=== PATIENT | male | born 1930 | race Asian ===

== ENCOUNTER 2017-01-21 17:54 | Inpatient (IN) | payer MEDICARE, BC ==
[~2017-01-21] VITALS: Ht 170.2 cm; Wt 64.8 kg
[2017-01-21] MEDS ORDERED: PROPOFOL 100 ML ONE (18:08)
[2017-01-21] MEDS ORDERED: SOD CHLORIDE 0.9% 500 ML IV STA (18:10)
[2017-01-21 18:16] LABS: ADD SCAN DIFF NO
[2017-01-21] MEDS ORDERED: ATOR20TA38 PO (18:17)
[2017-01-21] MEDS ORDERED: LATA2.5D2 BOTH EYES (18:18)
[2017-01-21] MEDS ORDERED: LACHYD12 TOP (18:18)
[2017-01-21 18:23] LABS: BASOPHILS % 0.3 % (0.0-2.0); EOSINOPHILS % 0.5 % (0.0-7.0); HEMATOCRIT 43.2 % (42.0-52.0); HEMOGLOBIN 13.9 g/dl (14.0-18.0); LYMPHOCYTES # 1.9 10^3/ul (0.8-2.9); LYMPHOCYTES % 25.2 % (15.0-51.0); MEAN CORPUSCULAR HEMOGLOBIN 32.2 pg (29.0-33.0); MEAN CORPUSCULAR HGB CONC 32.2 g/dl (32.0-37.0); MEAN PLATELET VOLUME 9.8 fl (7.4-10.4); MONOCYTE # 0.4 10^3/ul (0.3-0.9); NEUTROPHIL # 5.2 10^3/ul (1.6-7.5); NEUTROPHILS % 68.7 % (39.0-77.0); PLATELET COUNT 180 10^3/UL (140-415); RED BLOOD COUNT 4.32 10^6/ul (4.70-6.10); WHITE BLOOD COUNT 7.5 10^3/ul (4.8-10.8)
[2017-01-21] MEDS ORDERED: PROPOFOL 100 ML IV ONE (18:30)
--- NOTE | 2017-01-21 18:30 | RADRPT ---
PROCEDURE: CT Brain without contrast. CLINICAL INDICATION: Neurologic deficit, code stroke. TECHNIQUE: A CT of the brain was performed utilizing axial sections from the skull base through th e vertex without contrast. Multiplanar re-formations were generated. Images were reviewed on a high- resolution PACS workstation. CTDIvol: 44.33 mGy. DLP: 720.23 mGy-cm. One or more of the following dose reduction techniques were used: - Automated exposure control. - Adjustment of the mA and/or kV according to patient size. - Use of iterative reconstruction technique. COMPARISON: 05/03/2016 FINDINGS: There is moderate generalized volume loss. No hydrocephalus is seen. There is no mass effect. No ac [place] intracranial hemorrhage is identified. There is no extra-axial collection. No CT evidence of ac [place] infarction is identified. 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 There is patchy low attenuation in the supratentorial white matter, a nonspecific finding which most likel y represents the sequela of mild to moderate chronic microvascular ischemic disease. A punctate righ t occipital cortical hyperdensity is unchanged since the prior examination. There are mild atheroscl erotic arterial calcifications. There is no significant mucosal disease in the paranasal sinuses. The visualized mastoid air cells a re clear. The ossesous structures are unremarkable. The extracranial soft tissues are unremarkable. The patient is status post bilateral lens replacement surgery. IMPRESSION: 1. No acute intracranial pathology. 2. Moderate generalized volume loss. 3. Mild to moderate chronic microvascular ischemic changes. 4. 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 5. Stable punctate focus of cortical hyperdensity in the right occipital lobe, probably representin g a focus of mineralization. 6. Atherosclerotic arterial calcifications. Critical Results were called to Dr. Hurtado at 06:25 p.m. on 01/21/2017. RPTAT: HTAR .Sunil Wolff MD, Date Time Electronically viewed and signed by .Sunil Wolff MD, MD on 01/21/2017 18:29 .R/
[2017-01-21 18:32] LABS: ALBUMIN 4.8 g/dl (3.3-4.9); INR 0.93; PROTIME 12.5 Sec (12.2-14.2)
[2017-01-21 18:33] LABS: CHLORIDE 101 mmol/L (97-110); PARTIAL THROMBOPLASTIN TIME 30.6 Sec (25.0-35.0); POTASSIUM 4.6 mmol/L (3.5-5.1); SODIUM 143 mmol/L (135-144)
[2017-01-21 18:35] LABS: ALBUMIN/GLOBULIN RATIO 1.33; ANION GAP 19 (8-16); ASPARTATE AMINO TRANSFERASE 31 IU/L (15-46); CARBON DIOXIDE 28 mmol/L (21-31); CREATININE 1.15 mg/dl (0.61-1.24); TOTAL PROTEIN 8.4 g/dl (6.1-8.1)
[2017-01-21 18:36] LABS: ALANINE AMINOTRANSFERASE 24 IU/L (13-69); ALKALINE PHOSPHATASE 72 IU/L (42-121); BLOOD UREA NITROGEN 19 mg/dl (7-20); CALCIUM 9.7 mg/dl (8.4-10.2); GLUCOSE 107 mg/dl (70-220)
[2017-01-21 18:50] LABS: TROPONIN-I < 0.012 ng/ml (0.00-0.12)
[2017-01-21] MEDS ORDERED: LEVETIRACETAM 1000 MG (PMX) 100 ML IVPB ONE (19:00)
[2017-01-21] MEDS ORDERED: IOHEXOL 100 ML ONE (19:09)
[2017-01-21] MEDS ORDERED: SOD CHLORIDE 0.9% 100 ML ONE (19:09)
[2017-01-21] MEDS ORDERED: METO50TA16 PO (19:17)
[2017-01-21] MEDS ORDERED: LABETALOL HCL 20MG INJ IV ONE (19:30)
--- NOTE | 2017-01-21 20:17 | RADRPT ---
PROCEDURE: XR Chest. CLINICAL INDICATION: Focal neurological deficit. TECHNIQUE: Single frontal chest x-ray. COMPARISON: None. FINDINGS: Patient is status post sternotomy. Endotracheal tube tip is at the level of the clavicles. NG tube tip is in the distal esophagus. Heart is enlarged.. There is no CHF.. There is minimal bibasilar atelectasis.. There is no pleural effusion. There is no pneumothorax. The osseous structures are unremarkable. IMPRESSION: Endotracheal tube tip above kelsey. NG tube tip in the distal esophagus. Cardiomegaly. Bibasilar atelectasis. Findings reported to Dr. WELSH on 01/21/2017 8:14:00 PM. RPTAT: HMVK .Mynor Palm MD, Date Time Electronically viewed and signed by .Mynor Palm MD, on 01/21/2017 20:17 .K/
[2017-01-21 20:32] LABS: AADO2 Arterial 178.1 mmHg (7.0-24.0); Allen Test ACCEPTAB; Arterial Base Excess -0.9 mmol/L (-3.0-3); Arterial COHb 0.3 % (0.0-3.0); Arterial Fraction of Oxyhgb 98.8 % (93.0-99.0); Arterial HCO3 20.8 mmol/L (22.0-26.0); Arterial MetHb 0.5 % (0.0-1.5); Arterial Total Hemglobin 16.9 g/dl (12.0-18.0); MODE VENT - AC
--- NOTE | 2017-01-21 20:32 | RADRPT ---
PROCEDURE: CT Angiogram Head and Neck with IV Contrast CLINICAL INDICATION: Neurological deficit.. TECHNIQUE: Serial axial computed tomographic images of the head and neck were obtained at the [facility] nistration of 90 cc Isovue 370 IV contrast material. 3D, sagittal and coronal reconstruction images were created. 3D/MIP post-processing angiographic reconstruction images were also produced. Exam C TDlvol = 76 mGy and DLP = 622 mGy-cm. One of the following 3 dose reduction techniques were used: A utomated exposure control; adjustment of the mA and/or kV according to patient size; or use of itera tive reconstruction technique. COMPARISON: CT brain 01/21/2017. FINDINGS: CT Angio Neck: There are mild atherosclerotic calcifications of the aortic arch. There is minima l atherosclerotic plaque in the bilateral common carotid arteries. There is moderate bilateral schwartz tid bulb plaque without hemodynamically significant stenosis. There is no evidence for carotid diss ection. The vertebral arteries are unremarkable. there are degenerative changes of the cervical sp ine, greatest at C5-6. Prevertebral soft tissues are obscured by a nasogastric femoral tracheal tub e. CT Angio Head: All major intracranial arteries are identified. Mild atherosclerotic calcifications of the cavernous internal carotid arteries bilaterally without hemodynamically significant stenosis . The anterior circulation including the intracranial internal carotid arteries, middle and anterio r cerebral arteries are otherwise normal in appearance. The bilateral distal vertebral arteries, ba silar artery and posterior cerebral arteries are normal in appearance. No occlusion or stenosis is identified. No filling defect is identified. No aneurysm or vascular malformation is identified. No abnormal brain parenchymal enhancement is identified. IMPRESSION: 1. No intracranial occlusion or thrombus identified. 2. Moderate atherosclerotic calcified plaquing bilateral carotid bulbs without hemodynamically sign ificant stenosis. 3. Mild atherosclerotic calcifications of the bilateral common carotid arteries and cavernous inter nal carotid arteries without hemodynamically significant stenosis. 4. Degenerative changes of the cervical spine. Findings reported to Nurse Gilmore on 01/21/2017 8:29:24 PM. NASCET CAROTID STENOSIS CRITERIA (distal normal appearing ICA as denominator for measurement): 0%-no ne, 1-49%-mild, 50-70%-moderate, 70-89%-severe, 90-99%-critical. RPTAT: HMVK .Mynor Palm MD, MD Date Time Electronically viewed and signed by .Mynor Palm MD, MD on 01/21/2017 20:32 .K/
[2017-01-21 23:36] LABS: URINE BLOOD (Dip) POC 2+ (NEGATIVE)
--- NOTE | 2017-01-21 23:46 | ERA ---
ER Documentation Chief Complaint Date/Time DATE: 01/21/17 TIME: 22:51 Chief Complaint BIB RA FOR EVAL OF ALOC LAST WELL KNOWN TIME 40MINS [employer] HPI 86-year-old male with a history of CABG brought in by ambulance for altered mental status and possible stroke. Patient was found by his caregiver having seizure-like activity. Reportedly he was very weak today and somewhat confused. He was having difficulty walking. He went to take a nap. His caregiver found him around 430 or 5:00 twitching and having difficulty speaking. Ambulance was called. He did not give any medications in the ambulance. He was noted to be hypertensive. There is no family at bedside and information is otherwise limited given the patient's altered mental status. Patient is actively seizing ROS All systems reviewed and are negative except as per history of present illness. Medications Home Meds Reported Medications Metoprolol Succinate* (Toprol XL*) 50 Mg Tab.er.24h, 50 MG PO DAILY, #30 TAB 01/21/17 Ammonium Lactate* (Lac-Hydrin* 12% (225gm)) 1 Applic Lotion, 1 APPLIC TOP DAILY , BOTTLE 01/21/17 Latanoprost (Latanoprost) 2.5 Ml Drops, 1 DROP BOTH EYES QHS, #1 BOTTLE 01/21/17 Atorvastatin Calcium* (Atorvastatin Calcium*) 20 Mg Tablet, 20 MG PO QHS, #30 TAB 01/21/17 Allergies Allergies: Coded Allergies: No Known Allergy (Unverified , 01/21/17) PMhx/Soc Unable to obtain Medical and Surgical Hx: Unable to obtain Hx Alcohol Use: No Hx Substance Use: No Hx Tobacco Use: No Smoking Status: Unknown if ever smoked FmHx Family History: other (Unable to obtain) Physical Exam Vitals Vital Signs Date Time Temp Pulse Resp B/P Pulse Ox O2 Delivery O2 Flow Rate FiO2 01/21/17 22:45 69 12 100 40 01/21/17 21:05 91 12 100 40 01/21/17 20:30 98.0 90 14 189/114 100 Mechanical Ventilator 01/21/17 20:15 98.0 91 14 163/110 100 Mechanical Ventilator 01/21/17 20:00 98.0 14 227/113 100 Mechanical Ventilator 01/21/17 19:30 98.1 90 14 185/89 100 Mechanical Ventilator 01/21/17 19:15 98.1 94 14 195/102 100 Mechanical Ventilator 01/21/17 19:00 91 14 100 100 01/21/17 19:00 98.0 93 14 218/100 100 Mechanical Ventilator 01/21/17 18:45 98.1 91 16 212/98 100 Mechanical Ventilator 01/21/17 18:37 102 14 100 01/21/17 18:30 98.0 93 14 222/94 98 Mechanical Ventilator 01/21/17 18:14 Non Rebreather 10 01/21/17 18:06 98.0 104 12 216/99 98 Physical Exam INITIAL VITAL SIGNS: Reviewed by me GENERAL: Patient is lying on gurney, left side twitching, unable to answer questions, eyes open HEAD: Head is normocephalic. No evidence of trauma. No scalp or facial swelling , facial twitching, EYES: No scleral icterus bilaterally, left sided gaze, PERRLA ENT: Oropharynx is clear of exudate and erythema NECK: Supple. No meningismus. No masses. No evidence of trauma. No cervical spine bony step-offs or crepitus to palpation RESPIRATORY: No tachypnea. Clear to auscultation bilaterally. CV: Regular rate and rhythm. No murmurs, rubs, or gallops ABDOMEN: Soft, non-distended. No masses BACK: No ecchymoses. No evidence of trauma EXTREMITIES: Normal to inspection and palpation. No deformity. 2+ radial, DP, PT pulses, equal bilaterally SKIN: Warm and dry. No obvious rash. No jaundice NEUROLOGIC: Actively seizing with seizure-like activity in the left upper extremity and left lower extremity Result Diagram: 01/21/170 01/21/17 181 Results 24 hrs Laboratory Tests Test 01/21/17 18:10 01/21/17 19:00 01/21/17 20:20 White Blood Count 7.510^3/ul Red Blood Count 4.3210^6/ul Hemoglobin 13.9g/dl Hematocrit 43.2% Mean Corpuscular Volume 100.0fl Mean Corpuscular Hemoglobin 32.2pg Mean Corpuscular Hemoglobin Concent 32.2g/dl Red Cell Distribution Width 15.0% Platelet Count 84892^3/UL Mean Platelet Volume 9.8fl Neutrophils % 68.7% Lymphocytes % 25.2% Monocytes % 5.0% Eosinophils % 0.5% Basophils % 0.3% Nucleated Red Blood Cells % 0.0/100WBC Neutrophils # 5.210^3/ul Lymphocytes # 1.910^3/ul Monocytes # 0.410^3/ul Eosinophils # 0.010^3/ul Basophils # 0.010^3/ul Nucleated Red Blood Cells # 0.010^3/ul Prothrombin Time 12.5Sec Prothrombin Time Ratio 1.0 INR International Normalized Ratio 0.93 Activated Partial Thromboplast Time 30.6Sec Sodium Level 143mmol/L Potassium Level 4.6mmol/L Chloride Level 101mmol/L Carbon Dioxide Level 28mmol/L Anion Gap 19 Blood Urea Nitrogen 19mg/dl Creatinine 1.15mg/dl Glucose Level 107mg/dl Hemoglobin A1c 6.6% Lactic Acid Level 6.5mmol/L 2.4mmol/L Calcium Level 9.7mg/dl Total Bilirubin 1.0mg/dl Direct Bilirubin 0.00mg/dl Indirect Bilirubin 1.0mg/dl Aspartate Amino Transf (AST/SGOT) 31IU/L Alanine Aminotransferase (ALT/SGPT) 24IU/L Alkaline Phosphatase 72IU/L Troponin I < 0.012ng/ml Total Protein 8.4g/dl Albumin 4.8g/dl Globulin 3.60g/dl Albumin/Globulin Ratio 1.33 Blood Gas Specimen Source Blood arterial Arterial Blood Date Drawn 01/21/2017 8:20:28 PM Arterial Blood pH (Temp corrected) 7.491 Arterial Blood pCO2 (Temp correct) 27.8mmhg Arterial Blood pO2 (Temp corrected) 507.1mmHG Arterial Blood HCO3 20.8mmol/L Arterial Blood Base Excess -0.9mmol/L Arterial Blood Oxygen Saturation 99.6mmHG Sharif Test ACCEPTAB Arterial Blood Gas Puncture Site Right Radial Arterial Blood Carboxyhemoglobin 0.3% Arterial Blood Methemoglobin 0.5% Blood Gas A-a O2 Differential 178.1mmHg Oxyhemoglobin Percent 98.8% Total Hemoglobin 16.9g/dl Blood Gas Temperature 37.0C Blood Gas Respiration Rate 14.0 Blood Gas Actual Respiration Rate 14 Blood Gas Modality VENT - AC FiO2 100.0% Blood Gas Tidal Volume 500.0mL Blood Gas Low PEEP Setting 5.0cmH2O Blood Gas Inspiratory Pressure 23.0 Blood Gas Notified Whom AA Blood Gas Notified Time 01/21/2017 8:32:03 PM Current Medications Medications (Trade) Dose Ordered Sig/Laura Route PRN Reason Start Time Stop Time Status Last Admin Dose Admin Sodium Chloride 500 ml @ 500 mls/hr Q1H STAT IV 01/21/17 18:10 01/21/17 19:09 DC 01/21/17 18:41 Propofol 100 ml @ 0 mls/hr TITRATE ONCE IV 01/21/17 18:30 01/21/17 18:31 DC 01/21/17 18:41 Levetiracetam (Keppra 1,000mg/ 100ml (Pmx)) 100 ml @ 400 mls/hr ONCE ONCE IVPB 01/21/17 19:00 01/21/17 19:14 DC 01/21/17 19:52 Labetalol HCl (Labetalol) 10 mg ONCE ONCE IV 01/21/17 19:30 01/21/17 19:31 DC 01/21/17 19:13 IV Flush 10 ml 10 ml STK-MED ONCE .ROUTE 01/21/17 19:08 01/21/17 19:09 DC Sodium Chloride 100 ml @ ud STK-MED ONCE .ROUTE 01/21/17 19:09 01/21/17 19:10 DC Iohexol 100 ml @ ud STK-MED ONCE .ROUTE 01/21/17 19:09 01/21/17 19:10 DC Nicardipine HCl (Cardene Iv) 200 ml @ 50 mls/hr TITRATE IV 01/21/17 21:00 Procedures/MDM EMERGENT LABS AND DIAGNOSTIC STUDIES: Lab Results above were reviewed and interpreted by me. CBC and BMP unremarkable other than elevated anion gap Lactate elevated Troponin within normal limits 12-lead EKG was interpreted by Ulises Hurtado MD: Sinus rhythm with first-degree AV block at 100 bpm Normal axis Minimal lateral ST depressions No acute ST or T wave changes suggestive of acute ischemia or STEMI. Radiology Results as interpreted by Radiology below were reviewed by STi Hurtado MD: Chest x-ray: Patient is status post sternotomy. Endotracheal tube tip is at the level of the clavicles. NG tube tip is in the distal esophagus. Heart is enlarged.. There is no CHF.. There is minimal bibasilar atelectasis.. There is no pleural effusion. There is no pneumothorax. The osseous structures are unremarkable. CT head: No acute abnormalities CT angiogram brain: No intracranial vessel occlusion or thrombus Initial Nursing notes reviewed. Previous Medical Records requested via the Electronic Health Record. EMERGENCY DEPARTMENT COURSE / MEDICAL DECISION MAKING: Endotracheal Intubation by me: Pre assessment performed. See preceding note for details. Pre-oxygenation performed with 100% oxygen RSI: Performed w/o complication or hypoxic events. Medications as ordered. Blade: Mac 4 ET Tube: 7.5 cm Depth: 24 cm at the lip Intubation confirmed by colorimetric CO2, equal breath sounds, quiet over the stomach. Chest X-ray 1V Interpreted by me: 6 cm above the kelsey ET tube. Normal soft tissue, No pneumothorax. Patient presented with active seizure-like activity. He was not protecting his airway. He was immediately intubated for airway protection. 2 mg of Ativan were given prior to intubation with continued seizure activity. He was intubated with propofol and rocuronium and premedicated with lidocaine. He was noted to be very hypertensive. Initially the blood pressure was not treated given the concern for ischemic stroke. CT head did not show any evidence of hemorrhage or ischemia and CTA of the brain did not show any large vessel occlusion. Labetalol 10 mg IV was given for blood pressure control, with only mild improvement. The patient was started on nicardipine drip as I suspected his seizures were likely secondary to hypertensive encephalopathy. I have a lower suspicion for acute coronary syndrome, meningitis, encephalitis, other serious bacterial infection. I spoke with the tele-neurologist on-call, who agreed with my assessment and plan. Patient is not a TPA candidate. Critical Care Time: 40 minutes Treatments/Evaluations: Close monitoring and treatment of unstable vital signs, cardiorespiratory, and neurologic status, while maintaining tight balance of fluid, respiratory, and cardiac interventions. This time includes discussing the case with the patient and the patients family. This time does not include all procedures stated elsewhere in this record. This time also includes reviewing old records, labs and radiological studies. This time includes examining and re-examining the patient. Additionally, this time also includes arranging care with admitting and consulting physicians. Accepting Care Team: Current data and ongoing care discussed. Time: Time of admission Primary Provider: Shaheen Consulting: Teleneurologist Outstanding Data: Urinalysis Departure Diagnosis: Primary Impression: Hypertensive encephalopathy Additional Impressions: Lactic acidosis Hypertensive emergency Condition: Serious (ERASED) FEMI HURTADO MD Jan 21, 2017 23:01
[2017-01-22] MEDS ORDERED: GLUCOSE GEL 15 GRAM TUBE PO PRN ×2 (00:30)
[2017-01-22] MEDS ORDERED: GLUCAGON 1 MG INJ IM PRN (00:30)
[2017-01-22] MEDS ORDERED: DEXTROSE 50% 50 ML SYRINGE IV PRN ×2 (00:30)
[2017-01-22] MEDS ORDERED: GLUCOSE GEL 15 GRAM TUBE BUCCAL PRN (00:30)
[2017-01-22 00:43] LABS: ADD UMIC YES; URINE BILIRUBIN (Dip) NEGATIVE (NEGATIVE); URINE BLOOD (Dip) 3+ (NEGATIVE); URINE COLOR LT. YELLOW (YELLOW); URINE KETONES (Dip) 15 (NEGATIVE); URINE LEUKOCYTE ESTERASE (Dip) NEGATIVE (NEGATIVE); URINE NITRITE (Dip) NEGATIVE (NEGATIVE); URINE TOTAL PROTEIN (Dip) 4+ (NEGATIVE); URINE UROBILINOGEN (Dip) 0.2 E.U./dL (0.1-1.0)
[2017-01-22] MEDS: niCARdipine-D5W 0.1MG/ML DRIP 200 ML IV SCH (01:00)
[2017-01-22 01:06] LABS: URINE RBCS >50 /HPF (0)
[2017-01-22 01:15] LABS: BARBITURATES Negative (NEGATIVE); BENZODIAZEPINES Negative (NEGATIVE)
[2017-01-22 01:23] LABS: CANNABINOIDS Negative (NEGATIVE); COCAINE Negative (NEGATIVE)
[2017-01-22 01:36] LABS: OPIATES Negative (NEGATIVE)
[2017-01-22] MEDS: INSULIN ASPART [NOVOLOG] 3 ML PEN SC SCH ×6 (02:02→21:00)
[2017-01-22 05:59] LABS: ADD SCAN DIFF NO
[2017-01-22] MEDS: PANTOPRAZOLE 40 MG INJ IV SCH (07:57)
[2017-01-22 08:20] LABS: ABNORMAL IP MESSAGE 1; BASOPHILS % 0.1 % (0.0-2.0); HEMATOCRIT 39.2 % (42.0-52.0); HEMOGLOBIN 13.5 g/dl (14.0-18.0); LYMPHOCYTES # 0.6 10^3/ul (0.8-2.9); LYMPHOCYTES % 6.4 % (15.0-51.0); MEAN CORPUSCULAR HEMOGLOBIN 32.9 pg (29.0-33.0); MEAN CORPUSCULAR HGB CONC 34.4 g/dl (32.0-37.0); MEAN CORPUSCULAR VOLUME 95.6 fl (82.0-101.0); MEAN PLATELET VOLUME 9.6 fl (7.4-10.4); MONOCYTE # 0.7 10^3/ul (0.3-0.9); MONOCYTES % 7.8 % (0.0-11.0); NEUTROPHIL # 7.7 10^3/ul (1.6-7.5); NEUTROPHILS % 85.3 % (39.0-77.0); PLATELET COUNT 160 10^3/UL (140-415); RED CELL DISTRIBUTION WIDTH 15.2 % (11.5-14.5); WHITE BLOOD COUNT 9.1 10^3/ul (4.8-10.8)
[2017-01-22 08:39] LABS: ALBUMIN 3.9 g/dl (3.3-4.9); ALBUMIN/GLOBULIN RATIO 1.14; BILIRUBIN,INDIRECT 1.2 mg/dl (0-1.1); BILIRUBIN,TOTAL 1.2 mg/dl (0.2-1.3); CALCIUM 8.8 mg/dl (8.4-10.2); CREATININE 1.05 mg/dl (0.61-1.24); TOTAL PROTEIN 7.3 g/dl (6.1-8.1)
[2017-01-22] MEDS: ARTIFICIAL TEARS 15 ML OPH BOTH EYES SCH ×3 (09:00→21:22)
[2017-01-22 09:10] LABS: THYROID STIMULATING HORMONE 0.929 MIU/L (0.465-4.680)
[2017-01-22] MEDS ORDERED: PROPOFOL 100 ML ONE (16:17)
--- NOTE | 2017-01-22 16:25 | HP ---
Date/Time of Note Date/Time of Note DATE: 01/22/17 TIME: 15:54 Assessment/Plan VTE Prophylaxis VTE Prophylaxis Intervention: other Lines/Catheters Urinary Cath still in place: Yes Reason Cath still needed: other (indicate) (intubated) Assessment/Plan Problems: (1) Hypertensive encephalopathy Status: Acute Comment: SLOWLY DECREASE BLOOD PRESSURE. INITIAL TARGET APPROXIMATELY 180mmHG SYSTOLIC. PATIENT WILL BE ON NITROPRUSSIDE DRIP FOR BP MANAGEMENT AND REMAIN INTUBATED FOR AIRWAY PROTECTION. SLOWLY WEAN OFF BOTH DRIP AND VENT WHEN CLINICALLY MORE STABLE. (2) Seizure Status: Acute Comment: PROBABLE MANIFESTATION OF HYPERTENSIVE ENCEPHALOPATHY Assessment/Plan ADMIT TO ICU HPI/ROS Admit Date/Time Admit Date/Time 01/22/2017 23:36 Hx of Present Illness 86-year-old male with a history of CABG brought in by ambulance for altered mental status and possible stroke. Patient was found by his caregiver having seizure-like activity. Reportedly he was very weak today and somewhat confused. He was having difficulty walking. He went to take a nap. His caregiver found him around 430 or 5:00 twitching and having difficulty speaking. Ambulance was called. He was noted to be hypertensive, but was not given any medications in the ambulance. In the ED patient was noted to be having seizure like activity and intubated for airway protection. Tele neurology consult obtained,and once CT done and no evidence of stroke blood pressure control initiated and medication for seizure control also initiated ROS PATIENT INTUBATED AND SEDATED AND NO FAMILY AVAILABLE FOR QUESTIONING. INFORMATION OBTAINED VIA DR WELSH, JOSE ALFREDO DAMICO AND CHART Subjective hx not possible: pt non-verbal, pt critical PMH/Family/Social Past Medical History Medical History: coronary artery disease, high cholesterol, hypertension Past Surgical History Past Surgical Hx: coronary bypass surgery Social History UNKNOWN Smoking Status: Unknown if ever smoked Exam/Review of Systems Vital Signs Vitals Vital Signs Date Time Temp Pulse Resp B/P Pulse Ox O2 Delivery O2 Flow Rate FiO2 01/22/17 15:11 66 12 100 40 01/22/17 14:45 97.6 142/75 Room Air Mechanical Ventilator 01/21/17 18:14 10 Intake and Output 01/21/17 01/21/17 01/22/17 15:00 23:00 07:00 Output Total 1000 ml Balance -1000 ml Exam Constitutional: non-verbal Eyes: fundi, disc (NOT SEEN PUPILS PINPOINT) ENMT: intubated (ENDOTRACHEAL TUBE), other (NGT IN PLACE) Neck: bruits (NONE), jvd (NONE), thyromegaly (NONE) Respiratory: clear to auscultation, normal air movement Cardiovascular: murmurs/extra sounds (IV/ SM IN RIGHT 4th INTERCOSTAL SPACE NONRADIATING), other (THORACOTOMY SCAR), regular rate and rhythm Gastrointestinal: hepatomegaly (NONE), soft, splenomegaly (NONE) Genitourinary - Male: other (BOYLE) Musculoskeletal: nl extremities to inspection Extremities: clubbing (NONE), cyanosis (NONE), edema (NONE), normal pulses Neurological: other (SEDATED) Skin: nl turgor Additional Comments CT, CXR, AND LABS REVIEWED Labs Result Diagram: 01/22/17 0810 01/22/17 0810 Medications Medications Current Medications Nicardipine HCl (Cardene Iv) 200 ml @ 50 mls/hr TITRATE IV Last administered on 01/22/17 01:00; Admin Dose 50 MLS/HR; Start 01/21/17 at 21:00 Pantoprazole (Protonix Iv) 40 mg DAILY@06 IV Last administered on 01/22/17 07: 57; Admin Dose 40 MG; Start 01/22/17 at 06:00 Eye Lubricant (Artificial Tears Oph) 1 drop TID BOTH EYES Last administered on 01/22/17 13:24; Admin Dose 1 DROP; Start 01/22/17 at 09:00 Insulin Aspart (Novolog Insulin Pen) NOVOLOG *MILD* ALGORI... Q4 SC Last administered on 01/22/17 10:26; Admin Dose 1 UNIT; Start 01/22/17 at 01:00 Miscellaneous Information 1 ea NOTE XX ; Start 01/22/17 at 00:30 Glucose (Glutose) 15 gm Q15M PRN PO DECREASED GLUCOSE; Start 01/22/17 at 00:30 Glucose (Glutose) 22.5 gm Q15M PRN PO DECREASED GLUCOSE; Start 01/22/17 at 00: 30 Dextrose (D50w Syringe) 25 ml Q15M PRN IV DECREASED GLUCOSE; Start 01/22/17 at 00:30 Dextrose (D50w Syringe) 50 ml Q15M PRN IV DECREASED GLUCOSE; Start 01/22/17 at 00:30 Glucagon (Glucagen) 1 mg Q15M PRN IM DECREASED GLUCOSE; Start 01/22/17 at 00:30 Glucose (Glutose) 15 gm Q15M PRN BUCCAL DECREASED GLUCOSE; Start 01/22/17 at 00 :30 KELLY CANTU MD Jan 22, 2017 16:05
[2017-01-22] MEDS ORDERED: SOD CHLORIDE 0.45% 1,000 ML IV SCH (22:00)
[2017-01-23] VITALS (56 sets, daily range): BP systolic 84–188; BP diastolic 59–99; PULSE 59–102; RESP 12–16; TEMP 98.4; Ht 170.2 cm; Wt 64.8 kg
[2017-01-23] MEDS ORDERED: PROPOFOL 100 ML IV ONE ×2 (01:00→04:30)
[2017-01-23 05:45] LABS: AADO2 Arterial 63.3 mmHg (7.0-24.0); Allen Test ACCEPTAB; Arterial Base Excess -0.8 mmol/L (-3.0-3); Arterial COHb 0.3 % (0.0-3.0); Arterial Fraction of Oxyhgb 98.2 % (93.0-99.0); Arterial HCO3 22.5 mmol/L (22.0-26.0); Arterial MetHb 0.4 % (0.0-1.5); Arterial Total Hemglobin 14.1 g/dl (12.0-18.0); MODE VENT - AC
[2017-01-23 05:47] LABS: ADD SCAN DIFF NO
[2017-01-23 05:51] LABS: BASOPHILS % 0.2 % (0.0-2.0); EOSINOPHILS % 0.5 % (0.0-7.0); HEMOGLOBIN 13.8 g/dl (14.0-18.0); LYMPHOCYTES # 0.7 10^3/ul (0.8-2.9); MEAN CORPUSCULAR HEMOGLOBIN 31.6 pg (29.0-33.0); MEAN CORPUSCULAR HGB CONC 32.1 g/dl (32.0-37.0); MEAN CORPUSCULAR VOLUME 98.4 fl (82.0-101.0); MEAN PLATELET VOLUME 10.2 fl (7.4-10.4); MONOCYTE # 0.6 10^3/ul (0.3-0.9); MONOCYTES % 6.8 % (0.0-11.0); NEUTROPHIL # 6.7 10^3/ul (1.6-7.5); PLATELET COUNT 133 10^3/UL (140-415); RED BLOOD COUNT 4.37 10^6/ul (4.70-6.10); RED CELL DISTRIBUTION WIDTH 15.7 % (11.5-14.5)
[2017-01-23 05:56] LABS: ALBUMIN 3.7 g/dl (3.3-4.9)
[2017-01-23 05:57] LABS: POTASSIUM 3.8 mmol/L (3.5-5.1)
[2017-01-23 05:59] LABS: ALBUMIN/GLOBULIN RATIO 1.05; BILIRUBIN,INDIRECT 1.3 mg/dl (0-1.1); BILIRUBIN,TOTAL 1.3 mg/dl (0.2-1.3); CREATININE 1.21 mg/dl (0.61-1.24); TOTAL PROTEIN 7.2 g/dl (6.1-8.1)
[2017-01-23] MEDS: PANTOPRAZOLE 40 MG INJ IV SCH (06:53)
[2017-01-23] MEDS ORDERED: niCARdipine-D5W 0.1MG/ML DRIP 200 ML IV STA (07:56)
[2017-01-23] MEDS: ARTIFICIAL TEARS 15 ML OPH BOTH EYES SCH ×3 (10:20→22:02)
--- NOTE | 2017-01-23 10:56 | RADRPT ---
PROCEDURE: XR Chest 1 View. CLINICAL INDICATION: Abnormal breath sounds, hypertensive encephalopathy. TECHNIQUE: AP view of the chest was obtained. COMPARISON: January 21, 2017 FINDINGS: The heart size is within normal limits. Calcified atherosclerosis is noted in the aorta. Mediastern otomy wires and surgical clips overlie the heart. Nasogastric tube has its distal end in the expect ed location of the stomach. Endotracheal tube has its tip approximately 0.5 cm above the kelsey. T he lungs are hyperexpanded. Right paratracheal density is seen. No consolidations are identified. No pneumothorax is seen. Osseous structures are intact. IMPRESSION: Calcified atherosclerosis in the aorta. Nasogastric tube with its distal end in the expected location of the stomach. Hyperexpanded lungs. Right paratracheal density that could reflect prominent vasculature. Mediastinal adenopathy or mass is not excluded. Further characterization with CT chest can be considered. RPTAT: AA .Scott Bello MD, Date Time Electronically viewed and signed by .Scott Bello MD, MD on 01/23/2017 10:55 .P/
[2017-01-23] MEDS: niCARdipine-D5W 0.1MG/ML DRIP 200 ML IV SCH (11:08)
--- NOTE | 2017-01-23 14:58 | CONS ---
Date/Time of Note Date/Time of Note DATE: 01/23/17 TIME: 14:51 Assessment/Plan Assessment/Plan Additional Assessment/Plan Altered mental status Hypertension urgency/emergency Seizure CAD with history of CABG Respiratory failure -CT head without evidence of CVA. Blood pressure trend has progressively been improving. Would start p.o. antihypertensive medications and titrate down IV nicardipine. Check echocardiogram, serial cardiac enzymes. Aspirin and statin therapy if no contraindication. Consultation Date/Type/Reason Admit Date/Time 01/22/2017 23:36 Type of Consultation: cv Reason for Consultation Hypertension Hx of Present Illness This is an 86-year-old male with past medical history of coronary artery disease status post CABG, hypertension, dementia who was found to be hypertensive, altered mental status and seizure. Patient brought to the emergency room actively seizing. Patient also was hypertensive. Patient was treated, and intubated likely for airway protection. Initial CVA workup demonstrated no evidence of CVA as per CT head. Patient transferred to ICU for further management and care. Patient is currently on nicardipine drip. Unable to be performed at the current time given patient's mental status Past Medical History Medical History: coronary artery disease, high cholesterol, hypertension Past Surgical History Past Surgical Hx: coronary bypass surgery Family History Significant Family History: no pertinent family hx Social History Smoking Status: Never smoker Exam/Review of Systems Vital Signs Vitals Vital Signs Date Time Temp Pulse Resp B/P Pulse Ox O2 Delivery O2 Flow Rate FiO2 01/23/17 12:00 92 01/23/17 11:35 15 100 40 01/23/17 10:19 97.7 181/81 Mechanical Ventilator 01/21/17 18:14 10 Intake and Output 01/22/17 01/22/17 01/23/17 15:00 23:00 07:00 Intake Total 0 ml Output Total 900 ml 225 ml Balance -900 ml -225 ml Exam Sedated and intubated, no apparent distress Head: normocephalic ENMT: intubated Respiratory: other (Coarse breath sounds bilaterally, no wheezing) Cardiovascular: other (S1-S2 heard), regular rate and rhythm, systolic murmur Gastrointestinal: bowel sounds, other (No grimacing with palpation), soft Extremities: edema Results Result Diagram: 01/23/17 0520 01/23/17 0520 Results 24 hrs Laboratory Tests Test 01/22/17 16:01 01/22/17 17:33 01/22/17 21:19 01/23/17 01:57 Bedside Glucose 118 120 125 128 Test 01/23/17 05:20 01/23/17 06:00 01/23/17 08:29 White Blood Count 8.0 Red Blood Count 4.37 L Hemoglobin 13.8 L Hematocrit 43.0 Mean Corpuscular Volume 98.4 Mean Corpuscular Hemoglobin 31.6 Mean Corpuscular Hemoglobin Concent 32.1 Red Cell Distribution Width 15.7 H Platelet Count 133 L Mean Platelet Volume 10.2 Neutrophils % 83.0 H Lymphocytes % 9.0 L Monocytes % 6.8 Eosinophils % 0.5 Basophils % 0.2 Nucleated Red Blood Cells % 0.0 Neutrophils # 6.7 Lymphocytes # 0.7 L Monocytes # 0.6 Eosinophils # 0.0 Basophils # 0.0 Nucleated Red Blood Cells # 0.0 Sodium Level 140 Potassium Level 3.8 Chloride Level 107 Carbon Dioxide Level 23 Anion Gap 14 Blood Urea Nitrogen 21 H Creatinine 1.21 Glucose Level 131 Calcium Level 9.0 Total Bilirubin 1.3 Direct Bilirubin 0.00 Indirect Bilirubin 1.3 H Aspartate Amino Transf (AST/SGOT) 36 Alanine Aminotransferase (ALT/SGPT) 23 Alkaline Phosphatase 50 Total Protein 7.2 Albumin 3.7 Globulin 3.50 H Albumin/Globulin Ratio 1.05 Blood Gas Specimen Source Blood arterial Arterial Blood Date Drawn 01/23/2017 5:33:05 AM Arterial Blood pH (Temp corrected) 7.448 Arterial Blood pCO2 (Temp correct) 33.3 L Arterial Blood pO2 (Temp corrected) 183.6 H Arterial Blood HCO3 22.5 Arterial Blood Base Excess -0.8 Arterial Blood Oxygen Saturation 98.9 Sharif Test ACCEPTAB Arterial Blood Gas Puncture Site Right Radial Arterial Blood Carboxyhemoglobin 0.3 Arterial Blood Methemoglobin 0.4 Blood Gas A-a O2 Differential 63.3 H Oxyhemoglobin Percent 98.2 Total Hemoglobin 14.1 Blood Gas Temperature 37.0 Blood Gas Respiration Rate 12.0 Blood Gas Actual Respiration Rate 12 Blood Gas Modality VENT - AC FiO2 40.0 Blood Gas Tidal Volume 500.0 Blood Gas Low PEEP Setting 5.0 Blood Gas Inspiratory Pressure 26.0 Blood Gas Notified Whom AA Blood Gas Notified Time 01/23/2017 5:45:18 AM Bedside Glucose 114 Medications Medications Current Medications Nicardipine HCl (Cardene Iv) 200 ml @ 50 mls/hr TITRATE IV Last administered on 01/23/17 11:08; Admin Dose 50 MLS/HR; Start 01/21/17 at 21:00 Pantoprazole (Protonix Iv) 40 mg DAILY@06 IV Last administered on 01/23/17 06: 53; Admin Dose 40 MG; Start 01/22/17 at 06:00 Eye Lubricant (Artificial Tears Oph) 1 drop TID BOTH EYES Last administered on 01/23/17 14:03; Admin Dose 1 DROP; Start 01/22/17 at 09:00 Miscellaneous Information 1 ea NOTE XX ; Start 01/22/17 at 00:30 Glucose (Glutose) 15 gm Q15M PRN PO DECREASED GLUCOSE; Start 01/22/17 at 00:30 Glucose (Glutose) 22.5 gm Q15M PRN PO DECREASED GLUCOSE; Start 01/22/17 at 00: 30 Dextrose (D50w Syringe) 25 ml Q15M PRN IV DECREASED GLUCOSE; Start 01/22/17 at 00:30 Dextrose (D50w Syringe) 50 ml Q15M PRN IV DECREASED GLUCOSE; Start 01/22/17 at 00:30 Glucagon (Glucagen) 1 mg Q15M PRN IM DECREASED GLUCOSE; Start 01/22/17 at 00:30 Glucose (Glutose) 15 gm Q15M PRN BUCCAL DECREASED GLUCOSE; Start 01/22/17 at 00 :30 Procedures Procedures ECG demonstrates sinus rhythm at 75 bpm, first-degree AV block with PA interval 234 ms, QRS 98 ms, nonspecific STT wave abnormalities Mynor Prince DO Jan 23, 2017 14:58
[2017-01-23] MEDS ORDERED: hydrALAzine 20 MG INJ IV PRN (15:00)
[2017-01-23] MEDS: PROPOFOL 100 ML IV SCH (15:48)
[2017-01-23] MEDS: ASPIRIN 81 MG TAB NGT SCH (15:48)
[2017-01-23 16:08] LABS: CK-MB 0.53 ng/ml (0.0-2.4)
[2017-01-23 16:09] LABS: TROPONIN-I 0.015 ng/ml (0.00-0.12)
--- NOTE | 2017-01-23 17:35 | PN ---
Date/Time of Note Date/Time of Note DATE: 01/23/17 TIME: 17:31 Assessment/Plan VTE Prophylaxis VTE Prophylaxis Intervention: SCD's Lines/Catheters IV Catheter Type (from Nrs): Peripheral IV Urinary Cath still in place: Yes Subjective 24 Hr Interval Summary Free Text/Dictation 86 yr old man of [place] descent who has a hx of cad and cabg, all remote and stable, diet controlled diabetes. he has had cognitve delay leading to dementia most recently. found down altered and seizing. to er, intubated, bp now coming down w iv meds bp now wnl, urine output ok as are the labs working dx malignant hbp w seizures, or the other way as base etiology is unclear. no mass or bleed on ct on exam intubated on propofol, not responsive Subjective hx not possible: pt non-verbal Exam/Review of Systems Vital Signs Vitals Vital Signs Date Time Temp Pulse Resp B/P Pulse Ox O2 Delivery O2 Flow Rate FiO2 01/23/17 17:05 99 13 100 40 01/23/17 16:15 133/78 Mechanical Ventilator 01/23/17 16:00 98.6 01/21/17 18:14 10 Intake and Output 01/22/17 01/22/17 01/23/17 15:00 23:00 07:00 Intake Total 0 ml Output Total 900 ml 225 ml Balance -900 ml -225 ml Results Result Diagram: 01/23/17 0520 01/23/17 0520 Results 24 hrs Laboratory Tests Test 01/22/17 17:33 01/22/17 21:19 01/23/17 01:57 01/23/17 05:20 Bedside Glucose 120 125 128 White Blood Count 8.0 Red Blood Count 4.37 L Hemoglobin 13.8 L Hematocrit 43.0 Mean Corpuscular Volume 98.4 Mean Corpuscular Hemoglobin 31.6 Mean Corpuscular Hemoglobin Concent 32.1 Red Cell Distribution Width 15.7 H Platelet Count 133 L Mean Platelet Volume 10.2 Neutrophils % 83.0 H Lymphocytes % 9.0 L Monocytes % 6.8 Eosinophils % 0.5 Basophils % 0.2 Nucleated Red Blood Cells % 0.0 Neutrophils # 6.7 Lymphocytes # 0.7 L Monocytes # 0.6 Eosinophils # 0.0 Basophils # 0.0 Nucleated Red Blood Cells # 0.0 Sodium Level 140 Potassium Level 3.8 Chloride Level 107 Carbon Dioxide Level 23 Anion Gap 14 Blood Urea Nitrogen 21 H Creatinine 1.21 Glucose Level 131 Calcium Level 9.0 Total Bilirubin 1.3 Direct Bilirubin 0.00 Indirect Bilirubin 1.3 H Aspartate Amino Transf (AST/SGOT) 36 Alanine Aminotransferase (ALT/SGPT) 23 Alkaline Phosphatase 50 Total Protein 7.2 Albumin 3.7 Globulin 3.50 H Albumin/Globulin Ratio 1.05 Test 01/23/17 06:00 01/23/17 08:29 01/23/17 15:35 Blood Gas Specimen Source Blood arterial Arterial Blood Date Drawn 01/23/2017 5:33:05 AM Arterial Blood pH (Temp corrected) 7.448 Arterial Blood pCO2 (Temp correct) 33.3 L Arterial Blood pO2 (Temp corrected) 183.6 H Arterial Blood HCO3 22.5 Arterial Blood Base Excess -0.8 Arterial Blood Oxygen Saturation 98.9 Sharif Test ACCEPTAB Arterial Blood Gas Puncture Site Right Radial Arterial Blood Carboxyhemoglobin 0.3 Arterial Blood Methemoglobin 0.4 Blood Gas A-a O2 Differential 63.3 H Oxyhemoglobin Percent 98.2 Total Hemoglobin 14.1 Blood Gas Temperature 37.0 Blood Gas Respiration Rate 12.0 Blood Gas Actual Respiration Rate 12 Blood Gas Modality VENT - AC FiO2 40.0 Blood Gas Tidal Volume 500.0 Blood Gas Low PEEP Setting 5.0 Blood Gas Inspiratory Pressure 26.0 Blood Gas Notified Whom AA Blood Gas Notified Time 01/23/2017 5:45:18 AM Bedside Glucose 114 Creatine Kinase 321 H Creatine Kinase Index 0.2 Creatinine Kinase MB (Mass) 0.53 Troponin I 0.015 Medications Medications Current Medications Nicardipine HCl (Cardene Iv) 200 ml @ 50 mls/hr TITRATE IV Last administered on 01/23/17 11:08; Admin Dose 50 MLS/HR; Start 01/21/17 at 21:00 Pantoprazole (Protonix Iv) 40 mg DAILY@06 IV Last administered on 01/23/17 06: 53; Admin Dose 40 MG; Start 01/22/17 at 06:00 Eye Lubricant (Artificial Tears Oph) 1 drop TID BOTH EYES Last administered on 01/23/17 14:03; Admin Dose 1 DROP; Start 01/22/17 at 09:00 Miscellaneous Information 1 ea NOTE XX ; Start 01/22/17 at 00:30 Glucose (Glutose) 15 gm Q15M PRN PO DECREASED GLUCOSE; Start 01/22/17 at 00:30 Glucose (Glutose) 22.5 gm Q15M PRN PO DECREASED GLUCOSE; Start 01/22/17 at 00: 30 Dextrose (D50w Syringe) 25 ml Q15M PRN IV DECREASED GLUCOSE; Start 01/22/17 at 00:30 Dextrose (D50w Syringe) 50 ml Q15M PRN IV DECREASED GLUCOSE; Start 01/22/17 at 00:30 Glucagon (Glucagen) 1 mg Q15M PRN IM DECREASED GLUCOSE; Start 01/22/17 at 00:30 Glucose (Glutose) 15 gm Q15M PRN BUCCAL DECREASED GLUCOSE; Start 01/22/17 at 00 :30 Carvedilol (Coreg) 6.25 mg BID NGT Last administered on 01/23/17 15:48; Admin Dose 6.25 MG; Start 01/23/17 at 15:00 Hydralazine HCl (Apresoline) 10 mg Q6H PRN IV sbp>170; Start 01/23/17 at 15:00 Aspirin (Aspirin) 81 mg DAILY NGT Last administered on 01/23/17 15:48; Admin Dose 81 MG; Start 01/23/17 at 15:00 Atorvastatin Calcium 80 mg 80 mg HS NGT ; Start 01/23/17 at 21:00 Propofol (Diprivan) 100 ml @ 1.944 mls/ hr Q12H IV Last administered on 15:48; Admin Dose 7.776 MLS/HR; Start 01/23/17 at 16:00 JAJA ORO MD Jan 23, 2017 17:35
--- NOTE | 2017-01-23 18:01 | CONS ---
DATE OF ADMISSION: 01/21/2017 DATE OF CONSULTATION: 01/23/2017 REASON FOR CONSULTATION: Ventilator management. Thank you, Dr. Jamison, for this consultation. HISTORY OF PRESENT ILLNESS: This is an 86-year-old gentleman with history of coronary artery diseas e, hypertension, hyperlipidemia, brought in by ambulance for altered mental status with possible sei zure-like activity. Patient was emergently intubated for airway protection. Since then has been on mechanical ventilation. Few further details are available. In addition, he was found to have hyper tensive urgency requiring initiation of IV blood pressure management with nicardipine. Initial CT a ngiogram was unremarkable. 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 PAST MEDICAL HISTORY: As above. MEDICATIONS: Per chart. ALLERGIES: NONE. SOCIAL HISTORY: Nonsmoker, no alcohol, no history of drug use. FAMILY HISTORY: Noncontributory. SYSTEMS REVIEW: A 12-point review of systems was negative other than that mentioned above. PHYSICAL EXAMINATION: GENERAL: Elderly-appearing gentleman, intubated on mechanical ventilation, appears comfortable at r est. HEENT: Pupils are sluggish but reactive. CARDIAC: S1, S2, no added sounds or murmurs. CHEST: Diminished air entry bilaterally. ABDOMEN: Soft, nontender. No guarding or rebound. EXTREMITIES: No cyanosis, clubbing, or edema. NEUROLOGIC: Generalized weakness. LABORATORY DATA: White count 8.0, hemoglobin 13.8, platelets 133, BUN 21, creatinine 1.21. ABG: pC O2 was 33, PaO2 was 183. ABG: pH 7.44, bicarbonate 22. INR 0.93. Chest x-ray essentially unremar kable other than mild hyperinflation. IMPRESSION AND PLAN: 1. Altered mental status, concerning for CVA not seen on initial CT scan. 2. Possible new onset seizure disorder. 3. Hypertensive urgency. The patient will require: 1. Continued mechanical ventilation. 2. Blood pressure management. Currently on nicardipine per cardiology. 3. Consider neurology consult. 4. Consider MRI of the brain. 5. DVT and GI prophylaxis. Dictated By: LEVI ROJO/LUH Conf#: [id number] DID#: [id number]
[2017-01-23] MEDS: ATORVASTATIN 80 MG TAB NGT SCH (22:02)
[2017-01-24] VITALS (34 sets, daily range): BP systolic 78–153; BP diastolic 48–92; PULSE 36–94; RESP 12–21
[2017-01-24] MEDS: PROPOFOL 100 ML IV SCH (03:32)
[2017-01-24 06:20] LABS: ADD SCAN DIFF NO
[2017-01-24] MEDS: PANTOPRAZOLE 40 MG INJ IV SCH (06:37)
[2017-01-24 06:55] LABS: CREATININE 1.32 mg/dl (0.61-1.24)
[2017-01-24 06:56] LABS: CALCIUM 9.2 mg/dl (8.4-10.2); MAGNESIUM 2.3 mg/dl (1.7-2.5); PHOSPHORUS 4.1 mg/dl (2.5-4.9)
[2017-01-24 08:07] LABS: AADO2 Arterial 41.5 mmHg (7.0-24.0); Allen Test ACCEPTAB; Arterial Base Excess -3.2 mmol/L (-3.0-3); Arterial COHb 0.4 % (0.0-3.0); Arterial Fraction of Oxyhgb 97.6 % (93.0-99.0); Arterial HCO3 20.4 mmol/L (22.0-26.0); Arterial MetHb 0.4 % (0.0-1.5); Arterial Total Hemglobin 14.6 g/dl (12.0-18.0); MODE VENT - AC
[2017-01-24] MEDS: ASPIRIN 81 MG TAB NGT SCH (08:11)
[2017-01-24] MEDS: ARTIFICIAL TEARS 15 ML OPH BOTH EYES SCH ×3 (08:12→20:13)
--- NOTE | 2017-01-24 08:25 | RADRPT ---
PROCEDURE: XR Chest. CLINICAL INDICATION: Pneumonia TECHNIQUE: A single AP view of the chest was obtained. COMPARISON: Chest x-ray dated 01/23/2017 FINDINGS: The endotracheal tube tip is approximately 2.9 cm above the kelsey. The tip of the enteric tube pr ojects over the left upper quadrant. There is a right subclavian central venous catheter, the tip is obscured by multiple overlying monitor leads. There are right basilar interstitial opacities. No pleural effusion or pneumothorax is seen. The c ardiomediastinal silhouette is within normal limits for size. Calcifications are seen within the aor tic arch. There are post cardiac surgery changes with sternotomy wires and numerous mediastinal clip s. The osseous structures demonstrate senescent changes. IMPRESSION: 1. Right basilar interstitial opacities, likely reflecting atelectasis. Overall, no significant in terval change. 2. Aortic atherosclerosis. 3. Tubes and lines, as described above. RPTAT: HH .Eunice Oscar MD, MD Date Time Electronically viewed and signed by .Eunice Oscar MD, on 01/24/2017 08:24 .G/
[2017-01-24] MEDS: DEXTROSE 5%-0.45% NACL 1,000 ML IV SCH ×2 (09:27→22:34)
[2017-01-24 10:40] LABS: AADO2 Arterial 51.8 mmHg (7.0-24.0); Allen Test ACCEPTAB; Arterial COHb 0.2 % (0.0-3.0); Arterial Fraction of Oxyhgb 97.5 % (93.0-99.0); Arterial MetHb 0.4 % (0.0-1.5); Arterial Total Hemglobin 13.9 g/dl (12.0-18.0); Blood Gas PS 10; MODE VENT - CPAP
[2017-01-24 11:09] LABS: BASOPHILS % 0.2 % (0.0-2.0); EOSINOPHILS % 0.3 % (0.0-7.0); HEMATOCRIT 43.2 % (42.0-52.0); HEMOGLOBIN 14.3 g/dl (14.0-18.0); LYMPHOCYTES # 0.8 10^3/ul (0.8-2.9); MEAN CORPUSCULAR HEMOGLOBIN 33.1 pg (29.0-33.0); MEAN CORPUSCULAR HGB CONC 33.1 g/dl (32.0-37.0); MEAN PLATELET VOLUME 10.7 fl (7.4-10.4); MONOCYTE # 0.7 10^3/ul (0.3-0.9); MONOCYTES % 7.5 % (0.0-11.0); NEUTROPHIL # 7.3 10^3/ul (1.6-7.5); NEUTROPHILS % 82.7 % (39.0-77.0); PLATELET COUNT 159 10^3/UL (140-415); RED BLOOD COUNT 4.32 10^6/ul (4.70-6.10); RED CELL DISTRIBUTION WIDTH 15.6 % (11.5-14.5); WHITE BLOOD COUNT 8.8 10^3/ul (4.8-10.8)
--- NOTE | 2017-01-24 11:29 | CONS ---
Date/Time of Note Date/Time of Note DATE: 01/24/17 TIME: 11:27 Consult Date/Type/Reason Admit Date/Time Jan 21, 2017 at 23:53 Initial Consult Date Type of Consultation: pulmonary ICU Subjective Patient remains intubated on mechanical ventilation, opens eyes follows simple commands. Remains hemodynamically stable. Minimal oral secretions. Objective Vital Signs Date Time Temp Pulse Resp B/P Pulse Ox O2 Delivery O2 Flow Rate FiO2 01/24/17 11:01 82 17 98 30 01/24/17 10:04 111/63 CPAP Mechanical Ventilator 01/24/17 07:52 98.8 01/21/17 18:14 10 Intake and Output 01/23/17 01/23/17 01/24/17 15:00 23:00 07:00 Intake Total 98.5 ml 37.874 ml 62.126 ml Output Total 946 ml 465 ml 240 ml Balance -847.5 ml -427.126 ml -177.874 ml Exam PHYSICAL EXAMINATION: GENERAL: Elderly-appearing gentleman, intubated on mechanical ventilation, appears comfortable at rest. HEENT: Pupils are sluggish but reactive. CARDIAC: S1, S2, no added sounds or murmurs. CHEST: Diminished air entry bilaterally. ABDOMEN: Soft, nontender. No guarding or rebound. EXTREMITIES: No cyanosis, clubbing, or edema. NEUROLOGIC: Generalized weakness. Results/Medications Result Diagram: 01/24/17 0539 01/24/17 0539 Results 24 hrs Laboratory Tests Test 01/23/17 15:35 01/24/17 05:39 01/24/17 07:00 01/24/17 11:00 Creatine Kinase 321 H Creatine Kinase Index 0.2 Creatinine Kinase MB (Mass) 0.53 Troponin I 0.015 White Blood Count 8.8 Red Blood Count 4.32 L Hemoglobin 14.3 Hematocrit 43.2 Mean Corpuscular Volume 100.0 Mean Corpuscular Hemoglobin 33.1 H Mean Corpuscular Hemoglobin Concent 33.1 Red Cell Distribution Width 15.6 H Platelet Count 159 Mean Platelet Volume 10.7 H Neutrophils % 82.7 H Lymphocytes % 9.0 L Monocytes % 7.5 Eosinophils % 0.3 Basophils % 0.2 Nucleated Red Blood Cells % 0.0 Neutrophils # 7.3 Lymphocytes # 0.8 Monocytes # 0.7 Eosinophils # 0.0 Basophils # 0.0 Nucleated Red Blood Cells # 0.0 Sodium Level 142 Potassium Level 4.0 Chloride Level 105 Carbon Dioxide Level 23 Anion Gap 18 H Blood Urea Nitrogen 26 H Creatinine 1.32 H Glucose Level 132 Calcium Level 9.2 Phosphorus Level 4.1 Magnesium Level 2.3 Blood Gas Specimen Source Blood arterial Blood arterial Arterial Blood Date Drawn 01/24/2017 7:08:33 AM 01/24/2017 10:31:00 AM Arterial Blood pH (Temp corrected) 7.414 7.394 Arterial Blood pCO2 (Temp correct) 32.6 L 33.5 L Arterial Blood pO2 (Temp corrected) 134.1 H 122.7 H Arterial Blood HCO3 20.4 L 20.0 L Arterial Blood Base Excess -3.2 L -4.0 L Arterial Blood Oxygen Saturation 98.4 98.1 Sharif Test ACCEPTAB ACCEPTAB Arterial Blood Gas Puncture Site Right Radial Left Radial Arterial Blood Carboxyhemoglobin 0.4 0.2 Arterial Blood Methemoglobin 0.4 0.4 Blood Gas A-a O2 Differential 41.5 H 51.8 H Oxyhemoglobin Percent 97.6 97.5 Total Hemoglobin 14.6 13.9 Blood Gas Temperature 37.0 37.0 Blood Gas Respiration Rate 12.0 Blood Gas Actual Respiration Rate 13 24 Blood Gas Modality VENT - AC VENT - CPAP FiO2 30.0 30.0 Blood Gas Tidal Volume 500.0 Blood Gas Low PEEP Setting 5.0 5.0 Blood Gas Notified Whom JLD AT Blood Gas Notified Time 01/24/2017 8:07:15 AM 01/24/2017 10:40:00 AM Blood Gas Pressure Support 10 Medications Current Medications Nicardipine HCl (Cardene Iv) 200 ml @ 50 mls/hr TITRATE IV Last administered on 01/23/17 11:08; Admin Dose 50 MLS/HR; Start 01/21/17 at 21:00 Pantoprazole (Protonix Iv) 40 mg DAILY@06 IV Last administered on 01/24/17 06: 37; Admin Dose 40 MG; Start 01/22/17 at 06:00 Eye Lubricant (Artificial Tears Oph) 1 drop TID BOTH EYES Last administered on 01/24/17 08:12; Admin Dose 1 DROP; Start 01/22/17 at 09:00 Miscellaneous Information 1 ea NOTE XX ; Start 01/22/17 at 00:30 Glucose (Glutose) 15 gm Q15M PRN PO DECREASED GLUCOSE; Start 01/22/17 at 00:30 Glucose (Glutose) 22.5 gm Q15M PRN PO DECREASED GLUCOSE; Start 01/22/17 at 00: 30 Dextrose (D50w Syringe) 25 ml Q15M PRN IV DECREASED GLUCOSE; Start 01/22/17 at 00:30 Dextrose (D50w Syringe) 50 ml Q15M PRN IV DECREASED GLUCOSE; Start 01/22/17 at 00:30 Glucagon (Glucagen) 1 mg Q15M PRN IM DECREASED GLUCOSE; Start 01/22/17 at 00:30 Glucose (Glutose) 15 gm Q15M PRN BUCCAL DECREASED GLUCOSE; Start 01/22/17 at 00 :30 Carvedilol (Coreg) 6.25 mg BID NGT Last administered on 01/24/17 08:12; Admin Dose 6.25 MG; Start 01/23/17 at 15:00 Hydralazine HCl (Apresoline) 10 mg Q6H PRN IV sbp>170; Start 01/23/17 at 15:00 Aspirin (Aspirin) 81 mg DAILY NGT Last administered on 01/24/17 08:11; Admin Dose 81 MG; Start 01/23/17 at 15:00 Atorvastatin Calcium 80 mg 80 mg HS NGT Last administered on 01/23/17 22:02; Admin Dose 80 MG; Start 01/23/17 at 21:00 Propofol 100 ml @ 1.944 mls/ hr Q12H IV Last administered on 01/24/17 03:32; Admin Dose 5.832 MLS/HR; Start 01/23/17 at 16:00 Dextrose/Sodium Chloride (D5-1/2ns) 1,000 ml @ 75 mls/hr [id number] IV Last administered on 01/24/17 09:27; Admin Dose 75 MLS/HR; Start 01/24/17 at 09:00 Assessment/Plan Chief Complaint/Hosp Course IMPRESSION 1. Altered mental status, concerning for CVA not seen on initial CT scan. 2. Possible new onset seizure disorder. 3. Hypertensive urgency. Plan 1. Continued mechanical ventilation. CPAP weaning trial this morning hopefully stable to extubate 2. Blood pressure management per cardiology 3. Consider neurology consult. 4. Consider MRI of the brain. 5. DVT and GI prophylaxis. 6. Speech therapy evaluation 7. PT eval Disposition Continue ICU care Discussed with family at bedside Critical care time 40 minutes. Problems: LEVI RIVERS MD, [facility] Jan 24, 2017 11:29
--- NOTE | 2017-01-24 13:24 | PN ---
Date/Time of Note Date/Time of Note DATE: 01/24/17 TIME: 13:19 Assessment/Plan VTE Prophylaxis VTE Prophylaxis Intervention: SCD's Lines/Catheters IV Catheter Type (from Nrsg): Peripheral IV Central line still needed: Yes Urinary Cath still in place: Yes Reason Cath still needed: urinary retention Assessment/Plan Problems: (1) Seizure Status: Resolved (2) Lactic acidosis Status: Resolved (3) Hypertensive emergency Status: Resolved Comment: Currently off IV meds to lower BP (4) Hypertensive encephalopathy Status: Acute Comment: Still encephalopathic although now s/p extubation. Obtain neuro consult and MRI. Reeval in am. Subjective 24 Hr Interval Summary Subjective hx not possible: pt non-verbal (immediately s/p extubation) Exam/Review of Systems Vital Signs Vitals VS - Last 72 Hours, by Label Date Time Temp Pulse Resp B/P Pulse Ox O2 Delivery O2 Flow Rate FiO2 01/24/17 13:00 71 18 133/64 100 Nasal Cannula 3.0 01/24/17 12:00 78 18 128/64 100 Nasal Cannula 3.0 01/24/17 12:00 77 01/24/17 12:00 Nasal Cannula 3.0 01/24/17 11:35 98 3.0 01/24/17 11:35 98 3.0 01/24/17 11:01 82 17 98 30 01/24/17 11:00 98.0 82 16 112/61 100 CPAP Mechanical Ventilator 01/24/17 10:04 17 111/63 96 CPAP Mechanical Ventilator 01/24/17 09:30 86 17 108/67 98 CPAP Mechanical Ventilator 01/24/17 09:04 90 17 98 30 01/24/17 09:00 91 13 89/58 99 CPAP Mechanical Ventilator 01/24/17 08:30 85 12 120/69 100 Mechanical Ventilator 01/24/17 08:00 89 12 122/72 100 Mechanical Ventilator 01/24/17 08:00 90 01/24/17 07:52 98.8 01/24/17 07:45 30 01/24/17 07:30 90 14 118/67 100 Mechanical Ventilator 01/24/17 07:11 94 12 98 30 01/24/17 07:00 93 13 121/70 100 Mechanical Ventilator 01/24/17 06:00 84 13 117/63 100 Mechanical Ventilator 01/24/17 05:54 84 12 100 35 01/24/17 05:00 94 19 136/73 100 Mechanical Ventilator 01/24/17 04:00 99.0 83 12 78/55 100 Mechanical Ventilator 01/24/17 04:00 35 01/24/17 04:00 82 01/24/17 03:15 86 12 100 35 01/24/17 03:00 84 12 90/63 100 Mechanical Ventilator 01/24/17 02:00 80 13 118/71 100 Mechanical Ventilator 01/24/17 01:09 83 12 100 35 01/24/17 01:00 75 12 115/69 100 Mechanical Ventilator 01/24/17 00:00 80 01/24/17 00:00 99.3 78 12 138/71 100 Mechanical Ventilator 01/24/17 00:00 40 01/23/17 23:05 80 12 99 35 01/23/17 23:00 85 12 84/59 99 Mechanical Ventilator 01/23/17 22:00 89 12 132/79 100 Mechanical Ventilator 01/23/17 21:15 80 12 99 35 01/23/17 21:00 90 12 143/78 100 Mechanical Ventilator 01/23/17 20:00 83 01/23/17 20:00 40 01/23/17 20:00 99.1 83 12 137/82 100 Mechanical Ventilator 01/23/17 19:07 80 12 99 35 01/23/17 19:00 90 13 109/75 100 Mechanical Ventilator 01/23/17 18:30 85 12 116/73 100 Mechanical Ventilator 01/23/17 18:00 84 12 120/67 100 Mechanical Ventilator 01/23/17 17:30 91 12 113/76 100 Mechanical Ventilator 01/23/17 17:15 90 12 108/69 100 Mechanical Ventilator 01/23/17 17:05 99 13 100 40 01/23/17 17:00 102 13 119/76 100 Mechanical Ventilator 01/23/17 16:45 101 13 117/82 100 Mechanical Ventilator 01/23/17 16:30 89 13 126/62 100 Mechanical Ventilator 01/23/17 16:15 92 14 133/78 100 Mechanical Ventilator 01/23/17 16:00 98.6 90 16 137/74 100 Mechanical Ventilator 01/23/17 16:00 93 01/23/17 15:45 85 12 145/84 100 Mechanical Ventilator 01/23/17 15:30 91 12 128/82 100 Mechanical Ventilator 01/23/17 15:15 90 12 140/91 100 Mechanical Ventilator 01/23/17 15:10 89 13 100 40 01/23/17 15:00 91 12 150/80 100 Mechanical Ventilator 01/23/17 14:45 94 12 129/84 100 Mechanical Ventilator 01/23/17 14:30 97 12 142/86 94 Mechanical Ventilator 01/23/17 14:15 97 12 146/85 100 Mechanical Ventilator 01/23/17 14:00 96 16 152/93 100 Mechanical Ventilator 01/23/17 13:45 93 14 136/81 100 Mechanical Ventilator 01/23/17 13:30 95 12 140/83 100 Mechanical Ventilator 01/23/17 13:15 92 13 150/83 100 Mechanical Ventilator 01/23/17 13:12 90 14 100 40 01/23/17 13:00 90 15 134/80 100 Mechanical Ventilator 01/23/17 12:30 89 15 139/75 100 Mechanical Ventilator 01/23/17 12:15 98.2 94 14 138/80 100 Mechanical Ventilator 01/23/17 12:00 92 01/23/17 12:00 92 13 131/77 100 Mechanical Ventilator 01/23/17 11:45 93 13 150/87 100 Mechanical Ventilator 01/23/17 11:35 95 15 100 40 01/23/17 11:30 93 12 138/73 100 Mechanical Ventilator 01/23/17 11:15 87 16 172/89 100 Mechanical Ventilator 01/23/17 11:00 83 16 183/99 100 Mechanical Ventilator 01/23/17 10:45 77 13 188/90 100 Mechanical Ventilator 01/23/17 10:30 74 14 152/89 100 Mechanical Ventilator 01/23/17 10:30 40 01/23/17 10:19 97.7 75 15 181/81 100 Mechanical Ventilator 01/23/17 10:04 75 12 188/95 01/23/17 10:00 75 13 100 40 01/23/17 10:00 74 01/23/17 09:33 70 12 100 40 01/23/17 09:00 98.4 71 12 184/98 100 Mechanical Ventilator 01/23/17 08:00 62 12 178/84 100 Mechanical Ventilator 01/23/17 07:45 60 12 203/91 100 Mechanical Ventilator 01/23/17 07:30 62 12 188/85 100 Mechanical Ventilator 01/23/17 07:00 67 12 100 40 01/23/17 06:30 64 12 175/94 100 Mechanical Ventilator 01/23/17 06:00 59 12 154/90 100 Mechanical Ventilator 01/23/17 06:00 154/90 01/23/17 05:30 60 174/80 01/23/17 05:00 61 12 100 40 01/23/17 05:00 64 12 179/78 100 Mechanical Ventilator 01/23/17 05:00 59 179/78 Mechanical Ventilator 01/23/17 04:30 61 171/79 01/23/17 04:00 98.3 60 161/81 Mechanical Ventilator 01/23/17 04:00 69 14 184/87 100 Mechanical Ventilator 01/23/17 03:30 73 01/23/17 03:20 68 12 100 40 01/23/17 03:15 71 140/89 01/23/17 03:00 66 12 117/69 100 Mechanical Ventilator 01/23/17 03:00 70 117/64 Mechanical Ventilator 01/23/17 02:30 68 124/69 Mechanical Ventilator 01/23/17 02:23 97.3 71 12 138/84 Mechanical Ventilator 01/23/17 02:00 74 17 171/87 100 Mechanical Ventilator 01/23/17 01:46 72 13 154/83 100 Mechanical Ventilator 01/23/17 01:30 97.4 69 12 181/89 100 Mechanical Ventilator 01/23/17 01:25 69 12 100 40 01/23/17 01:00 69 12 136/71 100 Mechanical Ventilator 01/23/17 00:30 77 12 177/87 100 Mechanical Ventilator 01/23/17 00:00 77 13 152/87 100 Mechanical Ventilator 01/22/17 23:40 75 12 100 40 01/22/17 23:30 71 12 188/90 100 Mechanical Ventilator 01/22/17 23:00 97.2 70 12 153/73 100 Room Air 01/22/17 22:45 76 12 164/85 100 Mechanical Ventilator 01/22/17 21:15 69 12 100 40 01/22/17 21:00 98.0 69 12 160/73 100 Mechanical Ventilator 01/22/17 19:30 63 12 156/76 100 Mechanical Ventilator 01/22/17 19:00 68 12 158/79 100 Mechanical Ventilator 01/22/17 18:50 68 12 100 40 01/22/17 18:30 66 12 150/77 100 Mechanical Ventilator 01/22/17 17:50 66 12 100 40 01/22/17 17:45 97.6 67 12 158/74 100 Room Air Mechanical Ventilator 01/22/17 16:45 97.6 71 12 165/83 100 Room Air Mechanical Ventilator 01/22/17 15:45 97.6 64 12 156/72 100 Room Air Mechanical Ventilator 01/22/17 15:11 66 12 100 40 01/22/17 14:45 97.6 67 12 142/75 100 Room Air Mechanical Ventilator 01/22/17 13:45 97.5 61 12 156/71 100 Room Air Mechanical Ventilator 01/22/17 13:42 60 12 100 40 01/22/17 12:45 97.5 61 12 155/72 100 Room Air Mechanical Ventilator 01/22/17 11:45 97.5 60 12 116/70 100 Room Air Mechanical Ventilator 01/22/17 10:45 97.5 60 12 156/88 100 Room Air Mechanical Ventilator 01/22/17 10:38 63 12 100 40 01/22/17 09:45 97.5 68 12 156/88 100 Room Air Mechanical Ventilator 01/22/17 08:45 97.5 65 12 155/71 100 Room Air Mechanical Ventilator 01/22/17 07:45 97.7 68 12 156/81 100 Room Air Mechanical Ventilator 01/22/17 07:29 66 12 100 40 01/22/17 06:00 77 109/69 100 Mechanical Ventilator 01/22/17 06:00 97.7 78 12 109/69 100 01/22/17 05:45 93 160/89 100 Mechanical Ventilator 01/22/17 05:30 87 166/96 100 Mechanical Ventilator 01/22/17 05:15 73 163/78 100 Mechanical Ventilator 01/22/17 05:10 74 12 100 40 01/22/17 05:00 72 166/78 100 Mechanical Ventilator 01/22/17 04:45 70 147/74 100 Mechanical Ventilator 01/22/17 04:30 76 162/76 100 Mechanical Ventilator 01/22/17 04:15 72 146/76 100 Mechanical Ventilator 01/22/17 04:00 97.8 78 12 143/76 100 01/22/17 04:00 78 155/77 100 Mechanical Ventilator 01/22/17 03:45 80 143/76 100 Mechanical Ventilator 4/23/17 03:35 81 12 100 40 01/22/17 03:30 97.8 79 131/75 100 Mechanical Ventilator 01/22/17 03:15 84 142/70 100 Mechanical Ventilator 01/22/17 03:00 87 118/76 100 Mechanical Ventilator 01/22/17 02:45 87 135/71 100 Mechanical Ventilator 01/22/17 02:30 91 132/73 100 Mechanical Ventilator 01/22/17 02:15 89 138/70 100 Mechanical Ventilator 01/22/17 02:13 98.0 88 12 138/73 100 01/22/17 02:00 84 12 138/73 100 Mechanical Ventilator 01/22/17 01:45 81 12 90/55 100 Mechanical Ventilator 01/22/17 01:30 95 13 110/44 100 Mechanical Ventilator 01/22/17 01:15 84 12 116/68 100 Mechanical Ventilator 01/22/17 01:10 85 12 100 40 01/22/17 01:00 84 13 171/89 100 Mechanical Ventilator 01/22/17 00:48 79 12 174/84 100 Mechanical Ventilator 01/22/17 00:30 83 14 184/92 100 Mechanical Ventilator 01/22/17 00:25 84 16 100 40 01/22/17 00:15 77 15 155/81 100 Mechanical Ventilator 01/22/17 00:00 76 15 156/88 100 Mechanical Ventilator 01/21/17 23:45 75 16 150/77 100 Mechanical Ventilator 01/21/17 23:15 76 17 158/83 98 Mechanical Ventilator 01/21/17 23:11 76 17 144/102 100 Mechanical Ventilator 01/21/17 22:45 69 12 100 40 01/21/17 21:05 91 12 100 40 01/21/17 20:30 98.0 90 14 189/114 100 Mechanical Ventilator 01/21/17 20:15 98.0 91 14 163/110 100 Mechanical Ventilator 01/21/17 20:00 98.0 14 227/113 100 Mechanical Ventilator 01/21/17 19:30 98.1 90 14 185/89 100 Mechanical Ventilator 01/21/17 19:15 98.1 94 14 195/102 100 Mechanical Ventilator 01/21/17 19:00 91 14 100 100 01/21/17 19:00 98.0 93 14 218/100 100 Mechanical Ventilator 01/21/17 18:45 98.1 91 16 212/98 100 Mechanical Ventilator 01/21/17 18:37 102 14 100 01/21/17 18:30 98.0 93 14 222/94 98 Mechanical Ventilator 01/21/17 18:14 Non Rebreather 10 01/21/17 18:06 98.0 104 12 216/99 98 Vital Signs Date Time Temp Pulse Resp B/P Pulse Ox O2 Delivery O2 Flow Rate FiO2 01/24/17 13:00 71 18 133/64 100 Nasal Cannula 3.0 01/24/17 11:01 30 01/24/17 11:00 98.0 Intake and Output 01/23/17 01/23/17 01/24/17 15:00 23:00 07:00 Intake Total 98.5 ml 37.874 ml 62.126 ml Output Total 946 ml 465 ml 240 ml Balance -847.5 ml -427.126 ml -177.874 ml Exam Constitutional: No alert (lethargic) Respiratory: clear to auscultation, normal air movement Cardiovascular: nl pulses, regular rate and rhythm, No edema, No murmurs/extra sounds, No rub Gastrointestinal: bowel sounds, nl liver, spleen, non-tender, soft, No mass, No rebound or guarding Musculoskeletal: nl extremities to inspection Extremities: normal pulses, No clubbing, No cyanosis, No edema Neurological: lethargic Additional Comments Bedside Glucose - 72 Hours Test 01/22/17 01:55 01/22/17 05:11 01/22/17 10:22 01/22/17 16:01 Bedside Glucose 147mg/dL (70-220) 142mg/dL (70-220) 150mg/dL (70-220) 118mg/dL (70-220) Test 01/22/17 17:33 01/22/17 21:19 01/23/17 01:57 01/23/17 08:29 Bedside Glucose 120mg/dL (70-220) 125mg/dL (70-220) 128mg/dL (70-220) 114mg/dL (70-220) Results Result Diagram: 01/24/17 0539 01/24/17 0539 Results 24 hrs Laboratory Tests Test 01/23/17 15:35 01/24/17 05:39 01/24/17 07:00 01/24/17 11:00 Creatine Kinase 321 H Creatine Kinase Index 0.2 Creatinine Kinase MB (Mass) 0.53 Troponin I 0.015 White Blood Count 8.8 Red Blood Count 4.32 L Hemoglobin 14.3 Hematocrit 43.2 Mean Corpuscular Volume 100.0 Mean Corpuscular Hemoglobin 33.1 H Mean Corpuscular Hemoglobin Concent 33.1 Red Cell Distribution Width 15.6 H Platelet Count 159 Mean Platelet Volume 10.7 H Neutrophils % 82.7 H Lymphocytes % 9.0 L Monocytes % 7.5 Eosinophils % 0.3 Basophils % 0.2 Nucleated Red Blood Cells % 0.0 Neutrophils # 7.3 Lymphocytes # 0.8 Monocytes # 0.7 Eosinophils # 0.0 Basophils # 0.0 Nucleated Red Blood Cells # 0.0 Sodium Level 142 Potassium Level 4.0 Chloride Level 105 Carbon Dioxide Level 23 Anion Gap 18 H Blood Urea Nitrogen 26 H Creatinine 1.32 H Glucose Level 132 Calcium Level 9.2 Phosphorus Level 4.1 Magnesium Level 2.3 Blood Gas Specimen Source Blood arterial Blood arterial Arterial Blood Date Drawn 01/24/2017 7:08:33 AM 01/24/2017 10:31:00 AM Arterial Blood pH (Temp corrected) 7.414 7.394 Arterial Blood pCO2 (Temp correct) 32.6 L 33.5 L Arterial Blood pO2 (Temp corrected) 134.1 H 122.7 H Arterial Blood HCO3 20.4 L 20.0 L Arterial Blood Base Excess -3.2 L -4.0 L Arterial Blood Oxygen Saturation 98.4 98.1 Sharif Test ACCEPTAB ACCEPTAB Arterial Blood Gas Puncture Site Right Radial Left Radial Arterial Blood Carboxyhemoglobin 0.4 0.2 Arterial Blood Methemoglobin 0.4 0.4 Blood Gas A-a O2 Differential 41.5 H 51.8 H Oxyhemoglobin Percent 97.6 97.5 Total Hemoglobin 14.6 13.9 Blood Gas Temperature 37.0 37.0 Blood Gas Respiration Rate 12.0 Blood Gas Actual Respiration Rate 13 24 Blood Gas Modality VENT - AC VENT - CPAP FiO2 30.0 30.0 Blood Gas Tidal Volume 500.0 Blood Gas Low PEEP Setting 5.0 5.0 Blood Gas Notified Whom JLD AT Blood Gas Notified Time 01/24/2017 8:07:15 AM 01/24/2017 10:40:00 AM Blood Gas Pressure Support 10 Medications Medications Current Medications Nicardipine HCl (Cardene Iv) 200 ml @ 50 mls/hr TITRATE IV Last administered on 01/23/17 11:08; Admin Dose 50 MLS/HR; Start 01/21/17 at 21:00 Pantoprazole (Protonix Iv) 40 mg DAILY@06 IV Last administered on 01/24/17 06: 37; Admin Dose 40 MG; Start 01/22/17 at 06:00 Eye Lubricant (Artificial Tears Oph) 1 drop TID BOTH EYES Last administered on 01/24/17 13:11; Admin Dose 1 DROP; Start 01/22/17 at 09:00 Miscellaneous Information 1 ea NOTE XX ; Start 01/22/17 at 00:30 Glucose (Glutose) 15 gm Q15M PRN PO DECREASED GLUCOSE; Start 01/22/17 at 00:30 Glucose (Glutose) 22.5 gm Q15M PRN PO DECREASED GLUCOSE; Start 01/22/17 at 00: 30 Dextrose (D50w Syringe) 25 ml Q15M PRN IV DECREASED GLUCOSE; Start 01/22/17 at 00:30 Dextrose (D50w Syringe) 50 ml Q15M PRN IV DECREASED GLUCOSE; Start 01/22/17 at 00:30 Glucagon (Glucagen) 1 mg Q15M PRN IM DECREASED GLUCOSE; Start 01/22/17 at 00:30 Glucose (Glutose) 15 gm Q15M PRN BUCCAL DECREASED GLUCOSE; Start 01/22/17 at 00 :30 Carvedilol (Coreg) 6.25 mg BID NGT Last administered on 01/24/17 08:12; Admin Dose 6.25 MG; Start 01/23/17 at 15:00 Hydralazine HCl (Apresoline) 10 mg Q6H PRN IV sbp>170; Start 01/23/17 at 15:00 Aspirin (Aspirin) 81 mg DAILY NGT Last administered on 01/24/17 08:11; Admin Dose 81 MG; Start 01/23/17 at 15:00 Atorvastatin Calcium 80 mg 80 mg HS NGT Last administered on 01/23/17 22:02; Admin Dose 80 MG; Start 01/23/17 at 21:00 Propofol 100 ml @ 1.944 mls/ hr Q12H IV Last administered on 01/24/17 03:32; Admin Dose 5.832 MLS/HR; Start 01/23/17 at 16:00 Dextrose/Sodium Chloride (D5-1/2ns) 1,000 ml @ 75 mls/hr [id number] IV Last administered on 01/24/17t 09:27; Admin Dose 75 MLS/HR; Start 01/24/17 at 09:00 GENNA FUNG MD Jan 24, 2017 13:24
--- NOTE | 2017-01-24 13:41 | CONS ---
Date/Time of Note Date/Time of Note DATE: 01/24/17 TIME: 13:40 Assessment/Plan Assessment/Plan Additional Assessment/Plan Altered mental status Hypertension urgency/emergency Seizure CAD with history of CABG Respiratory failure status post extubation -Patient extubated, as per family, mental status appears near baseline. Blood pressure trend has improved and currently off IV nicardipine. Continue Coreg with holding parameters. Awaiting MRI brain Consultation Date/Type/Reason Admit Date/Time Jan 21, 2017 at 23:53 Initial Consult Date Type of Consultation: cv 24 HR Interval Summary Free Text/Dictation Patient status post extubation. Family at bedside, Exam/Review of Systems Vital Signs Vitals Vital Signs Date Time Temp Pulse Resp B/P Pulse Ox O2 Delivery O2 Flow Rate FiO2 01/24/17 13:00 71 18 133/64 100 Nasal Cannula 3.0 01/24/17 11:01 30 01/24/17 11:00 98.0 Intake and Output 01/23/17 01/23/17 01/24/17 15:00 23:00 07:00 Intake Total 98.5 ml 37.874 ml 62.126 ml Output Total 946 ml 465 ml 240 ml Balance -847.5 ml -427.126 ml -177.874 ml Exam Follows commands, no apparent distress, family at bedside Constitutional: alert Head: normocephalic Respiratory: other (Coarse breath sounds bilaterally, no wheezing) Cardiovascular: other (S1-S2 heard), regular rate and rhythm Gastrointestinal: bowel sounds, non-tender, soft Extremities: other (No significant edema) Results Result Diagram: 01/24/17 0539 01/24/17 0539 Results 24 hrs Laboratory Tests Test 01/23/17 15:35 01/24/17 05:39 01/24/17 07:00 01/24/17 11:00 Creatine Kinase 321 H Creatine Kinase Index 0.2 Creatinine Kinase MB (Mass) 0.53 Troponin I 0.015 White Blood Count 8.8 Red Blood Count 4.32 L Hemoglobin 14.3 Hematocrit 43.2 Mean Corpuscular Volume 100.0 Mean Corpuscular Hemoglobin 33.1 H Mean Corpuscular Hemoglobin Concent 33.1 Red Cell Distribution Width 15.6 H Platelet Count 159 Mean Platelet Volume 10.7 H Neutrophils % 82.7 H Lymphocytes % 9.0 L Monocytes % 7.5 Eosinophils % 0.3 Basophils % 0.2 Nucleated Red Blood Cells % 0.0 Neutrophils # 7.3 Lymphocytes # 0.8 Monocytes # 0.7 Eosinophils # 0.0 Basophils # 0.0 Nucleated Red Blood Cells # 0.0 Sodium Level 142 Potassium Level 4.0 Chloride Level 105 Carbon Dioxide Level 23 Anion Gap 18 H Blood Urea Nitrogen 26 H Creatinine 1.32 H Glucose Level 132 Calcium Level 9.2 Phosphorus Level 4.1 Magnesium Level 2.3 Blood Gas Specimen Source Blood arterial Blood arterial Arterial Blood Date Drawn 01/24/2017 7:08:33 AM 01/24/2017 10:31:00 AM Arterial Blood pH (Temp corrected) 7.414 7.394 Arterial Blood pCO2 (Temp correct) 32.6 L 33.5 L Arterial Blood pO2 (Temp corrected) 134.1 H 122.7 H Arterial Blood HCO3 20.4 L 20.0 L Arterial Blood Base Excess -3.2 L -4.0 L Arterial Blood Oxygen Saturation 98.4 98.1 Sharif Test ACCEPTAB ACCEPTAB Arterial Blood Gas Puncture Site Right Radial Left Radial Arterial Blood Carboxyhemoglobin 0.4 0.2 Arterial Blood Methemoglobin 0.4 0.4 Blood Gas A-a O2 Differential 41.5 H 51.8 H Oxyhemoglobin Percent 97.6 97.5 Total Hemoglobin 14.6 13.9 Blood Gas Temperature 37.0 37.0 Blood Gas Respiration Rate 12.0 Blood Gas Actual Respiration Rate 13 24 Blood Gas Modality VENT - AC VENT - CPAP FiO2 30.0 30.0 Blood Gas Tidal Volume 500.0 Blood Gas Low PEEP Setting 5.0 5.0 Blood Gas Notified Whom JLD AT Blood Gas Notified Time 01/24/2017 8:07:15 AM 01/24/2017 10:40:00 AM Blood Gas Pressure Support 10 Medications Medications Current Medications Nicardipine HCl (Cardene Iv) 200 ml @ 50 mls/hr TITRATE IV Last administered on 01/23/17 11:08; Admin Dose 50 MLS/HR; Start 01/21/17 at 21:00 Pantoprazole (Protonix Iv) 40 mg DAILY@06 IV Last administered on 01/24/17 06: 37; Admin Dose 40 MG; Start 01/22/17 at 06:00 Eye Lubricant (Artificial Tears Oph) 1 drop TID BOTH EYES Last administered on 01/24/17 13:11; Admin Dose 1 DROP; Start 01/22/17 at 09:00 Miscellaneous Information 1 ea NOTE XX ; Start 01/22/17 at 00:30 Glucose (Glutose) 15 gm Q15M PRN PO DECREASED GLUCOSE; Start 01/22/17 at 00:30 Glucose (Glutose) 22.5 gm Q15M PRN PO DECREASED GLUCOSE; Start 01/22/17 at 00: 30 Dextrose (D50w Syringe) 25 ml Q15M PRN IV DECREASED GLUCOSE; Start 01/22/17 at 00:30 Dextrose (D50w Syringe) 50 ml Q15M PRN IV DECREASED GLUCOSE; Start 01/22/17 at 00:30 Glucagon (Glucagen) 1 mg Q15M PRN IM DECREASED GLUCOSE; Start 01/22/17 at 00:30 Glucose (Glutose) 15 gm Q15M PRN BUCCAL DECREASED GLUCOSE; Start 01/22/17 at 00 :30 Carvedilol (Coreg) 6.25 mg BID NGT Last administered on 01/24/17 08:12; Admin Dose 6.25 MG; Start 01/23/17 at 15:00 Hydralazine HCl (Apresoline) 10 mg Q6H PRN IV sbp>170; Start 01/23/17 at 15:00 Aspirin (Aspirin) 81 mg DAILY NGT Last administered on 01/24/17 08:11; Admin Dose 81 MG; Start 01/23/17 at 15:00 Atorvastatin Calcium 80 mg 80 mg HS NGT Last administered on 01/23/17 22:02; Admin Dose 80 MG; Start 01/23/17 at 21:00 Propofol 100 ml @ 1.944 mls/ hr Q12H IV Last administered on 01/24/17 03:32; Admin Dose 5.832 MLS/HR; Start 01/23/17 at 16:00 Dextrose/Sodium Chloride (D5-1/2ns) 1,000 ml @ 75 mls/hr [id number] IV Last administered on 01/24/17 09:27; Admin Dose 75 MLS/HR; Start 01/24/17 at 09:00 Mynor Prince DO Jan 24, 2017 13:41
[2017-01-24] MEDS: ATORVASTATIN 80 MG TAB NGT SCH (20:14)
--- NOTE | 2017-01-24 21:22 | RADRPT ---
Echocardiogram Report Patient Name: JEANETH PEREZ Gender: Male Date: 1930 Study Date: 23-Jan-2017 Hvac Sales Engineer: Donya Westbrook RDCS Location: [address] [place] [address]. Physician: MYNOR PRINCE Quality: Adequate Procedures: Transthoracic echocardiogram with complete 2D, M-Mode, and doppler examination. Indications: resp failure. 2D/M Mode Doppler Measurement Value Normal Ranges Measurement Value Normal Ranges LVIDd 2D 4.3 3.5 - 5.6 cm AMBER Vmax 0.8 cm2 LVIDs 2D 3.7 2.1 - 4.1 cm AMBER VTI 0.8 cm2 LVPWd 2D 1.0 0.6 - 1.1 cm AV Mean Antoine 2.0 m/sec IVSd 2D 1.5 0.6 - 1.1 cm AV Mean PG 17.7 mmHg AoR Diam 2D 2.0 2.0 - 3.7 cm AV Peak Antoine 2.8 m/sec EDV 2D 82.1 cm3 AV Peak PG 31.5 mmHg ESV 2D 51.0 cm3 AV VTI 52.1 cm LA Dimen 2D 3.2 2.3 - 4.0 cm LVOT Mean Antoine 0.7 m/sec LVOT Diam 1.8 cm LVOT Mean PG 2.1 mmHg LVOT Peak Antoine 0.9 m/sec LVOT Peak PG 3.4 mmHg LVOT VTI 18.6 cm MV E Peak Antoine 0.9 m/sec MV A Peak Antoine 1.1 m/sec MV E/A 0.8 MV Decel Time 151 msec MV Decel Webb 6 MV E/A 0.8 Findings Left Ventricle: Hyperdynamic left ventricular systolic function. Normal left ventricular cavity size. Moderate asymmetric septal hypertrophy. Ejection fraction is visually estimated at 70 %. Abnormal Diastolic Function. Right Ventricle: Normal right ventricular size. Normal right ventricular systolic function. Left Atrium: The left atrium is normal in size. Right Atrium: The right atrium is normal in size. Mitral Valve: Mitral valve leaflets appear mildly thickened. Moderate mitral annular calcification. Trace mitral regurgitation. Aortic Valve: Mild aortic stenosis. Aortic cusps appear mildly calcified. Trace aortic valve regurgitation. Tricuspid Valve: Normal appearance and function of the tricuspid valve with trace physiologic regurgitation. Pulmonic Valve: Pulmonic valve not well visualized. Pericardium: Normal pericardium with no significant pericardial effusion. Aorta: Normal aortic root. IVC: Inferior vena cava without respiratory collapse, however, patient on ventilator. Conclusions Hyperdynamic left ventricular systolic function. Normal left ventricular cavity size. Moderate asymmetric septal hypertrophy. Ejection fraction is visually estimated at 70 %. Abnormal Diastolic Function. Normal right ventricular size. Normal right ventricular systolic function. The left atrium is normal in size. The right atrium is normal in size. Mild aortic stenosis. Trace aortic valve regurgitation. No significant valvular stenosis or regurgitation seen of remaining visualized valves. Normal pericardium with no significant pericardial effusion. Electronically Signed By: Mynor Prince 24-Jan-2017 21:22:18 -0700 Patient Name: JEANETH PEREZ Study Date: 23-Jan-2017 [id number]
[2017-01-24] MEDS: LEVETIRACETAM IV 500 MG in SOD CHLORIDE 0.9% 100 ML IVPB SCH (22:38)
[2017-01-25] VITALS (17 sets, daily range): BP systolic 104–147; BP diastolic 55–99; PULSE 65–84; RESP 14–21
--- NOTE | 2017-01-25 03:32 | CONS ---
DATE OF ADMISSION: 01/21/2017 DATE OF CONSULTATION: 01/24/2017 TYPE OF CONSULTATION: Neurology. Thank you, Dr. Harris, for your kind referral for evaluation of encephalopathy and possible seizure s. HISTORY OF PRESENT ILLNESS: The patient is an 86-year-old gentleman who, according to the chart, valencia s history of coronary artery disease, hypertension, and dyslipidemia. He was found by caregiver hav ing seizure-like activity, difficulty speaking, generalized weakness. According to ER note, the pat ahmet was actively seizing in the emergency with seizure-like activity involving left upper and lower extremities. He was also hypertensive in the emergency room. The highest number was 227/113. He received 1 gram of Keppra in the emergency room but does not seem to be continued. He was briefly intubated and la ter extubated. The patient, according to the chart, is at baseline. Labs show essentially normal C BC, though neutrophil count 82% today. Normal PT, PTT on admission. BUN 26, creatinine 1.32 today. The rest of comprehensive metabolic panel within normal limits except indirect bilirubin was 1.2. On admission, he had lactic acid 6.5. Hemoglobin A1c 6.6. Total protein was 8.4. Urinalysis show ed ketones, blood, and protein. Tox screen was negative. ALLERGIES: NONE. CURRENT MEDICATIONS: 1. Lipitor 80. 2. Coreg 6.25. 3. Aspirin 81. 4. Pantoprazole. 5. Nicardipine drip. REVIEW OF SYSTEMS: The patient has no complaints. All pertinent positives included in the above hi story of present illness. PHYSICAL EXAMINATION VITAL SIGNS: Temperature 98.3, pulse 72, respiration 21, blood pressure 153/92. HEENT: Normocephalic, atraumatic head. NECK: No carotid bruits. No thyromegaly. LUNGS: Clear to auscultation bilaterally. CARDIAC: Normal cardiac rhythm and sounds. ABDOMEN: Soft, nontender. EXTREMITIES: No cyanosis, clubbing, or edema. NEUROLOGIC: He is awake, alert, and oriented x2 with fluent speech. After intubation, he whispers. Cranial nerve examination shows intact visual billings bilaterally. Pupils round, reactive from 3 t o 2 mm bilaterally. Extraocular movements intact without nystagmus. Symmetrical face. Preserved f acial strength and sensation. Tongue is in midline. Palate elevates symmetrically. Motor strength examination seems to be preserved in all extremities. Normal bulk, tone, and strength. Sensory ex amination intact to light touch and pain. Deep tendon reflexes 2+ throughout. Downgoing toes bilat erally. Coordination preserved on [id number]-[id number] testing. No dysmetria or tremor noticed. LABORATORY DATA: He had CAT scan of the head which did not show any acute abnormality, chronic lacu ne in the left basal ganglia. CT angiogram also was done of the head and neck showing mild to moder ate changes in the carotid arteries secondary to atherosclerotic disease but no hemodynamically sign ificant stenosis. Chest x-ray: Right basilar opacities, likely atelectasis. IMPRESSION: Transient encephalopathy and seizure on admission. The patient received 1 gram of Kepp ra in the emergency room. I think it is reasonable to continue prophylactic small dose of Keppra 50 0 mg twice daily. We will obtain EEG for further evaluation. MRI of the brain is pending. Continue current treatment otherwise. Keep the patient normotensive and euglycemic, and continue as pirin and Plavix. Thank you very much for this interesting consultation. Dictated By: ABEBE VÁZQUEZ/ULH Conf#: [id number] DID#: [id number]
[2017-01-25 05:30] LABS: ADD SCAN DIFF NO
[2017-01-25 05:39] LABS: ABNORMAL IP MESSAGE 1; BASOPHILS % 0.1 % (0.0-2.0); EOSINOPHILS # 0.1 10^3/ul (0.0-0.5); EOSINOPHILS % 1.3 % (0.0-7.0); HEMATOCRIT 40.7 % (42.0-52.0); HEMOGLOBIN 13.1 g/dl (14.0-18.0); LYMPHOCYTES # 0.6 10^3/ul (0.8-2.9); MEAN CORPUSCULAR HEMOGLOBIN 31.7 pg (29.0-33.0); MEAN CORPUSCULAR HGB CONC 32.2 g/dl (32.0-37.0); MEAN CORPUSCULAR VOLUME 98.5 fl (82.0-101.0); MEAN PLATELET VOLUME 9.9 fl (7.4-10.4); MONOCYTE # 0.5 10^3/ul (0.3-0.9); MONOCYTES % 7.4 % (0.0-11.0); NEUTROPHIL # 5.9 10^3/ul (1.6-7.5); NEUTROPHILS % 82.9 % (39.0-77.0); PLATELET COUNT 142 10^3/UL (140-415); RED BLOOD COUNT 4.13 10^6/ul (4.70-6.10); RED CELL DISTRIBUTION WIDTH 15.1 % (11.5-14.5); WHITE BLOOD COUNT 7.2 10^3/ul (4.8-10.8)
[2017-01-25 05:54] LABS: ALBUMIN 3.1 g/dl (3.3-4.9); POTASSIUM 3.8 mmol/L (3.5-5.1)
[2017-01-25 05:56] LABS: BILIRUBIN,INDIRECT 1.5 mg/dl (0-1.1); BILIRUBIN,TOTAL 1.5 mg/dl (0.2-1.3); CREATININE 0.98 mg/dl (0.61-1.24); TOTAL PROTEIN 6.2 g/dl (6.1-8.1)
[2017-01-25 05:57] LABS: CALCIUM 8.8 mg/dl (8.4-10.2)
[2017-01-25] MEDS: PANTOPRAZOLE 40 MG INJ IV SCH (06:00)
[2017-01-25 06:02] LABS: MAGNESIUM 2.3 mg/dl (1.7-2.5); PHOSPHORUS 2.2 mg/dl (2.5-4.9)
[2017-01-25] MEDS: ASPIRIN 81 MG TAB NGT SCH (08:10)
[2017-01-25] MEDS: ARTIFICIAL TEARS 15 ML OPH BOTH EYES SCH ×3 (08:11→20:34)
[2017-01-25] MEDS: LEVETIRACETAM IV 500 MG in SOD CHLORIDE 0.9% 100 ML IVPB SCH (08:11)
--- NOTE | 2017-01-25 10:06 | CONS ---
Date/Time of Note Date/Time of Note DATE: 01/25/17 TIME: 10:04 Consult Date/Type/Reason Admit Date/Time Jan 21, 2017 at 23:53 Type of Consultation: pulmonary ICU Subjective Patient safely extubated yesterday remained stable on nasal cannula oxygen. Seen by speech therapy to be involved Currently he remains hemodynamic stable. Objective Vital Signs Date Time Temp Pulse Resp B/P Pulse Ox O2 Delivery O2 Flow Rate FiO2 01/25/17 09:00 74 15 106/55 97 Room Air 01/25/17 07:00 98.1 01/24/17 18:23 21 01/24/17 15:30 1.0 Intake and Output 01/24/17 01/24/17 01/25/17 15:00 23:00 07:00 Intake Total 450 ml 765 ml 600 ml Output Total 230 ml 355 ml 355 ml Balance 220 ml 410 ml 245 ml Exam GENERAL: Elderly gentleman comfortable at rest VITAL SIGNS: per chart NECK: Supple. No JVD or lymphadenopathy. CARDIAC EXAM: S1, S2. No added sounds or murmurs. CHEST: clear bilaterally, No added sounds, rales or wheezes ABDOMEN: Soft, nontender. No guarding or rebound. EXTREMITIES: No cyanosis, clubbing or edema. NEUROLOGIC: Generalized weakness. No focal deficits. Results/Medications Result Diagram: 01/25/17 0450 01/25/17 0450 Results 24 hrs Laboratory Tests Test 01/24/17 11:00 01/25/17 04:50 Blood Gas Specimen Source Blood arterial Arterial Blood Date Drawn 01/24/2017 10:31:00 AM Arterial Blood pH (Temp corrected) 7.394 Arterial Blood pCO2 (Temp correct) 33.5 L Arterial Blood pO2 (Temp corrected) 122.7 H Arterial Blood HCO3 20.0 L Arterial Blood Base Excess -4.0 L Arterial Blood Oxygen Saturation 98.1 Sharif Test ACCEPTAB Arterial Blood Gas Puncture Site Left Radial Arterial Blood Carboxyhemoglobin 0.2 Arterial Blood Methemoglobin 0.4 Blood Gas A-a O2 Differential 51.8 H Oxyhemoglobin Percent 97.5 Total Hemoglobin 13.9 Blood Gas Temperature 37.0 Blood Gas Actual Respiration Rate 24 Blood Gas Modality VENT - CPAP FiO2 30.0 Blood Gas Low PEEP Setting 5.0 Blood Gas Pressure Support 10 Blood Gas Notified Whom AT Blood Gas Notified Time 01/24/2017 10:40:00 AM White Blood Count 7.2 Red Blood Count 4.13 L Hemoglobin 13.1 L Hematocrit 40.7 L Mean Corpuscular Volume 98.5 Mean Corpuscular Hemoglobin 31.7 Mean Corpuscular Hemoglobin Concent 32.2 Red Cell Distribution Width 15.1 H Platelet Count 142 Mean Platelet Volume 9.9 Neutrophils % 82.9 H Lymphocytes % 8.0 L Monocytes % 7.4 Eosinophils % 1.3 Basophils % 0.1 Nucleated Red Blood Cells % 0.0 Neutrophils # 5.9 Lymphocytes # 0.6 L Monocytes # 0.5 Eosinophils # 0.1 Basophils # 0.0 Nucleated Red Blood Cells # 0.0 Sodium Level 140 Potassium Level 3.8 Chloride Level 106 Carbon Dioxide Level 26 Anion Gap 12 Blood Urea Nitrogen 23 H Creatinine 0.98 Glucose Level 157 Calcium Level 8.8 Phosphorus Level 2.2 #L Magnesium Level 2.3 Total Bilirubin 1.5 H Direct Bilirubin 0.00 Indirect Bilirubin 1.5 H Aspartate Amino Transf (AST/SGOT) 21 Alanine Aminotransferase (ALT/SGPT) 22 Alkaline Phosphatase 44 Total Protein 6.2 # Albumin 3.1 L Globulin 3.10 Albumin/Globulin Ratio 1.00 Medications Current Medications Nicardipine HCl (Cardene Iv) 200 ml @ 50 mls/hr TITRATE IV Last administered on 01/23/17 11:08; Admin Dose 50 MLS/HR; Start 01/21/17 at 21:00 Pantoprazole (Protonix Iv) 40 mg DAILY@06 IV Last administered on 01/25/17 06: 00; Admin Dose 40 MG; Start 01/22/17 at 06:00 Eye Lubricant (Artificial Tears Oph) 1 drop TID BOTH EYES Last administered on 01/25/17 08:11; Admin Dose 1 DROP; Start 01/22/17 at 09:00 Miscellaneous Information 1 ea NOTE XX ; Start 01/22/17 at 00:30 Glucose (Glutose) 15 gm Q15M PRN PO DECREASED GLUCOSE; Start 01/22/17 at 00:30 Glucose (Glutose) 22.5 gm Q15M PRN PO DECREASED GLUCOSE; Start 01/22/17 at 00: 30 Dextrose (D50w Syringe) 25 ml Q15M PRN IV DECREASED GLUCOSE; Start 01/22/17 at 00:30 Dextrose (D50w Syringe) 50 ml Q15M PRN IV DECREASED GLUCOSE; Start 01/22/17 at 00:30 Glucagon (Glucagen) 1 mg Q15M PRN IM DECREASED GLUCOSE; Start 01/22/17 at 00:30 Glucose (Glutose) 15 gm Q15M PRN BUCCAL DECREASED GLUCOSE; Start 01/22/17 at 00 :30 Carvedilol (Coreg) 6.25 mg BID NGT Last administered on 01/25/17 08:11; Admin Dose 6.25 MG; Start 01/23/17 at 15:00 Hydralazine HCl (Apresoline) 10 mg Q6H PRN IV sbp>170; Start 01/23/17 at 15:00 Aspirin (Aspirin) 81 mg DAILY NGT Last administered on 01/25/17 08:10; Admin Dose 81 MG; Start 01/23/17 at 15:00 Atorvastatin Calcium 80 mg 80 mg HS NGT Last administered on 01/24/17 20:14; Admin Dose 80 MG; Start 01/23/17 at 21:00 Dextrose/Sodium Chloride 1,000 ml @ 75 mls/hr [id number] IV Last administered on 01/24/17 22:34; Admin Dose 75 MLS/HR; Start 01/24/17 at 09:00 Levetiracetam/ Sodium Chloride (Keppra Iv/NS) 105 ml @ 430 mls/hr Q12 IVPB Last administered on 01/25/17 08:11; Admin Dose 430 MLS/HR; Start 01/24/17 at 22:30 Assessment/Plan Chief Complaint/Hosp Course IMPRESSION 1. Resolving encephalopathy secondary to below 2. New onset seizures. Resolving encephalopathy 3. Hypertensive urgency. Plan 1. Aspiration precautions and incentive spirometry 2. Blood pressure management per cardiology 3. Neurology recommendations continue Keppra 4. MRI of the brain today 5. DVT and GI prophylaxis. 6. Speech therapy evaluation recommendations 7. PT eval Disposition Transfer to telemetry Discussed staff and family. Critical care time 40 minutes. Problems: L[facility]I RIVERS MD, [facility] Jan 25, 2017 10:06
--- NOTE | 2017-01-25 12:02 | RADRPT ---
PROCEDURE: MR Brain without contrast. CLINICAL INDICATION: Neurologic deficit, seizure TECHNIQUE: An MRI of the brain was performed on a high-resolution MR scanner utilizing the followi ng sequences: Sagittal and axial T1 weighted, axial T2 weighted, axial FLAIR, coronal GRE, and axial diffusion weighted with ADC mapping. Images were reviewed high-resolution PACS workstation. No con trast was administered. COMPARISON: Correlation head CT 01/21/2017 FINDINGS: No acute parenchymal hemorrhage, mass effect, or midline shift. No evidence of recent infarct. Scatt ered subcortical, deep, and periventricular white matter T2-weighted/FLAIR hyperintensities are cons istent with mild to moderate chronic microvascular ischemic disease. chronic left caudate lacunar in farct. Mild ethmoid and bilateral mastoid mucosal thickening. Numerous foci of GRE susceptibility a re seen involving the bilateral frontal lobes, parietal lobes, temporal lobes and occipital lobes. T here is also involvement of the corpus callosum, right caudate and left lentiform nucleus. The ventricles are stable size with mild to moderate volume loss noted. Normal flow voids are visible in the proximal intracranial arteries suggesting their patency. Mild ethmoid and bilateral mastoid mucosal thickening. IMPRESSION: No acute intracranial abnormality identified. No evidence of recent infarct. Mild to moderate chronic microvascular disease. Chronic left caudate lacunar infarct. Numerous foci of GRE susceptibility are seen in the bilateral cerebral hemispheres. These findings can be seen with underlying amyloid angiopathy, hypertensive microangiopathy, or less likely multipl e small cavernous malformations. RPTAT: AA .Zachary Gilliam MD, MD Date Time Electronically viewed and signed by .Zachary Gilliam MD, on 01/25/2017 12:02 .T/
[2017-01-25] MEDS: DEXTROSE 5%-0.45% NACL 1,000 ML IV SCH (12:11)
--- NOTE | 2017-01-25 12:53 | CONS ---
Date/Time of Note Date/Time of Note DATE: 01/25/17 TIME: 12:52 Assessment/Plan Assessment/Plan Additional Assessment/Plan Altered mental status, improved Preserved ejection fraction Hypertension urgency/emergency Seizure CAD with history of CABG Respiratory failure status post extubation -Blood pressure trend overall remained stable. Continue beta-christian as heart rate and blood pressure permits. Continue aspirin and statin therapy. Consultation Date/Type/Reason Admit Date/Time Jan 21, 2017 at 23:53 Type of Consultation: cv 24 HR Interval Summary Free Text/Dictation Denies shortness of breath, chest pain Exam/Review of Systems Vital Signs Vitals Vital Signs Date Time Temp Pulse Resp B/P Pulse Ox O2 Delivery O2 Flow Rate FiO2 01/25/17 12:13 97.7 70 20 104/92 99 Room Air 01/24/17 18:23 21 01/24/17 15:30 1.0 Intake and Output 01/24/17 01/24/17 01/25/17 15:00 23:00 07:00 Intake Total 450 ml 765 ml 600 ml Output Total 230 ml 355 ml 355 ml Balance 220 ml 410 ml 245 ml Exam No apparent distress Constitutional: alert, oriented Head: normocephalic Neck: supple Respiratory: other (Coarse breath sounds bilaterally, no wheezing) Cardiovascular: other (S1-S2 heard), regular rate and rhythm Gastrointestinal: bowel sounds, non-tender, soft Extremities: other (No significant edema) Results Result Diagram: 01/25/17 0450 01/25/17 0450 Results 24 hrs Laboratory Tests Test 01/25/17 04:50 White Blood Count 7.2 Red Blood Count 4.13 L Hemoglobin 13.1 L Hematocrit 40.7 L Mean Corpuscular Volume 98.5 Mean Corpuscular Hemoglobin 31.7 Mean Corpuscular Hemoglobin Concent 32.2 Red Cell Distribution Width 15.1 H Platelet Count 142 Mean Platelet Volume 9.9 Neutrophils % 82.9 H Lymphocytes % 8.0 L Monocytes % 7.4 Eosinophils % 1.3 Basophils % 0.1 Nucleated Red Blood Cells % 0.0 Neutrophils # 5.9 Lymphocytes # 0.6 L Monocytes # 0.5 Eosinophils # 0.1 Basophils # 0.0 Nucleated Red Blood Cells # 0.0 Sodium Level 140 Potassium Level 3.8 Chloride Level 106 Carbon Dioxide Level 26 Anion Gap 12 Blood Urea Nitrogen 23 H Creatinine 0.98 Glucose Level 157 Calcium Level 8.8 Phosphorus Level 2.2 #L Magnesium Level 2.3 Total Bilirubin 1.5 H Direct Bilirubin 0.00 Indirect Bilirubin 1.5 H Aspartate Amino Transf (AST/SGOT) 21 Alanine Aminotransferase (ALT/SGPT) 22 Alkaline Phosphatase 44 Total Protein 6.2 # Albumin 3.1 L Globulin 3.10 Albumin/Globulin Ratio 1.00 Medications Medications Current Medications Nicardipine HCl (Cardene Iv) 200 ml @ 50 mls/hr TITRATE IV Last administered on 01/23/17 11:08; Admin Dose 50 MLS/HR; Start 01/21/17 at 21:00 Pantoprazole (Protonix Iv) 40 mg DAILY@06 IV Last administered on 01/25/17 06: 00; Admin Dose 40 MG; Start 01/22/17 at 06:00 Eye Lubricant (Artificial Tears Oph) 1 drop TID BOTH EYES Last administered on 01/25/17 08:11; Admin Dose 1 DROP; Start 01/22/17 at 09:00 Miscellaneous Information 1 ea NOTE XX ; Start 01/22/17 at 00:30 Glucose (Glutose) 15 gm Q15M PRN PO DECREASED GLUCOSE; Start 01/22/17 at 00:30 Glucose (Glutose) 22.5 gm Q15M PRN PO DECREASED GLUCOSE; Start 01/22/17 at 00: 30 Dextrose (D50w Syringe) 25 ml Q15M PRN IV DECREASED GLUCOSE; Start 01/22/17 at 00:30 Dextrose (D50w Syringe) 50 ml Q15M PRN IV DECREASED GLUCOSE; Start 01/22/17 at 00:30 Glucagon (Glucagen) 1 mg Q15M PRN IM DECREASED GLUCOSE; Start 01/22/17 at 00:30 Glucose (Glutose) 15 gm Q15M PRN BUCCAL DECREASED GLUCOSE; Start 01/22/17 at 00 :30 Carvedilol (Coreg) 6.25 mg BID NGT Last administered on 01/25/17 08:11; Admin Dose 6.25 MG; Start 01/23/17 at 15:00 Hydralazine HCl (Apresoline) 10 mg Q6H PRN IV sbp>170; Start 01/23/17 at 15:00 Aspirin (Aspirin) 81 mg DAILY NGT Last administered on 01/25/17 08:10; Admin Dose 81 MG; Start 01/23/17 at 15:00 Atorvastatin Calcium 80 mg 80 mg HS NGT Last administered on 01/24/17 20:14; Admin Dose 80 MG; Start 01/23/17 at 21:00 Dextrose/Sodium Chloride 1,000 ml @ 75 mls/hr [id number] IV Last administered on 01/25/17 12:11; Admin Dose 75 MLS/HR; Start 01/24/17 at 09:00 Levetiracetam/ Sodium Chloride (Keppra Iv/NS) 105 ml @ 430 mls/hr Q12 IVPB Last administered on 01/25/17 08:11; Admin Dose 430 MLS/HR; Start 01/24/17 at 22:30 Mynor Prince DO Jan 25, 2017 12:53
--- NOTE | 2017-01-25 13:13 | PN ---
Date/Time of Note Date/Time of Note DATE: 01/25/17 TIME: 13:10 Assessment/Plan VTE Prophylaxis VTE Prophylaxis Intervention: SCD's Lines/Catheters IV Catheter Type (from Nrsg): Peripheral IV Urinary Cath still in place: Yes Subjective 24 Hr Interval Summary Free Text/Dictation awake, talkative, some difficulty with hearing and mild dementia as before no recall of sx prior to coming to hospital eating soft diet wiothout difficulty bp ok lungsz clear, hr regular, no edema ok to transfer out of icu to [facility] as bed available switch to po keppra dc ivs tgomorrow if remains stable Neurologic: confusion (stablepremorbid) Exam/Review of Systems Vital Signs Vitals Vital Signs Date Time Temp Pulse Resp B/P Pulse Ox O2 Delivery O2 Flow Rate FiO2 01/25/17 12:13 97.7 70 20 104/92 99 Room Air 01/24/17 18:23 21 01/24/17 15:30 1.0 Intake and Output 01/24/17 01/24/17 01/25/17 15:00 23:00 07:00 Intake Total 450 ml 765 ml 600 ml Output Total 230 ml 355 ml 355 ml Balance 220 ml 410 ml 245 ml Results Result Diagram: 01/25/17 0450 01/25/17 0450 Results 24 hrs Laboratory Tests Test 01/25/17 04:50 White Blood Count 7.2 Red Blood Count 4.13 L Hemoglobin 13.1 L Hematocrit 40.7 L Mean Corpuscular Volume 98.5 Mean Corpuscular Hemoglobin 31.7 Mean Corpuscular Hemoglobin Concent 32.2 Red Cell Distribution Width 15.1 H Platelet Count 142 Mean Platelet Volume 9.9 Neutrophils % 82.9 H Lymphocytes % 8.0 L Monocytes % 7.4 Eosinophils % 1.3 Basophils % 0.1 Nucleated Red Blood Cells % 0.0 Neutrophils # 5.9 Lymphocytes # 0.6 L Monocytes # 0.5 Eosinophils # 0.1 Basophils # 0.0 Nucleated Red Blood Cells # 0.0 Sodium Level 140 Potassium Level 3.8 Chloride Level 106 Carbon Dioxide Level 26 Anion Gap 12 Blood Urea Nitrogen 23 H Creatinine 0.98 Glucose Level 157 Calcium Level 8.8 Phosphorus Level 2.2 #L Magnesium Level 2.3 Total Bilirubin 1.5 H Direct Bilirubin 0.00 Indirect Bilirubin 1.5 H Aspartate Amino Transf (AST/SGOT) 21 Alanine Aminotransferase (ALT/SGPT) 22 Alkaline Phosphatase 44 Total Protein 6.2 # Albumin 3.1 L Globulin 3.10 Albumin/Globulin Ratio 1.00 Medications Medications Current Medications Nicardipine HCl (Cardene Iv) 200 ml @ 50 mls/hr TITRATE IV Last administered on 01/23/17 11:08; Admin Dose 50 MLS/HR; Start 01/21/17 at 21:00 Pantoprazole (Protonix Iv) 40 mg DAILY@06 IV Last administered on 01/25/17 06: 00; Admin Dose 40 MG; Start 01/22/17 at 06:00 Eye Lubricant (Artificial Tears Oph) 1 drop TID BOTH EYES Last administered on 01/25/17 08:11; Admin Dose 1 DROP; Start 01/22/17 at 09:00 Miscellaneous Information 1 ea NOTE XX ; Start 01/22/17 at 00:30 Glucose (Glutose) 15 gm Q15M PRN PO DECREASED GLUCOSE; Start 01/22/17 at 00:30 Glucose (Glutose) 22.5 gm Q15M PRN PO DECREASED GLUCOSE; Start 01/22/17 at 00: 30 Dextrose (D50w Syringe) 25 ml Q15M PRN IV DECREASED GLUCOSE; Start 01/22/17 at 00:30 Dextrose (D50w Syringe) 50 ml Q15M PRN IV DECREASED GLUCOSE; Start 01/22/17 at 00:30 Glucagon (Glucagen) 1 mg Q15M PRN IM DECREASED GLUCOSE; Start 01/22/17 at 00:30 Glucose (Glutose) 15 gm Q15M PRN BUCCAL DECREASED GLUCOSE; Start 01/22/17 at 00 :30 Carvedilol (Coreg) 6.25 mg BID NGT Last administered on 01/25/17 08:11; Admin Dose 6.25 MG; Start 01/23/17 at 15:00 Hydralazine HCl (Apresoline) 10 mg Q6H PRN IV sbp>170; Start 01/23/17 at 15:00 Aspirin (Aspirin) 81 mg DAILY NGT Last administered on 01/25/17 08:10; Admin Dose 81 MG; Start 01/23/17 at 15:00 Atorvastatin Calcium 80 mg 80 mg HS NGT Last administered on 01/24/17 20:14; Admin Dose 80 MG; Start 01/23/17 at 21:00 Dextrose/Sodium Chloride 1,000 ml @ 75 mls/hr [id number] IV Last administered on 01/25/17 12:11; Admin Dose 75 MLS/HR; Start 01/24/17 at 09:00 Levetiracetam/ Sodium Chloride (Keppra Iv/NS) 105 ml @ 430 mls/hr Q12 IVPB Last administered on 01/25/17 08:11; Admin Dose 430 MLS/HR; Start 01/24/17 at 22:30 JAJA ORO MD Jan 25, 2017 13:13
[2017-01-25] MEDS: ATORVASTATIN 80 MG TAB NGT SCH (20:35)
[2017-01-25] MEDS: LEVETIRACETAM 500 MG TAB PO SCH (20:36)
[2017-01-26] MEDS: DEXTROSE 5%-0.45% NACL 1,000 ML IV SCH ×2 (01:29→15:08)
[2017-01-26] MEDS: PANTOPRAZOLE 40 MG INJ IV SCH (05:30)
[2017-01-26 07:00] LABS: ADD SCAN DIFF NO
[2017-01-26 07:13] LABS: ABNORMAL IP MESSAGE 1; BASOPHILS % 0.2 % (0.0-2.0); EOSINOPHILS # 0.1 10^3/ul (0.0-0.5); HEMATOCRIT 37.2 % (42.0-52.0); HEMOGLOBIN 12.3 g/dl (14.0-18.0); LYMPHOCYTES # 0.5 10^3/ul (0.8-2.9); LYMPHOCYTES % 7.3 % (15.0-51.0); MEAN CORPUSCULAR HEMOGLOBIN 32.4 pg (29.0-33.0); MEAN CORPUSCULAR HGB CONC 33.1 g/dl (32.0-37.0); MEAN CORPUSCULAR VOLUME 97.9 fl (82.0-101.0); MEAN PLATELET VOLUME 10.2 fl (7.4-10.4); MONOCYTE # 0.6 10^3/ul (0.3-0.9); MONOCYTES % 8.7 % (0.0-11.0); NEUTROPHIL # 5.2 10^3/ul (1.6-7.5); PLATELET COUNT 154 10^3/UL (140-415); RED CELL DISTRIBUTION WIDTH 14.2 % (11.5-14.5); WHITE BLOOD COUNT 6.3 10^3/ul (4.8-10.8)
[2017-01-26 07:14] VITALS: BP 149/68; RESP 18
[2017-01-26 07:28] LABS: CALCIUM 8.4 mg/dl (8.4-10.2); CREATININE 0.87 mg/dl (0.61-1.24); POTASSIUM 3.7 mmol/L (3.5-5.1)
[2017-01-26] MEDS: LEVETIRACETAM 500 MG TAB PO SCH ×2 (08:45→21:16)
[2017-01-26] MEDS: ARTIFICIAL TEARS 15 ML OPH BOTH EYES SCH ×3 (08:45→21:13)
[2017-01-26] MEDS: ASPIRIN 81 MG TAB NGT SCH (08:45)
--- NOTE | 2017-01-26 10:02 | SP ---
DATE OF PROCEDURE: 01/24/2017 INDICATION: An 86-year-old gentleman with transient encephalopathy and seizure, currently on Keppra . DESCRIPTION OF PROCEDURE: Routine EEG was recorded digitally. Nwvoo-fr-jsolb and eaimm-lc-cja juventino ages were recorded and reviewed. All impedances were measured and recorded. Cap electrodes were pl aced in accordance with International 10-20 system of electrode placement. FINDINGS: Symmetrically distributed background activity of low amplitude ranging in frequency betwe en 6 to 8 cycles per second was seen most of the recording, at times slows down 4 to 6 cycles per se cond. No epileptiform transients were seen. No signs of ongoing electrographic seizures or lateral ized slowing. Photic stimulation produces no definite driving. IMPRESSION: Mildly abnormal study secondary to background slowing which could reflect presence of e ncephalopathy, possibly toxic metabolic etiology, could be postictal. Please correlate clinically. Dictated By: ABEBE VÁZQUEZ/LUH Conf#: [id number] DID#: [id number]
--- NOTE | 2017-01-26 12:54 | CONS ---
Date/Time of Note Date/Time of Note DATE: 01/26/17 TIME: 12:50 Consult Date/Type/Reason Admit Date/Time Jan 21, 2017 at 23:53 Type of Consultation: Pulm Subjective Comfortable Mild confusion. Objective Vital Signs Date Time Temp Pulse Resp B/P Pulse Ox O2 Delivery O2 Flow Rate FiO2 01/26/17 07:14 98.2 67 18 149/68 99 01/25/17 20:00 Room Air 01/24/17 18:23 21 01/24/17 15:30 1.0 Intake and Output 01/25/17 01/25/17 01/26/17 15:00 23:00 07:00 Intake Total 330 ml 550 ml 1610 ml Output Total 180 ml 225 ml 400 ml Balance 150 ml 325 ml 1210 ml Exam GENERAL: Elderly gentleman comfortable at rest VITAL SIGNS: per chart NECK: Supple. No JVD or lymphadenopathy. CARDIAC EXAM: S1, S2. No added sounds or murmurs. CHEST: clear bilaterally, No added sounds, rales or wheezes ABDOMEN: Soft, nontender. No guarding or rebound. EXTREMITIES: No cyanosis, clubbing or edema. NEUROLOGIC: Generalized weakness. No focal deficits. Results/Medications Result Diagram: 01/26/17 0545 01/26/17 0545 Results 24 hrs Laboratory Tests Test 01/26/17 05:45 White Blood Count 6.3 Red Blood Count 3.80 L Hemoglobin 12.3 L Hematocrit 37.2 L Mean Corpuscular Volume 97.9 Mean Corpuscular Hemoglobin 32.4 Mean Corpuscular Hemoglobin Concent 33.1 Red Cell Distribution Width 14.2 Platelet Count 154 Mean Platelet Volume 10.2 Neutrophils % 82.0 H Lymphocytes % 7.3 L Monocytes % 8.7 Eosinophils % 1.0 Basophils % 0.2 Nucleated Red Blood Cells % 0.0 Neutrophils # 5.2 Lymphocytes # 0.5 L Monocytes # 0.6 Eosinophils # 0.1 Basophils # 0.0 Nucleated Red Blood Cells # 0.0 Sodium Level 134 L Potassium Level 3.7 Chloride Level 105 Carbon Dioxide Level 26 Anion Gap 7 L Blood Urea Nitrogen 17 Creatinine 0.87 Glucose Level 170 Calcium Level 8.4 Medications Current Medications Pantoprazole (Protonix Iv) 40 mg DAILY@06 IV Last administered on 01/26/17t 05: 30; Admin Dose 40 MG; Start 01/22/17 at 06:00 Eye Lubricant (Artificial Tears Oph) 1 drop TID BOTH EYES Last administered on 01/26/17 08:45; Admin Dose 1 DROP; Start 01/22/17 at 09:00 Miscellaneous Information 1 ea NOTE XX ; Start 01/22/17 at 00:30 Glucose (Glutose) 15 gm Q15M PRN PO DECREASED GLUCOSE; Start 01/22/17 at 00:30 Glucose (Glutose) 22.5 gm Q15M PRN PO DECREASED GLUCOSE; Start 01/22/17 at 00: 30 Dextrose (D50w Syringe) 25 ml Q15M PRN IV DECREASED GLUCOSE; Start 01/22/17 at 00:30 Dextrose (D50w Syringe) 50 ml Q15M PRN IV DECREASED GLUCOSE; Start 01/22/17 at 00:30 Glucagon (Glucagen) 1 mg Q15M PRN IM DECREASED GLUCOSE; Start 01/22/17 at 00:30 Glucose (Glutose) 15 gm Q15M PRN BUCCAL DECREASED GLUCOSE; Start 01/22/17 at 00 :30 Carvedilol (Coreg) 6.25 mg BID NGT Last administered on 01/26/17 08:45; Admin Dose 6.25 MG; Start 01/23/17 at 15:00 Hydralazine HCl (Apresoline) 10 mg Q6H PRN IV sbp>170; Start 01/23/17 at 15:00 Aspirin (Aspirin) 81 mg DAILY NGT Last administered on 01/26/17 08:45; Admin Dose 81 MG; Start 01/23/17 at 15:00 Atorvastatin Calcium 80 mg 80 mg HS NGT Last administered on 01/25/17 20:35; Admin Dose 80 MG; Start 01/23/17 at 21:00 Dextrose/Sodium Chloride (D5-1/2ns) 1,000 ml @ 75 mls/hr [id number] IV Last administered on 01/26/17 01:29; Admin Dose 75 MLS/HR; Start 01/24/17 at 09:00 Levetiracetam (Keppra) 500 mg BID PO Last administered on 01/26/17 08:45; Admin Dose 500 MG; Start 01/25/17 at 21:00 Assessment/Plan Chief Complaint/Hosp Course IMPRESSION 1. Resolving encephalopathy secondary to below 2. New onset seizures. Resolving encephalopathy 3. Hypertensive urgency. Plan 1. Aspiration precautions and incentive spirometry 2. Blood pressure management per cardiology 3. Neurology recommendations continue Keppra 4. MRI of the brain today 5. DVT and GI prophylaxis. 6. Speech therapy evaluation recommendations 7. PT eval Disposition Discussed staff and family. Problems: LEVI RIVERS MD, [facility] Jan 26, 2017 12:54
--- NOTE | 2017-01-26 14:31 | CONS ---
Date/Time of Note Date/Time of Note DATE: 01/26/17 TIME: 14:04 Consult Date/Type/Reason Admit Date/Time Jan 21, 2017 at 23:53 Initial Consult Date Type of Consultation: neurology Subjective no acute events, confused Objective Vital Signs Date Time Temp Pulse Resp B/P Pulse Ox O2 Delivery O2 Flow Rate FiO2 01/26/17 07:14 98.2 67 18 149/68 99 01/25/17 20:00 Room Air 01/24/17 18:23 21 01/24/17 15:30 1.0 Intake and Output 01/25/17 01/25/17 01/26/17 15:00 23:00 07:00 Intake Total 330 ml 550 ml 1610 ml Output Total 180 ml 225 ml 400 ml Balance 150 ml 325 ml 1210 ml Results/Medications Result Diagram: 01/26/17 0545 01/26/17 0545 Results 24 hrs Laboratory Tests Test 01/26/17 05:45 White Blood Count 6.3 Red Blood Count 3.80 L Hemoglobin 12.3 L Hematocrit 37.2 L Mean Corpuscular Volume 97.9 Mean Corpuscular Hemoglobin 32.4 Mean Corpuscular Hemoglobin Concent 33.1 Red Cell Distribution Width 14.2 Platelet Count 154 Mean Platelet Volume 10.2 Neutrophils % 82.0 H Lymphocytes % 7.3 L Monocytes % 8.7 Eosinophils % 1.0 Basophils % 0.2 Nucleated Red Blood Cells % 0.0 Neutrophils # 5.2 Lymphocytes # 0.5 L Monocytes # 0.6 Eosinophils # 0.1 Basophils # 0.0 Nucleated Red Blood Cells # 0.0 Sodium Level 134 L Potassium Level 3.7 Chloride Level 105 Carbon Dioxide Level 26 Anion Gap 7 L Blood Urea Nitrogen 17 Creatinine 0.87 Glucose Level 170 Calcium Level 8.4 Medications Current Medications Pantoprazole (Protonix Iv) 40 mg DAILY@06 IV Last administered on 01/26/17 05: 30; Admin Dose 40 MG; Start 01/22/17 at 06:00 Eye Lubricant (Artificial Tears Oph) 1 drop TID BOTH EYES Last administered on 01/26/17 08:45; Admin Dose 1 DROP; Start 01/22/17 at 09:00 Miscellaneous Information 1 ea NOTE XX ; Start 01/22/17 at 00:30 Glucose (Glutose) 15 gm Q15M PRN PO DECREASED GLUCOSE; Start 01/22/17 at 00:30 Glucose (Glutose) 22.5 gm Q15M PRN PO DECREASED GLUCOSE; Start 01/22/17 at 00: 30 Dextrose (D50w Syringe) 25 ml Q15M PRN IV DECREASED GLUCOSE; Start 01/22/17 at 00:30 Dextrose (D50w Syringe) 50 ml Q15M PRN IV DECREASED GLUCOSE; Start 01/22/17 at 00:30 Glucagon (Glucagen) 1 mg Q15M PRN IM DECREASED GLUCOSE; Start 01/22/17 at 00:30 Glucose (Glutose) 15 gm Q15M PRN BUCCAL DECREASED GLUCOSE; Start 01/22/17 at 00 :30 Carvedilol (Coreg) 6.25 mg BID NGT Last administered on 01/26/17 08:45; Admin Dose 6.25 MG; Start 01/23/17 at 15:00 Hydralazine HCl (Apresoline) 10 mg Q6H PRN IV sbp>170; Start 01/23/17 at 15:00 Aspirin (Aspirin) 81 mg DAILY NGT Last administered on 01/26/17 08:45; Admin Dose 81 MG; Start 01/23/17 at 15:00 Atorvastatin Calcium 80 mg 80 mg HS NGT Last administered on 01/25/17 20:35; Admin Dose 80 MG; Start 01/23/17 at 21:00 Dextrose/Sodium Chloride (D5-1/2ns) 1,000 ml @ 75 mls/hr [id number] IV Last administered on 01/26/17 01:29; Admin Dose 75 MLS/HR; Start 01/24/17 at 09:00 Levetiracetam (Keppra) 500 mg BID PO Last administered on 01/26/17 08:45; Admin Dose 500 MG; Start 01/25/17 at 21:00 Assessment/Plan Chief Complaint/Hosp Course PHYSICAL EXAMINATION VITAL SIGNS: Temperature 98.3, pulse 72, respiration 21, blood pressure 153/92. HEENT: Normocephalic, atraumatic head. NECK: No carotid bruits. No thyromegaly. LUNGS: Clear to auscultation bilaterally. CARDIAC: Normal cardiac rhythm and sounds. ABDOMEN: Soft, nontender. EXTREMITIES: No cyanosis, clubbing, or edema. NEUROLOGIC: He is awake, alert, and oriented x1 with fluent speech. Cranial nerve examination shows intact visual billings bilaterally. Pupils round, reactive from 3 to 2 mm bilaterally. Extraocular movements intact without nystagmus. Symmetrical face. Preserved facial strength and sensation. Tongue is in midline. Palate elevates symmetrically. Motor strength examination seems to be preserved in all extremities. Normal bulk, tone, and strength. Sensory examination intact to light touch and pain. Deep tendon reflexes 2+ throughout. Downgoing toes bilaterally. Coordination preserved on finger-to- finger testing. No dysmetria or tremor noticed. LABORATORY DATA: He had CAT scan of the head which did not show any acute abnormality, chronic lacune in the left basal ganglia. CT angiogram also was done of the head and neck showing mild to moderate changes in the carotid arteries secondary to atherosclerotic disease but no hemodynamically significant stenosis. Chest x-ray: Right basilar opacities, likely atelectasis. MRI brain no acute abnormality, amyloid angiopathy. EEG no seizure activity, c/w encephalopathy IMPRESSION: Transient encephalopathy and seizure on admission. baseline dementia. Continue prophylactic small dose of Keppra 500 mg twice daily. Keep the patient normotensive and euglycemic, and continue aspirin and Plavix. Problems: ABEBE SHEPHERD MD Jan 26, 2017 14:31
--- NOTE | 2017-01-26 15:02 | CONS ---
Date/Time of Note Date/Time of Note DATE: 01/26/17 TIME: 15:01 Assessment/Plan Assessment/Plan Additional Assessment/Plan Altered mental status, improved Preserved ejection fraction Hypertension urgency/emergency Seizure CAD with history of CABG Respiratory failure status post extubation -Blood pressure trend overall remains stable. Continue beta-christian as heart rate and blood pressure permits. Continue aspirin and statin therapy if no contraindication. Consultation Date/Type/Reason Admit Date/Time Jan 21, 2017 at 23:53 Type of Consultation: cv 24 HR Interval Summary Free Text/Dictation Patient seen and examined, denies chest pain, shortness of breath Exam/Review of Systems Vital Signs Vitals Vital Signs Date Time Temp Pulse Resp B/P Pulse Ox O2 Delivery O2 Flow Rate FiO2 01/26/17 07:14 98.2 67 18 149/68 99 01/25/17 20:00 Room Air 01/24/17 18:23 21 01/24/17 15:30 1.0 Intake and Output 01/25/17 01/25/17 01/26/17 15:00 23:00 07:00 Intake Total 330 ml 550 ml 1610 ml Output Total 180 ml 225 ml 400 ml Balance 150 ml 325 ml 1210 ml Exam No apparent distress Constitutional: alert Head: normocephalic Respiratory: other (Coarse breath sounds bilaterally, no wheezing) Cardiovascular: other (S1-S2 heard), regular rate and rhythm Gastrointestinal: bowel sounds, non-tender, soft Extremities: edema (Trace) Results Result Diagram: 01/26/17 0545 01/26/17 0545 Results 24 hrs Laboratory Tests Test 01/26/17 05:45 White Blood Count 6.3 Red Blood Count 3.80 L Hemoglobin 12.3 L Hematocrit 37.2 L Mean Corpuscular Volume 97.9 Mean Corpuscular Hemoglobin 32.4 Mean Corpuscular Hemoglobin Concent 33.1 Red Cell Distribution Width 14.2 Platelet Count 154 Mean Platelet Volume 10.2 Neutrophils % 82.0 H Lymphocytes % 7.3 L Monocytes % 8.7 Eosinophils % 1.0 Basophils % 0.2 Nucleated Red Blood Cells % 0.0 Neutrophils # 5.2 Lymphocytes # 0.5 L Monocytes # 0.6 Eosinophils # 0.1 Basophils # 0.0 Nucleated Red Blood Cells # 0.0 Sodium Level 134 L Potassium Level 3.7 Chloride Level 105 Carbon Dioxide Level 26 Anion Gap 7 L Blood Urea Nitrogen 17 Creatinine 0.87 Glucose Level 170 Calcium Level 8.4 Medications Medications Current Medications Pantoprazole (Protonix Iv) 40 mg DAILY@06 IV Last administered on 01/26/17 05: 30; Admin Dose 40 MG; Start 01/22/17 at 06:00 Eye Lubricant (Artificial Tears Oph) 1 drop TID BOTH EYES Last administered on 01/26/17 08:45; Admin Dose 1 DROP; Start 01/22/17 at 09:00 Miscellaneous Information 1 ea NOTE XX ; Start 01/22/17 at 00:30 Glucose (Glutose) 15 gm Q15M PRN PO DECREASED GLUCOSE; Start 01/22/17 at 00:30 Glucose (Glutose) 22.5 gm Q15M PRN PO DECREASED GLUCOSE; Start 01/22/17 at 00: 30 Dextrose (D50w Syringe) 25 ml Q15M PRN IV DECREASED GLUCOSE; Start 01/22/17 at 00:30 Dextrose (D50w Syringe) 50 ml Q15M PRN IV DECREASED GLUCOSE; Start 01/22/17 at 00:30 Glucagon (Glucagen) 1 mg Q15M PRN IM DECREASED GLUCOSE; Start 01/22/17 at 00:30 Glucose (Glutose) 15 gm Q15M PRN BUCCAL DECREASED GLUCOSE; Start 01/22/17 at 00 :30 Carvedilol (Coreg) 6.25 mg BID NGT Last administered on 01/26/17 08:45; Admin Dose 6.25 MG; Start 01/23/17 at 15:00 Hydralazine HCl (Apresoline) 10 mg Q6H PRN IV sbp>170; Start 01/23/17 at 15:00 Aspirin (Aspirin) 81 mg DAILY NGT Last administered on 01/26/17 08:45; Admin Dose 81 MG; Start 01/23/17 at 15:00 Atorvastatin Calcium 80 mg 80 mg HS NGT Last administered on 01/25/17 20:35; Admin Dose 80 MG; Start 01/23/17 at 21:00 Dextrose/Sodium Chloride (D5-1/2ns) 1,000 ml @ 75 mls/hr [id number] IV Last administered on 01/26/17 01:29; Admin Dose 75 MLS/HR; Start 01/24/17 at 09:00 Levetiracetam (Keppra) 500 mg BID PO Last administered on 01/26/17t 08:45; Admin Dose 500 MG; Start 01/25/17 at 21:00 Mynor Prince DO Jan 26, 2017 15:02
[2017-01-26 20:15] VITALS: BP 134/61; RESP 16
[2017-01-26] MEDS: ATORVASTATIN 80 MG TAB NGT SCH (21:13)
[2017-01-27] MEDS: DEXTROSE 5%-0.45% NACL 1,000 ML IV SCH ×3 (04:18→23:36)
[2017-01-27] MEDS: PANTOPRAZOLE 40 MG INJ IV SCH (06:00)
[2017-01-27 07:58] VITALS: BP 126/63; RESP 20
[2017-01-27] MEDS: ASPIRIN 81 MG TAB NGT SCH (08:40)
[2017-01-27] MEDS: LEVETIRACETAM 500 MG TAB PO SCH ×2 (08:40→22:12)
[2017-01-27] MEDS: ARTIFICIAL TEARS 15 ML OPH BOTH EYES SCH ×3 (08:41→22:13)
--- NOTE | 2017-01-27 11:40 | CONS ---
Date/Time of Note Date/Time of Note DATE: 01/27/17 TIME: 11:38 Assessment/Plan Assessment/Plan Additional Assessment/Plan Altered mental status, improved Preserved ejection fraction Hypertension urgency/emergency-resolved Seizure CAD with history of CABG Respiratory failure status post extubation -Blood pressure trend overall remains stable. Continue beta-christian as heart rate and blood pressure permits. Continue aspirin and statin therapy if no contraindication. Discussed cardiology treatments with the patient's son at bedside. No new cardiac orders at the current time. DC planning Consultation Date/Type/Reason Admit Date/Time Jan 21, 2017 at 23:53 Type of Consultation: cv 24 HR Interval Summary Free Text/Dictation Denies chest pain, shortness of breath Exam/Review of Systems Vital Signs Vitals Vital Signs Date Time Temp Pulse Resp B/P Pulse Ox O2 Delivery O2 Flow Rate FiO2 01/27/17 07:58 97.4 71 20 126/63 97 01/25/17 20:00 Room Air 01/24/17 18:23 21 01/24/17 15:30 1.0 Intake and Output 01/26/17 01/26/17 01/27/17 15:00 23:00 07:00 Intake Total 1930 ml 1155 ml Output Total 1000 ml 420 ml Balance 930 ml 735 ml Exam Family at bedside, no apparent distress Constitutional: alert, oriented Head: normocephalic Respiratory: other (Coarse breath sounds bilaterally, no wheezing) Cardiovascular: other (S1-S2 heard), regular rate and rhythm Gastrointestinal: bowel sounds, non-tender, soft Extremities: other (No significant edema) Results Result Diagram: 01/26/17 0545 01/26/17 0545 Medications Medications Current Medications Pantoprazole (Protonix Iv) 40 mg DAILY@06 IV Last administered on 01/27/17 06: 00; Admin Dose 40 MG; Start 01/22/17 at 06:00 Eye Lubricant (Artificial Tears Oph) 1 drop TID BOTH EYES Last administered on 01/27/17 08:41; Admin Dose 1 DROP; Start 01/22/17 at 09:00 Miscellaneous Information 1 ea NOTE XX ; Start 01/22/17 at 00:30 Glucose (Glutose) 15 gm Q15M PRN PO DECREASED GLUCOSE; Start 01/22/17 at 00:30 Glucose (Glutose) 22.5 gm Q15M PRN PO DECREASED GLUCOSE; Start 01/22/17 at 00: 30 Dextrose (D50w Syringe) 25 ml Q15M PRN IV DECREASED GLUCOSE; Start 01/22/17 at 00:30 Dextrose (D50w Syringe) 50 ml Q15M PRN IV DECREASED GLUCOSE; Start 01/22/17 at 00:30 Glucagon (Glucagen) 1 mg Q15M PRN IM DECREASED GLUCOSE; Start 01/22/17 at 00:30 Glucose (Glutose) 15 gm Q15M PRN BUCCAL DECREASED GLUCOSE; Start 01/22/17 at 00 :30 Carvedilol (Coreg) 6.25 mg BID NGT Last administered on 01/27/17 08:40; Admin Dose 6.25 MG; Start 01/23/17 at 15:00 Hydralazine HCl (Apresoline) 10 mg Q6H PRN IV sbp>170; Start 01/23/17 at 15:00 Aspirin (Aspirin) 81 mg DAILY NGT Last administered on 01/27/17 08:40; Admin Dose 81 MG; Start 01/23/17 at 15:00 Atorvastatin Calcium 80 mg 80 mg HS NGT Last administered on 01/26/17 21:13; Admin Dose 80 MG; Start 01/23/17 at 21:00 Dextrose/Sodium Chloride (D5-1/2ns) 1,000 ml @ 75 mls/hr [id number] IV Last administered on 01/27/17 04:18; Admin Dose 75 MLS/HR; Start 01/24/17 at 09:00 Levetiracetam (Keppra) 500 mg BID PO Last administered on 01/27/17 08:40; Admin Dose 500 MG; Start 01/25/17 at 21:00 Mynor Prince DO Jan 27, 2017 11:40
[2017-01-27 12:10] VITALS: BP 114/68; PULSE 82; RESP 16
--- NOTE | 2017-01-27 14:03 | RADRPT ---
PROCEDURE: CT brain without contrast CLINICAL INDICATION: Hypertensive encephalitis TECHNIQUE: CT of the brain without contrast performed on a multidetector CT scanner, with multiplan ar reformats. One or more of the following dose reduction techniques were used: Automated exposure control, adjustment in mA and / or kV according to patient size, use of iterative reconstructive junior hnique. CTDIvol = 44 mGy; DLP = or 630 mGy-cm. COMPARISON: 01/21/2017 FINDINGS: No acute intracranial hemorrhage is identified. No extra-axial fluid collection is seen. There is no mass effect. No midline shift is identified. Ventricles and sulci are mild to moderately enlarged compatible with volume loss. There is a chronic lacunar infarct in the left caudate head. There are mild to moderate areas of hy podensity in the periventricular - deep white matter which are nonspecific but suggestive of chronic small vessel ischemic changes. Monroy-white differentiation appears preserved. Atherosclerotic calcifications of the proximal intracranial arteries are noted. Calvarium, and skull base are intact. Mastoid air cells and imaged paranasal sinuses grossly clear. IMPRESSION: 1. No acute intracranial pathology, or significant change identified. 2. Chronic left basal ganglia lacunar infarct. 3. Mild to moderate volume loss, with mild to moderate chronic small vessel ischemic changes. RPTAT: VV .Jose Steel MD, Date Time Electronically viewed and signed by .Jose Steel MD, MD on 01/27/2017 14:03 .O/
--- NOTE | 2017-01-27 14:26 | RADRPT ---
PROCEDURE: XR Knees. CLINICAL INDICATION: Pain. Status post fall. TECHNIQUE: Three views of the bilateral knees are available for review. COMPARISON: None available FINDINGS: No acute fracture or dislocation is seen. Mild tricompartmental degenerative changes of bilateral kn ees are noted. Surgical clips are noted in the medial aspect of the left leg. Alignment is anatomic. Diffuse moderate vascular calcifications are noted. Small left suprapatellar effusion is noted. IMPRESSION: 1. No acute fracture or dislocation is seen. 2. Mild tricompartmental degenerative changes of bilateral knees. 3. Diffuse moderate vascular calcifications. 4. Small left suprapatellar effusion. RPTAT: HFN .Eloina Howell MD, MD Date Time Electronically viewed and signed by .Eloina Howell MD, on 01/27/2017 14:25 .N/
--- NOTE | 2017-01-27 14:32 | CONS ---
Date/Time of Note Date/Time of Note DATE: 01/27/17 TIME: 14:31 Consult Date/Type/Reason Admit Date/Time Jan 21, 2017 at 23:53 Type of Consultation: pulmonary Subjective Patient stable this morning mildly confused but no new events Objective Vital Signs Date Time Temp Pulse Resp B/P Pulse Ox O2 Delivery O2 Flow Rate FiO2 01/27/17 07:58 97.4 71 20 126/63 97 01/25/17 20:00 Room Air 01/24/17 18:23 21 01/24/17 15:30 1.0 Intake and Output 01/26/17 01/26/17 01/27/17 15:00 23:00 07:00 Intake Total 1930 ml 1155 ml Output Total 1000 ml 420 ml Balance 930 ml 735 ml Exam GENERAL: Elderly gentleman comfortable at rest VITAL SIGNS: per chart NECK: Supple. No JVD or lymphadenopathy. CARDIAC EXAM: S1, S2. No added sounds or murmurs. CHEST: clear bilaterally, No added sounds, rales or wheezes ABDOMEN: Soft, nontender. No guarding or rebound. EXTREMITIES: No cyanosis, clubbing or edema. NEUROLOGIC: Generalized weakness. No focal deficits. Results/Medications Result Diagram: 01/26/1745 01/26/1745 Medications Current Medications Pantoprazole (Protonix Iv) 40 mg DAILY@06 IV Last administered on 01/27/17 06: 00; Admin Dose 40 MG; Start 01/22/17 at 06:00 Eye Lubricant (Artificial Tears Oph) 1 drop TID BOTH EYES Last administered on 01/27/17 08:41; Admin Dose 1 DROP; Start 01/22/17 at 09:00 Miscellaneous Information 1 ea NOTE XX ; Start 01/22/17 at 00:30 Glucose (Glutose) 15 gm Q15M PRN PO DECREASED GLUCOSE; Start 01/22/17 at 00:30 Glucose (Glutose) 22.5 gm Q15M PRN PO DECREASED GLUCOSE; Start 01/22/17 at 00: 30 Dextrose (D50w Syringe) 25 ml Q15M PRN IV DECREASED GLUCOSE; Start 01/22/17 at 00:30 Dextrose (D50w Syringe) 50 ml Q15M PRN IV DECREASED GLUCOSE; Start 01/22/17 at 00:30 Glucagon (Glucagen) 1 mg Q15M PRN IM DECREASED GLUCOSE; Start 01/22/17 at 00:30 Glucose (Glutose) 15 gm Q15M PRN BUCCAL DECREASED GLUCOSE; Start 01/22/17 at 00 :30 Carvedilol (Coreg) 6.25 mg BID NGT Last administered on 01/27/17 08:40; Admin Dose 6.25 MG; Start 01/23/17 at 15:00 Hydralazine HCl (Apresoline) 10 mg Q6H PRN IV sbp>170; Start 01/23/17 at 15:00 Aspirin (Aspirin) 81 mg DAILY NGT Last administered on 01/27/17 08:40; Admin Dose 81 MG; Start 01/23/17 at 15:00 Atorvastatin Calcium 80 mg 80 mg HS NGT Last administered on 01/26/17 21:13; Admin Dose 80 MG; Start 01/23/17 at 21:00 Dextrose/Sodium Chloride (D5-1/2ns) 1,000 ml @ 75 mls/hr [id number] IV Last administered on 01/27/17 04:18; Admin Dose 75 MLS/HR; Start 01/24/17 at 09:00 Levetiracetam (Keppra) 500 mg BID PO Last administered on 01/27/17 08:40; Admin Dose 500 MG; Start 01/25/17 at 21:00 Assessment/Plan Chief Complaint/Hosp Course IMPRESSION 1. Resolving encephalopathy secondary to below 2. New onset seizures. Resolving encephalopathy 3. Hypertensive urgency. Plan 1. Aspiration precautions and incentive spirometry 2. Blood pressure management per cardiology 3. Neurology recommendations continue Keppra 4. DVT and GI prophylaxis. Disposition Agree with discharge planning Problems: LEVI RIVERS MD, [facility] Jan 27, 2017 14:32
--- NOTE | 2017-01-27 16:39 | PN ---
Date/Time of Note Date/Time of Note DATE: 01/27/17 TIME: 16:33 Assessment/Plan VTE Prophylaxis VTE Prophylaxis Intervention: SCD's (plavix, asa) Lines/Catheters IV Catheter Type (from Nrsg): Peripheral IV Urinary Cath still in place: Yes Subjective 24 Hr Interval Summary Free Text/Dictation 86 yr old man with dementia, diet control diabetes. presented with seizure and hypertension, old lacunar changes on ct. bp stable on carvediol alone, on keppra , plavix and asa per neuro resp situation normal now on room air slipped in bathroom today with his attendant and hit top of head with minor scalp laceration, steristrips applied repeat ct today, no change, no acute abnormality rouses from sleep, awake, orients easily, fluent, no complaints except for sore head moves all four, some ue bruises, iv sites indurated without infection lungs clear, hr ok abd soft alvarenga is out plan: if remains stable, can dc on current meds to home with family day care worker, family and home health with office follow up Skin: bruising (scalp laceration top of head, steri strips on) Exam/Review of Systems Vital Signs Vitals Vital Signs Date Time Temp Pulse Resp B/P Pulse Ox O2 Delivery O2 Flow Rate FiO2 01/27/17 07:58 97.4 71 20 126/63 97 01/25/17 20:00 Room Air 01/24/17 18:23 21 01/24/17 15:30 1.0 Intake and Output 01/26/17 01/26/17 01/27/17 15:00 23:00 07:00 Intake Total 1930 ml 1155 ml Output Total 1000 ml 420 ml Balance 930 ml 735 ml Results Result Diagram: 01/26/17 0545 01/26/17 0545 Medications Medications Current Medications Pantoprazole (Protonix Iv) 40 mg DAILY@06 IV Last administered on 01/27/17 06: 00; Admin Dose 40 MG; Start 01/22/17 at 06:00 Eye Lubricant (Artificial Tears Oph) 1 drop TID BOTH EYES Last administered on 01/27/17 08:41; Admin Dose 1 DROP; Start 01/22/17 at 09:00 Miscellaneous Information 1 ea NOTE XX ; Start 01/22/17 at 00:30 Glucose (Glutose) 15 gm Q15M PRN PO DECREASED GLUCOSE; Start 01/22/17 at 00:30 Glucose (Glutose) 22.5 gm Q15M PRN PO DECREASED GLUCOSE; Start 01/22/17 at 00: 30 Dextrose (D50w Syringe) 25 ml Q15M PRN IV DECREASED GLUCOSE; Start 01/22/17 at 00:30 Dextrose (D50w Syringe) 50 ml Q15M PRN IV DECREASED GLUCOSE; Start 01/22/17 at 00:30 Glucagon (Glucagen) 1 mg Q15M PRN IM DECREASED GLUCOSE; Start 01/22/17 at 00:30 Glucose (Glutose) 15 gm Q15M PRN BUCCAL DECREASED GLUCOSE; Start 01/22/17 at 00 :30 Carvedilol (Coreg) 6.25 mg BID NGT Last administered on 01/27/17 08:40; Admin Dose 6.25 MG; Start 01/23/17 at 15:00 Hydralazine HCl (Apresoline) 10 mg Q6H PRN IV sbp>170; Start 01/23/17 at 15:00 Aspirin (Aspirin) 81 mg DAILY NGT Last administered on 01/27/17 08:40; Admin Dose 81 MG; Start 01/23/17 at 15:00 Atorvastatin Calcium 80 mg 80 mg HS NGT Last administered on 01/26/17 21:13; Admin Dose 80 MG; Start 01/23/17 at 21:00 Dextrose/Sodium Chloride (D5-1/2ns) 1,000 ml @ 75 mls/hr [id number] IV Last administered on 01/27/17 04:18; Admin Dose 75 MLS/HR; Start 01/24/17 at 09:00 Levetiracetam (Keppra) 500 mg BID PO Last administered on 01/27/17 08:40; Admin Dose 500 MG; Start 01/25/17 at 21:00 JAJA ORO MD Jan 27, 2017 16:39
[2017-01-27] MEDS: ACETAMINOPHEN 500 MG TAB PO PRN (17:27)
[2017-01-27 20:00] VITALS: BP 116/57; PULSE 78; RESP 21
[2017-01-27] MEDS: ATORVASTATIN 80 MG TAB NGT SCH (22:13)
[2017-01-28] MEDS: DEXTROSE 5%-0.45% NACL 1,000 ML IV SCH ×3 (05:26→21:32)
[2017-01-28 06:03] LABS: ADD SCAN DIFF NO
[2017-01-28 06:17] LABS: BASOPHILS % 0.4 % (0.0-2.0); EOSINOPHILS # 0.2 10^3/ul (0.0-0.5); EOSINOPHILS % 3.7 % (0.0-7.0); HEMATOCRIT 32.3 % (42.0-52.0); HEMOGLOBIN 10.8 g/dl (14.0-18.0); LYMPHOCYTES # 0.7 10^3/ul (0.8-2.9); LYMPHOCYTES % 13.2 % (15.0-51.0); MEAN CORPUSCULAR HEMOGLOBIN 32.2 pg (29.0-33.0); MEAN CORPUSCULAR HGB CONC 33.4 g/dl (32.0-37.0); MEAN CORPUSCULAR VOLUME 96.4 fl (82.0-101.0); MEAN PLATELET VOLUME 10.6 fl (7.4-10.4); MONOCYTE # 0.5 10^3/ul (0.3-0.9); MONOCYTES % 9.5 % (0.0-11.0); NEUTROPHILS % 72.5 % (39.0-77.0); PLATELET COUNT 181 10^3/UL (140-415); RED BLOOD COUNT 3.35 10^6/ul (4.70-6.10); RED CELL DISTRIBUTION WIDTH 14.2 % (11.5-14.5); WHITE BLOOD COUNT 5.5 10^3/ul (4.8-10.8)
[2017-01-28 06:27] LABS: POTASSIUM 3.1 mmol/L (3.5-5.1)
[2017-01-28 06:30] LABS: CALCIUM 8.6 mg/dl (8.4-10.2)
[2017-01-28 07:35] VITALS: BP 174/82; RESP 20
[2017-01-28] MEDS: ASPIRIN 81 MG TAB NGT SCH (09:02)
[2017-01-28] MEDS: ARTIFICIAL TEARS 15 ML OPH BOTH EYES SCH ×3 (09:02→21:28)
[2017-01-28] MEDS: LEVETIRACETAM 500 MG TAB PO SCH ×2 (09:02→21:28)
[2017-01-28 09:48] VITALS: BP 144/67; PULSE 82
--- NOTE | 2017-01-28 09:55 | PN ---
Date/Time of Note Date/Time of Note DATE: 01/28/17 TIME: 09:51 Assessment/Plan VTE Prophylaxis VTE Prophylaxis Intervention: SCD's Lines/Catheters IV Catheter Type (from Nrs): Peripheral IV Urinary Cath still in place: No Reason Cath still needed: other (indicate) (alvarenga already removed) Assessment/Plan Problems: (1) Status post fall Status: Acute Comment: At risk for further episodes after d/c. Pt. does have caregiver but despite this home health and PT would be advised (2) Hypertensive encephalopathy Status: Resolved (3) Essential (primary) hypertension Status: Chronic Comment: Hypertensive this am. Increase carvedilol to 12.5 bid and add losartan 50/d. (4) Hypokalemia Status: Acute Comment: Replace and recheck Subjective 24 Hr Interval Summary Free Text/Dictation feels well and wants to go home Constitutional: improved, no complaints Respiratory: no complaints Cardiovascular: no complaints Gastrointestinal: no complaints Genitourinary: no complaints Musculoskeletal: no complaints Neurologic: no complaints Exam/Review of Systems Vital Signs Vitals VS - Last 72 Hours, by Label Date Time Temp Pulse Resp B/P Pulse Ox O2 Delivery O2 Flow Rate FiO2 01/28/17 09:48 82 144/67 01/28/17 07:35 97.8 74 20 174/82 98 01/27/17 20:00 98.1 78 21 116/57 98 Room Air 01/27/17 12:10 82 16 114/68 01/27/17 07:58 97.4 71 20 126/63 97 01/26/17 20:15 98.0 67 16 134/61 97 01/26/17 07:14 98.2 67 18 149/68 99 01/25/17 20:00 84 01/25/17 20:00 84 16 147/79 100 Room Air 01/25/17 19:00 97.9 86 20 131/64 96 01/25/17 19:00 98.4 80 18 135/63 99 Room Air 01/25/17 16:20 98.1 70 20 135/63 100 Room Air 01/25/17 16:00 77 01/25/17 12:13 97.7 70 20 104/92 99 Room Air 01/25/17 12:00 69 01/25/17 10:00 65 16 109/64 96 Room Air Vital Signs Date Time Temp Pulse Resp B/P Pulse Ox O2 Delivery O2 Flow Rate FiO2 01/28/17 09:48 82 144/67 01/28/17 07:35 97.8 20 98 01/27/17 20:00 Room Air 01/24/17 18:23 21 01/24/17 15:30 1.0 Intake and Output 01/27/17 01/27/17 01/28/17 14:59 22:59 06:59 Intake Total 1730 ml 997 ml Output Total 250 ml 320 ml Balance 1480 ml 677 ml Exam Constitutional: alert, frail, oriented Psych: nl mood/affect, no complaints Head: No atraumatic (small lac anterior parietal region, healing well) Respiratory: clear to auscultation, normal air movement Cardiovascular: nl pulses, regular rate and rhythm, systolic murmur (vibratory) , No edema, No rub Gastrointestinal: bowel sounds, nl liver, spleen, non-tender, soft, No mass, No rebound or guarding Musculoskeletal: nl extremities to inspection Extremities: normal pulses, No clubbing, No cyanosis, No edema Neurological: 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, nl mental status, nl speech, nl strength Results Result Diagram: 01/28/17 0525 01/28/17 0525 Results 24 hrs Laboratory Tests Test 01/28/17 05:25 White Blood Count 5.5 Red Blood Count 3.35 L Hemoglobin 10.8 L Hematocrit 32.3 L Mean Corpuscular Volume 96.4 Mean Corpuscular Hemoglobin 32.2 Mean Corpuscular Hemoglobin Concent 33.4 Red Cell Distribution Width 14.2 Platelet Count 181 Mean Platelet Volume 10.6 H Neutrophils % 72.5 Lymphocytes % 13.2 L Monocytes % 9.5 Eosinophils % 3.7 Basophils % 0.4 Nucleated Red Blood Cells % 0.0 Neutrophils # 4.0 Lymphocytes # 0.7 L Monocytes # 0.5 Eosinophils # 0.2 Basophils # 0.0 Nucleated Red Blood Cells # 0.0 Sodium Level 139 Potassium Level 3.1 L Chloride Level 104 Carbon Dioxide Level 27 Anion Gap 11 Blood Urea Nitrogen 14 Creatinine 1.00 Glucose Level 175 Calcium Level 8.6 Magnesium Level 1.9 Medications Medications Current Medications Eye Lubricant (Artificial Tears Oph) 1 drop TID BOTH EYES Last administered on 01/28/17t 09:02; Admin Dose 1 DROP; Start 01/22/17 at 09:00 Miscellaneous Information 1 ea NOTE XX ; Start 01/22/17 at 00:30 Glucose (Glutose) 15 gm Q15M PRN PO DECREASED GLUCOSE; Start 01/22/17 at 00:30 Glucose (Glutose) 22.5 gm Q15M PRN PO DECREASED GLUCOSE; Start 01/22/17 at 00: 30 Dextrose (D50w Syringe) 25 ml Q15M PRN IV DECREASED GLUCOSE; Start 01/22/17 at 00:30 Dextrose (D50w Syringe) 50 ml Q15M PRN IV DECREASED GLUCOSE; Start 01/22/17 at 00:30 Glucagon (Glucagen) 1 mg Q15M PRN IM DECREASED GLUCOSE; Start 01/22/17 at 00:30 Glucose (Glutose) 15 gm Q15M PRN BUCCAL DECREASED GLUCOSE; Start 01/22/17 at 00 :30 Hydralazine HCl (Apresoline) 10 mg Q6H PRN IV sbp>170; Start 01/23/17 at 15:00 Aspirin (Aspirin) 81 mg DAILY NGT Last administered on 01/28/17 09:02; Admin Dose 81 MG; Start 01/23/17 at 15:00 Atorvastatin Calcium 80 mg 80 mg HS NGT Last administered on 01/27/17 22:13; Admin Dose 80 MG; Start 01/23/17 at 21:00 Dextrose/Sodium Chloride (D5-1/2ns) 1,000 ml @ 75 mls/hr [id number] IV Last administered on 01/27/17 23:36; Admin Dose 75 MLS/HR; Start 01/24/17 at 09:00 Levetiracetam (Keppra) 500 mg BID PO Last administered on 01/28/17 09:02; Admin Dose 500 MG; Start 01/25/17 at 21:00 Acetaminophen (Tylenol Tab) 500 mg Q6H PRN PO PAIN AND OR ELEVATED TEMP Last administered on 01/27/17 17:27; Admin Dose 500 MG; Start 01/27/17 at 17:00 Carvedilol (Coreg) 12.5 mg BID NGT ; Start 01/28/17 at 21:00 Losartan Potassium (Cozaar) 50 mg DAILY NGT ; Start 01/28/17 at 10:00 Potassium Chloride (Potassium Chloride Pwd/Soln) 40 meq ONCE ONCE NGT ; Start 01/28/17 at 10:00; Stop 01/28/17 at 10:01 GENNA FUNG MD Jan 28, 2017 09:55
[2017-01-28] MEDS ORDERED: POTASSIUM CHLORIDE 20 MEQ POWDER FOR ORAL SOLN NGT ONE (10:00)
[2017-01-28] MEDS: LOSARTAN 50 MG TAB NGT SCH (11:08)
--- NOTE | 2017-01-28 14:41 | PN ---
DATE: 01/28/2017 CARDIOLOGY FOLLOWUP SUBJECTIVE: The patient denies any chest pain or pressure to me. Denies any palpitations to me. H is breathing has remained stable. Denies any numbness or weakness to me. MEDICATIONS: Reviewed, which include: 1. Coreg 12.5 b.i.d. 2. Losartan 50. 3. Lipitor. 4. Aspirin. PHYSICAL EXAMINATION: VITAL SIGNS: Temperature 97.8, heart rate of 82, blood pressure was as high as 174/82, most recent one is 144/67, respiratory rate of 20, saturating 98%. HEENT: Normocephalic, atraumatic. Pupils are equal. NECK: Supple, with no JVD. CARDIOVASCULAR: Regular rate and rhythm with systolic ejection murmur. PULMONARY: Anteriorly with no wheezes now or rhonchi. GASTROINTESTINAL: Soft. No rebound, no guarding. No tenderness to palpation. EXTREMITIES: Trivial edema. NEUROLOGIC: Awake, responds appropriately. PSYCHIATRIC: Appears to be calm and very pleasant. DERMATOLOGIC: With ecchymoses but no active bleeding. LABORATORY DATA: WBC of 7.5, hemoglobin 10.8, platelets of 181. Sodium 139, potassium is 3.1, BUN of 14, creatinine 1, glucose 175. ASSESSMENT AND PLAN: 1. Hypertensive urgency, currently improved. Medication adjustment has been made. 2. History of coronary artery disease. 3. History of coronary bypass graft. 4. Status post respiratory failure and intubation, currently extubated and stable. 5. History of seizures , currently improved. RECOMMENDATIONS: The patient has normal ejection fraction. We will continue with the current cardi ac care including carvedilol and losartan. Aspirin will be continued. Statin is to be continued as tolerated. Potassium was replaced. Dictated By: LION POLANCO MD AV/NTS Conf#: [id number] DID#: [id number] CC: GENNA FUNG MD;*EndCC*
[2017-01-28 20:00] VITALS: BP 140/66; RESP 20
[2017-01-28] MEDS: ATORVASTATIN 80 MG TAB NGT SCH (21:28)
[2017-01-29 06:33] LABS: POTASSIUM 3.4 mmol/L (3.5-5.1)
[2017-01-29 06:36] LABS: CREATININE 0.98 mg/dl (0.61-1.24)
[2017-01-29 06:37] LABS: CALCIUM 8.6 mg/dl (8.4-10.2); MAGNESIUM 1.8 mg/dl (1.7-2.5); PHOSPHORUS 2.4 mg/dl (2.5-4.9)
[2017-01-29 07:28] VITALS: BP 138/63; RESP 18
[2017-01-29] MEDS: ASPIRIN 81 MG TAB NGT SCH (08:20)
[2017-01-29] MEDS: LEVETIRACETAM 500 MG TAB PO SCH ×2 (08:20→21:25)
[2017-01-29] MEDS: LOSARTAN 50 MG TAB NGT SCH (08:21)
[2017-01-29] MEDS: ACETAMINOPHEN 500 MG TAB PO PRN (08:21)
[2017-01-29] MEDS: ARTIFICIAL TEARS 15 ML OPH BOTH EYES SCH ×3 (08:21→21:25)
[2017-01-29] MEDS: DEXTROSE 5%-0.45% NACL 1,000 ML IV SCH ×2 (08:22→22:20)
--- NOTE | 2017-01-29 09:21 | PN ---
Date/Time of Note Date/Time of Note DATE: 01/29/17 TIME: 09:17 Assessment/Plan VTE Prophylaxis VTE Prophylaxis Intervention: SCD's Lines/Catheters IV Catheter Type (from Nrs): Peripheral IV Urinary Cath still in place: No Assessment/Plan Problems: (1) Hypokalemia Status: Acute Comment: Potassium improved but still below goal. Replace magnesium and then replace potassium again. Recheck tomorrow. (2) Essential (primary) hypertension Status: Chronic Comment: BP better controlled. Cont. current doses of carvedilol and losartan (3) Type 2 diabetes mellitus without complications Status: Chronic Comment: A1c 6.5% and FBG 190 mg/dL. Add januvia 100 mg/dL and check FS. (4) Status post fall Status: Acute Comment: D/w family. Although they have HHPT and help at home, pt. would likely be safer going to ARU to get stronger and decrease fall risk before d/c home. Will order ARU consult. If does not meet criteria, then will d/c home. Family agrees. Subjective 24 Hr Interval Summary Constitutional: improved, no complaints Respiratory: no complaints Cardiovascular: no complaints Gastrointestinal: no complaints Genitourinary: no complaints Musculoskeletal: no complaints Neurologic: no complaints Exam/Review of Systems Vital Signs Vitals VS - Last 72 Hours, by Label Date Time Temp Pulse Resp B/P Pulse Ox O2 Delivery O2 Flow Rate FiO2 01/29/17 07:28 99.1 70 18 138/63 97 01/28/17 20:00 97.2 78 20 140/66 96 01/28/17 09:48 82 144/67 01/28/17 07:35 97.8 74 20 174/82 98 01/27/17 20:00 98.1 78 21 116/57 98 Room Air 01/27/17 12:10 82 16 114/68 01/27/17 07:58 97.4 71 20 126/63 97 01/26/17 20:15 98.0 67 16 134/61 97 Vital Signs Date Time Temp Pulse Resp B/P Pulse Ox O2 Delivery O2 Flow Rate FiO2 01/29/17 07:28 99.1 70 18 138/63 97 01/27/17 20:00 Room Air Intake and Output 01/28/17 01/28/17 01/29/17 15:00 23:00 07:00 Intake Total 1068 ml 950 ml Output Total 300 ml 500 ml Balance 768 ml 450 ml Exam Constitutional: alert, frail, oriented Psych: nl mood/affect, no complaints Respiratory: clear to auscultation, normal air movement Cardiovascular: nl pulses, regular rate and rhythm, No edema, No murmurs/extra sounds, No rub Gastrointestinal: bowel sounds, nl liver, spleen, non-tender, soft, No mass, No rebound or guarding Musculoskeletal: nl extremities to inspection Extremities: normal pulses, No clubbing, No cyanosis, No edema Neurological: 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, nl mental status, nl speech, nl strength Results Result Diagram: 01/28/1752401/29/17524 Results 24 hrs Laboratory Tests Test 01/29/17 05:25 Sodium Level 137 Potassium Level 3.4 L Chloride Level 102 Carbon Dioxide Level 26 Anion Gap 12 Blood Urea Nitrogen 12 Creatinine 0.98 Glucose Level 195 Calcium Level 8.6 Phosphorus Level 2.4 L Magnesium Level 1.8 Medications Medications Current Medications Eye Lubricant (Artificial Tears Oph) 1 drop TID BOTH EYES Last administered on 01/29/17 08:21; Admin Dose 1 DROP; Start 01/22/17 at 09:00 Miscellaneous Information 1 ea NOTE XX ; Start 01/22/17 at 00:30 Glucose (Glutose) 15 gm Q15M PRN PO DECREASED GLUCOSE; Start 01/22/17 at 00:30 Glucose (Glutose) 22.5 gm Q15M PRN PO DECREASED GLUCOSE; Start 01/22/17 at 00: 30 Dextrose (D50w Syringe) 25 ml Q15M PRN IV DECREASED GLUCOSE; Start 01/22/17 at 00:30 Dextrose (D50w Syringe) 50 ml Q15M PRN IV DECREASED GLUCOSE; Start 01/22/17 at 00:30 Glucagon (Glucagen) 1 mg Q15M PRN IM DECREASED GLUCOSE; Start 01/22/17 at 00:30 Glucose (Glutose) 15 gm Q15M PRN BUCCAL DECREASED GLUCOSE; Start 01/22/17 at 00 :30 Hydralazine HCl (Apresoline) 10 mg Q6H PRN IV sbp>170; Start 01/23/17 at 15:00 Aspirin (Aspirin) 81 mg DAILY NGT Last administered on 01/29/17 08:20; Admin Dose 81 MG; Start 01/23/17 at 15:00 Atorvastatin Calcium 80 mg 80 mg HS NGT Last administered on 01/28/17 21:28; Admin Dose 80 MG; Start 01/23/17 at 21:00 Dextrose/Sodium Chloride (D5-1/2ns) 1,000 ml @ 75 mls/hr [id number] IV Last administered on 01/29/17 08:22; Admin Dose 75 MLS/HR; Start 01/24/17 at 09:00 Levetiracetam (Keppra) 500 mg BID PO Last administered on 01/29/17 08:20; Admin Dose 500 MG; Start 01/25/17 at 21:00 Acetaminophen (Tylenol Tab) 500 mg Q6H PRN PO PAIN AND OR ELEVATED TEMP Last administered on 01/29/17 08:21; Admin Dose 500 MG; Start 01/27/17 at 17:00 Carvedilol (Coreg) 12.5 mg BID NGT Last administered on 01/29/17 08:21; Admin Dose 12.5 MG; Start 01/28/17 at 21:00 Losartan Potassium (Cozaar) 50 mg DAILY NGT Last administered on 01/29/17 08: 21; Admin Dose 50 MG; Start 01/28/17 at 10:00 GENNA FUNG MD Jan 29, 2017 09:21
[2017-01-29] MEDS ORDERED: POTASSIUM PHOSPHATE 40 MEQ in SOD CHLORIDE 0.9% 250 ML IVPB SCH (10:00)
[2017-01-29] MEDS ORDERED: MAGNESIUM SULFATE 2 GM/50 ML 50 ML IVPB ONE (10:00)
--- NOTE | 2017-01-29 10:13 | PN ---
DATE: 01/29/2017 CARDIOLOGY FOLLOWUP SUBJECTIVE: Discussed with the staff, discussed with Dr. Harris. The patient with no chest pain o r pressure. No palpitation. He is stable ____ hours. He denies any palpitations, denied any falls to me. MEDICATIONS: Reviewed as per medication reconciliation, personally reviewed. PHYSICAL EXAMINATION: VITAL SIGNS: Temperature 99.1, heart rate of 70, blood pressure 138/63, respiratory rate of 18. HEENT: Normocephalic, status post head laceration and repair. Eyes: Pupils are equal and round. NECK: Supple, no JVD. CARDIOVASCULAR: Regular rate and rhythm with systolic ejection murmur, grade II/. PULMONARY: With no wheezes or rhonchi. GASTROINTESTINAL: Soft, nontender. EXTREMITIES: Trivial edema. NEUROLOGIC: Awake and alert, responds appropriately. PSYCHIATRIC: Calm and very pleasant. LABORATORY: Mag this morning is 1.8, sodium 137, potassium 3.4, BUN of 12, creatinine 0.98, glucose 195. ASSESSMENT AND PLAN: 1. Hypertensive urgency, currently much better control. 2. History of coronary artery disease. 3. History of coronary bypass graft. 4. Respiratory failure, intubation, currently extubated and stable. 5. History of seizure disorder, history of multiple falls. 6. Dyslipidemia. 7. Electrolyte abnormalities, hypokalemia. RECOMMENDATIONS: Electrolytes are being corrected, the potassium and magnesium are being corrected. I will also ____ to his regimen. Continue with the beta christian. Diabetic management as per Dr. Harris. Acute rehab evaluation is pending. Dictated By: LION POLANCO MD AV/LUH Conf#: [id number] DID#: [id number] CC: GENNA HARRIS MD;*EndCC*
[2017-01-29] MEDS: SPIRONOLACTONE 25 MG TAB PO SCH (11:10)
[2017-01-29] MEDS: LINAGLIPTIN 5 MG TABLET PO SCH (11:10)
[2017-01-29] MEDS: INSULIN ASPART [NOVOLOG] 3 ML PEN SC SCH ×3 (11:27→23:47)
[2017-01-29 20:18] VITALS: BP 135/64; RESP 18
[2017-01-29] MEDS: ATORVASTATIN 80 MG TAB NGT SCH (21:25)
[2017-01-30] MEDS: ACCU-CHEK XX SCH (02:49)
[2017-01-30] MEDS: DEXTROSE 5%-0.45% NACL 1,000 ML IV SCH (05:06)
[2017-01-30 06:22] LABS: CALCIUM 8.5 mg/dl (8.4-10.2); CREATININE 1.04 mg/dl (0.61-1.24); POTASSIUM 3.6 mmol/L (3.5-5.1)
[2017-01-30 06:43] LABS: MAGNESIUM 2.3 mg/dl (1.7-2.5); PHOSPHORUS 3.6 mg/dl (2.5-4.9)
[2017-01-30 07:59] VITALS: BP 119/55; RESP 20
[2017-01-30] MEDS: ARTIFICIAL TEARS 15 ML OPH BOTH EYES SCH ×3 (08:14→20:23)
[2017-01-30] MEDS: INSULIN ASPART [NOVOLOG] 3 ML PEN SC SCH ×4 (08:17→20:29)
[2017-01-30] MEDS: SPIRONOLACTONE 25 MG TAB PO SCH (09:05)
[2017-01-30] MEDS: LINAGLIPTIN 5 MG TABLET PO SCH (09:05)
[2017-01-30] MEDS: ASPIRIN 81 MG TAB NGT SCH (09:05)
[2017-01-30] MEDS: LEVETIRACETAM 500 MG TAB PO SCH ×2 (09:05→20:23)
[2017-01-30 09:07] VITALS: BP 113/56; PULSE 67
[2017-01-30] MEDS: LOSARTAN 50 MG TAB NGT SCH (09:07)
[2017-01-30] MEDS: ACETAMINOPHEN 500 MG TAB PO PRN (11:25)
[2017-01-30] MEDS ORDERED: POTASSIUM CHLORIDE (SR) 20 MEQ TAB PO STA (16:11)
--- NOTE | 2017-01-30 16:12 | CONS ---
Date/Time of Note Date/Time of Note DATE: 01/30/17 TIME: 16:09 Assessment/Plan Assessment/Plan Additional Assessment/Plan Altered mental status, improved Preserved ejection fraction Hypertension urgency/emergency-resolved Seizure CAD with history of CABG Respiratory failure status post extubation -Blood pressure trend overall remains stable. Tolerating current CV medication regimen. Will supplement potassium. Consultation Date/Type/Reason Admit Date/Time Jan 21, 2017 at 23:53 Type of Consultation: cv 24 HR Interval Summary Free Text/Dictation Denies chest pain, shortness of breath Exam/Review of Systems Vital Signs Vitals Vital Signs Date Time Temp Pulse Resp B/P Pulse Ox O2 Delivery O2 Flow Rate FiO2 01/30/17 09:07 67 113/56 01/30/17 07:59 98.7 20 97 01/27/17 20:00 Room Air Intake and Output 01/29/17 01/29/17 01/30/17 15:00 23:00 07:00 Intake Total 350 ml 1140 ml 1100 ml Output Total 450 ml 600 ml Balance 350 ml 690 ml 500 ml Exam Occasionally confused, follows commands, no apparent distress Constitutional: alert Head: normocephalic Respiratory: other (Coarse breath sounds bilaterally, no wheezing) Cardiovascular: other (S1-S2 heard), regular rate and rhythm Gastrointestinal: bowel sounds, non-tender, soft Extremities: other (No guarding) Results Result Diagram: 01/28/17 0525 01/30/17 0525 Results 24 hrs Laboratory Tests Test 01/29/17 17:30 01/29/17 23:43 01/30/17 02:47 01/30/17 05:25 Bedside Glucose 139 189 227 H Sodium Level 136 Potassium Level 3.6 Chloride Level 105 Carbon Dioxide Level 29 Anion Gap 6 L Blood Urea Nitrogen 13 Creatinine 1.04 Glucose Level 185 Calcium Level 8.5 Phosphorus Level 3.6 Magnesium Level 2.3 Test 01/30/17 08:11 01/30/17 12:08 Bedside Glucose 174 238 H Medications Medications Current Medications Eye Lubricant (Artificial Tears Oph) 1 drop TID BOTH EYES Last administered on 01/30/17t 12:10; Admin Dose 1 DROP; Start 01/22/17 at 09:00 Miscellaneous Information 1 ea NOTE XX ; Start 01/22/17 at 00:30 Glucose (Glutose) 15 gm Q15M PRN PO DECREASED GLUCOSE; Start 01/22/17 at 00:30 Glucose (Glutose) 22.5 gm Q15M PRN PO DECREASED GLUCOSE; Start 01/22/17 at 00: 30 Dextrose (D50w Syringe) 25 ml Q15M PRN IV DECREASED GLUCOSE; Start 01/22/17 at 00:30 Dextrose (D50w Syringe) 50 ml Q15M PRN IV DECREASED GLUCOSE; Start 01/22/17 at 00:30 Glucagon (Glucagen) 1 mg Q15M PRN IM DECREASED GLUCOSE; Start 01/22/17 at 00:30 Glucose (Glutose) 15 gm Q15M PRN BUCCAL DECREASED GLUCOSE; Start 01/22/17 at 00 :30 Hydralazine HCl (Apresoline) 10 mg Q6H PRN IV sbp>170; Start 01/23/17 at 15:00 Aspirin (Aspirin) 81 mg DAILY NGT Last administered on 01/30/17 09:05; Admin Dose 81 MG; Start 01/23/17 at 15:00 Atorvastatin Calcium 80 mg 80 mg HS NGT Last administered on 01/29/17 21:25; Admin Dose 80 MG; Start 01/23/17 at 21:00 Dextrose/Sodium Chloride (D5-1/2ns) 1,000 ml @ 75 mls/hr [id number] IV Last administered on 01/30/17 05:06; Admin Dose 75 MLS/HR; Start 01/24/17 at 09:00 Levetiracetam (Keppra) 500 mg BID PO Last administered on 01/30/17 09:05; Admin Dose 500 MG; Start 01/25/17 at 21:00 Acetaminophen (Tylenol Tab) 500 mg Q6H PRN PO PAIN AND OR ELEVATED TEMP Last administered on 01/30/17 11:25; Admin Dose 500 MG; Start 01/27/17 at 17:00 Carvedilol (Coreg) 12.5 mg BID NGT Last administered on 01/29/17 21:25; Admin Dose 12.5 MG; Start 01/28/17 at 21:00 Losartan Potassium (Cozaar) 50 mg DAILY NGT Last administered on 01/30/17 09:07 ; Admin Dose 50 MG; Start 01/28/17 at 10:00 Spironolactone (Aldactone) 25 mg DAILY PO Last administered on 01/30/17 09:05; Admin Dose 25 MG; Start 01/29/17 at 09:30 Linagliptin (Tradjenta) 5 mg DAILY PO Last administered on 01/30/17 09:05; Admin Dose 5 MG; Start 01/29/17 at 09:30 Diagnostic Test (Pha) (Accu-Chek) 1 ea 02 XX Last administered on 01/30/17 02: 49; Admin Dose 1 EA; Start 01/30/17 at 02:00 Mynor Prince DO January 30, 2017 16:12
--- NOTE | 2017-01-30 16:15 | PN ---
Date/Time of Note Date/Time of Note DATE: 01/30/17 TIME: 16:13 Assessment/Plan VTE Prophylaxis VTE Prophylaxis Intervention: ambulation, SCD's Lines/Catheters IV Catheter Type (from Nrsg): Peripheral IV Urinary Cath still in place: No Subjective 24 Hr Interval Summary Free Text/Dictation stable, bp stable.blood sugars running up, will dc iv fluids, change to 1800 fernando ada diet alert as is his baseline has been accepted to aru when bed available lungs clear, hr ok, no edema voiding ok Exam/Review of Systems Vital Signs Vitals Vital Signs Date Time Temp Pulse Resp B/P Pulse Ox O2 Delivery O2 Flow Rate FiO2 01/30/17 09:07 67 113/56 01/30/17 07:59 98.7 20 97 01/27/17 20:00 Room Air Intake and Output 01/29/17 01/29/17 01/30/17 15:00 23:00 07:00 Intake Total 350 ml 1140 ml 1100 ml Output Total 450 ml 600 ml Balance 350 ml 690 ml 500 ml Results Result Diagram: 01/28/17 0525 01/30/17 0525 Results 24 hrs Laboratory Tests Test 01/29/17 17:30 01/29/17 23:43 01/30/17 02:47 01/30/17 05:25 Bedside Glucose 139 189 227 H Sodium Level 136 Potassium Level 3.6 Chloride Level 105 Carbon Dioxide Level 29 Anion Gap 6 L Blood Urea Nitrogen 13 Creatinine 1.04 Glucose Level 185 Calcium Level 8.5 Phosphorus Level 3.6 Magnesium Level 2.3 Test 01/30/17 08:11 01/30/17 12:08 Bedside Glucose 174 238 H Medications Medications Current Medications Eye Lubricant (Artificial Tears Oph) 1 drop TID BOTH EYES Last administered on 01/30/17t 12:10; Admin Dose 1 DROP; Start 01/22/17 at 09:00 Miscellaneous Information 1 ea NOTE XX ; Start 01/22/17 at 00:30 Glucose (Glutose) 15 gm Q15M PRN PO DECREASED GLUCOSE; Start 01/22/17 at 00:30 Glucose (Glutose) 22.5 gm Q15M PRN PO DECREASED GLUCOSE; Start 01/22/17 at 00: 30 Dextrose (D50w Syringe) 25 ml Q15M PRN IV DECREASED GLUCOSE; Start 01/22/17 at 00:30 Dextrose (D50w Syringe) 50 ml Q15M PRN IV DECREASED GLUCOSE; Start 01/22/17 at 00:30 Glucagon (Glucagen) 1 mg Q15M PRN IM DECREASED GLUCOSE; Start 01/22/17 at 00:30 Glucose (Glutose) 15 gm Q15M PRN BUCCAL DECREASED GLUCOSE; Start 01/22/17 at 00 :30 Hydralazine HCl (Apresoline) 10 mg Q6H PRN IV sbp>170; Start 01/23/17 at 15:00 Aspirin (Aspirin) 81 mg DAILY NGT Last administered on 01/30/17 09:05; Admin Dose 81 MG; Start 01/23/17 at 15:00 Atorvastatin Calcium 80 mg 80 mg HS NGT Last administered on 01/29/17 21:25; Admin Dose 80 MG; Start 01/23/17 at 21:00 Dextrose/Sodium Chloride (D5-1/2ns) 1,000 ml @ 75 mls/hr [id number] IV Last administered on 01/30/17 05:06; Admin Dose 75 MLS/HR; Start 01/24/17 at 09:00 Levetiracetam (Keppra) 500 mg BID PO Last administered on 01/30/17 09:05; Admin Dose 500 MG; Start 01/25/17 at 21:00 Acetaminophen (Tylenol Tab) 500 mg Q6H PRN PO PAIN AND OR ELEVATED TEMP Last administered on 01/30/17 11:25; Admin Dose 500 MG; Start 01/27/17 at 17:00 Carvedilol (Coreg) 12.5 mg BID NGT Last administered on 01/29/17 21:25; Admin Dose 12.5 MG; Start 01/28/17 at 21:00 Losartan Potassium (Cozaar) 50 mg DAILY NGT Last administered on 01/30/17 09:07 ; Admin Dose 50 MG; Start 01/28/17 at 10:00 Spironolactone (Aldactone) 25 mg DAILY PO Last administered on 01/30/17 09:05; Admin Dose 25 MG; Start 01/29/17 at 09:30 Linagliptin (Tradjenta) 5 mg DAILY PO Last administered on 01/30/17 09:05; Admin Dose 5 MG; Start 01/29/17 at 09:30 Diagnostic Test (Pha) (Accu-Chek) 1 ea 02 XX Last administered on 01/30/17t 02: 49; Admin Dose 1 EA; Start 01/30/17 at 02:00 JAJA ORO MD January 30, 2017 16:15
[2017-01-30] MEDS: ATORVASTATIN 80 MG TAB NGT SCH (20:23)
[2017-01-30 21:40] VITALS: BP 125/60; RESP 16
[2017-01-31] MEDS: ACCU-CHEK XX SCH (02:43)
[2017-01-31] MEDS: INSULIN ASPART [NOVOLOG] 3 ML PEN SC SCH ×2 (08:42→12:49)
[2017-01-31] MEDS: ARTIFICIAL TEARS 15 ML OPH BOTH EYES SCH ×2 (08:44→12:50)
[2017-01-31] MEDS: ASPIRIN 81 MG TAB NGT SCH (08:45)
[2017-01-31] MEDS: LEVETIRACETAM 500 MG TAB PO SCH (08:45)
[2017-01-31] MEDS: SPIRONOLACTONE 25 MG TAB PO SCH ×2 (08:45→09:09)
[2017-01-31] MEDS: LOSARTAN 50 MG TAB NGT SCH (08:45)
[2017-01-31] MEDS: LINAGLIPTIN 5 MG TABLET PO SCH (08:46)
[2017-01-31 08:50] VITALS: BP 154/67; RESP 18
--- NOTE | 2017-01-31 14:38 | CONS ---
Date/Time of Note Date/Time of Note DATE: 01/31/17 TIME: 14:36 Assessment/Plan Assessment/Plan Additional Assessment/Plan Altered mental status, improved Preserved ejection fraction Hypertension urgency/emergency-resolved Seizure CAD with history of CABG Respiratory failure status post extubation -Blood pressure on the higher end this morning, medications are being titrated. Given our patient's age, SBP as high as 150s is tolerable. Plan for transfer to acute rehab. Consultation Date/Type/Reason Admit Date/Time Jan 21, 2017 at 23:53 Type of Consultation: cv 24 HR Interval Summary Free Text/Dictation Denies chest pain, shortness of breath Exam/Review of Systems Vital Signs Vitals Vital Signs Date Time Temp Pulse Resp B/P Pulse Ox O2 Delivery O2 Flow Rate FiO2 01/31/17 08:50 97.9 62 18 154/67 98 01/27/17 20:00 Room Air Intake and Output 01/30/17 01/30/17 01/31/17 15:00 23:00 07:00 Intake Total 1900 ml 680 ml Output Total 600 ml 650 ml Balance 1300 ml 30 ml Exam Family at bedside Constitutional: alert, oriented Head: lacerations Respiratory: other (Coarse breath sounds bilaterally, no wheezing) Cardiovascular: other (S1-S2 heard), regular rate and rhythm Gastrointestinal: bowel sounds, non-tender, soft Extremities: other (No edema) Results Result Diagram: 01/28/17 0525 01/30/17 0525 Results 24 hrs Laboratory Tests Test 01/30/17 17:24 01/30/17 20:22 01/31/17 02:38 01/31/17 08:39 Bedside Glucose 108 206 164 141 Test 01/31/17 12:43 Bedside Glucose 149 Medications Medications Current Medications Eye Lubricant (Artificial Tears Oph) 1 drop TID BOTH EYES Last administered on 01/31/17t 08:44; Admin Dose 1 DROP; Start 01/22/17 at 09:00 Miscellaneous Information 1 ea NOTE XX ; Start 01/22/17 at 00:30 Glucose (Glutose) 15 gm Q15M PRN PO DECREASED GLUCOSE; Start 01/22/17 at 00:30 Glucose (Glutose) 22.5 gm Q15M PRN PO DECREASED GLUCOSE; Start 01/22/17 at 00: 30 Dextrose (D50w Syringe) 25 ml Q15M PRN IV DECREASED GLUCOSE; Start 01/22/17 at 00:30 Dextrose (D50w Syringe) 50 ml Q15M PRN IV DECREASED GLUCOSE; Start 01/22/17 at 00:30 Glucagon (Glucagen) 1 mg Q15M PRN IM DECREASED GLUCOSE; Start 01/22/17 at 00:30 Glucose (Glutose) 15 gm Q15M PRN BUCCAL DECREASED GLUCOSE; Start 01/22/17 at 00 :30 Hydralazine HCl (Apresoline) 10 mg Q6H PRN IV sbp>170; Start 01/23/17 at 15:00 Levetiracetam (Keppra) 500 mg BID PO Last administered on 01/31/17 08:45; Admin Dose 500 MG; Start 01/25/17 at 21:00 Acetaminophen (Tylenol Tab) 500 mg Q6H PRN PO PAIN AND OR ELEVATED TEMP Last administered on 01/30/17 11:25; Admin Dose 500 MG; Start 01/27/17 at 17:00 Spironolactone (Aldactone) 25 mg DAILY PO Last administered on 01/31/17 09:09; Admin Dose 25 MG; Start 01/29/17 at 09:30 Linagliptin (Tradjenta) 5 mg DAILY PO Last administered on 01/31/17 08:46; Admin Dose 5 MG; Start 01/29/17 at 09:30 Diagnostic Test (Pha) (Accu-Chek) 1 ea 02 XX Last administered on 01/31/17 02: 43; Admin Dose 1 EA; Start 01/30/17 at 02:00 Aspirin (Aspirin) 81 mg DAILY PO ; Start 02/01/17 at 09:00 Atorvastatin Calcium (Lipitor) 80 mg HS PO ; Start 01/31/17 at 21:00 Carvedilol (Coreg) 12.5 mg BID PO ; Start 01/31/17 at 21:00 Losartan Potassium (Cozaar) 50 mg DAILY PO ; Start 02/01/17 at 09:00 Mynor Prince DO January 31, 2017 14:38
[2017-01-31] MEDS ORDERED: ATORVASTATIN 80 MG TAB PO SCH (21:00)
[2017-02-01] MEDS ORDERED: ASPIRIN 81 MG TAB PO SCH (09:00)
[2017-02-01] MEDS ORDERED: LOSARTAN 50 MG TAB PO SCH (09:00)
--- NOTE | 2017-02-02 04:28 | DS ---
DATE OF ADMISSION: 01/21/2017 DATE OF DISCHARGE: 01/31/2017 CHIEF COMPLAINT: Hypertensive encephalopathy. HISTORY OF PRESENT ILLNESS AND HOSPITAL COURSE: An 86-year-old male with a history of coronary myron ry bypass remotely, mild diabetes, generally managed by diet, and progressive mild cognitive impairm ent. 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 In the emergency room, he has significant hypertension requiring intra venous medications. He also was seizing actively. CT scan was unremarkable. He was intubated and sedated on admission and placed in the intensive care unit. During his hospitalization, he was succ essfully extubated and placed on a regular floor. His blood pressures have been much better control led with oral medications. His diabetes was somewhat high, probably secondary to IV meds, and fluid s have somewhat improved without the medication. He is found to be an acceptable patient for the re [facility] facility here at inpatient rehabilitation and is transferred there on 01/31/2017. At the time o f discharge, his hemoglobin was 10.81 when last checked, normal white count, normal platelet count. Chemistries have been okay, the potassium 3.6, creatinine 1.04, magnesium acceptable. His blood mascorro gars at the time of discharge, last blood sugar was 149. DISCHARGE MEDICATIONS: Per medication reconciliation orders and will be continued in rehab facility . We will continue to follow him as needed at that facility, and Dr. Huynh will take primary care resp onsibility. He remains on Keppra for seizure control. Dictated By: JAJA ORO MD SR/LUH Conf#: [id number] DID#: [id number]
== END 2017-01-31 14:45 | DRG 77 ==
LOC: E/R 17:54 → ICU 23:53 → MS2 01-25 20:55
PROVIDERS: ADMIT Internal Medicine; ATTEND Internal Medicine
PROC: 5A1945Z Respiratory Ventilation, 24-96 Consecutive Hours (ICD-10-PCS; principal; 2017-01-21)
PROC: 0BH17EZ Insertion of Endotracheal Airway into Trachea, Via Natural or Artificial Opening (ICD-10-PCS; 2017-01-21)
DX: I67.4 Hypertensive encephalopathy (principal); J96.00 Acute respiratory failure, unspecified whether with hypoxia or hypercapnia; I16.1 Hypertensive emergency; E11.9 Type 2 diabetes mellitus without complications; G31.84 Mild cognitive impairment of uncertain or unknown etiology; R56.9 Unspecified convulsions; I25.10 Atherosclerotic heart disease of native coronary artery without angina pectoris; E87.6 Hypokalemia; S01.01XA Laceration without foreign body of scalp, initial encounter; W01.0XXA Fall on same level from slipping, tripping and stumbling without subsequent striking against object, initial encounter; Y92.231 Patient bathroom in hospital as the place of occurrence of the external cause; Z95.1 Presence of aortocoronary bypass graft
CPT/HCPCS: 31500; 36415; 36600; 70450; 70496; 70498; 70551; 71010; 80048; 80053; 80307; 81001; 81003; 82550; 82553; 82803; 82962; 83036; 83605; 83615; 83735; 84100; 84439; 84443; 84484; 85025; 85610; 85730; 86850; 86900; 86901; 87040; 87081; 87086; 92526; 92610; 93005; 93306; 94002; 94003; 94770; 95819; 96372; 96374; 96375; 96376; 97110; 97116; 97163; 97530; C9113; J1815; J1953; J3475; J7040; J7042; J7050; Q9967

== ENCOUNTER 2017-01-31 13:43 | Inpatient (IN) | payer MEDICARE, BC ==
[~2017-01-31] VITALS: Ht 170.2 cm; Wt 64.8 kg
[~2017-01-31 13:43] MED LIST: ATOR20TA38 PO; LACHYD12 TOP; LATA2.5D2 BOTH EYES; METO50TA16 PO
[2017-01-31 14:30] VITALS: BP 132/63; PULSE 67; RESP 18
[2017-01-31] MEDS ORDERED: ACETAMINOPHEN 500 MG TAB PO PRN (15:30)
[2017-01-31] MEDS ORDERED: GLUCAGON 1 MG INJ IM PRN (15:30)
[2017-01-31] MEDS ORDERED: GLUCOSE GEL 15 GRAM TUBE BUCCAL PRN (15:30)
[2017-01-31] MEDS ORDERED: GLUCOSE GEL 15 GRAM TUBE PO PRN ×2 (15:30)
[2017-01-31] MEDS ORDERED: DEXTROSE 50% 50 ML SYRINGE IV PRN ×2 (15:30)
[2017-01-31] MEDS ORDERED: BISACODYL 10 MG SUPP PR PRN (16:00)
[2017-01-31] MEDS ORDERED: LACTULOSE 30ML CUP PO PRN (16:00)
[2017-01-31] MEDS ORDERED: MAGNESIUM HYDROXIDE 30ML CUP PO PRN (16:00)
[2017-01-31] MEDS ORDERED: ACETAMINOPHEN 325 MG TAB PO PRN (16:00)
[2017-01-31] MEDS: INSULIN ASPART [NOVOLOG] 3 ML PEN SC SCH ×2 (17:35→20:30)
[2017-01-31 18:11] LABS: ADD UMIC NO; URINE BILIRUBIN (Dip) NEGATIVE (NEGATIVE); URINE BLOOD (Dip) NEGATIVE (NEGATIVE); URINE COLOR LT. YELLOW (YELLOW); URINE GLUCOSE (Dip) NEGATIVE (NEGATIVE); URINE KETONES (Dip) NEGATIVE (NEGATIVE); URINE LEUKOCYTE ESTERASE (Dip) NEGATIVE (NEGATIVE); URINE NITRITE (Dip) NEGATIVE (NEGATIVE); URINE TOTAL PROTEIN (Dip) NEGATIVE (NEGATIVE); URINE UROBILINOGEN (Dip) 0.2 E.U./dL (0.1-1.0)
[2017-01-31 20:19] VITALS: BP 130/68; RESP 18
[2017-01-31] MEDS: DOCUSATE SODIUM 100 MG CAP PO SCH (20:27)
[2017-01-31] MEDS: LEVETIRACETAM 500 MG TAB PO SCH (20:27)
[2017-01-31] MEDS: ARTIFICIAL TEARS 15 ML OPH BOTH EYES SCH (20:27)
[2017-01-31] MEDS: SENNA TAB PO SCH (20:27)
[2017-01-31] MEDS: ATORVASTATIN 80 MG TAB PO SCH (20:27)
[2017-02-01] MEDS: ACCU-CHEK XX SCH ×2 (02:00)
[2017-02-01 07:03] LABS: ADD SCAN DIFF NO
[2017-02-01 07:11] LABS: BASOPHILS % 0.4 % (0.0-2.0); EOSINOPHILS # 0.2 10^3/ul (0.0-0.5); EOSINOPHILS % 3.3 % (0.0-7.0); HEMATOCRIT 33.4 % (42.0-52.0); HEMOGLOBIN 11.1 g/dl (14.0-18.0); LYMPHOCYTES # 1.1 10^3/ul (0.8-2.9); LYMPHOCYTES % 22.7 % (15.0-51.0); MEAN CORPUSCULAR HEMOGLOBIN 32.1 pg (29.0-33.0); MEAN CORPUSCULAR HGB CONC 33.2 g/dl (32.0-37.0); MEAN CORPUSCULAR VOLUME 96.5 fl (82.0-101.0); MEAN PLATELET VOLUME 9.8 fl (7.4-10.4); MONOCYTE # 0.3 10^3/ul (0.3-0.9); MONOCYTES % 6.1 % (0.0-11.0); NEUTROPHIL # 3.2 10^3/ul (1.6-7.5); NEUTROPHILS % 66.3 % (39.0-77.0); PLATELET COUNT 265 10^3/UL (140-415); RED BLOOD COUNT 3.46 10^6/ul (4.70-6.10); RED CELL DISTRIBUTION WIDTH 13.8 % (11.5-14.5); WHITE BLOOD COUNT 4.9 10^3/ul (4.8-10.8)
[2017-02-01] MEDS: INSULIN ASPART [NOVOLOG] 3 ML PEN SC SCH ×4 (07:35→20:19)
[2017-02-01 07:41] LABS: ALBUMIN 2.8 g/dl (3.3-4.9); POTASSIUM 4.2 mmol/L (3.5-5.1)
[2017-02-01 07:43] LABS: BILIRUBIN,INDIRECT 0.4 mg/dl (0-1.1); BILIRUBIN,TOTAL 0.4 mg/dl (0.2-1.3); CREATININE 1.04 mg/dl (0.61-1.24)
[2017-02-01 07:44] LABS: ALBUMIN/GLOBULIN RATIO 0.87; CALCIUM 8.7 mg/dl (8.4-10.2)
[2017-02-01 07:48] VITALS: BP 122/59; RESP 18
[2017-02-01] MEDS: SPIRONOLACTONE 25 MG TAB PO SCH (09:39)
[2017-02-01] MEDS: DOCUSATE SODIUM 100 MG CAP PO SCH ×2 (09:40→20:18)
[2017-02-01] MEDS: LEVETIRACETAM 500 MG TAB PO SCH ×2 (09:40→20:17)
[2017-02-01] MEDS: LOSARTAN 50 MG TAB PO SCH (09:40)
[2017-02-01] MEDS: LINAGLIPTIN 5 MG TABLET PO SCH (09:40)
[2017-02-01] MEDS: ASPIRIN 81 MG TAB PO SCH (09:40)
[2017-02-01] MEDS: ARTIFICIAL TEARS 15 ML OPH BOTH EYES SCH ×3 (09:41→20:17)
--- NOTE | 2017-02-01 13:09 | CONS ---
DATE OF ADMISSION: 01/31/2017 DATE OF CONSULTATION: 02/01/2017 TYPE OF CONSULTATION: Rehabilitation Post-Admission Physician Evaluation REHABILITATION IMPAIRMENT CATEGORY: Toxic metabolic encephalopathy. ACTIVE COMORBIDITIES: 1. Status post intubation for respiratory failure and airway protection. 2. Seizure disorder. 3. Diabetes mellitus type 2. 4. Coronary artery disease with history of coronary artery bypass graft. 5. Hypokalemia. 6. Hypertension. 7. Impairments in self-care, mobility and cognition. HISTORY OF PRESENT ILLNESS: The patient is a very pleasant 86-year-old gentleman with a history of coronary artery disease, CABG, hypertension, who was found by his caregiver with seizure-like activity, confusion and weakness. The patient was brought to [facility] where he was intubated for airway protection, and a head CT was negative for bleed. The patient was felt to likely have hypertensive encephalopathy in addition to seizure activity and patient was started on anti-seizure medications. The patient was eventually extubated. The patient also while in the hospital was noted to have a ground level fall with blunt head trauma with a laceration to the mid frontal scalp in addition of bilateral knee contusions. The patient noted significant impairments in self-care and mobility as compared to baseline, and has been cleared to transfer to the rehabilitation unit for comprehensive interdisciplinary rehab care. FUNCTIONAL HISTORY: Prior to recent events, he was independent in self-care tasks and mobility. Currently, he requires moderate assist for self-care and mobility tasks. I have reviewed the preadmission screen and the patient's current functional status is consistent with the preadmission screen. SOCIAL HISTORY: The patient lives at home with family and hopes to return there upon discharge. PAST MEDICAL HISTORY: 1. Hypertension. 2. Coronary artery disease with history of CABG. 3. Hypercholesterolemia. CURRENT MEDICATIONS: Please see medication reconciliation sheet. PHYSICAL EXAMINATION: VITAL SIGNS: Currently, he is afebrile with stable vital signs. HEENT: Extraocular motion intact. Oropharynx clear. NECK: Supple. LUNGS: Clear anteriorly. CARDIAC: S1, S2. ABDOMEN: Soft, nontender, positive bowel sounds. NEUROLOGIC: He is awake and alert. He is oriented to person and hospital. He can follow simple 1-step commands. He has impaired short-term memory. He demonstrates antigravity strength in bilateral upper extremity and lower extremity. He does have impaired dynamic balance. PLAN: The patient has been admitted for comprehensive interdisciplinary acute rehab and is anticipated to tolerate 3 hours of daily therapy in divided doses for at least 5/7 days a week. The treatment plan will include: 1. Physical therapy to focus on bed mobility, transfers, and household ambulation with the goal of having the patient reach a standby assist level. 2. Occupational therapy to focus on hygiene, grooming, dressing, bathing, and toileting activities with the goal of having the patient reach standby assist level. 3. Rehabilitation nursing for carryover of therapeutic interventions, the goal of continent of bowel and bladder, and the goal of patient and family education with regard to the aforementioned issues. 4. Speech Theapy for full cognitive retraining with the goal of returningto baseline cognition. Rehabilitation Barrier: Cognition Intervention for barrier: Speech therapy ESTIMATED LENGTH OF STAY: 14 days. DISPOSITION GOAL: Home. I acknowledge that I performed a full physical examination on this patient within 24 hours of admission to the rehabilitation unit. I believe the patient is a good candidate for comprehensive interdisciplinary rehab care and is anticipated to make reasonable goals in a reasonable period of time as outlined above. Dictated By: BARNEY NEAL/LUH Conf#: [id number] DID#: [id number] MTDEster
--- NOTE | 2017-02-01 15:08 | CONS ---
Date/Time of Note Date/Time of Note DATE: 02/01/17 TIME: 15:04 Assessment/Plan Assessment/Plan Additional Assessment/Plan Altered mental status, improved Preserved ejection fraction Hypertension urgency/emergency-resolved Seizure CAD with history of CABG Respiratory failure status post extubation -BP trend improved. Continue current med regimen. No new CV orders at the current time. Consultation Date/Type/Reason Admit Date/Time January 31, 2017 at 14:30 Initial Consult Date Type of Consultation: cv 24 HR Interval Summary Free Text/Dictation denies sob, cp, palpitations Exam/Review of Systems Vital Signs Vitals Vital Signs Date Time Temp Pulse Resp B/P Pulse Ox O2 Delivery O2 Flow Rate FiO2 02/01/17 07:48 98.2 64 18 122/59 95 01/31/17 14:30 Room Air Intake and Output 01/31/17 01/31/17 02/01/17 15:00 23:00 07:00 Intake Total 620 ml 500 ml Output Total 200 ml 300 ml Balance 420 ml 200 ml Exam nad Constitutional: alert, oriented Head: normocephalic Neck: supple Respiratory: other (course bs, no wheeze) Cardiovascular: other (s1s2), regular rate and rhythm Gastrointestinal: bowel sounds, non-tender, soft Extremities: edema (trace) Results Result Diagram: 02/01/17 0608 02/01/17 0608 Results 24 hrs Laboratory Tests Test 01/31/17 16:40 01/31/17 17:14 01/31/17 20:26 02/01/17 06:08 Urine Color LT. YELLOW Urine Clarity CLEAR Urine pH 5.5 Urine Specific [facility] 1.020 Urine Ketones NEGATIVE Urine Nitrite NEGATIVE Urine Bilirubin NEGATIVE Urine Urobilinogen 0.2 E.U./dL Urine Leukocyte Esterase NEGATIVE Urine Hemoglobin NEGATIVE Urine Glucose NEGATIVE Urine Total Protein NEGATIVE Bedside Glucose 123 127 White Blood Count 4.9 Red Blood Count 3.46 L Hemoglobin 11.1 L Hematocrit 33.4 L Mean Corpuscular Volume 96.5 Mean Corpuscular Hemoglobin 32.1 Mean Corpuscular Hemoglobin Concent 33.2 Red Cell Distribution Width 13.8 Platelet Count 265 # Mean Platelet Volume 9.8 Neutrophils % 66.3 Lymphocytes % 22.7 Monocytes % 6.1 Eosinophils % 3.3 Basophils % 0.4 Nucleated Red Blood Cells % 0.0 Neutrophils # 3.2 Lymphocytes # 1.1 Monocytes # 0.3 Eosinophils # 0.2 Basophils # 0.0 Nucleated Red Blood Cells # 0.0 Sodium Level 138 Potassium Level 4.2 Chloride Level 100 Carbon Dioxide Level 29 Anion Gap 13 Blood Urea Nitrogen 16 Creatinine 1.04 Glucose Level 135 Calcium Level 8.7 Total Bilirubin 0.4 Direct Bilirubin 0.00 Indirect Bilirubin 0.4 Aspartate Amino Transf (AST/SGOT) 23 Alanine Aminotransferase (ALT/SGPT) 35 Alkaline Phosphatase 52 Total Protein 6.0 L Albumin 2.8 L Globulin 3.20 Albumin/Globulin Ratio 0.87 Test 02/01/17 07:57 02/01/17 12:03 Bedside Glucose 136 166 Medications Medications Current Medications Diagnostic Test (Pha) (Accu-Chek) 1 ea 02 XX ; Start 02/01/17 at 02:00 Eye Lubricant (Artificial Tears Oph) 1 drop TID BOTH EYES Last administered on 02/01/17 12:50; Admin Dose 1 DROP; Start 01/31/17 at 21:00 Aspirin (Aspirin) 81 mg DAILY PO Last administered on 02/01/17 09:40; Admin Dose 81 MG; Start 02/01/17 at 09:00 Atorvastatin Calcium (Lipitor) 80 mg HS PO Last administered on 01/31/17 20:27 ; Admin Dose 80 MG; Start 01/31/17 at 21:00 Carvedilol (Coreg) 12.5 mg BID PO Last administered on 02/01/17 09:41; Admin Dose 12.5 MG; Start 01/31/17 at 21:00 Levetiracetam (Keppra) 500 mg BID PO Last administered on 02/01/17 09:40; Admin Dose 500 MG; Start 01/31/17 at 21:00 Linagliptin (Tradjenta) 5 mg DAILY PO Last administered on 02/01/17 09:40; Admin Dose 5 MG; Start 02/01/17 at 09:00 Losartan Potassium (Cozaar) 50 mg DAILY PO Last administered on 02/01/17 09:40 ; Admin Dose 50 MG; Start 02/01/17 at 09:00 Spironolactone (Aldactone) 25 mg DAILY PO Last administered on 02/01/17 09:39; Admin Dose 25 MG; Start 02/01/17 at 09:00 Miscellaneous Information 1 ea NOTE XX ; Start 01/31/17 at 15:30 Glucose (Glutose) 15 gm Q15M PRN PO DECREASED GLUCOSE; Start 01/31/17 at 15:30 Glucose (Glutose) 22.5 gm Q15M PRN PO DECREASED GLUCOSE; Start 01/31/17 at 15:30 Dextrose (D50w Syringe) 25 ml Q15M PRN IV DECREASED GLUCOSE; Start 01/31/17 at 15:30 Dextrose (D50w Syringe) 50 ml Q15M PRN IV DECREASED GLUCOSE; Start 01/31/17 at 15:30 Glucagon (Glucagen) 1 mg Q15M PRN IM DECREASED GLUCOSE; Start 01/31/17 at 15:30 Glucose (Glutose) 15 gm Q15M PRN BUCCAL DECREASED GLUCOSE; Start 01/31/17 at 15: 30 Docusate Sodium (Colace) 100 mg BID PO Last administered on 02/01/17 09:40; Admin Dose 100 MG; Start 01/31/17 at 21:00 Senna (Senokot) 1 tab HS PO Last administered on 01/31/17 20:27; Admin Dose 1 TAB; Start 01/31/17 at 21:00 Acetaminophen (Tylenol Tab) 650 mg Q4H PRN PO PAIN; Start 01/31/17 at 16:00 Bisacodyl (Dulcolax Supp) 10 mg DAILY PRN [place] CONSTIPATION; Start 01/31/17 at 16: 00 Magnesium Hydroxide (Milk Of Mag) 30 ml BID PRN PO CONSTIPATION; Start 01/31/17 at 16:00 Lactulose (Enulose) 20 gm DAILY PRN PO CONSTIPATION; Start 01/31/17 at 16:00 Diagnostic Test (Pha) (Accu-Chek) 1 ea 02 XX ; Start 02/01/17 at 02:00 Mynor Prince DO February 01, 2017 15:08
--- NOTE | 2017-02-01 17:48 | PN ---
Date/Time of Note Date/Time of Note DATE: 02/01/17 TIME: 17:45 Assessment/Plan VTE Prophylaxis VTE Prophylaxis Intervention: SCD's (ambulation) Lines/Catheters IV Catheter Type (from Nrsg): Saline Lock Urinary Cath still in place: No Subjective 24 Hr Interval Summary Free Text/Dictation much improved, speech is better, eating well diabetes, blood sugars now in control, no coverage insulin so far no seizures no headache, bp ok on current meds scalp lac is healing, stei strips remain in place alert, baseline cognition with some wandering stories lungs are clear, heart rate is ok, no edema plan: cont with rehab protocol, watch bp, sugars Exam/Review of Systems Vital Signs Vitals Vital Signs Date Time Temp Pulse Resp B/P Pulse Ox O2 Delivery O2 Flow Rate FiO2 02/01/17 07:48 98.2 64 18 122/59 95 01/31/17 14:30 Room Air Intake and Output 01/31/17 01/31/17 02/01/17 15:00 23:00 07:00 Intake Total 620 ml 500 ml Output Total 200 ml 300 ml Balance 420 ml 200 ml Results Result Diagram: 02/01/17 0608 02/01/17 0608 Results 24 hrs Laboratory Tests Test 01/31/17 20:26 02/01/17 06:08 02/01/17 07:57 02/01/17 12:03 Bedside Glucose 127 136 166 White Blood Count 4.9 Red Blood Count 3.46 L Hemoglobin 11.1 L Hematocrit 33.4 L Mean Corpuscular Volume 96.5 Mean Corpuscular Hemoglobin 32.1 Mean Corpuscular Hemoglobin Concent 33.2 Red Cell Distribution Width 13.8 Platelet Count 265 # Mean Platelet Volume 9.8 Neutrophils % 66.3 Lymphocytes % 22.7 Monocytes % 6.1 Eosinophils % 3.3 Basophils % 0.4 Nucleated Red Blood Cells % 0.0 Neutrophils # 3.2 Lymphocytes # 1.1 Monocytes # 0.3 Eosinophils # 0.2 Basophils # 0.0 Nucleated Red Blood Cells # 0.0 Sodium Level 138 Potassium Level 4.2 Chloride Level 100 Carbon Dioxide Level 29 Anion Gap 13 Blood Urea Nitrogen 16 Creatinine 1.04 Glucose Level 135 Calcium Level 8.7 Total Bilirubin 0.4 Direct Bilirubin 0.00 Indirect Bilirubin 0.4 Aspartate Amino Transf (AST/SGOT) 23 Alanine Aminotransferase (ALT/SGPT) 35 Alkaline Phosphatase 52 Total Protein 6.0 L Albumin 2.8 L Globulin 3.20 Albumin/Globulin Ratio 0.87 Test 02/01/17 17:12 Bedside Glucose 108 Medications Medications Current Medications Diagnostic Test (Pha) (Accu-Chek) 1 ea 02 XX ; Start 02/01/17 at 02:00 Eye Lubricant (Artificial Tears Oph) 1 drop TID BOTH EYES Last administered on 02/01/17 12:50; Admin Dose 1 DROP; Start 01/31/17 at 21:00 Aspirin (Aspirin) 81 mg DAILY PO Last administered on 02/01/17 09:40; Admin Dose 81 MG; Start 02/01/17 at 09:00 Atorvastatin Calcium (Lipitor) 80 mg HS PO Last administered on 01/31/17 20:27 ; Admin Dose 80 MG; Start 01/31/17 at 21:00 Carvedilol (Coreg) 12.5 mg BID PO Last administered on 02/01/17 09:41; Admin Dose 12.5 MG; Start 01/31/17 at 21:00 Levetiracetam (Keppra) 500 mg BID PO Last administered on 02/01/17 09:40; Admin Dose 500 MG; Start 01/31/17 at 21:00 Linagliptin (Tradjenta) 5 mg DAILY PO Last administered on 02/01/17 09:40; Admin Dose 5 MG; Start 02/01/17 at 09:00 Losartan Potassium (Cozaar) 50 mg DAILY PO Last administered on 02/01/17 09:40 ; Admin Dose 50 MG; Start 02/01/17 at 09:00 Spironolactone (Aldactone) 25 mg DAILY PO Last administered on 02/01/17 09:39; Admin Dose 25 MG; Start 02/01/17 at 09:00 Miscellaneous Information 1 ea NOTE XX ; Start 01/31/17 at 15:30 Glucose (Glutose) 15 gm Q15M PRN PO DECREASED GLUCOSE; Start 01/31/17 at 15:30 Glucose (Glutose) 22.5 gm Q15M PRN PO DECREASED GLUCOSE; Start 01/31/17 at 15:30 Dextrose (D50w Syringe) 25 ml Q15M PRN IV DECREASED GLUCOSE; Start 01/31/17 at 15:30 Dextrose (D50w Syringe) 50 ml Q15M PRN IV DECREASED GLUCOSE; Start 01/31/17 at 15:30 Glucagon (Glucagen) 1 mg Q15M PRN IM DECREASED GLUCOSE; Start 01/31/17 at 15:30 Glucose (Glutose) 15 gm Q15M PRN BUCCAL DECREASED GLUCOSE; Start 01/31/17 at 15: 30 Docusate Sodium (Colace) 100 mg BID PO Last administered on 02/01/17 09:40; Admin Dose 100 MG; Start 01/31/17 at 21:00 Senna (Senokot) 1 tab HS PO Last administered on 01/31/17 20:27; Admin Dose 1 TAB; Start 01/31/17 at 21:00 Acetaminophen (Tylenol Tab) 650 mg Q4H PRN PO PAIN; Start 01/31/17 at 16:00 Bisacodyl (Dulcolax Supp) 10 mg DAILY PRN [place] CONSTIPATION; Start 01/31/17 at 16: 00 Magnesium Hydroxide (Milk Of Mag) 30 ml BID PRN PO CONSTIPATION; Start 01/31/17 at 16:00 Lactulose (Enulose) 20 gm DAILY PRN PO CONSTIPATION; Start 01/31/17 at 16:00 Diagnostic Test (Pha) (Accu-Chek) 1 ea 02 XX ; Start 02/01/17 at 02:00 JAJA ORO MD February 01, 2017 17:48
--- NOTE | 2017-02-01 19:49 | CONS ---
DATE OF ADMISSION: 01/31/2017 DATE OF CONSULTATION: 02/01/2017 TYPE OF CONSULTATION: Psychological. REFERRING PHYSICIAN: Barney Norton MD CONSULTING PSYCHOLOGIST: Dennis Palm, PhD REASON FOR CONSULTATION: This consultation was requested by Dr. Amina Norton in order to evaluate the cognitive and emotional functioning of this patient related to his present medical condition. HISTORY OF PRESENT ILLNESS: The patient is an 86-year-old male. He has a history of numerous medic al problems. He was brought in by ambulance for altered mental status, possible seizure-like activi ty. The patient was cleared medically and then sent to the acute rehabilitation unit for acute mult idisciplinary rehabilitation. 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 The patient was having some confusion. The patient is motivated to get better. The patient wants to go home. The patient reports that he has difficulty sleeping in the hospital because he says it is very noisy at night. This seems to frustrate the patient. FAMILY AND SOCIAL HISTORY: The patient lives in a home in [place] with his . The patient reports that he has 2 caregivers that are there 24/04. One of the caregivers, he said, has been with them for many years. The patient does want to return home and be able to function as he did previo usly. MEDICATIONS: The patient is currently not on any psychotropic medications. SUBSTANCE USE: The patient denies any use of alcohol or other drugs. The patient reports he does n ot smoke. MENTAL STATUS EXAMINATION: APPEARANCE: The patient was seen in his wheelchair. He was of average height and weight. The germania ent is right-handed. BEHAVIOR: The patient was cooperative during the consultation. The patient did attempt to answer a ll questions presented to him by the interviewer. The patient did get confused easily and had some difficulty understanding or responding to some of the questions. MOOD AND AFFECT: The patient's mood appears to be slightly depressed. Affect does appear to be sli ghtly anxious. PERCEPTION: The patient reports no hallucinations or delusions. The patient was alert to person, p lace, and situation, but not exactly to time. MEMORY AND COGNITION: The patient's memory and cognition appear to be impaired. He has some diffic ulty recalling recent and remote events. The patient could not remember the name of the hospital, b ut he did know he was in the hospital. The patient was unable to say the month, but was able to say the year. The patient thought it was May of 2017. The patient was able to say who the Presiden t of the [place], his but could not say who the governor of the state or the mayor of the city is. The patient could not spell "world" backwards. The patient was able to do 1 serial 7 subtract ion from 100 and then made an error. Overall, the patient is not functioning terribly for his age, but still showing some mild cognitive impairment. INTELLIGENCE: Intelligence appears to fall in the average to above-average range when he was functi oning adequately. INSIGHT: Poor. JUDGMENT: Poor. THOUGHT CONTENT: The patient is concerned about his present medical condition. The patient does wa nt to return home and be as functional as he can be. DISCUSSION: The patient can likely benefit from some cognitive/behavioral psychotherapy while he is on the unit. This psychotherapy would help him focus on his underlying level of frustration and de pression regarding all his medical problems. DIAGNOSTIC IMPRESSION: 1. 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 2. F06.8, cognitive disorder, not otherwise specified. Thank you very much, Dr. Amina Norton, for referring this individual. Please do not hesitate to ca ll if you have additional questions. Dictated By: DENNIS PALM PHD QUYEN/LUH Conf#: [id number] DID#: [id number] CC: BARNEY NORTON MD;*EndCC*
[2017-02-01 20:00] VITALS: BP 133/65; RESP 18
[2017-02-01] MEDS: SENNA TAB PO SCH (20:17)
[2017-02-01] MEDS: ATORVASTATIN 80 MG TAB PO SCH (20:18)
[2017-02-02] MEDS: ACCU-CHEK XX SCH ×2 (02:00)
[2017-02-02 07:30] VITALS: BP 129/60; RESP 18
[2017-02-02] MEDS: DOCUSATE SODIUM 100 MG CAP PO SCH ×2 (08:14→20:55)
[2017-02-02] MEDS: ASPIRIN 81 MG TAB PO SCH (08:14)
[2017-02-02] MEDS: SPIRONOLACTONE 25 MG TAB PO SCH (08:14)
[2017-02-02] MEDS: LINAGLIPTIN 5 MG TABLET PO SCH (08:14)
[2017-02-02] MEDS: LEVETIRACETAM 500 MG TAB PO SCH ×2 (08:14→20:55)
[2017-02-02] MEDS: ARTIFICIAL TEARS 15 ML OPH BOTH EYES SCH ×3 (08:16→20:56)
[2017-02-02] MEDS: INSULIN ASPART [NOVOLOG] 3 ML PEN SC SCH ×4 (08:16→20:56)
[2017-02-02] MEDS: LOSARTAN 50 MG TAB PO SCH (08:17)
--- NOTE | 2017-02-02 08:46 | PN ---
Date/Time of Note Date/Time of Note DATE: 02/02/17 TIME: 08:43 Assessment/Plan VTE Prophylaxis VTE Prophylaxis Intervention: ambulation Lines/Catheters [facility] Saline Lock Urinary Cath still in place: No Assessment/Plan Problems: (1) Hyperlipidemia Status: Chronic Comment: On statin therapy Qualifiers: Hyperlipidemia type: pure hypercholesterolemia Qualified Code: E78.00 - Pure hypercholesterolemia (2) Essential (primary) hypertension Status: Chronic Comment: adequate control. Check PVR to see if would benefit from Alpha block (3) Seizure Status: Resolved Comment: Inactive (4) Type 2 diabetes mellitus without complications Status: Chronic Comment: Good control Qualifiers: Diabetes mellitus technician terminal and repeater insulin use: without technician terminal and repeater use Qualified Code: E11.9 - Type 2 diabetes mellitus without complication, without long-term current use of insulin Subjective 24 Hr Interval Summary Free Text/Dictation Patient reports generally doing well Constitutional: no complaints Respiratory: no complaints Cardiovascular: no complaints Gastrointestinal: no complaints Exam/Review of Systems Vital Signs Vitals Vital Signs Date Time Temp Pulse Resp B/P Pulse Ox O2 Delivery O2 Flow Rate FiO2 02/01/17 20:00 98.3 63 18 133/65 98 01/31/17 14:30 Room Air Intake and Output 02/01/17 02/01/17 02/02/17 15:00 23:00 07:00 Intake Total 720 ml 360 ml Output Total 200 ml 250 ml Balance 520 ml 110 ml Exam Constitutional: alert, oriented Respiratory: clear to auscultation, normal air movement Cardiovascular: nl pulses, regular rate and rhythm Gastrointestinal: nl liver, spleen, non-tender, soft Results Result Diagram: 02/01/17 0608 02/01/17 0608 Results 24 hrs Laboratory Tests Test 02/01/17 12:03 02/01/17 17:12 02/01/17 20:07 02/02/17 08:01 Bedside Glucose 166 108 113 143 Medications Medications Current Medications Diagnostic Test (Pha) (Accu-Chek) 1 ea 02 XX ; Start 02/01/17 at 02:00 Eye Lubricant (Artificial Tears Oph) 1 drop TID BOTH EYES Last administered on 02/02/17 08:16; Admin Dose 1 DROP; Start 01/31/17 at 21:00 Aspirin (Aspirin) 81 mg DAILY PO Last administered on 02/02/17 08:14; Admin Dose 81 MG; Start 02/01/17 at 09:00 Atorvastatin Calcium (Lipitor) 80 mg HS PO Last administered on 02/01/17 20:18 ; Admin Dose 80 MG; Start 01/31/17 at 21:00 Carvedilol (Coreg) 12.5 mg BID PO Last administered on 02/02/17 08:17; Admin Dose 12.5 MG; Start 01/31/17 at 21:00 Levetiracetam (Keppra) 500 mg BID PO Last administered on 02/02/17 08:14; Admin Dose 500 MG; Start 01/31/17 at 21:00 Linagliptin (Tradjenta) 5 mg DAILY PO Last administered on 02/02/17 08:14; Admin Dose 5 MG; Start 02/01/17 at 09:00 Losartan Potassium (Cozaar) 50 mg DAILY PO Last administered on 02/02/17 08:17 ; Admin Dose 50 MG; Start 02/01/17 at 09:00 Spironolactone (Aldactone) 25 mg DAILY PO Last administered on 02/02/17 08:14; Admin Dose 25 MG; Start 02/01/17 at 09:00 Miscellaneous Information 1 ea NOTE XX ; Start 01/31/17 at 15:30 Glucose (Glutose) 15 gm Q15M PRN PO DECREASED GLUCOSE; Start 01/31/17 at 15:30 Glucose (Glutose) 22.5 gm Q15M PRN PO DECREASED GLUCOSE; Start 01/31/17 at 15:30 Dextrose (D50w Syringe) 25 ml Q15M PRN IV DECREASED GLUCOSE; Start 01/31/17 at 15:30 Dextrose (D50w Syringe) 50 ml Q15M PRN IV DECREASED GLUCOSE; Start 01/31/17 at 15:30 Glucagon (Glucagen) 1 mg Q15M PRN IM DECREASED GLUCOSE; Start 01/31/17 at 15:30 Glucose (Glutose) 15 gm Q15M PRN BUCCAL DECREASED GLUCOSE; Start 01/31/17 at 15: 30 Docusate Sodium (Colace) 100 mg BID PO Last administered on 02/02/17 08:14; Admin Dose 100 MG; Start 01/31/17 at 21:00 Senna (Senokot) 1 tab HS PO Last administered on 5/3/17at 20:17; Admin Dose 1 TAB; Start 01/31/17 at 21:00 Acetaminophen (Tylenol Tab) 650 mg Q4H PRN PO PAIN; Start 01/31/17 at 16:00 Bisacodyl (Dulcolax Supp) 10 mg DAILY PRN [place] CONSTIPATION; Start 01/31/17 at 16: 00 Magnesium Hydroxide (Milk Of Mag) 30 ml BID PRN PO CONSTIPATION; Start 01/31/17 at 16:00 Lactulose (Enulose) 20 gm DAILY PRN PO CONSTIPATION; Start 01/31/17 at 16:00 Diagnostic Test (Pha) (Accu-Chek) 1 ea 02 XX ; Start 02/01/17 at 02:00 LEONELA PEREYRA MD February 02, 2017 08:46
--- NOTE | 2017-02-02 12:32 | CONS ---
Date/Time of Note Date/Time of Note DATE: 02/02/17 TIME: 12:31 Consult Date/Type/Reason Admit Date/Time January 31, 2017 at 14:30 Initial Consult Date Type of Consultation: cv Subjective Comfortable Objective pulm-cta abd-soft min assist 75 feet Vital Signs Date Time Temp Pulse Resp B/P Pulse Ox O2 Delivery O2 Flow Rate FiO2 02/02/17 07:30 98.2 65 18 129/60 96 01/31/17 14:30 Room Air Intake and Output 02/01/17 02/01/17 02/02/17 15:00 23:00 07:00 Intake Total 720 ml 360 ml Output Total 200 ml 250 ml Balance 520 ml 110 ml Results/Medications Result Diagram: 02/01/17 0608 02/01/17 0608 Results 24 hrs Laboratory Tests Test 02/01/17 17:12 02/01/17 20:07 02/02/17 08:01 Bedside Glucose 108 113 143 Medications Current Medications Diagnostic Test (Pha) (Accu-Chek) 1 ea 02 XX ; Start 02/01/17 at 02:00 Eye Lubricant (Artificial Tears Oph) 1 drop TID BOTH EYES Last administered on 02/02/17 08:16; Admin Dose 1 DROP; Start 01/31/17 at 21:00 Aspirin (Aspirin) 81 mg DAILY PO Last administered on 02/02/17 08:14; Admin Dose 81 MG; Start 02/01/17 at 09:00 Atorvastatin Calcium (Lipitor) 80 mg HS PO Last administered on 02/01/17 20:18 ; Admin Dose 80 MG; Start 01/31/17 at 21:00 Carvedilol (Coreg) 12.5 mg BID PO Last administered on 02/02/17 08:17; Admin Dose 12.5 MG; Start 01/31/17 at 21:00 Levetiracetam (Keppra) 500 mg BID PO Last administered on 02/02/17 08:14; Admin Dose 500 MG; Start 01/31/17 at 21:00 Linagliptin (Tradjenta) 5 mg DAILY PO Last administered on 02/02/17 08:14; Admin Dose 5 MG; Start 02/01/17 at 09:00 Losartan Potassium (Cozaar) 50 mg DAILY PO Last administered on 02/02/17 08:17 ; Admin Dose 50 MG; Start 02/01/17 at 09:00 Spironolactone (Aldactone) 25 mg DAILY PO Last administered on 02/02/17 08:14; Admin Dose 25 MG; Start 02/01/17 at 09:00 Miscellaneous Information 1 ea NOTE XX ; Start 01/31/17 at 15:30 Glucose (Glutose) 15 gm Q15M PRN PO DECREASED GLUCOSE; Start 01/31/17 at 15:30 Glucose (Glutose) 22.5 gm Q15M PRN PO DECREASED GLUCOSE; Start 01/31/17 at 15:30 Dextrose (D50w Syringe) 25 ml Q15M PRN IV DECREASED GLUCOSE; Start 01/31/17 at 15:30 Dextrose (D50w Syringe) 50 ml Q15M PRN IV DECREASED GLUCOSE; Start 01/31/17 at 15:30 Glucagon (Glucagen) 1 mg Q15M PRN IM DECREASED GLUCOSE; Start 01/31/17 at 15:30 Glucose (Glutose) 15 gm Q15M PRN BUCCAL DECREASED GLUCOSE; Start 01/31/17 at 15: 30 Docusate Sodium (Colace) 100 mg BID PO Last administered on 02/02/17 08:14; Admin Dose 100 MG; Start 01/31/17 at 21:00 Senna (Senokot) 1 tab HS PO Last administered on 02/01/17 20:17; Admin Dose 1 TAB; Start 01/31/17 at 21:00 Acetaminophen (Tylenol Tab) 650 mg Q4H PRN PO PAIN; Start 01/31/17 at 16:00 Bisacodyl (Dulcolax Supp) 10 mg DAILY PRN [place] CONSTIPATION; Start 01/31/17 at 16: 00 Magnesium Hydroxide (Milk Of Mag) 30 ml BID PRN PO CONSTIPATION; Start 01/31/17 at 16:00 Lactulose (Enulose) 20 gm DAILY PRN PO CONSTIPATION; Start 01/31/17 at 16:00 Diagnostic Test (Pha) (Accu-Chek) 1 ea 02 XX ; Start 02/01/17 at 02:00 Assessment/Plan Additional Assessment/Plan rehab- Toxic metabolic encephalopathy. Continue rehab treatment plan Status post intubation for respiratory failure and airway protection. Seizure disorder. Diabetes mellitus type 2. Coronary artery disease with history of coronary artery bypass graft. Hypokalemia. Hypertension. BARNEY SINGLETARY MD February 02, 2017 12:32
--- NOTE | 2017-02-02 14:36 | CONS ---
Date/Time of Note Date/Time of Note DATE: 02/02/17 TIME: 14:35 Assessment/Plan Assessment/Plan Additional Assessment/Plan Encephalopathy, improved Preserved ejection fraction Hypertension urgency/emergency-resolved Seizure CAD with history of CABG Respiratory failure status post extubation -Blood pressure trend remains stable on current CV medication regimen. No new cardiovascular orders at the current time Consultation Date/Type/Reason Admit Date/Time January 31, 2017 at 14:30 Type of Consultation: cv 24 HR Interval Summary Free Text/Dictation Denies shortness of breath, chest pain or palpitations Exam/Review of Systems Vital Signs Vitals Vital Signs Date Time Temp Pulse Resp B/P Pulse Ox O2 Delivery O2 Flow Rate FiO2 02/02/17 07:30 98.2 65 18 129/60 96 01/31/17 14:30 Room Air Intake and Output 02/01/17 02/01/17 02/02/17 15:00 23:00 07:00 Intake Total 720 ml 360 ml Output Total 200 ml 250 ml Balance 520 ml 110 ml Exam No apparent distress Constitutional: alert, oriented Head: normocephalic Respiratory: other (Coarse breath sounds bilaterally, no wheezing) Cardiovascular: other (S1-S2 heard), regular rate and rhythm Gastrointestinal: bowel sounds, non-tender, soft Extremities: other (No edema) Results Result Diagram: 02/01/17 0608 02/01/17 0608 Results 24 hrs Laboratory Tests Test 02/01/17 17:12 02/01/17 20:07 02/02/17 08:01 Bedside Glucose 108 113 143 Medications Medications Current Medications Diagnostic Test (Pha) (Accu-Chek) 1 ea 02 XX ; Start 02/01/17 at 02:00 Eye Lubricant (Artificial Tears Oph) 1 drop TID BOTH EYES Last administered on 02/02/17 08:16; Admin Dose 1 DROP; Start 01/31/17 at 21:00 Aspirin (Aspirin) 81 mg DAILY PO Last administered on 02/02/17 08:14; Admin Dose 81 MG; Start 02/01/17 at 09:00 Atorvastatin Calcium (Lipitor) 80 mg HS PO Last administered on 02/01/17 20:18 ; Admin Dose 80 MG; Start 01/31/17 at 21:00 Carvedilol (Coreg) 12.5 mg BID PO Last administered on 02/02/17 08:17; Admin Dose 12.5 MG; Start 01/31/17 at 21:00 Levetiracetam (Keppra) 500 mg BID PO Last administered on 02/02/17 08:14; Admin Dose 500 MG; Start 01/31/17 at 21:00 Linagliptin (Tradjenta) 5 mg DAILY PO Last administered on 02/02/17 08:14; Admin Dose 5 MG; Start 02/01/17 at 09:00 Losartan Potassium (Cozaar) 50 mg DAILY PO Last administered on 02/02/17 08:17 ; Admin Dose 50 MG; Start 02/01/17 at 09:00 Spironolactone (Aldactone) 25 mg DAILY PO Last administered on 02/02/17 08:14; Admin Dose 25 MG; Start 02/01/17 at 09:00 Miscellaneous Information 1 ea NOTE XX ; Start 01/31/17 at 15:30 Glucose (Glutose) 15 gm Q15M PRN PO DECREASED GLUCOSE; Start 01/31/17 at 15:30 Glucose (Glutose) 22.5 gm Q15M PRN PO DECREASED GLUCOSE; Start 01/31/17 at 15:30 Dextrose (D50w Syringe) 25 ml Q15M PRN IV DECREASED GLUCOSE; Start 01/31/17 at 15:30 Dextrose (D50w Syringe) 50 ml Q15M PRN IV DECREASED GLUCOSE; Start 01/31/17 at 15:30 Glucagon (Glucagen) 1 mg Q15M PRN IM DECREASED GLUCOSE; Start 01/31/17 at 15:30 Glucose (Glutose) 15 gm Q15M PRN BUCCAL DECREASED GLUCOSE; Start 01/31/17 at 15: 30 Docusate Sodium (Colace) 100 mg BID PO Last administered on 02/02/17 08:14; Admin Dose 100 MG; Start 01/31/17 at 21:00 Senna (Senokot) 1 tab HS PO Last administered on 02/01/17 20:17; Admin Dose 1 TAB; Start 01/31/17 at 21:00 Acetaminophen (Tylenol Tab) 650 mg Q4H PRN PO PAIN; Start 01/31/17 at 16:00 Bisacodyl (Dulcolax Supp) 10 mg DAILY PRN [place] CONSTIPATION; Start 01/31/17 at 16: 00 Magnesium Hydroxide (Milk Of Mag) 30 ml BID PRN PO CONSTIPATION; Start 01/31/17 at 16:00 Lactulose (Enulose) 20 gm DAILY PRN PO CONSTIPATION; Start 01/31/17 at 16:00 Diagnostic Test (Pha) (Accu-Chek) 1 ea 02 XX ; Start 02/01/17 at 02:00 Mynor Prince DO February 02, 2017 14:36
[2017-02-02] MEDS: ATORVASTATIN 80 MG TAB PO SCH (20:55)
[2017-02-02] MEDS: SENNA TAB PO SCH (20:55)
[2017-02-03] MEDS: ACCU-CHEK XX SCH ×2 (02:00)
[2017-02-03 07:40] VITALS: BP 119/64; RESP 18
[2017-02-03] MEDS: DOCUSATE SODIUM 100 MG CAP PO SCH ×2 (08:37→21:35)
[2017-02-03] MEDS: SPIRONOLACTONE 25 MG TAB PO SCH (08:37)
[2017-02-03] MEDS: LINAGLIPTIN 5 MG TABLET PO SCH (08:37)
[2017-02-03] MEDS: ASPIRIN 81 MG TAB PO SCH (08:37)
[2017-02-03] MEDS: LEVETIRACETAM 500 MG TAB PO SCH ×2 (08:37→21:35)
[2017-02-03] MEDS: ARTIFICIAL TEARS 15 ML OPH BOTH EYES SCH ×3 (08:38→21:35)
[2017-02-03] MEDS: INSULIN ASPART [NOVOLOG] 3 ML PEN SC SCH ×4 (08:41→21:00)
[2017-02-03] MEDS: LOSARTAN 50 MG TAB PO SCH (08:47)
--- NOTE | 2017-02-03 11:17 | CONS ---
Date/Time of Note Date/Time of Note DATE: 02/03/17 TIME: 11:16 Consult Date/Type/Reason Admit Date/Time January 31, 2017 at 14:30 Type of Consultation: cv Subjective feeling better Objective pulm-cta abd-soft min assist 75 feet Vital Signs Date Time Temp Pulse Resp B/P Pulse Ox O2 Delivery O2 Flow Rate FiO2 02/03/17 07:40 98.4 64 18 119/64 95 01/31/17 14:30 Room Air Intake and Output 02/02/17 02/02/17 02/03/17 14:59 22:59 06:59 Intake Total 420 ml 200 ml Output Total 420 ml 250 ml Balance 0 ml -50 ml Results/Medications Result Diagram: 02/01/17 0608 02/01/17 0608 Results 24 hrs Laboratory Tests Test 02/02/17 17:18 02/02/17 20:51 02/03/17 08:20 Bedside Glucose 140 134 171 Medications Current Medications Diagnostic Test (Pha) (Accu-Chek) 1 ea 02 XX ; Start 02/01/17 at 02:00 Eye Lubricant (Artificial Tears Oph) 1 drop TID BOTH EYES Last administered on 02/03/17 08:38; Admin Dose 1 DROP; Start 01/31/17 at 21:00 Aspirin (Aspirin) 81 mg DAILY PO Last administered on 02/03/17 08:37; Admin Dose 81 MG; Start 02/01/17 at 09:00 Atorvastatin Calcium (Lipitor) 80 mg HS PO Last administered on 02/02/17 20:55 ; Admin Dose 80 MG; Start 01/31/17 at 21:00 Carvedilol (Coreg) 12.5 mg BID PO Last administered on 02/02/17 20:56; Admin Dose 12.5 MG; Start 01/31/17 at 21:00 Levetiracetam (Keppra) 500 mg BID PO Last administered on 02/03/17 08:37; Admin Dose 500 MG; Start 01/31/17 at 21:00 Linagliptin (Tradjenta) 5 mg DAILY PO Last administered on 02/03/17 08:37; Admin Dose 5 MG; Start 02/01/17 at 09:00 Losartan Potassium (Cozaar) 50 mg DAILY PO Last administered on 02/02/17 08:17 ; Admin Dose 50 MG; Start 02/01/17 at 09:00 Spironolactone (Aldactone) 25 mg DAILY PO Last administered on 02/03/17 08:37; Admin Dose 25 MG; Start 02/01/17 at 09:00 Miscellaneous Information 1 ea NOTE XX ; Start 01/31/17 at 15:30 Glucose (Glutose) 15 gm Q15M PRN PO DECREASED GLUCOSE; Start 01/31/17 at 15:30 Glucose (Glutose) 22.5 gm Q15M PRN PO DECREASED GLUCOSE; Start 01/31/17 at 15:30 Dextrose (D50w Syringe) 25 ml Q15M PRN IV DECREASED GLUCOSE; Start 01/31/17 at 15:30 Dextrose (D50w Syringe) 50 ml Q15M PRN IV DECREASED GLUCOSE; Start 01/31/17 at 15:30 Glucagon (Glucagen) 1 mg Q15M PRN IM DECREASED GLUCOSE; Start 01/31/17 at 15:30 Glucose (Glutose) 15 gm Q15M PRN BUCCAL DECREASED GLUCOSE; Start 01/31/17 at 15: 30 Docusate Sodium (Colace) 100 mg BID PO Last administered on 02/03/17 08:37; Admin Dose 100 MG; Start 01/31/17 at 21:00 Senna (Senokot) 1 tab HS PO Last administered on 02/02/17 20:55; Admin Dose 1 TAB; Start 01/31/17 at 21:00 Acetaminophen (Tylenol Tab) 650 mg Q4H PRN PO PAIN; Start 01/31/17 at 16:00 Bisacodyl (Dulcolax Supp) 10 mg DAILY PRN [place] CONSTIPATION; Start 01/31/17 at 16: 00 Magnesium Hydroxide (Milk Of Mag) 30 ml BID PRN PO CONSTIPATION; Start 01/31/17 at 16:00 Lactulose (Enulose) 20 gm DAILY PRN PO CONSTIPATION; Start 01/31/17 at 16:00 Diagnostic Test (Pha) (Accu-Chek) 1 ea 02 XX ; Start 02/01/17 at 02:00 Assessment/Plan Additional Assessment/Plan rehab- Toxic metabolic encephalopathy. Steady progress with rehab treatment plan Status post intubation for respiratory failure and airway protection-stable Seizure disorder. Diabetes mellitus type 2. Coronary artery disease with history of coronary artery bypass graft. Hypokalemia. Hypertension. GRITTON,LIVA L. MD February 03, 2017 11:17
--- NOTE | 2017-02-03 12:29 | CONS ---
Date/Time of Note Date/Time of Note DATE: 02/03/17 TIME: 12:28 Assessment/Plan Assessment/Plan Additional Assessment/Plan Encephalopathy, improved Preserved ejection fraction Hypertension urgency/emergency-resolved Seizure CAD with history of CABG Respiratory failure status post extubation -Blood pressure trend improving, would adjust Cozaar to twice daily dosing and decrease dose of Aldactone. Consultation Date/Type/Reason Admit Date/Time January 31, 2017 at 14:30 Type of Consultation: cv 24 HR Interval Summary Free Text/Dictation Denies shortness of breath, chest pain, palpitations Exam/Review of Systems Vital Signs Vitals Vital Signs Date Time Temp Pulse Resp B/P Pulse Ox O2 Delivery O2 Flow Rate FiO2 02/03/17 07:40 98.4 64 18 119/64 95 01/31/17 14:30 Room Air Intake and Output 02/02/17 02/02/17 02/03/17 15:00 23:00 07:00 Intake Total 420 ml 200 ml Output Total 420 ml 250 ml Balance 0 ml -50 ml Exam No apparent distress, sitting in wheelchair Constitutional: alert, oriented Head: normocephalic Respiratory: other (Coarse breath sounds bilaterally, no wheezing) Cardiovascular: other (S1-S2 heard), regular rate and rhythm Gastrointestinal: bowel sounds, non-tender, soft Extremities: other (No edema) Results Result Diagram: 02/01/17 0608 02/01/17 0608 Results 24 hrs Laboratory Tests Test 02/02/17 17:18 02/02/17 20:51 02/03/17 08:20 Bedside Glucose 140 134 171 Medications Medications Current Medications Diagnostic Test (Pha) (Accu-Chek) 1 ea 02 XX ; Start 02/01/17 at 02:00 Eye Lubricant (Artificial Tears Oph) 1 drop TID BOTH EYES Last administered on 02/03/17 08:38; Admin Dose 1 DROP; Start 01/31/17 at 21:00 Aspirin (Aspirin) 81 mg DAILY PO Last administered on 02/03/17 08:37; Admin Dose 81 MG; Start 02/01/17 at 09:00 Atorvastatin Calcium (Lipitor) 80 mg HS PO Last administered on 02/02/17 20:55 ; Admin Dose 80 MG; Start 01/31/17 at 21:00 Carvedilol (Coreg) 12.5 mg BID PO Last administered on 02/02/17 20:56; Admin Dose 12.5 MG; Start 01/31/17 at 21:00 Levetiracetam (Keppra) 500 mg BID PO Last administered on 02/03/17 08:37; Admin Dose 500 MG; Start 01/31/17 at 21:00 Linagliptin (Tradjenta) 5 mg DAILY PO Last administered on 02/03/17 08:37; Admin Dose 5 MG; Start 02/01/17 at 09:00 Losartan Potassium (Cozaar) 50 mg DAILY PO Last administered on 02/02/17 08:17 ; Admin Dose 50 MG; Start 02/01/17 at 09:00 Spironolactone (Aldactone) 25 mg DAILY PO Last administered on 02/03/17 08:37; Admin Dose 25 MG; Start 02/01/17 at 09:00 Miscellaneous Information 1 ea NOTE XX ; Start 01/31/17 at 15:30 Glucose (Glutose) 15 gm Q15M PRN PO DECREASED GLUCOSE; Start 01/31/17 at 15:30 Glucose (Glutose) 22.5 gm Q15M PRN PO DECREASED GLUCOSE; Start 01/31/17 at 15:30 Dextrose (D50w Syringe) 25 ml Q15M PRN IV DECREASED GLUCOSE; Start 01/31/17 at 15:30 Dextrose (D50w Syringe) 50 ml Q15M PRN IV DECREASED GLUCOSE; Start 01/31/17 at 15:30 Glucagon (Glucagen) 1 mg Q15M PRN IM DECREASED GLUCOSE; Start 01/31/17 at 15:30 Glucose (Glutose) 15 gm Q15M PRN BUCCAL DECREASED GLUCOSE; Start 01/31/17 at 15: 30 Docusate Sodium (Colace) 100 mg BID PO Last administered on 02/03/17 08:37; Admin Dose 100 MG; Start 01/31/17 at 21:00 Senna (Senokot) 1 tab HS PO Last administered on 02/02/17 20:55; Admin Dose 1 TAB; Start 01/31/17 at 21:00 Acetaminophen (Tylenol Tab) 650 mg Q4H PRN PO PAIN; Start 01/31/17 at 16:00 Bisacodyl (Dulcolax Supp) 10 mg DAILY PRN [place] CONSTIPATION; Start 01/31/17 at 16: 00 Magnesium Hydroxide (Milk Of Mag) 30 ml BID PRN PO CONSTIPATION; Start 01/31/17 at 16:00 Lactulose (Enulose) 20 gm DAILY PRN PO CONSTIPATION; Start 01/31/17 at 16:00 Diagnostic Test (Pha) (Accu-Chek) 1 ea 02 XX ; Start 02/01/17 at 02:00 Mynor Prince DO February 03, 2017 12:29
--- NOTE | 2017-02-03 14:35 | PN ---
Date/Time of Note Date/Time of Note DATE: 02/03/17 TIME: 14:34 Assessment/Plan VTE Prophylaxis VTE Prophylaxis Intervention: LMWH Lines/Catheters IV [facility] [place] Urinary Cath still in place: No Assessment/Plan Problems: (1) Hyperlipidemia Status: Chronic Comment: Stable on therapy Qualifiers: Hyperlipidemia type: pure hypercholesterolemia Qualified Code: E78.00 - Pure hypercholesterolemia (2) Essential (primary) hypertension Status: Chronic Comment: Adequate control (3) Atherosclerotic heart disease of [place] coronary artery without angina pectoris Status: Chronic Comment: Stable and asymptomatic Qualifiers: [place] vs. 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: without penitentiary use Qualified Code: E11.9 - Type 2 diabetes mellitus without complication, without long-term current use of insulin Assessment/Plan Continue rehabilitative care until he is ready for a lower level of care or home Subjective 24 Hr Interval Summary Free Text/Dictation No new complaints Constitutional: no complaints Respiratory: no complaints Cardiovascular: no complaints Exam/Review of Systems Vital Signs Vitals Vital Signs Date Time Temp Pulse Resp B/P Pulse Ox O2 Delivery O2 Flow Rate FiO2 02/03/17 07:40 98.4 64 18 119/64 95 01/31/17 14:30 Room Air Intake and Output 02/02/17 02/02/17 02/03/17 15:00 23:00 07:00 Intake Total 420 ml 200 ml Output Total 420 ml 250 ml Balance 0 ml -50 ml Exam Constitutional: alert Respiratory: clear to auscultation, normal air movement Results Result Diagram: 02/01/17 0608 02/01/17 0608 Results 24 hrs Laboratory Tests Test 02/02/17 17:18 02/02/17 20:51 02/03/17 08:20 02/03/17 12:17 Bedside Glucose 140 134 171 115 Medications Medications Current Medications Diagnostic Test (Pha) (Accu-Chek) 1 ea 02 XX ; Start 02/01/17 at 02:00 Eye Lubricant (Artificial Tears Oph) 1 drop TID BOTH EYES Last administered on 02/03/17t 13:00; Admin Dose 1 DROP; Start 01/31/17 at 21:00 Aspirin (Aspirin) 81 mg DAILY PO Last administered on 02/03/17 08:37; Admin Dose 81 MG; Start 02/01/17 at 09:00 Atorvastatin Calcium (Lipitor) 80 mg HS PO Last administered on 02/02/17 20:55 ; Admin Dose 80 MG; Start 01/31/17 at 21:00 Carvedilol (Coreg) 12.5 mg BID PO Last administered on 02/02/17 20:56; Admin Dose 12.5 MG; Start 01/31/17 at 21:00 Levetiracetam (Keppra) 500 mg BID PO Last administered on 02/03/17 08:37; Admin Dose 500 MG; Start 01/31/17 at 21:00 Linagliptin (Tradjenta) 5 mg DAILY PO Last administered on 02/03/17 08:37; Admin Dose 5 MG; Start 02/01/17 at 09:00 Miscellaneous Information 1 ea NOTE XX ; Start 01/31/17 at 15:30 Glucose (Glutose) 15 gm Q15M PRN PO DECREASED GLUCOSE; Start 01/31/17 at 15:30 Glucose (Glutose) 22.5 gm Q15M PRN PO DECREASED GLUCOSE; Start 01/31/17 at 15:30 Dextrose (D50w Syringe) 25 ml Q15M PRN IV DECREASED GLUCOSE; Start 01/31/17 at 15:30 Dextrose (D50w Syringe) 50 ml Q15M PRN IV DECREASED GLUCOSE; Start 01/31/17 at 15:30 Glucagon (Glucagen) 1 mg Q15M PRN IM DECREASED GLUCOSE; Start 01/31/17 at 15:30 Glucose (Glutose) 15 gm Q15M PRN BUCCAL DECREASED GLUCOSE; Start 01/31/17 at 15: 30 Docusate Sodium (Colace) 100 mg BID PO Last administered on 02/03/17 08:37; Admin Dose 100 MG; Start 01/31/17 at 21:00 Senna (Senokot) 1 tab HS PO Last administered on 02/02/17 20:55; Admin Dose 1 TAB; Start 01/31/17 at 21:00 Acetaminophen (Tylenol Tab) 650 mg Q4H PRN PO PAIN; Start 01/31/17 at 16:00 Bisacodyl (Dulcolax Supp) 10 mg DAILY PRN [place] CONSTIPATION; Start 01/31/17 at 16: 00 Magnesium Hydroxide (Milk Of Mag) 30 ml BID PRN PO CONSTIPATION; Start 01/31/17 at 16:00 Lactulose (Enulose) 20 gm DAILY PRN PO CONSTIPATION; Start 01/31/17 at 16:00 Diagnostic Test (Pha) (Accu-Chek) 1 ea 02 XX ; Start 02/01/17 at 02:00 Losartan Potassium (Cozaar) 25 mg BID PO ; Start 02/03/17 at 21:00 Spironolactone (Aldactone) 12.5 mg DAILY@06 PO ; Start 02/04/17 at 06:00 LEONELA PEREYRA MD February 03, 2017 14:35
[2017-02-03 20:00] VITALS: BP 126/61; RESP 18
[2017-02-03] MEDS: LOSARTAN 25 MG TAB PO SCH (21:34)
[2017-02-03] MEDS: SENNA TAB PO SCH (21:34)
[2017-02-03] MEDS: ATORVASTATIN 80 MG TAB PO SCH (21:35)
[2017-02-04] MEDS: ACCU-CHEK XX SCH ×2 (02:00)
[2017-02-04] MEDS: SPIRONOLACTONE 25 MG TAB PO SCH (06:05)
[2017-02-04 07:35] VITALS: BP 105/52; RESP 20
[2017-02-04] MEDS: INSULIN ASPART [NOVOLOG] 3 ML PEN SC SCH ×4 (08:20→20:14)
[2017-02-04] MEDS: LOSARTAN 25 MG TAB PO SCH ×2 (09:00→20:14)
--- NOTE | 2017-02-04 09:33 | CONS ---
Date/Time of Note Date/Time of Note DATE: 02/04/17 TIME: 09:31 Consult Date/Type/Reason Admit Date/Time January 31, 2017 at 14:30 Type of Consultation: cv Subjective Patient reports his caregivers will be available tomorrow, and he would like to work towards home Monday Objective pulm-cta abd-soft cga ambulation 150 feet Vital Signs Date Time Temp Pulse Resp B/P Pulse Ox O2 Delivery O2 Flow Rate FiO2 02/04/17 07:35 97.8 61 20 105/52 97 01/31/17 14:30 Room Air Intake and Output 02/03/17 02/03/17 02/04/17 15:00 23:00 07:00 Intake Total 720 ml 560 ml Output Total 400 ml 350 ml Balance 320 ml 210 ml Results/Medications Result Diagram: 02/01/17 0608 02/01/17 0608 Results 24 hrs Laboratory Tests Test 02/03/17 12:17 02/03/17 16:53 02/03/17 21:32 02/04/17 08:04 Bedside Glucose 115 116 165 142 Medications Current Medications Diagnostic Test (Pha) (Accu-Chek) 1 ea 02 XX ; Start 02/01/17 at 02:00 Eye Lubricant (Artificial Tears Oph) 1 drop TID BOTH EYES Last administered on 02/03/17 21:35; Admin Dose 1 DROP; Start 01/31/17 at 21:00 Aspirin (Aspirin) 81 mg DAILY PO Last administered on 02/03/17 08:37; Admin Dose 81 MG; Start 02/01/17 at 09:00 Atorvastatin Calcium (Lipitor) 80 mg HS PO Last administered on 02/03/17 21:35 ; Admin Dose 80 MG; Start 01/31/17 at 21:00 Carvedilol (Coreg) 12.5 mg BID PO Last administered on 02/03/17 21:35; Admin Dose 12.5 MG; Start 01/31/17 at 21:00 Levetiracetam (Keppra) 500 mg BID PO Last administered on 02/03/17 21:35; Admin Dose 500 MG; Start 01/31/17 at 21:00 Linagliptin (Tradjenta) 5 mg DAILY PO Last administered on 02/03/17 08:37; Admin Dose 5 MG; Start 02/01/17 at 09:00 Miscellaneous Information 1 ea NOTE XX ; Start 01/31/17 at 15:30 Glucose (Glutose) 15 gm Q15M PRN PO DECREASED GLUCOSE; Start 01/31/17 at 15:30 Glucose (Glutose) 22.5 gm Q15M PRN PO DECREASED GLUCOSE; Start 01/31/17 at 15:30 Dextrose (D50w Syringe) 25 ml Q15M PRN IV DECREASED GLUCOSE; Start 01/31/17 at 15:30 Dextrose (D50w Syringe) 50 ml Q15M PRN IV DECREASED GLUCOSE; Start 01/31/17 at 15:30 Glucagon (Glucagen) 1 mg Q15M PRN IM DECREASED GLUCOSE; Start 01/31/17 at 15:30 Glucose (Glutose) 15 gm Q15M PRN BUCCAL DECREASED GLUCOSE; Start 01/31/17 at 15: 30 Docusate Sodium (Colace) 100 mg BID PO Last administered on 02/03/17 21:35; Admin Dose 100 MG; Start 01/31/17 at 21:00 Senna (Senokot) 1 tab HS PO Last administered on 02/03/17 21:34; Admin Dose 1 TAB; Start 01/31/17 at 21:00 Acetaminophen (Tylenol Tab) 650 mg Q4H PRN PO PAIN; Start 01/31/17 at 16:00 Bisacodyl (Dulcolax Supp) 10 mg DAILY PRN [place] CONSTIPATION; Start 01/31/17 at 16: 00 Magnesium Hydroxide (Milk Of Mag) 30 ml BID PRN PO CONSTIPATION; Start 01/31/17 at 16:00 Lactulose (Enulose) 20 gm DAILY PRN PO CONSTIPATION; Start 01/31/17 at 16:00 Diagnostic Test (Pha) (Accu-Chek) 1 ea 02 XX ; Start 02/01/17 at 02:00 Losartan Potassium (Cozaar) 25 mg BID PO Last administered on 02/03/17 21:34; Admin Dose 25 MG; Start 02/03/17 at 21:00 Spironolactone (Aldactone) 12.5 mg DAILY@06 PO Last administered on 02/04/17 06 :05; Admin Dose 12.5 MG; Start 02/04/17 at 06:00 Assessment/Plan Additional Assessment/Plan rehab- Toxic metabolic encephalopathy. Good progress with rehab treatment plan, dc tomorrow if caregiver assistance in place Status post intubation for respiratory failure and airway protection-stable Seizure disorder. Diabetes mellitus type 2. Coronary artery disease with history of coronary artery bypass graft. Hypokalemia. Hypertension. BARNEY SINGLETARY MD February 04, 2017 09:33
[2017-02-04] MEDS: LEVETIRACETAM 500 MG TAB PO SCH ×2 (09:52→20:12)
[2017-02-04] MEDS: ARTIFICIAL TEARS 15 ML OPH BOTH EYES SCH ×3 (09:52→20:12)
[2017-02-04] MEDS: ASPIRIN 81 MG TAB PO SCH (09:53)
[2017-02-04] MEDS: LINAGLIPTIN 5 MG TABLET PO SCH (09:53)
[2017-02-04] MEDS: DOCUSATE SODIUM 100 MG CAP PO SCH ×2 (09:56→20:12)
[2017-02-04 19:35] VITALS: BP 146/70; RESP 19
[2017-02-04] MEDS: ATORVASTATIN 80 MG TAB PO SCH (20:12)
[2017-02-04] MEDS: SENNA TAB PO SCH (20:12)
[2017-02-04] MEDS: LATANOPROST 0.005% 2.5 ML OPH BOTH EYES SCH (20:21)
[2017-02-05] MEDS: ACCU-CHEK XX SCH ×2 (02:00)
[2017-02-05 06:49] VITALS: BP 126/64; PULSE 60
[2017-02-05] MEDS: SPIRONOLACTONE 25 MG TAB PO SCH (06:50)
[2017-02-05 07:30] VITALS: BP 123/58; RESP 18
--- NOTE | 2017-02-05 07:30 | PN ---
Date/Time of Note Date/Time of Note DATE: 02/05/17 TIME: 07:27 Assessment/Plan VTE Prophylaxis VTE Prophylaxis Intervention: LMWH Lines/Catheters [facility] Saline Lock Urinary Cath still in place: No Assessment/Plan Problems: (1) Type 2 diabetes mellitus without complications Status: Chronic Comment: Adequate control on current medication regimen. Qualifiers: Diabetes mellitus exterminator termite insulin use: without custodial use Qualified Code: E11.9 - Type 2 diabetes mellitus without complication, without long-term current use of insulin (2) Hyperlipidemia Status: Chronic Comment: Stable on current medication regimen Qualifiers: Hyperlipidemia type: pure hypercholesterolemia Qualified Code: E78.00 - Pure hypercholesterolemia Assessment/Plan Patient's blood pressure mental status have been stable. He is recuperated nicely. He is approaching time for discharge planning. Subjective 24 Hr Interval Summary Constitutional: no complaints Respiratory: no complaints Cardiovascular: no complaints Gastrointestinal: no complaints Exam/Review of Systems Vital Signs Vitals Vital Signs Date Time Temp Pulse Resp B/P Pulse Ox O2 Delivery O2 Flow Rate FiO2 02/05/17 06:49 60 126/64 02/04/17 19:35 97.9 19 96 Intake and Output 02/04/17 02/04/17 02/05/17 15:00 23:00 07:00 Intake Total 2100 ml 200 ml Output Total 1200 ml 1150 ml 500 ml Balance -1200 ml 950 ml -300 ml Exam Constitutional: alert, oriented Respiratory: clear to auscultation, normal air movement Cardiovascular: nl pulses, regular rate and rhythm Results Result Diagram: 02/01/17 0608 02/01/17 0608 Results 24 hrs Laboratory Tests Test 02/04/17 08:04 02/04/17 12:00 02/04/17 17:31 02/04/17 20:11 Bedside Glucose 142 138 112 127 Medications Medications Current Medications Diagnostic Test (Pha) (Accu-Chek) 1 ea 02 XX ; Start 02/01/17 at 02:00 Eye Lubricant (Artificial Tears Oph) 1 drop TID BOTH EYES Last administered on 02/04/17 20:12; Admin Dose 1 DROP; Start 01/31/17 at 21:00 Aspirin (Aspirin) 81 mg DAILY PO Last administered on 02/04/17 09:53; Admin Dose 81 MG; Start 02/01/17 at 09:00 Atorvastatin Calcium (Lipitor) 80 mg HS PO Last administered on 02/04/17 20:12 ; Admin Dose 80 MG; Start 01/31/17 at 21:00 Carvedilol (Coreg) 12.5 mg BID PO Last administered on 02/04/17 20:13; Admin Dose 12.5 MG; Start 01/31/17 at 21:00 Levetiracetam (Keppra) 500 mg BID PO Last administered on 02/04/17 20:12; Admin Dose 500 MG; Start 01/31/17 at 21:00 Linagliptin (Tradjenta) 5 mg DAILY PO Last administered on 02/04/17 09:53; Admin Dose 5 MG; Start 02/01/17 at 09:00 Miscellaneous Information 1 ea NOTE XX ; Start 01/31/17 at 15:30 Glucose (Glutose) 15 gm Q15M PRN PO DECREASED GLUCOSE; Start 01/31/17 at 15:30 Glucose (Glutose) 22.5 gm Q15M PRN PO DECREASED GLUCOSE; Start 01/31/17 at 15:30 Dextrose (D50w Syringe) 25 ml Q15M PRN IV DECREASED GLUCOSE; Start 01/31/17 at 15:30 Dextrose (D50w Syringe) 50 ml Q15M PRN IV DECREASED GLUCOSE; Start 01/31/17 at 15:30 Glucagon (Glucagen) 1 mg Q15M PRN IM DECREASED GLUCOSE; Start 01/31/17 at 15:30 Glucose (Glutose) 15 gm Q15M PRN BUCCAL DECREASED GLUCOSE; Start 01/31/17 at 15: 30 Docusate Sodium (Colace) 100 mg BID PO Last administered on 02/04/17 20:12; Admin Dose 100 MG; Start 01/31/17 at 21:00 Senna (Senokot) 1 tab HS PO Last administered on 02/04/17 20:12; Admin Dose 1 TAB; Start 01/31/17 at 21:00 Acetaminophen (Tylenol Tab) 650 mg Q4H PRN PO PAIN; Start 01/31/17 at 16:00 Bisacodyl (Dulcolax Supp) 10 mg DAILY PRN [place] CONSTIPATION; Start 01/31/17 at 16: 00 Magnesium Hydroxide (Milk Of Mag) 30 ml BID PRN PO CONSTIPATION; Start 01/31/17 at 16:00 Lactulose (Enulose) 20 gm DAILY PRN PO CONSTIPATION; Start 01/31/17 at 16:00 Diagnostic Test (Pha) (Accu-Chek) 1 ea 02 XX ; Start 02/01/17 at 02:00 Losartan Potassium (Cozaar) 25 mg BID PO Last administered on 02/04/17 20:14; Admin Dose 25 MG; Start 02/03/17 at 21:00 Spironolactone (Aldactone) 12.5 mg DAILY@06 PO Last administered on 02/05/17 06 :50; Admin Dose 12.5 MG; Start 02/04/17 at 06:00 Latanoprost (Xalatan) 1 drop HS BOTH EYES Last administered on 02/04/17 20:21; Admin Dose 1 DROP; Start 02/04/17 at 21:00 LEONELA PEREYRA MD February 05, 2017 07:30
[2017-02-05] MEDS: INSULIN ASPART [NOVOLOG] 3 ML PEN SC SCH ×4 (07:35→20:25)
[2017-02-05] MEDS: LOSARTAN 25 MG TAB PO SCH ×2 (08:36→20:25)
[2017-02-05] MEDS: DOCUSATE SODIUM 100 MG CAP PO SCH ×2 (08:36→20:24)
[2017-02-05] MEDS: ARTIFICIAL TEARS 15 ML OPH BOTH EYES SCH ×3 (08:36→20:22)
[2017-02-05] MEDS: ASPIRIN 81 MG TAB PO SCH (08:36)
[2017-02-05] MEDS: LEVETIRACETAM 500 MG TAB PO SCH ×2 (08:37→20:24)
[2017-02-05] MEDS: LINAGLIPTIN 5 MG TABLET PO SCH (08:37)
[2017-02-05] MEDS: LATANOPROST 0.005% 2.5 ML OPH BOTH EYES SCH (20:22)
[2017-02-05] MEDS: SENNA TAB PO SCH (20:24)
[2017-02-05] MEDS: ATORVASTATIN 80 MG TAB PO SCH (20:24)
[2017-02-05 21:55] VITALS: BP 121/58; RESP 19
[2017-02-06] MEDS: ACCU-CHEK XX SCH ×2 (02:00)
[2017-02-06] MEDS: SPIRONOLACTONE 25 MG TAB PO SCH (06:00)
[2017-02-06 07:30] VITALS: BP 119/59; RESP 18
[2017-02-06] MEDS: INSULIN ASPART [NOVOLOG] 3 ML PEN SC SCH ×2 (07:35→12:00)
[2017-02-06] MEDS: ARTIFICIAL TEARS 15 ML OPH BOTH EYES SCH ×2 (09:39→13:06)
[2017-02-06] MEDS: ASPIRIN 81 MG TAB PO SCH (09:39)
[2017-02-06] MEDS: LOSARTAN 25 MG TAB PO SCH (09:42)
[2017-02-06] MEDS: LINAGLIPTIN 5 MG TABLET PO SCH (09:42)
[2017-02-06] MEDS: DOCUSATE SODIUM 100 MG CAP PO SCH (09:42)
[2017-02-06] MEDS: LEVETIRACETAM 500 MG TAB PO SCH (09:42)
--- NOTE | 2017-02-06 11:51 | CONS ---
Date/Time of Note Date/Time of Note DATE: 02/06/17 TIME: 11:49 Assessment/Plan Assessment/Plan Additional Assessment/Plan Encephalopathy, improved Preserved ejection fraction Hypertension urgency/emergency-resolved Seizure CAD with history of CABG Respiratory failure status post extubation -Blood pressure trend on the lower side, would DC Aldactone. Given his age, could tolerate systolic blood pressure up to 150 Consultation Date/Type/Reason Admit Date/Time January 31, 2017 at 14:30 Type of Consultation: cv 24 HR Interval Summary Free Text/Dictation Denies shortness of breath, chest pain or dizziness. Wants to go home Exam/Review of Systems Vital Signs Vitals Vital Signs Date Time Temp Pulse Resp B/P Pulse Ox O2 Delivery O2 Flow Rate FiO2 02/06/17 07:30 97.5 55 18 119/59 97 Intake and Output 02/05/17 02/05/17 02/06/17 15:00 23:00 07:00 Intake Total 940 ml 320 ml Output Total 620 ml 750 ml Balance 320 ml -430 ml Exam No apparent distress, at bedside Constitutional: alert, oriented Head: normocephalic Respiratory: clear to auscultation, normal air movement Cardiovascular: other (S1-S2 heard), regular rate and rhythm Gastrointestinal: bowel sounds, non-tender, soft Extremities: other (No edema) Results Results 24 hrs Laboratory Tests Test 02/05/17 12:09 02/05/17 17:28 02/05/17 20:20 02/06/17 08:04 Bedside Glucose 166 122 163 128 Medications Medications Current Medications Diagnostic Test (Pha) (Accu-Chek) 1 ea 02 XX ; Start 02/01/17 at 02:00 Eye Lubricant (Artificial Tears Oph) 1 drop TID BOTH EYES Last administered on 02/06/17 09:39; Admin Dose 1 DROP; Start 01/31/17 at 21:00 Aspirin (Aspirin) 81 mg DAILY PO Last administered on 02/06/17 09:39; Admin Dose 81 MG; Start 02/01/17 at 09:00 Atorvastatin Calcium (Lipitor) 80 mg HS PO Last administered on 02/05/17 20:24 ; Admin Dose 80 MG; Start 01/31/17 at 21:00 Carvedilol (Coreg) 12.5 mg BID PO Last administered on 02/05/17 20:24; Admin Dose 12.5 MG; Start 01/31/17 at 21:00 Levetiracetam (Keppra) 500 mg BID PO Last administered on 02/06/17 09:42; Admin Dose 500 MG; Start 01/31/17 at 21:00 Linagliptin (Tradjenta) 5 mg DAILY PO Last administered on 02/06/17 09:42; Admin Dose 5 MG; Start 02/01/17 at 09:00 Miscellaneous Information 1 ea NOTE XX ; Start 01/31/17 at 15:30 Glucose (Glutose) 15 gm Q15M PRN PO DECREASED GLUCOSE; Start 01/31/17 at 15:30 Glucose (Glutose) 22.5 gm Q15M PRN PO DECREASED GLUCOSE; Start 01/31/17 at 15:30 Dextrose (D50w Syringe) 25 ml Q15M PRN IV DECREASED GLUCOSE; Start 01/31/17 at 15:30 Dextrose (D50w Syringe) 50 ml Q15M PRN IV DECREASED GLUCOSE; Start 01/31/17 at 15:30 Glucagon (Glucagen) 1 mg Q15M PRN IM DECREASED GLUCOSE; Start 01/31/17 at 15:30 Glucose (Glutose) 15 gm Q15M PRN BUCCAL DECREASED GLUCOSE; Start 01/31/17 at 15: 30 Docusate Sodium (Colace) 100 mg BID PO Last administered on 02/06/17 09:42; Admin Dose 100 MG; Start 01/31/17 at 21:00 Senna (Senokot) 1 tab HS PO Last administered on 02/05/17 20:24; Admin Dose 1 TAB; Start 01/31/17 at 21:00 Acetaminophen (Tylenol Tab) 650 mg Q4H PRN PO PAIN; Start 01/31/17 at 16:00 Bisacodyl (Dulcolax Supp) 10 mg DAILY PRN [place] CONSTIPATION; Start 01/31/17 at 16: 00 Magnesium Hydroxide (Milk Of Mag) 30 ml BID PRN PO CONSTIPATION; Start 01/31/17 at 16:00 Lactulose (Enulose) 20 gm DAILY PRN PO CONSTIPATION; Start 01/31/17 at 16:00 Diagnostic Test (Pha) (Accu-Chek) 1 ea 02 XX ; Start 02/01/17 at 02:00 Losartan Potassium (Cozaar) 25 mg BID PO Last administered on 02/06/17 09:42; Admin Dose 25 MG; Start 02/03/17 at 21:00 Spironolactone (Aldactone) 12.5 mg DAILY@06 PO Last administered on 02/05/17 06 :50; Admin Dose 12.5 MG; Start 02/04/17 at 06:00 Latanoprost (Xalatan) 1 drop HS BOTH EYES Last administered on 02/05/17 20:22; Admin Dose 1 DROP; Start 02/04/17 at 21:00 Mynor Prince DO February 06, 2017 11:51
--- NOTE | 2017-02-06 13:31 | PN ---
Date/Time of Note Date/Time of Note DATE: 02/06/17 TIME: 13:28 Assessment/Plan VTE Prophylaxis VTE Prophylaxis Intervention: ambulation Lines/Catheters IV Catheter Type (from Nrs): Saline Lock Urinary Cath still in place: No Subjective 24 Hr Interval Summary Free Text/Dictation up in chair, vs ok, no seizures ready for discharge will dc on home glyburide one a day, other meds as here advised again that he can not drive, family is in agreement, dmv forms swill be filed when available alert, lungs clear, hr ok Exam/Review of Systems Vital Signs Vitals Vital Signs Date Time Temp Pulse Resp B/P Pulse Ox O2 Delivery O2 Flow Rate FiO2 02/06/17 07:30 97.5 55 18 119/59 97 Intake and Output 02/05/17 02/05/17 02/06/17 15:00 23:00 07:00 Intake Total 940 ml 320 ml Output Total 620 ml 750 ml Balance 320 ml -430 ml Results Results 24 hrs Laboratory Tests Test 02/05/17 17:28 02/05/17 20:20 02/06/17 08:04 02/06/17 12:41 Bedside Glucose 122 163 128 136 Medications Medications Current Medications Diagnostic Test (Pha) (Accu-Chek) 1 ea 02 XX ; Start 02/01/17 at 02:00 Eye Lubricant (Artificial Tears Oph) 1 drop TID BOTH EYES Last administered on 02/06/17 13:06; Admin Dose 1 DROP; Start 01/31/17 at 21:00 Aspirin (Aspirin) 81 mg DAILY PO Last administered on 02/06/17 09:39; Admin Dose 81 MG; Start 02/01/17 at 09:00 Atorvastatin Calcium (Lipitor) 80 mg HS PO Last administered on 02/05/17 20:24 ; Admin Dose 80 MG; Start 01/31/17 at 21:00 Carvedilol (Coreg) 12.5 mg BID PO Last administered on 02/05/17 20:24; Admin Dose 12.5 MG; Start 01/31/17 at 21:00 Levetiracetam (Keppra) 500 mg BID PO Last administered on 02/06/17 09:42; Admin Dose 500 MG; Start 01/31/17 at 21:00 Linagliptin (Tradjenta) 5 mg DAILY PO Last administered on 02/06/17 09:42; Admin Dose 5 MG; Start 02/01/17 at 09:00 Miscellaneous Information 1 ea NOTE XX ; Start 01/31/17 at 15:30 Glucose (Glutose) 15 gm Q15M PRN PO DECREASED GLUCOSE; Start 01/31/17 at 15:30 Glucose (Glutose) 22.5 gm Q15M PRN PO DECREASED GLUCOSE; Start 01/31/17 at 15:30 Dextrose (D50w Syringe) 25 ml Q15M PRN IV DECREASED GLUCOSE; Start 01/31/17 at 15:30 Dextrose (D50w Syringe) 50 ml Q15M PRN IV DECREASED GLUCOSE; Start 01/31/17 at 15:30 Glucagon (Glucagen) 1 mg Q15M PRN IM DECREASED GLUCOSE; Start 01/31/17 at 15:30 Glucose (Glutose) 15 gm Q15M PRN BUCCAL DECREASED GLUCOSE; Start 01/31/17 at 15: 30 Docusate Sodium (Colace) 100 mg BID PO Last administered on 02/06/17 09:42; Admin Dose 100 MG; Start 01/31/17 at 21:00 Senna (Senokot) 1 tab HS PO Last administered on 02/05/17 20:24; Admin Dose 1 TAB; Start 01/31/17 at 21:00 Acetaminophen (Tylenol Tab) 650 mg Q4H PRN PO PAIN; Start 01/31/17 at 16:00 Bisacodyl (Dulcolax Supp) 10 mg DAILY PRN [place] CONSTIPATION; Start 01/31/17 at 16: 00 Magnesium Hydroxide (Milk Of Mag) 30 ml BID PRN PO CONSTIPATION; Start 01/31/17 at 16:00 Lactulose (Enulose) 20 gm DAILY PRN PO CONSTIPATION; Start 01/31/17 at 16:00 Diagnostic Test (Pha) (Accu-Chek) 1 ea 02 XX ; Start 02/01/17 at 02:00 Losartan Potassium (Cozaar) 25 mg BID PO Last administered on 02/06/17 09:42; Admin Dose 25 MG; Start 02/03/17 at 21:00 Latanoprost (Xalatan) 1 drop HS BOTH EYES Last administered on 02/05/17 20:22; Admin Dose 1 DROP; Start 02/04/17 at 21:00 JAJA ORO MD February 06, 2017 13:31
== END 2017-02-06 15:05 | disposition home health service (06) | DRG 946 ==
LOC: VRC 14:30
PROVIDERS: ADMIT Physical Medicine & Rehabilitation; ATTEND Internal Medicine
PROC: F07Z5FZ Bed Mobility Treatment using Assistive, Adaptive, Supportive or Protective Equipment (ICD-10-PCS; principal; 2017-02-01)
PROC: F07Z8FZ Transfer Training Treatment using Assistive, Adaptive, Supportive or Protective Equipment (ICD-10-PCS; 2017-02-01)
PROC: F07Z9FZ Gait Training/Functional Ambulation Treatment using Assistive, Adaptive, Supportive or Protective Equipment (ICD-10-PCS; 2017-02-01)
PROC: F08Z2FZ Grooming/Personal Hygiene Treatment using Assistive, Adaptive, Supportive or Protective Equipment (ICD-10-PCS; 2017-02-01)
PROC: F08Z1FZ Dressing Techniques Treatment using Assistive, Adaptive, Supportive or Protective Equipment (ICD-10-PCS; 2017-02-01)
PROC: F08Z0FZ Bathing/Showering Techniques Treatment using Assistive, Adaptive, Supportive or Protective Equipment (ICD-10-PCS; 2017-02-01)
DX: Z51.89 Encounter for other specified aftercare (principal); E11.9 Type 2 diabetes mellitus without complications; F06.8 Other specified mental disorders due to known physiological condition; I10 Essential (primary) hypertension; S80.02XD Contusion of left knee, subsequent encounter; S80.01XD Contusion of right knee, subsequent encounter; S01.01XD Laceration without foreign body of scalp, subsequent encounter; E78.00 Pure hypercholesterolemia, unspecified; G40.909 Epilepsy, unspecified, not intractable, without status epilepticus; I25.10 Atherosclerotic heart disease of native coronary artery without angina pectoris; E87.6 Hypokalemia; W01.0XXD Fall on same level from slipping, tripping and stumbling without subsequent striking against object, subsequent encounter; F06.31 Mood disorder due to known physiological condition with depressive features; R53.1 Weakness; R29.6 Repeated falls; Z91.81 History of falling; Z79.4 Long term (current) use of insulin; Z95.1 Presence of aortocoronary bypass graft
CPT/HCPCS: 80053; 81003; 82962; 85025; 87081; 87086; 92507; 92523; 92526; 92610; 97110; 97112; 97116; 97150; 97163; 97167; 97530; 97535; J1815

== ENCOUNTER 2017-08-23 12:51 | Inpatient (IN) | payer MEDICARE, BC ==
[~2017-08-23] VITALS: Ht 175.3 cm; Wt 62.0 kg
[~2017-08-23 12:51] MED LIST changes: -ATOR20TA38 PO; +METO-319 PO; -METO50TA16 PO
[2017-08-23 13:21] LABS: ABNORMAL IP MESSAGE 1; BASOPHILS % 0.5 % (0.0-2.0); EOSINOPHILS # 0.4 10^3/ul (0.0-0.5); EOSINOPHILS % 5.7 % (0.0-7.0); HEMATOCRIT 38.5 % (42.0-52.0); HEMOGLOBIN 12.8 g/dl (14.0-18.0); LYMPHOCYTES # 1.2 10^3/ul (0.8-2.9); LYMPHOCYTES % 16.6 % (15.0-51.0); MEAN CORPUSCULAR HEMOGLOBIN 31.9 pg (29.0-33.0); MEAN CORPUSCULAR HGB CONC 33.2 g/dl (32.0-37.0); MEAN PLATELET VOLUME 10.3 fl (7.4-10.4); MONOCYTE # 0.3 10^3/ul (0.3-0.9); MONOCYTES % 4.3 % (0.0-11.0); NEUTROPHIL # 5.4 10^3/ul (1.6-7.5); NEUTROPHILS % 72.6 % (39.0-77.0); PLATELET COUNT 153 10^3/UL (140-415); POSITIVE DIFF @See below; RED BLOOD COUNT 4.01 10^6/ul (4.70-6.10); WHITE BLOOD COUNT 7.4 10^3/ul (4.8-10.8)
--- NOTE | 2017-08-23 13:30 | RADRPT ---
PROCEDURE: XR Chest. CLINICAL INDICATION: Shortness of breath TECHNIQUE: Single portable view of the chest was obtained COMPARISON: DR WONG 01/24/2017 FINDINGS: The trachea is midline. The cardiac silhouette and pulmonary vascularity are within normal limits. T he lungs are clear. The costophrenic angles are sharp. Status post mediastinotomy and mediastinal po stsurgical changes. IMPRESSION: 1. No evidence of acute cardiopulmonary disease. 2. Status post mediastinotomy and stable mediastinal postsurgical changes. RPTAT: AAPP Physician Yo Date Time Electronically viewed and signed by Physician Yo on 08/23/2017 13:30 JL/
[2017-08-23 13:37] LABS: INR 0.93; PROTIME 12.5 Sec (12.2-14.2)
[2017-08-23 13:38] LABS: PARTIAL THROMBOPLASTIN TIME 33.2 Sec (25.0-35.0)
[2017-08-23 13:41] LABS: ANION GAP 17 (8-16); BLOOD UREA NITROGEN 23 mg/dl (7-20); CARBON DIOXIDE 24 mmol/L (21-31); CHLORIDE 106 mmol/L (97-110); CREATININE 1.13 mg/dl (0.61-1.24); GLUCOSE 128 mg/dl (70-220); POTASSIUM 4.5 mmol/L (3.5-5.1); SODIUM 142 mmol/L (135-144)
[2017-08-23 13:51] LABS: TROPONIN-I < 0.012 ng/ml (0.00-0.12)
--- NOTE | 2017-08-23 13:53 | RADRPT ---
PROCEDURE: CT Brain without contrast. CLINICAL INDICATION: Possible stroke, neurological deficit. TECHNIQUE: A CT of the brain was performed on multidetector high-resolution CT scanner utilizing a xial sections from the skull base through the vertex without contrast. The scan was reviewed in sof t tissue brain and high frequency resolution bone algorithm windows. Images were reviewed on a high -resolution PACS workstation. One or more the following does reduction techniques were utilized: Aut omated exposure control, adjustment of the mA/ or kV according to patient's size, or use of iterativ e reconstruction technique. The exam CTDI = 44.26 mGy and the DLP = 720.23 mGy-cm. DICOM images are available. COMPARISON: Brain CT 01/27/2017. FINDINGS: Multiple images are degraded by motion. The ventricles and sulci are mildly to moderately prominent indicative of volume loss. There is no intracranial hemorrhage, mass effect or midline shift. No abnormal intra-axial or extra-axial fluid collections are seen. The lebron/white matter differentiation is preserved. There are to moderate foci of hypoattenuation in the white matter, which are nonspecific in etiology but likely reflect chronic small vessel ischemic changes. 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 There are mild intracranial vascular calcifications consistent with atheroscle rosis. The visualized paranasal sinuses are essentially clear. IMPRESSION: 1. No acute intracranial hemorrhage, transcortical infarction or mass effect. Please note MRI is mo re sensitive for detection of acute ischemia and can be obtained as clinically warranted. 2. Moderate intracranial atherosclerosis and chronic small vessel ischemic changes. 3. Similar small old lacunar infarct is noted in the left caudate head. 4. Mild to moderate generalized cerebral volume loss. RPTAT: HFN .Eloina Howell MD, MD Date Time Electronically viewed and signed by .Eloina Howell MD, MD on 08/23/2017 13:52 .N/
[2017-08-23] MEDS ORDERED: ATOR20TA38 PO ×2 (14:24→14:25)
[2017-08-23] MEDS ORDERED: LOSA50TA6 PO (14:27)
[2017-08-23] MEDS ORDERED: LEVETIRACETAM 1000 MG (PMX) 100 ML IVPB ONE (14:30)
[2017-08-23] MEDS ORDERED: LORAZEPAM 2 MG INJ IV ONE (14:30)
[2017-08-23] MEDS ORDERED: SPIR25TA PO (14:30)
[2017-08-23] MEDS ORDERED: ONDANSETRON 4 MG INJ IV PRN (14:30)
[2017-08-23] MEDS ORDERED: ASPIRIN 300 MG SUPP PR ONE (14:30)
[2017-08-23] MEDS ORDERED: ACETAMINOPHEN 325 MG TAB PO PRN (14:30)
[2017-08-23] MEDS ORDERED: LEVE-5 PO (14:32)
--- NOTE | 2017-08-23 14:36 | PN ---
Date/Time of Note Date/Time of Note DATE: 08/23/17 TIME: 14:27 Assessment/Plan VTE Prophylaxis VTE Prophylaxis Intervention: other (asa) Lines/Catheters IV Catheter Type (from Nrsg): Saline Lock Subjective 24 Hr Interval Summary Free Text/Dictation 86 yur old male w hx hbnp, dementia, mild, at home. woke thism am by family and found confused and not moving left side. in er ct neg folr bleed, pt recognizes me, good rt sided admission specialist but flaccid l arm and rhythmic jerking of left side and leg, consistent w sz like activity. bp elevated here, given asa, will get neuro evaluation. lungs are clear, hr ok abd soft, no facial paralysis, awake during this episode imp cva rt side with left flaccid paresis upper ext and persistent rhytjhmic jerking leg leg. hbp no regular meds hx mild igt plan will need admit, will give iv ativan in er and get neuro consult Neurologic: focal-weakness, seizure Exam/Review of Systems Vital Signs Vitals Vital Signs Date Time Temp Pulse Resp B/P Pulse Ox O2 Delivery O2 Flow Rate FiO2 08/23/17 13:44 98.7 95 20 177/81 98 08/23/17 13:02 Nasal Cannula 2 Results Result Diagram: 08/23/17 1305 08/23/17 1305 Results 24 hrs Laboratory Tests Test 08/23/17 13:05 08/23/17 13:42 White Blood Count 7.4 # Red Blood Count 4.01 L Hemoglobin 12.8 L Hematocrit 38.5 L Mean Corpuscular Volume 96.0 Mean Corpuscular Hemoglobin 31.9 Mean Corpuscular Hemoglobin Concent 33.2 Red Cell Distribution Width 14.0 Platelet Count 153 # Mean Platelet Volume 10.3 Neutrophils % 72.6 Lymphocytes % 16.6 Monocytes % 4.3 Eosinophils % 5.7 Basophils % 0.5 Nucleated Red Blood Cells % 0.0 Neutrophils # 5.4 Lymphocytes # 1.2 Monocytes # 0.3 Eosinophils # 0.4 Basophils # 0.0 Nucleated Red Blood Cells # 0.0 Prothrombin Time 12.5 Prothrombin Time Ratio 1.0 INR International Normalized Ratio 0.93 Activated Partial Thromboplast Time 33.2 Sodium Level 142 Potassium Level 4.5 Chloride Level 106 Carbon Dioxide Level 24 Anion Gap 17 H Blood Urea Nitrogen 23 H Creatinine 1.13 Glucose Level 128 Hemoglobin A1c 6.6 H Calcium Level 10.0 Troponin I < 0.012 Bedside Glucose 135 Medications Medications Current Medications Aspirin (Aspirin) 300 mg ONCE ONCE ID Last administered on 08/23/17t 14:11; Admin Dose 300 MG; Start 08/23/17 at 14:30; Stop 08/23/17 at 14:31 JAJA ORO MD Aug 23, 2017 14:36
[2017-08-23 14:43] LABS: ADD UMIC NO; UR ASCORBIC ACID 40 mg/dL (NEGATIVE); UR BILIRUBIN (Dip) NEGATIVE (NEGATIVE); UR BLOOD (Dip) NEGATIVE (NEGATIVE); UR CLARITY CLEAR (CLEAR); UR COLOR YELLOW (YELLOW); UR GLUCOSE (Dip) 1+ mg/dL (NEGATIVE); UR KETONES (Dip) TRACE mg/dL (NEGATIVE); UR LEUKOCYTE ESTERASE (Dip) NEGATIVE Leu/ul (NEGATIVE); UR NITRITE (Dip) NEGATIVE (NEGATIVE); UR SPECIFIC GRAVITY (Dip) 1.016 (1.003-1.030); UR TOTAL PROTEIN (Dip) NEGATIVE (NEGATIVE); UR UROBILINOGEN (Dip) NEGATIVE (NEGATIVE)
[2017-08-23 15:50] LABS: BARBITURATES Negative (NEGATIVE); BENZODIAZEPINES Negative (NEGATIVE); CANNABINOIDS Negative (NEGATIVE); COCAINE Negative (NEGATIVE); OPIATES Negative (NEGATIVE)
--- NOTE | 2017-08-23 15:51 | ERD ---
ER Documentation Chief Complaint Chief Complaint BIBA FOR LEFT SIDED WEAKNESS HPI Patient is a 86-year-old male with a history of seizures who presents with left sided weakness. Please note the history and physical exam is limited secondary to the patient's mental status at this time. The patient was brought in by ambulance. He had left upper extremity weakness and confusion. It started this morning but the time of onset was unclear. He has had no treatment as of yet. His sugar was 143. He is usually awake and conversant but is not currently. ROS All systems reviewed and are negative except as per history of present illness. Medications Home Meds Reported Medications Levetiracetam* (Keppra*) 500 Mg Tablet, 500 MG PO BID, TAB 08/23/17 Spironolactone* (Aldactone*) 25 Mg Tablet, 12.5 MG PO DAILY, #30 TAB 08/23/17 Losartan Potassium* (Losartan Potassium*) 50 Mg Tablet, 50 MG PO DAILY, TAB 08/23/17 Atorvastatin Calcium* (Atorvastatin Calcium*) 20 Mg Tablet, 20 MG PO QHS, #30 TAB 08/23/17 Atorvastatin Calcium* (Atorvastatin Calcium*) 20 Mg Tablet, 20 MG PO QHS, #30 TAB 08/23/17 Metoprolol Succinate* (Toprol XL*) 50 Mg Tab.er.24h, 50 MG PO DAILY, #30 TAB 01/21/17 Latanoprost (Latanoprost) 2.5 Ml Drops, 1 DROP BOTH EYES QHS, #1 BOTTLE 01/21/17 Discontinued Reported Medications Ammonium Lactate* (Lac-Hydrin* 12% (225gm)) 1 Applic Lotion, 1 APPLIC TOP DAILY , BOTTLE 01/21/17 Allergies Allergies: Coded Allergies: No Known Allergy (Unverified , 01/21/17) PMhx/Soc History of Surgery: Yes (CABG,20 YEARS AGO) Anesthesia Reaction: No Hx Neurological Disorder: Yes (ALZIEMERS) Hx Respiratory Disorders: No Hx Cardiac Disorders: Yes Hx Psychiatric Problems: No Hx Miscellaneous Medical Probl: Yes (head trauma, DM, seizure, CAD) Hx Alcohol Use: No Hx Substance Use: No Hx Tobacco Use: No Smoking Status: Never smoker FmHx Unable to obtain Physical Exam Vitals Vital Signs Date Time Temp Pulse Resp B/P Pulse Ox O2 Delivery O2 Flow Rate FiO2 08/23/17 13:44 98.7 95 20 177/81 98 08/23/17 13:02 Nasal Cannula 2 Physical Exam Const: Confusion Head: Atraumatic Eyes: Normal Conjunctiva ENT: Normal External Ears, Nose and Mouth. Neck: Full range of motion..~ No meningismus. Resp: Clear to auscultation bilaterally Cardio: Regular rate and rhythm, no murmurs Abd: Soft, non tender, non distended. Normal bowel sounds Skin: No petechiae or rashes Back: No midline or flank tenderness Ext: No cyanosis, or edema Neur: Awake but confused, left-sided upper extremity weakness with difficulty lifting against gravity, there is rhythmic left lower extremity jerking Result Diagram: 08/23/17 1305 08/23/17 1305 Results 24 hrs Laboratory Tests Test 08/23/17 13:05 08/23/17 13:42 08/23/17 14:00 White Blood Count 7.410^3/ul Red Blood Count 4.0110^6/ul Hemoglobin 12.8g/dl Hematocrit 38.5% Mean Corpuscular Volume 96.0fl Mean Corpuscular Hemoglobin 31.9pg Mean Corpuscular Hemoglobin Concent 33.2g/dl Red Cell Distribution Width 14.0% Platelet Count 17436^3/UL Mean Platelet Volume 10.3fl Neutrophils % 72.6% Lymphocytes % 16.6% Monocytes % 4.3% Eosinophils % 5.7% Basophils % 0.5% Nucleated Red Blood Cells % 0.0/100WBC Neutrophils # 5.410^3/ul Lymphocytes # 1.210^3/ul Monocytes # 0.310^3/ul Eosinophils # 0.410^3/ul Basophils # 0.010^3/ul Nucleated Red Blood Cells # 0.010^3/ul Prothrombin Time 12.5Sec Prothrombin Time Ratio 1.0 INR International Normalized Ratio 0.93 Activated Partial Thromboplast Time 33.2Sec Sodium Level 142mmol/L Potassium Level 4.5mmol/L Chloride Level 106mmol/L Carbon Dioxide Level 24mmol/L Anion Gap 17 Blood Urea Nitrogen 23mg/dl Creatinine 1.13mg/dl Glucose Level 128mg/dl Hemoglobin A1c 6.6% Calcium Level 10.0mg/dl Troponin I < 0.012ng/ml Bedside Glucose 135mg/dL Urine Color YELLOW Urine Clarity CLEAR Urine pH 5.0 Urine Specific [place] 1.016 Urine Ketones TRACEmg/dL Urine Nitrite NEGATIVEmg/dL Urine Bilirubin NEGATIVEmg/dL Urine Urobilinogen NEGATIVEmg/dL Urine Leukocyte Esterase NEGATIVELeu/ul Urine Hemoglobin NEGATIVEmg/dL Urine Glucose 1+mg/dL Urine Total Protein NEGATIVEmg/dl Current Medications Medications (Trade) Dose Ordered Sig/Laura Route PRN Reason Start Time Stop Time Status Last Admin Dose Admin Aspirin (Aspirin) 300 mg ONCE ONCE CA 08/23/17 14:30 08/23/17 14:31 DC 08/23/17 14:11 Ondansetron HCl (Zofran Inj) 4 mg ER BRIDGE PRN IV NAUSEA AND/OR VOMITING 08/23/17 14:30 08/24/17 14:29 Acetaminophen (Tylenol Tab) 650 mg ER BRIDGE PRN PO MILD PAIN/FEVER 08/23/17 14:30 08/24/17 14:29 Lorazepam 0.5 mg 0.5 mg ONCE ONCE IV 08/23/17 14:30 08/23/17 14:31 DC 08/23/17 14:49 Levetiracetam (Keppra 1,000mg/ 100ml (Pmx)) 100 ml @ 400 mls/hr ONCE ONCE IVPB 08/23/17 14:30 08/23/17 14:44 DC 08/23/17 14:49 Procedures/MDM CT brain shows no mass or bleed per radiology. EKG read by me: Rate/Rhythm: First-degree AV block at a rate of 88 Intervals: Normal Impression: First degree block without ischemia Patient is a 86-year-old male presents with left upper extremity weakness. Initially we were concerned for stroke and so laboratory studies were done as well as a stat CT scan of the brain. When there was no bleed he was given rectal aspirin. However with the patient was in the emergency department he was found to have rhythmic left lower extremity jerking and the decision was made to treat for seizure. The patient was given Keppra 1 g IV as well as Ativan 0.5 mg IV. This may be the cause of his upper extremity weakness and this may not be acute stroke. In any case he is not a TPA candidate. The patient will be admitted to the care of Dr. Quintero his primary doctor. Dr. Pretty was consulted from neurology. Critical Care: Time: 35 minutes excluding all billable procedures. Treatments/Evaluations: Close monitoring and treatment of unstable vital signs, cardiorespiratory, and neurologic status, while maintaining tight balance of fluid, respiratory, and cardiac interventions. Departure Diagnosis: Primary Impression: Acute weakness Additional Impression: Seizure Condition: Serious WILLIAM MAN MD Aug 23, 2017 15:51
[2017-08-23 20:17] VITALS: TEMP 98.5
--- NOTE | 2017-08-23 21:25 | PN ---
Date/Time of Note Date/Time of Note DATE: 08/23/17 TIME: 21:19 Assessment/Plan VTE Prophylaxis VTE Prophylaxis Intervention: other Lines/Catheters IV Catheter Type (from Nrsg): Saline Lock Subjective 24 Hr Interval Summary Free Text/Dictation addendum to prior note... he does have a previous history of seizures in association with hypertension, admitted in december of this year. 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 progressive cognitive decline hx of diabetes, currently not an issue Exam/Review of Systems Vital Signs Vitals Vital Signs Date Time Temp Pulse Resp B/P Pulse Ox O2 Delivery O2 Flow Rate FiO2 08/23/17 20:17 98.5 85 20 120/81 99 Nasal Cannula 2.0 Results Result Diagram: 08/23/17 1305 08/23/17 1305 Results 24 hrs Laboratory Tests Test 08/23/17 13:05 08/23/17 13:42 08/23/17 14:00 White Blood Count 7.4 # Red Blood Count 4.01 L Hemoglobin 12.8 L Hematocrit 38.5 L Mean Corpuscular Volume 96.0 Mean Corpuscular Hemoglobin 31.9 Mean Corpuscular Hemoglobin Concent 33.2 Red Cell Distribution Width 14.0 Platelet Count 153 # Mean Platelet Volume 10.3 Neutrophils % 72.6 Lymphocytes % 16.6 Monocytes % 4.3 Eosinophils % 5.7 Basophils % 0.5 Nucleated Red Blood Cells % 0.0 Neutrophils # 5.4 Lymphocytes # 1.2 Monocytes # 0.3 Eosinophils # 0.4 Basophils # 0.0 Nucleated Red Blood Cells # 0.0 Prothrombin Time 12.5 Prothrombin Time Ratio 1.0 INR International Normalized Ratio 0.93 Activated Partial Thromboplast Time 33.2 Sodium Level 142 Potassium Level 4.5 Chloride Level 106 Carbon Dioxide Level 24 Anion Gap 17 H Blood Urea Nitrogen 23 H Creatinine 1.13 Glucose Level 128 Hemoglobin A1c 6.6 H Calcium Level 10.0 Troponin I < 0.012 Bedside Glucose 135 Urine Color YELLOW Urine Clarity CLEAR Urine pH 5.0 Urine Specific [place] 1.016 Urine Ketones TRACE A Urine Nitrite NEGATIVE Urine Bilirubin NEGATIVE Urine Urobilinogen NEGATIVE Urine Leukocyte Esterase NEGATIVE Urine Hemoglobin NEGATIVE Urine Glucose 1+ H Urine Total Protein NEGATIVE Urine Opiates Screen Negative Urine Barbiturates Negative Urine Amphetamines Screen Negative Urine Benzodiazepines Screen Negative Urine Cocaine Screen Negative Urine Cannabinoids Negative JAJA ORO MD Aug 23, 2017 21:25
[2017-08-23 22:45] VITALS: Ht 175.3 cm; Wt 62.0 kg
[2017-08-23 22:58] VITALS: PULSE 84
--- NOTE | 2017-08-23 23:34 | HP ---
DATE OF ADMISSION: 08/23/2017 CHIEF COMPLAINT: Left-sided weakness. HISTORY OF PRESENT ILLNESS: This is an 86-year-old gentleman born in [facility] who has lived here [facility] of his lifetime. He has a history of slowly progressive cognitive impairment and lives at home with his and a caregiver. Patient has been treated for hypertension in the past with Losartan and carvedilol , recent blood pressures have been normal. He also was supposed to be taking Keppra 500 mg twice daily, but I am not clear if he was taking that. The patient presented to [facility] in December of this year with a hypertensive episode and seizures. He actually requir ed intubation that got him into the ICU and ultimately was transferred back to the home situation in good condition. Echocardiogram in December 2016 reveals septal hypertrophy, normal to slightly hyperd ynamic heart, and mild MAS. The patient was noted not to be awake at his usual time. His caregiver and came in to see him. He was difficult to arouse and was confused, and apparently not able to use his left arm. After some time at home, they brought him to [facility] sometime this afternoon. He was noted by the ER physician to have hypertension with a blood pr essure 170/80. He was alert, though somewhat confused, and he had clear cut left upper extremity fl accid paresis. I saw him within an hour to his arrival. At that time, he was having seizure-like a ctivity with rhythmic jerking of the left leg, but remained awake. Speech is relatively clear, alth ough he was having some difficulty talking because of the jerking. His eyes were not to one side. His left foot turned inwards with each rhythmic jerk. CT scan was done in the emergency room which revealed some old vascular disease, but no acute bleed or recent change. He has had a complete meta bolic workup for progressive cognitive impairment in the past which was unremarkable. Appropriate M RI and CT scans have also been performed and are relatively unremarkable. PAST MEDICAL HISTORY: The patient had a coronary artery bypass in 1987. He has history of hyperlip idemia. He had a history of diabetes, currently, untreated and normal blood sugars. He has a histo ry of osteoarthritis and questionable history of B12 deficiency. Other surgery includes cataract mascorro rgery and fistulectomy, cataract surgery more recently, fistulectomy in the past. ALLERGIES: HE HAS NO ALLERGIES. SOCIAL HISTORY: He is not a smoker, never smoked. No significant alcohol use. The patient is sita ied. He and his have a son. He was a member of a sibship of 8. Many of his relatives still l tr[place] in [facility]. He is of [place] extraction. REVIEW OF SYSTEMS: On direct questioning said that he might and he may have a mild headache. He fe lt that his vision was not as good as it has been. He had no abdominal symptoms or bladder symptoms n, my questioning. PHYSICAL EXAMINATION: VITAL SIGNS: Blood pressure is 177/81 falling, after Ativan, to 128/68 and has remained stable sinc e that time, his pulse is in the 80s and regular, respirations 14. He is afebrile, pulse oximetry i s recorded as 98%. He is using oxygen at 2 liters. He has been given 1 aspirin tablet by the physi jessica. He is not a candidate for any sort of anticoagulant intervention for multiple reasons. GENERAL: As noted, he is alert, he recognizes me, is able to call me by my name and ask some quest ions and answers simple commands. HEENT: His extraocular muscle movements appear to be intact. Pupils are reactive. He has trouble counting fingers accurately mouth is unremarkable. NECK: Supple. CHEST: Sounds clear. HEART: Tones regular, perhaps a soft systolic murmur. ABDOMEN: Soft. GENITALIA: Unremarkable. EXTREMITIES: There are some degenerative changes of the hands. There is no edema. He has a flacci d left upper extremity. His left leg is somewhat stiff with this chronic jerking motion. Right leg is normal. Right arm has good composition worker strength and function. INITIAL IMPRESSION: 1. Hypertension, resolving. 2. Probable cerebrovascular accident with left upper extremity weakness with accompanying seizure d isorder with a prior history of same. Has been on Keppra, not clear if he continues to take that me dication. 3. Arteriosclerotic coronary artery disease, presumably stable. Last echo without significant evid ence of cardiomyopathy, mild aortic stenosis. 4. History of mild prostatic hypertrophy symptoms with relatively low postvoid residual. 5. History of diabetes, currently not a problem. PLAN: The patient has been given at least 1 dose of Ativan and 1 dose of IV Keppra in the emergency room. Will be admitted to the floor when bed is available. Neurological consultation has been req uested by the emergency room physician at my request. Family has been told that his condition is so mewhat serious, and they seem to understand. Code status is not clear at this time. Dictated By: JAJA ORO MD SR/NTS Conf#: [id number] DID#: [id number]
[2017-08-24] VITALS (10 sets, daily range): BP systolic 125–182; BP diastolic 57–94; PULSE 83–97; RESP 16–19
[2017-08-24] MEDS ORDERED: NACL 0.9% 3 ML SYG IV SCH
[2017-08-24] MEDS ORDERED: MAGNESIUM HYDROXIDE 30ML CUP PO PRN
[2017-08-24] MEDS: PANTOPRAZOLE 40 MG INJ IV SCH (05:29)
[2017-08-24] MEDS: hydrALAzine 20 MG INJ IV PRN (05:29)
[2017-08-24] MEDS: LEVETIRACETAM 500 MG TAB PO SCH ×2 (09:25→22:05)
[2017-08-24] MEDS: SPIRONOLACTONE 25 MG TAB PO SCH (09:26)
[2017-08-24] MEDS: METOPROLOL (XL) 50 MG TAB PO SCH (09:26)
[2017-08-24] MEDS: LOSARTAN 50 MG TAB PO SCH (09:27)
[2017-08-24 09:41] LABS: BASOPHILS % 0.4 % (0.0-2.0); EOSINOPHILS % 0.1 % (0.0-7.0); HEMATOCRIT 40.3 % (42.0-52.0); HEMOGLOBIN 13.3 g/dl (14.0-18.0); LYMPHOCYTES % 11.9 % (15.0-51.0); MEAN CORPUSCULAR HEMOGLOBIN 31.9 pg (29.0-33.0); MEAN CORPUSCULAR VOLUME 96.6 fl (82.0-101.0); MEAN PLATELET VOLUME 9.8 fl (7.4-10.4); MONOCYTE # 0.5 10^3/ul (0.3-0.9); MONOCYTES % 5.4 % (0.0-11.0); NEUTROPHILS % 81.8 % (39.0-77.0); PLATELET COUNT 154 10^3/UL (140-415); RED BLOOD COUNT 4.17 10^6/ul (4.70-6.10); RED CELL DISTRIBUTION WIDTH 13.8 % (11.5-14.5); WHITE BLOOD COUNT 8.5 10^3/ul (4.8-10.8)
[2017-08-24 10:17] LABS: ALBUMIN 4.3 g/dl (3.3-4.9); ALBUMIN/GLOBULIN RATIO 1.22; BILIRUBIN,INDIRECT 0.9 mg/dl (0-1.1); BILIRUBIN,TOTAL 0.9 mg/dl (0.2-1.3); CALCIUM 9.7 mg/dl (8.4-10.2); CREATININE 1.12 mg/dl (0.61-1.24); POTASSIUM 4.1 mmol/L (3.5-5.1); TOTAL PROTEIN 7.8 g/dl (6.1-8.1)
--- NOTE | 2017-08-24 12:52 | CONS ---
Date/Time of Note Date/Time of Note DATE: 08/24/17 TIME: 12:42 Assessment/Plan Assessment/Plan Chief Complaint/Hosp Course Left-sided weakness and seizure Problems: Additional Assessment/Plan Patient is an 86-year-old male with past medical history of cognitive impairment , hypertension, seizure disorder and a recent admission to [facility] epidural of 2016. He was brought into emergency room following found to be confused, he was also noted to have left-sided weakness, arm is worse than the leg. His initial blood pressure was found to be 170/80. He also was seen to be having an episode of seizure-like activity mainly in the left leg. He was admitted for further evaluation. CT scan of the brain showed moderate intracranial atherosclerosis and chronic small vessel ischemic changes, small old lacunar infarct in the left caudate head, mild to moderate generalized cerebral volume loss, nothing acute. Would like to rule out acute stroke and possibly breakthrough seizure. Plan: 1 MRI of the brain 2 EEG 3 neuro check every 4 hours 4 seizure precautions 5 carotid ultrasound 6 echocardiogram 7 continue Keppra 8 continue atorvastatin 9 start on aspirin 81 mg p.o. daily 10 will follow Consultation Date/Type/Reason Admit Date/Time Aug 23, 2017 at 14:09 Date of Consultation: Aug 24, 2017 Type of Consultation: Neurology Reason for Consultation Left-sided weakness and seizure Hx of Present Illness Patient is an 86-year-old male with past medical history of cognitive impairment , hypertension, seizure disorder and a recent admission to [facility] epidural of 2016. He was brought into emergency room following found to be confused, he was also noted to have left-sided weakness, arm is worse than the leg. His initial blood pressure was found to be 170/80. He also was seen to be having an episode of seizure-like activity mainly in the left leg. He was admitted for further evaluation. CT scan of the brain showed moderate intracranial atherosclerosis and chronic small vessel ischemic changes, small old lacunar infarct in the left caudate head, mild to moderate generalized cerebral volume loss, nothing acute. Past Medical History Medical History: other (Cognitive impairment) Past Surgical History Past Surgical Hx: coronary bypass surgery Social History Smoking Status: Never smoker Exam/Review of Systems Vital Signs Vitals Vital Signs Date Time Temp Pulse Resp B/P Pulse Ox O2 Delivery O2 Flow Rate FiO2 08/24/17 12:11 93 08/24/17 11:49 98.5 17 166/57 96 08/23/17 20:17 Nasal Cannula 2.0 Exam Alert and awake speech is pressured, no dysarthria, no facial weakness Left hemiparesis Reflexes are 1+ all over and plantars are both down Gait not tested Constitutional: alert, oriented, well developed Psych: nl mood/affect, no complaints Head: atraumatic, normocephalic Eyes: EOMI, nl conjunctiva, nl lids, nl sclera ENMT: mucosa pink and moist, nl external ears & nose, nl lips & teeth, nl nasal mucosa & septum Neck: non-tender, supple Respiratory: clear to auscultation, normal air movement Cardiovascular: nl pulses, regular rate and rhythm Gastrointestinal: nl liver, spleen, non-tender, soft Extremities: normal pulses Skin: nl turgor Results Result Diagram: 08/24/1790408/24/17904 Results 24 hrs Laboratory Tests Test 08/23/17 13:05 08/23/17 13:42 08/23/17 14:00 08/24/17 09:05 White Blood Count 7.4 # 8.5 Red Blood Count 4.01 L 4.17 L Hemoglobin 12.8 L 13.3 L Hematocrit 38.5 L 40.3 L Mean Corpuscular Volume 96.0 96.6 Mean Corpuscular Hemoglobin 31.9 31.9 Mean Corpuscular Hemoglobin Concent 33.2 33.0 Red Cell Distribution Width 14.0 13.8 Platelet Count 153 # 154 Mean Platelet Volume 10.3 9.8 Neutrophils % 72.6 81.8 H Lymphocytes % 16.6 11.9 L Monocytes % 4.3 5.4 Eosinophils % 5.7 0.1 Basophils % 0.5 0.4 Nucleated Red Blood Cells % 0.0 0.0 Neutrophils # 5.4 7.0 Lymphocytes # 1.2 1.0 Monocytes # 0.3 0.5 Eosinophils # 0.4 0.0 Basophils # 0.0 0.0 Nucleated Red Blood Cells # 0.0 0.0 Prothrombin Time 12.5 Prothrombin Time Ratio 1.0 INR International Normalized Ratio 0.93 Activated Partial Thromboplast Time 33.2 Sodium Level 142 140 Potassium Level 4.5 4.1 Chloride Level 106 99 Carbon Dioxide Level 24 26 Anion Gap 17 H 19 H Blood Urea Nitrogen 23 H 20 Creatinine 1.13 1.12 Glucose Level 128 145 Hemoglobin A1c 6.6 H Calcium Level 10.0 9.7 Troponin I < 0.012 Bedside Glucose 135 Urine Color YELLOW Urine Clarity CLEAR Urine pH 5.0 Urine Specific [place] 1.016 Urine Ketones TRACE A Urine Nitrite NEGATIVE Urine Bilirubin NEGATIVE Urine Urobilinogen NEGATIVE Urine Leukocyte Esterase NEGATIVE Urine Hemoglobin NEGATIVE Urine Glucose 1+ H Urine Total Protein NEGATIVE Urine Opiates Screen Negative Urine Barbiturates Negative Urine Amphetamines Screen Negative Urine Benzodiazepines Screen Negative Urine Cocaine Screen Negative Urine Cannabinoids Negative Erythrocyte Sedimentation Rate 28 H Total Bilirubin 0.9 Direct Bilirubin 0.00 Indirect Bilirubin 0.9 Aspartate Amino Transf (AST/SGOT) 31 Alanine Aminotransferase (ALT/SGPT) 28 Alkaline Phosphatase 48 Total Protein 7.8 Albumin 4.3 Globulin 3.50 H Albumin/Globulin Ratio 1.22 Test 08/24/17 09:06 Thyroid Stimulating Hormone (TSH) 0.423 L Medications Medications Current Medications Atorvastatin Calcium (Lipitor) 20 mg QHS PO ; Start 08/24/17 at 21:00 Latanoprost (Xalatan) 1 drop QHS BOTH EYES ; Start 08/24/17 at 21:00 Levetiracetam (Keppra) 500 mg BID PO Last administered on 08/24/17 09:25; Admin Dose 500 MG; Start 08/24/17 at 09:00 Losartan Potassium (Cozaar) 50 mg DAILY PO Last administered on 08/24/17 09: 27; Admin Dose 50 MG; Start 08/24/17 at 09:00 Metoprolol Succinate (Toprol Xl) 50 mg DAILY PO Last administered on 09:26; Admin Dose 50 MG; Start 08/24/17 at 09:00 Spironolactone (Aldactone) 12.5 mg DAILY PO Last administered on 08/24/17 09: 26; Admin Dose 12.5 MG; Start 08/24/17 at 09:00 Magnesium Hydroxide (Milk Of Mag) 30 ml DAILY PRN PO CONSTIPATION; Start 08/24 at 00:00 Pantoprazole (Protonix Iv) 40 mg DAILY@06 IV Last administered on 08/24/17 05 :29; Admin Dose 40 MG; Start 08/24/17 at 06:00 Influenza Virus Vaccine (Fluzone) 0.5 ml ONCE ONCE IM* ; Start 08/25/17 at 09: 00; Stop 08/25/17 at 09:01 Hydralazine HCl (Apresoline) 10 mg Q8H PRN IV ELEVATED SYSTOLIC BP Last administered on 08/24/17t 05:29; Admin Dose 10 MG; Start 08/24/17 at 05:[address] brain 08/23/2017 IMPRESSION: 1. No acute intracranial hemorrhage, transcortical infarction or mass effect. Please note MRI is more sensitive for detection of acute ischemia and can be obtained as clinically warranted. 2. Moderate intracranial atherosclerosis and chronic small vessel ischemic changes. 3. Similar small old lacunar infarct is noted in the left caudate head. 4. Mild to moderate generalized cerebral volume loss. RPTAT: HFN .Eloina Howell MD, MD Date Time Electronically viewed and signed by .Eloina Howell MD, MD on 08/23/2017 13:52 GARRET HOUSTON MD Aug 24, 2017 12:52
--- NOTE | 2017-08-24 13:30 | PN ---
Date/Time of Note Date/Time of Note DATE: 08/24/17 TIME: 13:25 Assessment/Plan VTE Prophylaxis VTE Prophylaxis Intervention: other (asa) Lines/Catheters IV Catheter Type (from Nrsg): Saline Lock Urinary Cath still in place: No Subjective 24 Hr Interval Summary Free Text/Dictation 86 yr old post cva, initially with flaccid lue and seizure like jerking of left leg. now on keppra without further seizure activity speech is fair, underlying cognitive impairment makes hx difficult. today can raise left arm over his head and can raise left leg off the bed no co hadache. some left sided neglect and not looking to left when tested lungs clear, hr ok bp trends up at times, but range ok at this point await ot, pt eval, rx discussed with family that has made progress but will need to wait and see at this pooint if will be eligible for aru or snf or home. Neurologic: confusion, focal-weakness (cva) Exam/Review of Systems Vital Signs Vitals Vital Signs Date Time Temp Pulse Resp B/P Pulse Ox O2 Delivery O2 Flow Rate FiO2 08/24/17 12:11 93 08/24/17 11:49 98.5 17 166/57 96 08/23/17 20:17 Nasal Cannula 2.0 Results Result Diagram: 08/24/17 0908/24/17 0905 Results 24 hrs Laboratory Tests Test 08/23/17 13:42 08/23/17 14:00 08/24/17 09:05 08/24/17 09:06 Bedside Glucose 135 Urine Color YELLOW Urine Clarity CLEAR Urine pH 5.0 Urine Specific [place] 1.016 Urine Ketones TRACE A Urine Nitrite NEGATIVE Urine Bilirubin NEGATIVE Urine Urobilinogen NEGATIVE Urine Leukocyte Esterase NEGATIVE Urine Hemoglobin NEGATIVE Urine Glucose 1+ H Urine Total Protein NEGATIVE Urine Opiates Screen Negative Urine Barbiturates Negative Urine Amphetamines Screen Negative Urine Benzodiazepines Screen Negative Urine Cocaine Screen Negative Urine Cannabinoids Negative White Blood Count 8.5 Red Blood Count 4.17 L Hemoglobin 13.3 L Hematocrit 40.3 L Mean Corpuscular Volume 96.6 Mean Corpuscular Hemoglobin 31.9 Mean Corpuscular Hemoglobin Concent 33.0 Red Cell Distribution Width 13.8 Platelet Count 154 Mean Platelet Volume 9.8 Neutrophils % 81.8 H Lymphocytes % 11.9 L Monocytes % 5.4 Eosinophils % 0.1 Basophils % 0.4 Nucleated Red Blood Cells % 0.0 Neutrophils # 7.0 Lymphocytes # 1.0 Monocytes # 0.5 Eosinophils # 0.0 Basophils # 0.0 Nucleated Red Blood Cells # 0.0 Erythrocyte Sedimentation Rate 28 H Sodium Level 140 Potassium Level 4.1 Chloride Level 99 Carbon Dioxide Level 26 Anion Gap 19 H Blood Urea Nitrogen 20 Creatinine 1.12 Glucose Level 145 Calcium Level 9.7 Total Bilirubin 0.9 Direct Bilirubin 0.00 Indirect Bilirubin 0.9 Aspartate Amino Transf (AST/SGOT) 31 Alanine Aminotransferase (ALT/SGPT) 28 Alkaline Phosphatase 48 Total Protein 7.8 Albumin 4.3 Globulin 3.50 H Albumin/Globulin Ratio 1.22 Thyroid Stimulating Hormone (TSH) 0.423 L Medications Medications Current Medications Atorvastatin Calcium (Lipitor) 20 mg QHS PO ; Start 08/24/17 at 21:00 Latanoprost (Xalatan) 1 drop QHS BOTH EYES ; Start 08/24/17 at 21:00 Levetiracetam (Keppra) 500 mg BID PO Last administered on 08/24/17 09:25; Admin Dose 500 MG; Start 08/24/17 at 09:00 Losartan Potassium (Cozaar) 50 mg DAILY PO Last administered on 08/24/17 09: 27; Admin Dose 50 MG; Start 08/24/17 at 09:00 Metoprolol Succinate (Toprol Xl) 50 mg DAILY PO Last administered on 09:26; Admin Dose 50 MG; Start 08/24/17 at 09:00 Spironolactone (Aldactone) 12.5 mg DAILY PO Last administered on 08/24/17 09: 26; Admin Dose 12.5 MG; Start 08/24/17 at 09:00 Magnesium Hydroxide (Milk Of Mag) 30 ml DAILY PRN PO CONSTIPATION; Start 08/24 at 00:00 Pantoprazole (Protonix Iv) 40 mg DAILY@06 IV Last administered on 08/24/17 05 :29; Admin Dose 40 MG; Start 08/24/17 at 06:00 Influenza Virus Vaccine (Fluzone) 0.5 ml ONCE ONCE IM* ; Start 08/25/17 at 09: 00; Stop 08/25/17 at 09:01 Hydralazine HCl (Apresoline) 10 mg Q8H PRN IV ELEVATED SYSTOLIC BP Last administered on 11/23/17at 05:29; Admin Dose 10 MG; Start 08/24/17 at 05:30 Aspirin (Halfprin) 81 mg DAILY PO ; Start 08/25/17 at 09:00 JAJA ORO MD Aug 24, 2017 13:30
[2017-08-24] MEDS: ATORVASTATIN 20 MG TAB PO SCH (22:05)
[2017-08-24] MEDS: LATANOPROST 0.005% 2.5 ML OPH BOTH EYES SCH (22:06)
[2017-08-25] VITALS (12 sets, daily range): BP systolic 126–155; BP diastolic 60–77; PULSE 76–105; RESP 18–20
[2017-08-25] MEDS: PANTOPRAZOLE 40 MG INJ IV SCH (05:44)
[2017-08-25] MEDS ORDERED: INFLUENZA VIRUS VACCINE 0.5 ML (DISPENSING) IM* ONE (09:00)
[2017-08-25] MEDS: LEVETIRACETAM 500 MG TAB PO SCH ×2 (09:32→21:00)
[2017-08-25] MEDS: LOSARTAN 50 MG TAB PO SCH (09:32)
[2017-08-25] MEDS: SPIRONOLACTONE 25 MG TAB PO SCH (09:32)
[2017-08-25] MEDS: ASPIRIN (EC) 81 MG TAB PO SCH (09:32)
[2017-08-25] MEDS: METOPROLOL (XL) 50 MG TAB PO SCH (09:33)
[2017-08-25 10:10] LABS: ABNORMAL IP MESSAGE 1; BASOPHILS % 0.3 % (0.0-2.0); HEMATOCRIT 38.8 % (42.0-52.0); HEMOGLOBIN 13.2 g/dl (14.0-18.0); LYMPHOCYTES # 0.7 10^3/ul (0.8-2.9); LYMPHOCYTES % 8.7 % (15.0-51.0); MEAN CORPUSCULAR VOLUME 94.2 fl (82.0-101.0); MEAN PLATELET VOLUME 10.3 fl (7.4-10.4); MONOCYTE # 0.7 10^3/ul (0.3-0.9); MONOCYTES % 8.7 % (0.0-11.0); NEUTROPHIL # 6.4 10^3/ul (1.6-7.5); NEUTROPHILS % 82.2 % (39.0-77.0); PLATELET COUNT 150 10^3/UL (140-415); POSITIVE DIFF @See below; RED BLOOD COUNT 4.12 10^6/ul (4.70-6.10); RED CELL DISTRIBUTION WIDTH 13.8 % (11.5-14.5); WHITE BLOOD COUNT 7.8 10^3/ul (4.8-10.8)
[2017-08-25] MEDS: D5W-0.45 NACL + KCL 20 MEQ 1,000 ML IV SCH ×2 (10:28→23:03)
[2017-08-25 10:33] LABS: CALCIUM 9.4 mg/dl (8.4-10.2); CREATININE 1.21 mg/dl (0.61-1.24); POTASSIUM 3.9 mmol/L (3.5-5.1)
--- NOTE | 2017-08-25 10:37 | PN ---
Date/Time of Note Date/Time of Note DATE: 08/25/17 TIME: 10:33 Assessment/Plan VTE Prophylaxis VTE Prophylaxis Intervention: other (asa) Lines/Catheters IV Catheter Type (from Nrsg): Saline Lock Urinary Cath still in place: No Subjective 24 Hr Interval Summary Free Text/Dictation nazia seems less alert this am, difficulty swallowing, some secretions in throat. still has movement and some strength in left arm and leg. no seizure activity. is npo now, will start continuous iv rx. am labs ok, vs ok mri scheduled also echo, eeg done or scheduled, no results. at bedside, current status updated to her imp: cva with left sided paresis, sl improved seizure disorder, on keppra, may need iv if cant swallow, speech to see pt dementia, no change hx igt, not a problem now Neurologic: confusion, focal-weakness, seizure Exam/Review of Systems Vital Signs Vitals Vital Signs Date Time Temp Pulse Resp B/P Pulse Ox O2 Delivery O2 Flow Rate FiO2 08/25/17 08:29 99.8 77 18 126/60 95 08/23/17 20:17 Nasal Cannula 2.0 Intake and Output 08/24/17 08/24/17 08/25/17 15:00 23:00 07:00 Intake Total 450 ml 800 ml Balance 450 ml 800 ml Results Result Diagram: 08/25/17 0850 08/24/17 0905 Results 24 hrs Laboratory Tests Test 08/25/17 08:50 White Blood Count 7.8 Red Blood Count 4.12 L Hemoglobin 13.2 L Hematocrit 38.8 L Mean Corpuscular Volume 94.2 Mean Corpuscular Hemoglobin 32.0 Mean Corpuscular Hemoglobin Concent 34.0 Red Cell Distribution Width 13.8 Platelet Count 150 Mean Platelet Volume 10.3 Neutrophils % 82.2 H Lymphocytes % 8.7 L Monocytes % 8.7 Eosinophils % 0.0 Basophils % 0.3 Nucleated Red Blood Cells % 0.0 Neutrophils # 6.4 Lymphocytes # 0.7 L Monocytes # 0.7 Eosinophils # 0.0 Basophils # 0.0 Nucleated Red Blood Cells # 0.0 Medications Medications Current Medications Atorvastatin Calcium (Lipitor) 20 mg QHS PO Last administered on 08/24/17t 22: 05; Admin Dose 20 MG; Start 08/24/17 at 21:00 Latanoprost (Xalatan) 1 drop QHS BOTH EYES Last administered on 08/24/17 22: 06; Admin Dose 1 DROP; Start 08/24/17 at 21:00 Levetiracetam (Keppra) 500 mg BID PO Last administered on 08/25/17 09:32; Admin Dose 500 MG; Start 08/24/17 at 09:00 Losartan Potassium (Cozaar) 50 mg DAILY PO Last administered on 08/25/17 09: 32; Admin Dose 50 MG; Start 08/24/17 at 09:00 Metoprolol Succinate (Toprol Xl) 50 mg DAILY PO Last administered on 09:33; Admin Dose 50 MG; Start 08/24/17 at 09:00 Spironolactone (Aldactone) 12.5 mg DAILY PO Last administered on 08/25/17 09: 32; Admin Dose 12.5 MG; Start 08/24/17 at 09:00 Magnesium Hydroxide (Milk Of Mag) 30 ml DAILY PRN PO CONSTIPATION; Start 08/24 at 00:00 Pantoprazole (Protonix Iv) 40 mg DAILY@06 IV Last administered on 08/25/17 05 :44; Admin Dose 40 MG; Start 08/24/17 at 06:00 Hydralazine HCl (Apresoline) 10 mg Q8H PRN IV ELEVATED SYSTOLIC BP Last administered on 08/24/17 05:29; Admin Dose 10 MG; Start 08/24/17 at 05:30 Aspirin 81 mg 81 mg DAILY PO Last administered on 08/25/17 09:32; Admin Dose 81 MG; Start 08/25/17 at 09:00 Potassium Chloride/Dextrose/ Sod Cl (D5-1/2ns + KCl 20 Meq) 1,000 ml @ 100 mls/ hr Q10H IV ; Start 08/25/17 at 10:28; Status JAJA CANNON MD Aug 25, 2017 10:37
--- NOTE | 2017-08-25 12:11 | CONS ---
Date/Time of Note Date/Time of Note DATE: 08/25/17 TIME: 12:09 Assessment/Plan Assessment/Plan Chief Complaint/Hosp Course Left-sided weakness and seizure Problems: Additional Assessment/Plan Patient is an 86-year-old male with past medical history of cognitive impairment , hypertension, seizure disorder and a recent admission to [facility] epidural 2016. He was brought into emergency room following found to be confused, he was also noted to have left-sided weakness, arm is worse than the leg. His initial blood pressure was found to be 170/80. He also was seen to be having an episode of seizure-like activity mainly in the left leg. He was admitted for further evaluation. CT scan of the brain showed moderate intracranial atherosclerosis and chronic small vessel ischemic changes, small old lacunar infarct in the left caudate head, mild to moderate generalized cerebral volume loss, nothing acute. Would like to rule out acute stroke and possibly breakthrough seizure. Plan: 1 MRI of the brain was just done, will follow the results 2 EEG is pending 3 neuro check every 4 hours 4 seizure precautions 5 carotid ultrasound is pending 6 echocardiogram is pending 7 continue Keppra 8 continue atorvastatin 9 continue aspirin 81 mg p.o. daily 10 will follow Consultation Date/Type/Reason Admit Date/Time Aug 23, 2017 at 14:09 Initial Consult Date 08/24/17 Type of Consultation: Neurology 24 HR Interval Summary Free Text/Dictation Clinically unchanged. MRI of the brain was just done, results of which are pending. Carotid ultrasound, echocardiogram, EEG are pending. Exam/Review of Systems Vital Signs Vitals Vital Signs Date Time Temp Pulse Resp B/P Pulse Ox O2 Delivery O2 Flow Rate FiO2 08/25/17 08:29 99.8 77 18 126/60 95 08/23/17 20:17 Nasal Cannula 2.0 Intake and Output 08/24/17 08/24/17 08/25/17 15:00 23:00 07:00 Intake Total 450 ml 800 ml Balance 450 ml 800 ml Exam Alert and awake, following simple commands, low-tone speech, moving all extremities, very limited exam Constitutional: alert, well developed Psych: nl mood/affect, no complaints Head: atraumatic, normocephalic Eyes: EOMI, nl conjunctiva, nl lids ENMT: nl external ears & nose, nl lips & teeth, nl nasal mucosa & septum Neck: non-tender, supple Respiratory: clear to auscultation, normal air movement Cardiovascular: nl pulses, regular rate and rhythm Gastrointestinal: nl liver, spleen, soft Extremities: normal pulses Results Result Diagram: 08/25/17 0850 08/25/17 0850 Results 24 hrs Laboratory Tests Test 08/25/17 08:50 White Blood Count 7.8 Red Blood Count 4.12 L Hemoglobin 13.2 L Hematocrit 38.8 L Mean Corpuscular Volume 94.2 Mean Corpuscular Hemoglobin 32.0 Mean Corpuscular Hemoglobin Concent 34.0 Red Cell Distribution Width 13.8 Platelet Count 150 Mean Platelet Volume 10.3 Neutrophils % 82.2 H Lymphocytes % 8.7 L Monocytes % 8.7 Eosinophils % 0.0 Basophils % 0.3 Nucleated Red Blood Cells % 0.0 Neutrophils # 6.4 Lymphocytes # 0.7 L Monocytes # 0.7 Eosinophils # 0.0 Basophils # 0.0 Nucleated Red Blood Cells # 0.0 Sodium Level 137 Potassium Level 3.9 Chloride Level 99 Carbon Dioxide Level 24 Anion Gap 18 H Blood Urea Nitrogen 26 H Creatinine 1.21 Glucose Level 156 Calcium Level 9.4 Medications Medications Current Medications Atorvastatin Calcium (Lipitor) 20 mg QHS PO Last administered on 08/24/17 22: 05; Admin Dose 20 MG; Start 08/24/17 at 21:00 Latanoprost (Xalatan) 1 drop QHS BOTH EYES Last administered on 08/24/17 22: 06; Admin Dose 1 DROP; Start 08/24/17 at 21:00 Levetiracetam (Keppra) 500 mg BID PO Last administered on 08/25/17 09:32; Admin Dose 500 MG; Start 08/24/17 at 09:00 Losartan Potassium (Cozaar) 50 mg DAILY PO Last administered on 08/25/17 09: 32; Admin Dose 50 MG; Start 08/24/17 at 09:00 Metoprolol Succinate (Toprol Xl) 50 mg DAILY PO Last administered on 09:33; Admin Dose 50 MG; Start 08/24/17 at 09:00 Spironolactone (Aldactone) 12.5 mg DAILY PO Last administered on 08/25/17 09: 32; Admin Dose 12.5 MG; Start 08/24/17 at 09:00 Magnesium Hydroxide (Milk Of Mag) 30 ml DAILY PRN PO CONSTIPATION; Start 08/24 at 00:00 Pantoprazole (Protonix Iv) 40 mg DAILY@06 IV Last administered on 08/25/17 05 :44; Admin Dose 40 MG; Start 08/24/17 at 06:00 Hydralazine HCl (Apresoline) 10 mg Q8H PRN IV ELEVATED SYSTOLIC BP Last administered on 08/24/17 05:29; Admin Dose 10 MG; Start 08/24/17 at 05:30 Aspirin 81 mg 81 mg DAILY PO Last administered on 08/25/17 09:32; Admin Dose 81 MG; Start 08/25/17 at 09:00 Potassium Chloride/Dextrose/ Sod Cl (D5-1/2ns + KCl 20 Meq) 1,000 ml @ 100 mls/ hr Q10H IV ; Start 08/25/17 at 10:28 GARRET HOUSTON MD Aug 25, 2017 12:11
--- NOTE | 2017-08-25 12:27 | RADRPT ---
AMENDMENT: 08/25/2017 1:36:15 PM Shell Alejo M.d Addendum: A call report was made to Paty Scott upon his return call at approximately 08/25/2017 12:4 5:27 PM following the completion of the examination by the undersigned. RPTAT: [facility] PROCEDURE: MRI Brain without contrast. CLINICAL INDICATION: Left esdras para cysts and stroke. TECHNIQUE: An MRI of the brain was performed on a high resolution hi-definition 3.0 Radha MRI scan ner utilizing the following sequences: Sagittal and axial T1 weighted, axial T2 weighted, delete the axial diffusion weighted with ADC mapping, coronal GRE, and axial FLAIR. COMPARISON: CT brain 08/23/2017, 01/27/2017 and brain MR dated 01/25/2017 FINDINGS: On the diffusion weighted sequences, restricted diffusion is present in the right posterior temporal and occipital cortex compatible with an evolving acute to subacute infarct. On the GRE sequences, a gain noted are punctate foci of hypointensity in the bilateral frontal, parietal, temporal and occip ital lobes with involvement also noted in the corpus callosum the right head of the caudate nucleus and the left basal ganglia. These are most compatible with prior small vessel hemorrhagic infarcts a nd may be associated with amyloid angiopathy or hypertensive microangiopathy. This likely considerat ion would include cavernous angiomas. Punctate foci of hyperintensity are noted on FLAIR and T2-weighted sequences in the bilateral subcor tical white matter, centrum semiovale, and periventricular white matter compatible with mild to mode rate chronic microvascular ischemic disease. The ventricles sulci and cisterns are age appropriate c ompatible with mild to moderate volume loss. Foci of hyperintensity are noted on FLAIR and T2 in the left head of the caudate nucleus compatible with a chronic left basal ganglia lacunar infarct. No m idline shift or herniation is present. Normal flow voids are noted in the proximal intracranial myron alanna and dural sinuses indicating patency. The scalp and calvarium are normal. The bilateral orbits demonstrate sequela of prior lens surgery. Mild chronic mucosal thickening is noted in the bilateral ethmoid sinuses. The bilateral mastoid air cells and middle ear cavities are clear para IMPRESSION: 1. Acute to subacute, non hemorrhagic, right posterior temporal and occipital cortical infarct. 2. Multiple foci of GRE susceptibility in the bilateral cerebral hemispheres, the left basal gangli a the right head of the caudate nucleus and the corpus callosum compatible with sequela of prior sma ll vessel hemorrhagic infarcts associated with amyloid angiopathy or hypertensive microangiopathy. L ess likely consideration would be small cavernous angiomas. 3. Mild to moderate chronic microvascular ischemic disease and bilateral basal ganglia lacunar infa rcts. 4. Mild to moderate diffuse volume loss 5. Mild chronic bilateral ethmoid sinus disease A returned call request was made to Paty Scott at 08/25/2017 12:25:09 PM following the com pletion of the examination by the undersigned. RPTAT: [facility] .Shell Alejo MD, MD Date Time Electronically viewed and signed by .Shell Alejo MD, on 08/25/2017 13:36 .C/
--- NOTE | 2017-08-25 15:55 | RADRPT ---
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 Physician: GARRET HOUSTON Quality: Adequate Procedures: Transthoracic echocardiogram with complete 2D, M-Mode, and doppler examination. Indications: Stroke. 2D/M Mode Doppler Measurement Value Normal Ranges Measurement Value Normal Ranges LVIDd 2D 3.5 3.5 - 5.6 cm AMBER Vmax 0.7 cm2 LVIDs 2D 2.0 2.1 - 4.1 cm AMBER VTI 0.8 cm2 FS 2D 42.7 % AV Mean Antoine 2.5 m/sec LVPWd 2D 1.5 0.6 - 1.1 cm AV Mean PG 30.0 mmHg IVSd 2D 1.5 0.6 - 1.1 cm AV Peak Antoine 3.8 m/sec IVS/LVPW 2D 1.0 AV Peak PG 57.0 mmHg AoR Diam 2D 2.3 2.0 - 3.7 cm AV VTI 71.2 cm LA/Ao 2D 2 0 - 1 LVOT Mean Antoine 0.8 m/sec EDV 2D 43.2 cm3 LVOT Mean PG 3.0 mmHg ESV 2D 8.1 cm3 LVOT Peak Antoine 1.0 m/sec LA Dimen 2D 3.6 2.3 - 4.0 cm LVOT Peak PG 4.0 mmHg LVOT Diam 1.8 cm LVOT VTI 21.8 cm LVOT Area 2.5 cm2 MV E Peak Antoine 1.0 m/sec MV A Peak Antoine 1.1 m/sec MV E/A 0.8 MV Decel Time 190 msec MV E/A 0.8 TR Peak Antoine 3.3 m/sec TR Peak PG 43.0 mmHg RVSP 46.0 mmHg Findings Left Ventricle: Hyperdynamic left ventricular systolic function. Normal left ventricular cavity size. Moderate concentric left ventricular hypertrophy. Ejection fraction is visually estimated at 70 %. Tissue Doppler/Mitral Doppler indices are consistent with impaired relaxation (Stage I diastolic dysfunction). Right Ventricle: Normal right ventricular size. Mild right ventricular systolic dysfunction. Left Atrium: The left atrium is normal in size. Right Atrium: The right atrium is normal in size. Mitral Valve: Mild mitral leaflet calcification. Mild mitral annular calcification. Trace mitral regurgitation. Aortic Valve: Moderate aortic stenosis. Aortic valve Max velocity 3.78 m/sec. Max PG 57.00 mmHg. Mean PG 30.00 mmHg. Aortic valve area 0.78 cm2. Aortic cusps appear moderately calcified. Mild aortic valve regurgitation. Tricuspid Valve: Normal appearance of the tricuspid valve. Estimated peak PA systolic pressure 46 mmHg. There is mild tricuspid regurgitation. Pulmonic Valve: Pulmonic valve not well visualized. There is trace pulmonic regurgitation. Pericardium: Normal pericardium with no significant pericardial effusion. Aorta: Normal aortic root. IVC: Normal size and normal respiratory collapse consistent with normal right atrial pressure. Conclusions Hyperdynamic left ventricular systolic function. Normal left ventricular cavity size. Moderate concentric left ventricular hypertrophy. Ejection fraction is visually estimated at 70 %. Tissue Doppler/Mitral Doppler indices are consistent with impaired relaxation (Stage I diastolic dysfunction). Mild mitral leaflet calcification. Mild mitral annular calcification. Trace mitral regurgitation. Normal appearance of the tricuspid valve. Estimated peak PA systolic pressure 46 mmHg. There is mild tricuspid regurgitation. Moderate aortic stenosis. Aortic valve Max velocity 3.78 m/sec. Max PG 57.00 mmHg. Mean PG 30.00 mmHg. Aortic valve area 0.78 cm2. Aortic cusps appear moderately calcified. Mild aortic valve regurgitation. Electronically Signed By: Negro Webber 25-Aug-2017 15:54:31 -0800 Patient Name: JEANETH PEREZ Study Date: 25-Aug-2017 [id number]
[2017-08-25] MEDS: ATORVASTATIN 20 MG TAB PO SCH (21:00)
[2017-08-25] MEDS: ALBUTEROL/IPRATROPIUM (NEB) 3 ML AMP HHN SCH (21:40)
[2017-08-25] MEDS: LATANOPROST 0.005% 2.5 ML OPH BOTH EYES SCH (23:01)
[2017-08-26] VITALS (12 sets, daily range): BP systolic 102–157; BP diastolic 54–70; PULSE 74–106; RESP 18–19
[2017-08-26] MEDS: ALBUTEROL/IPRATROPIUM (NEB) 3 ML AMP HHN SCH ×4 (01:37→19:11)
[2017-08-26] MEDS: PANTOPRAZOLE 40 MG INJ IV SCH (06:57)
[2017-08-26] MEDS: D5W-0.45 NACL + KCL 20 MEQ 1,000 ML IV SCH (06:58)
[2017-08-26] MEDS: LOSARTAN 50 MG TAB PO SCH (08:48)
[2017-08-26] MEDS: LEVETIRACETAM 500 MG TAB PO SCH ×2 (08:48→21:24)
[2017-08-26] MEDS: SPIRONOLACTONE 25 MG TAB PO SCH (08:49)
[2017-08-26] MEDS: ASPIRIN (EC) 81 MG TAB PO SCH (08:49)
[2017-08-26] MEDS: METOPROLOL (XL) 50 MG TAB PO SCH (08:49)
[2017-08-26 08:55] LABS: CALCIUM 9.2 mg/dl (8.4-10.2); CREATININE 1.18 mg/dl (0.61-1.24); POTASSIUM 3.9 mmol/L (3.5-5.1)
[2017-08-26 09:56] LABS: ABNORMAL IP MESSAGE 1; BASOPHILS % 0.2 % (0.0-2.0); HEMATOCRIT 36.5 % (42.0-52.0); HEMOGLOBIN 12.5 g/dl (14.0-18.0); LYMPHOCYTES # 0.6 10^3/ul (0.8-2.9); MEAN CORPUSCULAR HEMOGLOBIN 32.8 pg (29.0-33.0); MEAN CORPUSCULAR HGB CONC 34.2 g/dl (32.0-37.0); MEAN CORPUSCULAR VOLUME 95.8 fl (82.0-101.0); MEAN PLATELET VOLUME 10.6 fl (7.4-10.4); MONOCYTE # 0.4 10^3/ul (0.3-0.9); NEUTROPHIL # 3.2 10^3/ul (1.6-7.5); NEUTROPHILS % 75.6 % (39.0-77.0); PLATELET COUNT 132 10^3/UL (140-415); POSITIVE DIFF @See below; RED BLOOD COUNT 3.81 10^6/ul (4.70-6.10); RED CELL DISTRIBUTION WIDTH 13.8 % (11.5-14.5); WHITE BLOOD COUNT 4.2 10^3/ul (4.8-10.8)
--- NOTE | 2017-08-26 12:13 | PN ---
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 Pt. being evaluated by speech therapy who feels he can tolerate pureed diet. Will stop IVF and resume pureed diet. Await commentary from neurology about pt.'s status. (2) Mild cognitive impairment Status: Chronic Comment: Make further eval of this more challenging. Defer to neurology (3) Seizure Status: Resolved Comment: Resolved for now. Cont. Leviteracetam (4) Acute weakness Status: Acute Comment: Defer to neurology. Start PT (5) Type 2 diabetes mellitus without complications Status: Chronic Comment: BG has been in goal range. 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 ASA (7) Essential (primary) hypertension Status: Chronic Comment: BP well controlled. Cont. current meds. (8) Hyperlipidemia Status: Chronic Comment: Cont. statin (9) Glaucoma Status: Chronic Comment: Cont. latanoprost Subjective 24 Hr Interval Summary Constitutional: improved, no complaints Respiratory: no complaints Cardiovascular: no complaints Gastrointestinal: no complaints Genitourinary: no complaints Musculoskeletal: no complaints Neurologic: no complaints Exam/Review of Systems Vital Signs Vitals VS - Last 72 Hours, by Label Date Time Temp Pulse Resp B/P Pulse Ox O2 Delivery O2 Flow Rate FiO2 08/26/17 11:29 98.3 69 19 111/61 93 08/26/17 08:06 3.0 08/26/17 08:06 100 20 95 Nasal Cannula 3.0 08/26/17 08:00 Nasal Cannula 3.0 08/26/17 08:00 84 08/26/17 07:45 98.1 90 19 125/68 96 08/26/17 04:42 87 08/26/17 04:21 98.4 85 19 148/68 95 08/26/17 01:38 101 20 94 Nasal Cannula 3.0 08/26/17 00:49 98.6 85 19 157/70 97 08/26/17 00:37 106 08/26/17 00:00 Nasal Cannula 3.0 08/25/17 21:40 100 22 95 Nasal Cannula 3.0 08/25/17 21:40 3.0 08/25/17 21:30 98.3 104 20 155/76 98 08/25/17 21:25 3.0 08/25/17 20:15 105 08/25/17 20:00 Nasal Cannula 3.0 08/25/17 17:04 98.0 112 18 154/77 91 08/25/17 16:19 90 08/25/17 16:00 Nasal Cannula 2.0 08/25/17 12:22 87 08/25/17 12:13 98.3 95 18 141/68 92 08/25/17 12:00 Nasal Cannula 2.0 08/25/17 08:29 99.8 77 18 126/60 95 08/25/17 08:28 76 08/25/17 04:08 87 08/25/17 04:00 98.0 84 18 146/64 96 08/25/17 00:26 88 08/25/17 00:00 98.0 82 18 154/60 93 08/24/17 20:07 96 08/24/17 20:00 98.1 98 19 159/71 94 08/24/17 16:08 92 08/24/17 15:42 100.1 91 16 134/63 99 08/24/17 12:11 93 08/24/17 11:49 98.5 91 17 166/57 96 08/24/17 08:17 97 08/24/17 07:55 98.7 92 18 125/68 98 08/24/17 04:00 98.6 90 19 182/94 96 08/24/17 04:00 89 08/24/17 00:00 83 08/24/17 00:00 98.6 88 19 150/84 99 08/23/17 22:58 84 08/23/17 20:17 98.5 85 20 120/81 99 Nasal Cannula 2.0 08/23/17 18:57 98.8 89 19 122/80 99 Nasal Cannula 2.0 08/23/17 17:55 86 18 117/62 98 Nasal Cannula 2.0 08/23/17 16:16 82 18 128/68 98 Nasal Cannula 2.0 08/23/17 13:44 98.7 95 20 177/81 98 08/23/17 13:02 Nasal Cannula 2 Vital Signs Date Time Temp Pulse Resp B/P Pulse Ox O2 Delivery O2 Flow Rate FiO2 08/26/17 11:29 98.3 69 19 111/61 93 08/26/17 08:06 3.0 08/26/17 08:06 Nasal Cannula Intake and Output 08/25/17 08/25/17 08/26/17 15:00 23:00 07:00 Intake Total 100 ml Balance 100 ml Exam Constitutional: alert, frail, No oriented Respiratory: clear to auscultation, normal air movement Cardiovascular: nl pulses, regular rate and rhythm, No edema, No murmurs/extra sounds, No rub Gastrointestinal: nl liver, spleen, non-tender, soft Musculoskeletal: nl extremities to inspection Extremities: No clubbing, No cyanosis, No edema Neurological: HARB[employer]STER II-XII intact, confused (unable to form coherent sentence to describe how he feels), nl speech, No nl mental status Results Result Diagram: 08/26/17 0700 08/26/17 0700 Results 24 hrs Laboratory Tests Test 08/26/17 07:00 White Blood Count 4.2 #L Red Blood Count 3.81 L Hemoglobin 12.5 L Hematocrit 36.5 L Mean Corpuscular Volume 95.8 Mean Corpuscular Hemoglobin 32.8 Mean Corpuscular Hemoglobin Concent 34.2 Red Cell Distribution Width 13.8 Platelet Count 132 L Mean Platelet Volume 10.6 H Neutrophils % 75.6 Lymphocytes % 15.0 Monocytes % 9.0 Eosinophils % 0.0 Basophils % 0.2 Nucleated Red Blood Cells % 0.0 Neutrophils # 3.2 Lymphocytes # 0.6 L Monocytes # 0.4 Eosinophils # 0.0 Basophils # 0.0 Nucleated Red Blood Cells # 0.0 Sodium Level 139 Potassium Level 3.9 Chloride Level 101 Carbon Dioxide Level 27 Anion Gap 15 Blood Urea Nitrogen 26 H Creatinine 1.18 Glucose Level 132 Calcium Level 9.2 Medications Medications Current Medications Atorvastatin Calcium (Lipitor) 20 mg QHS PO Last administered on 08/24/17 22: 05; Admin Dose 20 MG; Start 08/24/17 at 21:00 Latanoprost (Xalatan) 1 drop QHS BOTH EYES Last administered on 08/25/17 23: 01; Admin Dose 1 DROP; Start 08/24/17 at 21:00 Levetiracetam (Keppra) 500 mg BID PO Last administered on 08/26/17 08:48; Admin Dose 500 MG; Start 08/24/17 at 09:00 Losartan Potassium (Cozaar) 50 mg DAILY PO Last administered on 08/26/17 08: 48; Admin Dose 50 MG; Start 08/24/17 at 09:00 Metoprolol Succinate (Toprol Xl) 50 mg DAILY PO Last administered on 08:49; Admin Dose 50 MG; Start 08/24/17 at 09:00 Spironolactone (Aldactone) 12.5 mg DAILY PO Last administered on 08/26/17 08: 49; Admin Dose 12.5 MG; Start 08/24/17 at 09:00 Magnesium Hydroxide (Milk Of Mag) 30 ml DAILY PRN PO CONSTIPATION; Start 08/24 at 00:00 Pantoprazole (Protonix Iv) 40 mg DAILY@06 IV Last administered on 08/26/17 06 :57; Admin Dose 40 MG; Start 08/24/17 at 06:00 Hydralazine HCl (Apresoline) 10 mg Q8H PRN IV ELEVATED SYSTOLIC BP Last administered on 08/24/17 05:29; Admin Dose 10 MG; Start 08/24/17 at 05:30 Aspirin 81 mg 81 mg DAILY PO Last administered on 08/26/17 08:49; Admin Dose 81 MG; Start 08/25/17 at 09:00 Potassium Chloride/Dextrose/ Sod Cl (D5-1/2ns + KCl 20 Meq) 1,000 ml @ 100 mls/ hr Q10H IV Last administered on 08/26/17 06:58; Admin Dose 100 MLS/HR; Start 08/25/17 at 10:28 GENNA FUNG MD Aug 26, 2017 12:13
[2017-08-26] MEDS ORDERED: DEXTROSE 50% 50 ML SYRINGE IV PRN ×2 (12:30)
[2017-08-26] MEDS ORDERED: GLUCAGON 1 MG INJ IM PRN (12:30)
[2017-08-26] MEDS ORDERED: GLUCOSE GEL 15 GRAM TUBE PO PRN ×2 (12:30)
[2017-08-26] MEDS ORDERED: GLUCOSE GEL 15 GRAM TUBE BUCCAL PRN (12:30)
--- NOTE | 2017-08-26 14:02 | CONS ---
Date/Time of Note Date/Time of Note DATE: 08/26/17 TIME: 13:52 Assessment/Plan Assessment/Plan Chief Complaint/Hosp Course Left-sided weakness and seizure Problems: Additional Assessment/Plan Patient is an 86-year-old male with past medical history of cognitive impairment , hypertension, seizure disorder and a recent admission to [facility] epidural 2016. He was brought into emergency room following found to be confused, he was also noted to have left-sided weakness, arm is worse than the leg. His initial blood pressure was found to be 170/80. He also was seen to be having an episode of seizure-like activity mainly in the left leg. He was admitted for further evaluation. CT scan of the brain showed moderate intracranial atherosclerosis and chronic small vessel ischemic changes, small old lacunar infarct in the left caudate head, mild to moderate generalized cerebral volume loss, nothing acute. Echocardiogram showed moderate aortic stenosis otherwise unremarkable.MRI of the brain showed acute to subacute, non hemorrhagic, right posterior temporal and occipital cortical infarct, multiple foci of GRE susceptibility in the bilateral cerebral hemispheres, the left basal ganglia the right head of the caudate nucleus and the corpus callosum compatible with sequela of prior small vessel hemorrhagic infarcts associated with amyloid angiopathy or hypertensive microangiopathy, ess likely consideration would be small cavernous angiomas, mild to moderate chronic microvascular ischemic disease and bilateral basal ganglia lacunar infarcts, mild to moderate diffuse volume loss. EEG is abnormal showing bihemispheric intermittent epileptiform activity without physically seizure activity compatible with nonconvulsive status epilepticus. Plan: 1 neuro check every 4 hours 2 seizure precautions 3 increase Keppra 1000 mg p.o. twice daily 4 carotid ultrasound is pending 5 continue therapies 6 continue atorvastatin and aspirin 7 will follow Consultation Date/Type/Reason Admit Date/Time Aug 23, 2017 at 14:09 Initial Consult Date 08/24/17 Type of Consultation: Neurology Reason for Consultation Stroke and seizure activity Referring Provider: JAJA ORO MD 24 HR Interval Summary Free Text/Dictation Clinically unchanged. MRI of the brain showed acute to subacute, non hemorrhagic, right posterior temporal and occipital cortical infarct, multiple foci of GRE susceptibility in the bilateral cerebral hemispheres, the left basal ganglia the right head of the caudate nucleus and the corpus callosum compatible with sequela of prior small vessel hemorrhagic infarcts associated with amyloid angiopathy or hypertensive microangiopathy, ess likely consideration would be small cavernous angiomas, mild to moderate chronic microvascular ischemic disease and bilateral basal ganglia lacunar infarcts, mild to moderate diffuse volume loss. EEG is abnormal showing bihemispheric intermittent epileptiform activity without physically seizure activity compatible with nonconvulsive status epilepticus. Exam/Review of Systems Vital Signs Vitals Vital Signs Date Time Temp Pulse Resp B/P Pulse Ox O2 Delivery O2 Flow Rate FiO2 08/26/17 12:00 74 08/26/17 11:29 98.3 19 111/61 93 08/26/17 08:06 3.0 08/26/17 08:06 Nasal Cannula Intake and Output 08/25/17 08/25/17 08/26/17 15:00 23:00 07:00 Intake Total 100 ml Balance 100 ml Exam Alert and awake, following simple commands, no tone speech, limited exam but left hemiparesis. Constitutional: alert Psych: nl mood/affect, no complaints Head: atraumatic, normocephalic Eyes: EOMI, nl conjunctiva, nl lids ENMT: nl external ears & nose, nl lips & teeth, nl nasal mucosa & septum Neck: non-tender, supple Respiratory: clear to auscultation, normal air movement Cardiovascular: nl pulses, regular rate and rhythm Gastrointestinal: nl liver, spleen, non-tender, soft Results Result Diagram: 08/26/17 0700 08/26/17 0700 Results 24 hrs Laboratory Tests Test 08/26/17 07:00 08/26/17 13:01 White Blood Count 4.2 #L Red Blood Count 3.81 L Hemoglobin 12.5 L Hematocrit 36.5 L Mean Corpuscular Volume 95.8 Mean Corpuscular Hemoglobin 32.8 Mean Corpuscular Hemoglobin Concent 34.2 Red Cell Distribution Width 13.8 Platelet Count 132 L Mean Platelet Volume 10.6 H Neutrophils % 75.6 Lymphocytes % 15.0 Monocytes % 9.0 Eosinophils % 0.0 Basophils % 0.2 Nucleated Red Blood Cells % 0.0 Neutrophils # 3.2 Lymphocytes # 0.6 L Monocytes # 0.4 Eosinophils # 0.0 Basophils # 0.0 Nucleated Red Blood Cells # 0.0 Sodium Level 139 Potassium Level 3.9 Chloride Level 101 Carbon Dioxide Level 27 Anion Gap 15 Blood Urea Nitrogen 26 H Creatinine 1.18 Glucose Level 132 Calcium Level 9.2 Bedside Glucose 193 Medications Medications Current Medications Atorvastatin Calcium (Lipitor) 20 mg QHS PO Last administered on 08/24/17 22: 05; Admin Dose 20 MG; Start 08/24/17 at 21:00 Latanoprost (Xalatan) 1 drop QHS BOTH EYES Last administered on 08/25/17 23: 01; Admin Dose 1 DROP; Start 08/24/17 at 21:00 Levetiracetam (Keppra) 500 mg BID PO Last administered on 08/26/17 08:48; Admin Dose 500 MG; Start 08/24/17 at 09:00 Losartan Potassium (Cozaar) 50 mg DAILY PO Last administered on 08/26/17 08: 48; Admin Dose 50 MG; Start 08/24/17 at 09:00 Metoprolol Succinate (Toprol Xl) 50 mg DAILY PO Last administered on 08:49; Admin Dose 50 MG; Start 08/24/17 at 09:00 Spironolactone (Aldactone) 12.5 mg DAILY PO Last administered on 08/26/17 08: 49; Admin Dose 12.5 MG; Start 08/24/17 at 09:00 Magnesium Hydroxide (Milk Of Mag) 30 ml DAILY PRN PO CONSTIPATION; Start 08/24 at 00:00 Pantoprazole (Protonix Iv) 40 mg DAILY@06 IV Last administered on 08/26/17 06 :57; Admin Dose 40 MG; Start 08/24/17 at 06:00 Hydralazine HCl (Apresoline) 10 mg Q8H PRN IV ELEVATED SYSTOLIC BP Last administered on 08/24/17 05:29; Admin Dose 10 MG; Start 08/24/17 at 05:30 Aspirin (Halfprin) 81 mg DAILY PO Last administered on 08/26/17 08:49; Admin Dose 81 MG; Start 08/25/17 at 09:00 Linagliptin (Tradjenta) 5 mg DAILY PO ; Start 08/26/17 at 12:30 Diagnostic Test (Pha) (Accu-Chek) 1 ea 02 XX ; Start 08/27/17 at 02:00 Miscellaneous Information 1 ea NOTE XX ; Start 08/26/17 at 12:30 Glucose (Glutose) 15 gm Q15M PRN PO DECREASED GLUCOSE; Start 08/26/17 at 12:30 Glucose (Glutose) 22.5 gm Q15M PRN PO DECREASED GLUCOSE; Start 08/26/17 at 12: 30 Dextrose (D50w Syringe) 25 ml Q15M PRN IV DECREASED GLUCOSE; Start 08/26/17 at 12:30 Dextrose (D50w Syringe) 50 ml Q15M PRN IV DECREASED GLUCOSE; Start 08/26/17 at 12:30 Glucagon (Glucagen) 1 mg Q15M PRN IM DECREASED GLUCOSE; Start 08/26/17 at 12: 30 Glucose (Glutose) 15 gm Q15M PRN BUCCAL DECREASED GLUCOSE; Start 08/26/17 at 12:30 GARRET HOUSTON MD Aug 26, 2017 14:02
[2017-08-26] MEDS: LINAGLIPTIN 5 MG TABLET PO SCH (16:20)
--- NOTE | 2017-08-26 17:13 | SP ---
DATE OF PROCEDURE: 08/25/2017 HISTORY: This is an 86-year-old male admitted with left-sided weakness and had episode of seizure-l sheila activity. CURRENT MEDICATIONS: Keppra. PROCEDURE: Utilizing a 16-channel EEG machine, cap scalp electrodes were applied in accordance with International 10-20 system. [id number] and [id number] montages were displayed. Electrical i mpedances were measured and reported. DESCRIPTION: During the resting state, posterior dominant rhythm of about 7 to 8 Hz were seen bihem ispherically. Intermittent bihemispheric epileptiform activity was noted throughout the tracing. Photic stimulation had a good response. Hyperventilation was not performed. INTERPRETATION: This is an abnormal EEG due to presence of intermittent bihemispheric epileptiform activity consistent with non-convulsive status epilepticus. Please correlate these findings with th e patient's clinical picture. Dictated By: GARRET SNYDER/LUH Conf#: [id number] DID#: [id number] CC: JAJA ORO MD;*EndCC*
[2017-08-26] MEDS: INSULIN ASPART [NOVOLOG] 3 ML PEN SC SCH ×2 (18:05→21:00)
[2017-08-26] MEDS: ATORVASTATIN 20 MG TAB PO SCH (21:24)
[2017-08-26] MEDS: LATANOPROST 0.005% 2.5 ML OPH BOTH EYES SCH (21:25)
[2017-08-27] VITALS (13 sets, daily range): BP systolic 86–145; BP diastolic 46–67; PULSE 69–80; RESP 18–20
[2017-08-27] MEDS: ALBUTEROL/IPRATROPIUM (NEB) 3 ML AMP HHN SCH ×4 (01:36→19:14)
[2017-08-27] MEDS: ACCU-CHEK XX SCH (02:00)
[2017-08-27] MEDS: PANTOPRAZOLE (EC) 40 MG TAB PO SCH (05:53)
--- NOTE | 2017-08-27 07:58 | RADRPT ---
PROCEDURE: MR Cerebral Venogram with and without intravenous contrast CLINICAL INDICATION: CVA with left hemiparesis. COMPARISON: MRI brain 08/25/2017. TECHNIQUE: MR cerebral venogram was performed before and after the intravenous administration of in travenous contrast. Coronal 2-D and 3-D [id number] imaging was performed. FINDINGS: Venogram: The superior sagittal sinus, transverse sinuses, sigmoid sinuses, straight sinus, vein of Kamran, and internal cerebral veins are patent. No dural venous sinus thrombosis. No evidence of sup erficial cortical venous thrombosis. IMPRESSION: 1. No evidence of dural venous sinus thrombosis. RPTAT: HRSR Physician Tyra Date Time Electronically viewed and signed by Physician Tyra on 08/27/2017 07:58 /
[2017-08-27] MEDS: INSULIN ASPART [NOVOLOG] 3 ML PEN SC SCH ×4 (08:00→20:58)
[2017-08-27] MEDS: SPIRONOLACTONE 25 MG TAB PO SCH (10:01)
[2017-08-27] MEDS: ASPIRIN (EC) 81 MG TAB PO SCH (10:01)
[2017-08-27] MEDS: METOPROLOL (XL) 50 MG TAB PO SCH (10:01)
[2017-08-27] MEDS: LINAGLIPTIN 5 MG TABLET PO SCH (10:01)
[2017-08-27] MEDS: LEVETIRACETAM 500 MG TAB PO SCH ×2 (10:03→20:58)
[2017-08-27] MEDS: LOSARTAN 50 MG TAB PO SCH (10:08)
--- NOTE | 2017-08-27 11:56 | PN ---
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 Receiving BP and BG control. On low-dose ASA. Defer to neurology for further management (2) Non-convulsive status epilepticus Status: Acute Comment: Per neurology, EEG indicates this. Increasing Keppra. Will defer to neurology for further management (3) Mild cognitive impairment Status: Chronic Comment: Likely to confound efforts to decide extent of damage from CVA (4) Type 2 diabetes mellitus without complications Status: Chronic Comment: Good glycemic control. Cont. 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 ASA (6) Essential (primary) hypertension Status: Chronic Comment: Good control. Cont. current regimen (7) Hyperlipidemia Status: Chronic Comment: Cont. statin (8) Glaucoma Status: Chronic Comment: Cont. latanoprost Subjective 24 Hr Interval Summary Subjective hx not possible: pt non-verbal (sleeping) Exam/Review of Systems Vital Signs Vitals VS - Last 72 Hours, by Label Date Time Temp Pulse Resp B/P Pulse Ox O2 Delivery O2 Flow Rate FiO2 08/27/17 08:51 97 20 97 Nasal Cannula 2.0 08/27/17 08:51 2.0 08/27/17 08:01 98.1 67 18 112/58 97 08/27/17 08:00 Nasal Cannula 2.0 08/27/17 08:00 70 08/27/17 04:20 80 08/27/17 04:00 97.7 75 20 145/67 99 08/27/17 01:37 98 20 97 Nasal Cannula 2.0 08/27/17 01:37 2.0 08/27/17 00:20 79 08/27/17 00:00 Nasal Cannula 3.0 08/27/17 00:00 97.7 83 18 137/63 99 08/26/17 20:19 84 08/26/17 20:00 Nasal Cannula 3.0 08/26/17 20:00 97.4 77 18 137/66 99 08/26/17 19:11 100 20 97 Nasal Cannula 2.0 08/26/17 19:11 2.0 08/26/17 16:00 81 08/26/17 15:42 98.1 82 19 102/54 99 08/26/17 15:34 102 20 95 Nasal Cannula 3.0 08/26/17 15:34 3.0 08/26/17 12:00 74 08/26/17 11:29 98.3 69 19 111/61 93 08/26/17 08:06 3.0 08/26/17 08:06 100 20 95 Nasal Cannula 3.0 08/26/17 08:00 Nasal Cannula 3.0 08/26/17 08:00 84 08/26/17 07:45 98.1 90 19 125/68 96 08/26/17 04:42 87 08/26/17 04:21 98.4 85 19 148/68 95 08/26/17 01:38 101 20 94 Nasal Cannula 3.0 08/26/17 00:49 98.6 85 19 157/70 97 08/26/17 00:37 106 08/26/17 00:00 Nasal Cannula 3.0 08/25/17 21:40 100 22 95 Nasal Cannula 3.0 08/25/17 21:40 3.0 08/25/17 21:30 98.3 104 20 155/76 98 08/25/17 21:25 3.0 08/25/17 20:15 105 08/25/17 20:00 Nasal Cannula 3.0 08/25/17 17:04 98.0 112 18 154/77 91 08/25/17 16:19 90 08/25/17 16:00 Nasal Cannula 2.0 08/25/17 12:22 87 08/25/17 12:13 98.3 95 18 141/68 92 08/25/17 12:00 Nasal Cannula 2.0 08/25/17 08:29 99.8 77 18 126/60 95 08/25/17 08:28 76 08/25/17 04:08 87 08/25/17 04:00 98.0 84 18 146/64 96 08/25/17 00:26 88 08/25/17 00:00 98.0 82 18 154/60 93 08/24/17 20:07 96 08/24/17 20:00 98.1 98 19 159/71 94 08/24/17 16:08 92 08/24/17 15:42 100.1 91 16 134/63 99 08/24/17 12:11 93 Vital Signs Date Time Temp Pulse Resp B/P Pulse Ox O2 Delivery O2 Flow Rate FiO2 08/27/17 08:51 97 20 97 Nasal Cannula 2.0 08/27/17 08:01 98.1 112/58 Intake and Output 08/26/17 08/26/17 08/27/17 15:00 23:00 07:00 Intake Total 400 ml 100 ml 250 ml Balance 400 ml 100 ml 250 ml Exam Constitutional: frail, No alert, No oriented Respiratory: clear to auscultation, normal air movement Cardiovascular: nl pulses, regular rate and rhythm, No edema, No murmurs/extra sounds, No rub Gastrointestinal: bowel sounds, nl liver, spleen, non-tender, soft, No mass, No rebound or guarding Musculoskeletal: nl extremities to inspection Extremities: normal pulses, No clubbing, No cyanosis, No edema Neurological: lethargic (sleeping) Additional Comments Bedside Glucose - 72 Hours Test 08/26/17 13:01 08/26/17 18:28 08/26/17 21:23 08/27/17 07:53 Bedside Glucose 193mg/dL (70-220) 122mg/dL (70-220) 120mg/dL (70-220) 127mg/dL (70-220) Results Result Diagram: 08/26/17 0700 08/26/17 0700 Results 24 hrs Laboratory Tests Test 08/26/17 13:01 08/26/17 18:28 08/26/17 21:23 08/27/17 07:53 Bedside Glucose 193 122 120 127 Medications Medications Current Medications Atorvastatin Calcium (Lipitor) 20 mg QHS PO Last administered on 08/26/17 21: 24; Admin Dose 20 MG; Start 08/24/17 at 21:00 Latanoprost (Xalatan) 1 drop QHS BOTH EYES Last administered on 08/26/17 21: 25; Admin Dose 1 DROP; Start 08/24/17 at 21:00 Losartan Potassium (Cozaar) 50 mg DAILY PO Last administered on 08/27/17 10: 08; Admin Dose 50 MG; Start 08/24/17 at 09:00 Metoprolol Succinate (Toprol Xl) 50 mg DAILY PO Last administered on 10:01; Admin Dose 50 MG; Start 08/24/17 at 09:00 Spironolactone (Aldactone) 12.5 mg DAILY PO Last administered on 08/27/17 10: 01; Admin Dose 12.5 MG; Start 08/24/17 at 09:00 Magnesium Hydroxide (Milk Of Mag) 30 ml DAILY PRN PO CONSTIPATION; Start 08/24 at 00:00 Hydralazine HCl (Apresoline) 10 mg Q8H PRN IV ELEVATED SYSTOLIC BP Last administered on 08/24/17 05:29; Admin Dose 10 MG; Start 08/24/17 at 05:30 Aspirin (Halfprin) 81 mg DAILY PO Last administered on 08/27/17 10:01; Admin Dose 81 MG; Start 08/25/17 at 09:00 Linagliptin (Tradjenta) 5 mg DAILY PO Last administered on 08/27/17 10:01; Admin Dose 5 MG; Start 08/26/17 at 12:30 Diagnostic Test (Pha) (Accu-Chek) 1 ea 02 XX ; Start 08/27/17 at 02:00 Miscellaneous Information 1 ea NOTE XX ; Start 08/26/17 at 12:30 Glucose (Glutose) 15 gm Q15M PRN PO DECREASED GLUCOSE; Start 08/26/17 at 12:30 Glucose (Glutose) 22.5 gm Q15M PRN PO DECREASED GLUCOSE; Start 08/26/17 at 12: 30 Dextrose (D50w Syringe) 25 ml Q15M PRN IV DECREASED GLUCOSE; Start 08/26/17 at 12:30 Dextrose (D50w Syringe) 50 ml Q15M PRN IV DECREASED GLUCOSE; Start 08/26/17 at 12:30 Glucagon (Glucagen) 1 mg Q15M PRN IM DECREASED GLUCOSE; Start 08/26/17 at 12: 30 Glucose (Glutose) 15 gm Q15M PRN BUCCAL DECREASED GLUCOSE; Start 08/26/17 at 12:30 Levetiracetam (Keppra) 1,000 mg BID PO Last administered on 08/27/17 10:03; Admin Dose 1,000 MG; Start 08/26/17 at 21:00 Pantoprazole (Protonix Tab) 40 mg DAILY@06 PO Last administered on 11/26/17at 05:53; Admin Dose 40 MG; Start 08/27/17 at 06:00 GENNA FUNG MD Aug 27, 2017 11:56
--- NOTE | 2017-08-27 14:37 | CONS ---
Date/Time of Note Date/Time of Note DATE: 08/27/17 TIME: 14:35 Assessment/Plan Assessment/Plan Chief Complaint/Hosp Course Left-sided weakness and seizure Problems: Additional Assessment/Plan Patient is an 86-year-old male with past medical history of cognitive impairment , hypertension, seizure disorder and a recent admission to [facility] epidural of 2016. He was brought into emergency room following found to be confused, he was also noted to have left-sided weakness, arm is worse than the leg. His initial blood pressure was found to be 170/80. He also was seen to be having an episode of seizure-like activity mainly in the left leg. He was admitted for further evaluation. CT scan of the brain showed moderate intracranial atherosclerosis and chronic small vessel ischemic changes, small old lacunar infarct in the left caudate head, mild to moderate generalized cerebral volume loss, nothing acute. Echocardiogram showed moderate aortic stenosis otherwise unremarkable.MRI of the brain showed acute to subacute, non hemorrhagic, right posterior temporal and occipital cortical infarct, multiple foci of GRE susceptibility in the bilateral cerebral hemispheres, the left basal ganglia the right head of the caudate nucleus and the corpus callosum compatible with sequela of prior small vessel hemorrhagic infarcts associated with amyloid angiopathy or hypertensive microangiopathy, ess likely consideration would be small cavernous angiomas, mild to moderate chronic microvascular ischemic disease and bilateral basal ganglia lacunar infarcts, mild to moderate diffuse volume loss. EEG is abnormal showing bihemispheric intermittent epileptiform activity without physically seizure activity compatible with nonconvulsive status epilepticus. MR venogram was normal. Plan: 1 neuro check every 4 hours 2 seizure precautions 3 continue Keppra 1000 mg p.o. twice daily 4 carotid ultrasound is pending 5 continue therapies 6 continue atorvastatin and aspirin 7 will follow Consultation Date/Type/Reason Admit Date/Time Aug 23, 2017 at 14:09 Initial Consult Date 08/24/17 Type of Consultation: Neurology Referring Provider: JAJA ORO MD 24 HR Interval Summary Free Text/Dictation Clinically doing well. No witnessed seizure activity. Having lunch with help. MR venogram was negative. Exam/Review of Systems Vital Signs Vitals Vital Signs Date Time Temp Pulse Resp B/P Pulse Ox O2 Delivery O2 Flow Rate FiO2 08/27/17 13:47 2.0 08/27/17 13:47 96 20 96 Nasal Cannula 08/27/17 11:58 98.5 102/46 Intake and Output 08/26/17 08/26/17 08/27/17 15:00 23:00 07:00 Intake Total 400 ml 100 ml 250 ml Balance 400 ml 100 ml 250 ml Exam Alert and awake, having lunch with help, left hemiparetic Constitutional: alert Psych: nl mood/affect, no complaints Head: atraumatic, normocephalic Eyes: EOMI, nl conjunctiva, nl lids, nl sclera ENMT: mucosa pink and moist, nl external ears & nose, nl lips & teeth, nl nasal mucosa & septum Neck: non-tender, supple Respiratory: clear to auscultation, normal air movement Cardiovascular: nl pulses, regular rate and rhythm Gastrointestinal: nl liver, spleen, non-tender, soft Results Result Diagram: 08/26/17 0700 08/26/17 0700 Results 24 hrs Laboratory Tests Test 08/26/17 18:28 08/26/17 21:23 08/27/17 07:53 08/27/17 12:54 Bedside Glucose 122 120 127 152 Medications Medications Current Medications Atorvastatin Calcium (Lipitor) 20 mg QHS PO Last administered on 08/26/17 21: 24; Admin Dose 20 MG; Start 08/24/17 at 21:00 Latanoprost (Xalatan) 1 drop QHS BOTH EYES Last administered on 08/26/17 21: 25; Admin Dose 1 DROP; Start 08/24/17 at 21:00 Losartan Potassium (Cozaar) 50 mg DAILY PO Last administered on 08/27/17 10: 08; Admin Dose 50 MG; Start 08/24/17 at 09:00 Metoprolol Succinate (Toprol Xl) 50 mg DAILY PO Last administered on 10:01; Admin Dose 50 MG; Start 08/24/17 at 09:00 Spironolactone (Aldactone) 12.5 mg DAILY PO Last administered on 08/27/17 10: 01; Admin Dose 12.5 MG; Start 08/24/17 at 09:00 Magnesium Hydroxide (Milk Of Mag) 30 ml DAILY PRN PO CONSTIPATION; Start 08/24 at 00:00 Hydralazine HCl (Apresoline) 10 mg Q8H PRN IV ELEVATED SYSTOLIC BP Last administered on 08/24/17 05:29; Admin Dose 10 MG; Start 08/24/17 at 05:30 Aspirin (Halfprin) 81 mg DAILY PO Last administered on 08/27/17 10:01; Admin Dose 81 MG; Start 08/25/17 at 09:00 Linagliptin (Tradjenta) 5 mg DAILY PO Last administered on 08/27/17 10:01; Admin Dose 5 MG; Start 08/26/17 at 12:30 Diagnostic Test (Pha) (Accu-Chek) 1 ea 02 XX ; Start 08/27/17 at 02:00 Miscellaneous Information 1 ea NOTE XX ; Start 08/26/17 at 12:30 Glucose (Glutose) 15 gm Q15M PRN PO DECREASED GLUCOSE; Start 08/26/17 at 12:30 Glucose (Glutose) 22.5 gm Q15M PRN PO DECREASED GLUCOSE; Start 08/26/17 at 12: 30 Dextrose (D50w Syringe) 25 ml Q15M PRN IV DECREASED GLUCOSE; Start 08/26/17 at 12:30 Dextrose (D50w Syringe) 50 ml Q15M PRN IV DECREASED GLUCOSE; Start 08/26/17 at 12:30 Glucagon (Glucagen) 1 mg Q15M PRN IM DECREASED GLUCOSE; Start 08/26/17 at 12: 30 Glucose (Glutose) 15 gm Q15M PRN BUCCAL DECREASED GLUCOSE; Start 08/26/17 at 12:30 Levetiracetam (Keppra) 1,000 mg BID PO Last administered on 08/27/17 10:03; Admin Dose 1,000 MG; Start 08/26/17 at 21:00 Pantoprazole (Protonix Tab) 40 mg DAILY@06 PO Last administered on 08/27/17 05:53; Admin Dose 40 MG; Start 08/27/17 at 06:00 GARRET HOUSTON MD Aug 27, 2017 14:37
[2017-08-27] MEDS: LATANOPROST 0.005% 2.5 ML OPH BOTH EYES SCH (20:58)
[2017-08-27] MEDS: ATORVASTATIN 20 MG TAB PO SCH (20:58)
[2017-08-28] VITALS (12 sets, daily range): BP systolic 93–128; BP diastolic 52–58; PULSE 63–75; RESP 16–20
[2017-08-28] MEDS: ALBUTEROL/IPRATROPIUM (NEB) 3 ML AMP HHN SCH ×4 (01:28→20:07)
[2017-08-28] MEDS: ACCU-CHEK XX SCH (02:00)
[2017-08-28] MEDS: PANTOPRAZOLE (EC) 40 MG TAB PO SCH (05:42)
[2017-08-28] MEDS: LEVETIRACETAM 500 MG TAB PO SCH ×2 (08:52→20:48)
[2017-08-28] MEDS: SPIRONOLACTONE 25 MG TAB PO SCH (08:52)
[2017-08-28] MEDS: ASPIRIN (EC) 81 MG TAB PO SCH (08:52)
[2017-08-28] MEDS: LOSARTAN 50 MG TAB PO SCH (08:52)
[2017-08-28] MEDS: METOPROLOL (XL) 50 MG TAB PO SCH (08:52)
[2017-08-28] MEDS: LINAGLIPTIN 5 MG TABLET PO SCH (08:53)
[2017-08-28] MEDS: INSULIN ASPART [NOVOLOG] 3 ML PEN SC SCH ×2 (09:01→12:00)
--- NOTE | 2017-08-28 12:53 | CONS ---
Date/Time of Note Date/Time of Note DATE: 08/28/17 TIME: 12:49 Consult Date/Type/Reason Admit Date/Time Aug 23, 2017 at 14:09 Initial Consult Date 08/24/17 Type of Consultation: Neurology Reason for Consultation CVA Ordering Provider: JAJA ORO MD Subjective no further seizure remains stable Objective Vital Signs Date Time Temp Pulse Resp B/P Pulse Ox O2 Delivery O2 Flow Rate FiO2 08/28/17 12:32 97.5 65 16 93/52 99 08/28/17 09:01 Nasal Cannula 2.0 Intake and Output 08/27/17 08/27/17 08/28/17 15:00 23:00 07:00 Intake Total 200 ml 250 ml Balance 200 ml 250 ml Results/Medications Result Diagram: 08/26/17 0708/26/17 07 Results 24 hrs Laboratory Tests Test 08/27/17 12:54 08/27/17 17:33 08/27/17 20:24 08/28/17 08:45 Bedside Glucose 152 139 166 141 Medications Current Medications Atorvastatin Calcium (Lipitor) 20 mg QHS PO Last administered on 08/27/17 20: 58; Admin Dose 20 MG; Start 08/24/17 at 21:00 Latanoprost (Xalatan) 1 drop QHS BOTH EYES Last administered on 08/27/17 20: 58; Admin Dose 1 DROP; Start 08/24/17 at 21:00 Losartan Potassium (Cozaar) 50 mg DAILY PO Last administered on 08/28/17 08: 52; Admin Dose 50 MG; Start 08/24/17 at 09:00 Metoprolol Succinate (Toprol Xl) 50 mg DAILY PO Last administered on 08:52; Admin Dose 50 MG; Start 08/24/17 at 09:00 Spironolactone (Aldactone) 12.5 mg DAILY PO Last administered on 08/28/17 08: 52; Admin Dose 12.5 MG; Start 08/24/17 at 09:00 Magnesium Hydroxide (Milk Of Mag) 30 ml DAILY PRN PO CONSTIPATION; Start 08/24 at 00:00 Hydralazine HCl (Apresoline) 10 mg Q8H PRN IV ELEVATED SYSTOLIC BP Last administered on 08/24/17 05:29; Admin Dose 10 MG; Start 08/24/17 at 05:30 Aspirin (Halfprin) 81 mg DAILY PO Last administered on 08/28/17 08:52; Admin Dose 81 MG; Start 08/25/17 at 09:00 Linagliptin (Tradjenta) 5 mg DAILY PO Last administered on 08/28/17 08:53; Admin Dose 5 MG; Start 08/26/17 at 12:30 Diagnostic Test (Pha) (Accu-Chek) 1 ea 02 XX ; Start 08/27/17 at 02:00 Miscellaneous Information 1 ea NOTE XX ; Start 08/26/17 at 12:30 Glucose (Glutose) 15 gm Q15M PRN PO DECREASED GLUCOSE; Start 08/26/17 at 12:30 Glucose (Glutose) 22.5 gm Q15M PRN PO DECREASED GLUCOSE; Start 08/26/17 at 12: 30 Dextrose (D50w Syringe) 25 ml Q15M PRN IV DECREASED GLUCOSE; Start 08/26/17 at 12:30 Dextrose (D50w Syringe) 50 ml Q15M PRN IV DECREASED GLUCOSE; Start 08/26/17 at 12:30 Glucagon (Glucagen) 1 mg Q15M PRN IM DECREASED GLUCOSE; Start 08/26/17 at 12: 30 Glucose (Glutose) 15 gm Q15M PRN BUCCAL DECREASED GLUCOSE; Start 08/26/17 at 12:30 Levetiracetam (Keppra) 1,000 mg BID PO Last administered on 08/28/17 08:52; Admin Dose 1,000 MG; Start 08/26/17 at 21:00 Pantoprazole (Protonix Tab) 40 mg DAILY@06 PO Last administered on 08/28/17 05:42; Admin Dose 40 MG; Start 08/27/17 at 06:00 Assessment/Plan Chief Complaint/Hosp Course Patient is an 86-year-old male with past medical history of cognitive impairment , hypertension, seizure disorder and a recent admission to [facility]. He was brought into emergency room following found to be confused, he was also noted to have left-sided weakness, arm is worse than the leg. His initial blood pressure was found to be 170/80. He also was seen to be having an episode of seizure-like activity mainly in the left leg. He was admitted for further evaluation. CT scan of the brain showed moderate intracranial atherosclerosis and chronic small vessel ischemic changes, small old lacunar infarct in the left caudate head, mild to moderate generalized cerebral volume loss, nothing acute. 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 EEG is abnormal showing bihemispheric intermittent epileptiform activity without physically seizure activity compatible with nonconvulsive status epilepticus. MR venogram was normal. Recommendations: neuro checks q4h seizure precautions continue Keppra 1 g BID continue aspirin and statin check FLP carotid US pending tele monitoring for afib DVT ppx PT/OT/Speech fu Problems: ROULA BARRIENTOS MD Aug 28, 2017 12:53
--- NOTE | 2017-08-28 16:56 | PN ---
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 rouses easily, confused re time, date as before, no co headache. some ability to raise left arm and leg, but max assist to stand will get swallow study by p.t., npo now, will start iv fluids have made aru consultation, if not accepted i explained to that he will need snf/rehab placement as i doubt he can be home safely. carotid us to be ordered as well Constitutional: disoriented Neurologic: confusion, focal-weakness, seizure Exam/Review of Systems Vital Signs Vitals Vital Signs Date Time Temp Pulse Resp B/P Pulse Ox O2 Delivery O2 Flow Rate FiO2 08/28/17 16:37 98.4 70 16 102/52 100 08/28/17 15:17 2.0 08/28/17 14:50 Nasal Cannula Intake and Output 08/27/17 08/27/17 08/28/17 15:00 23:00 07:00 Intake Total 200 ml 250 ml Balance 200 ml 250 ml Results Result Diagram: 08/26/17 0700 08/26/17 0700 Results 24 hrs Laboratory Tests Test 08/27/17 17:33 08/27/17 20:24 08/28/17 08:45 08/28/17 12:49 Bedside Glucose 139 166 141 128 Medications Medications Current Medications Atorvastatin Calcium (Lipitor) 20 mg QHS PO Last administered on 08/27/17 20: 58; Admin Dose 20 MG; Start 08/24/17 at 21:00 Latanoprost (Xalatan) 1 drop QHS BOTH EYES Last administered on 08/27/17 20: 58; Admin Dose 1 DROP; Start 08/24/17 at 21:00 Losartan Potassium (Cozaar) 50 mg DAILY PO Last administered on 08/28/17 08: 52; Admin Dose 50 MG; Start 08/24/17 at 09:00 Metoprolol Succinate (Toprol Xl) 50 mg DAILY PO Last administered on 08:52; Admin Dose 50 MG; Start 08/24/17 at 09:00 Spironolactone (Aldactone) 12.5 mg DAILY PO Last administered on 08/28/17 08: 52; Admin Dose 12.5 MG; Start 08/24/17 at 09:00 Magnesium Hydroxide (Milk Of Mag) 30 ml DAILY PRN PO CONSTIPATION; Start 08/24 at 00:00 Hydralazine HCl (Apresoline) 10 mg Q8H PRN IV ELEVATED SYSTOLIC BP Last administered on 08/24/17 05:29; Admin Dose 10 MG; Start 08/24/17 at 05:30 Aspirin (Halfprin) 81 mg DAILY PO Last administered on 08/28/17 08:52; Admin Dose 81 MG; Start 08/25/17 at 09:00 Linagliptin (Tradjenta) 5 mg DAILY PO Last administered on 08/28/17 08:53; Admin Dose 5 MG; Start 08/26/17 at 12:30 Miscellaneous Information 1 ea NOTE XX ; Start 08/26/17 at 12:30 Glucose (Glutose) 15 gm Q15M PRN PO DECREASED GLUCOSE; Start 08/26/17 at 12:30 Glucose (Glutose) 22.5 gm Q15M PRN PO DECREASED GLUCOSE; Start 08/26/17 at 12: 30 Dextrose (D50w Syringe) 25 ml Q15M PRN IV DECREASED GLUCOSE; Start 08/26/17 at 12:30 Dextrose (D50w Syringe) 50 ml Q15M PRN IV DECREASED GLUCOSE; Start 08/26/17 at 12:30 Glucagon (Glucagen) 1 mg Q15M PRN IM DECREASED GLUCOSE; Start 08/26/17 at 12: 30 Glucose (Glutose) 15 gm Q15M PRN BUCCAL DECREASED GLUCOSE; Start 08/26/17 at 12:30 Levetiracetam (Keppra) 1,000 mg BID PO Last administered on 08/28/17 08:52; Admin Dose 1,000 MG; Start 08/26/17 at 21:00 Pantoprazole (Protonix Tab) 40 mg DAILY@06 PO Last administered on 08/28/17 05:42; Admin Dose 40 MG; Start 08/27/17 at 06:00 Insulin Aspart (Novolog Insulin Pen) NOVOLOG *MILD* ALGORITHM AM GA ; Start at 09:00; Status UNJAJA RODRIGUEZ MD Aug 28, 2017 16:56
[2017-08-28] MEDS: DEXTROSE 5%-0.225% NACL 1,000 ML IV SCH (17:13)
--- NOTE | 2017-08-28 20:17 | RADRPT ---
PROCEDURE: Carotid ultrasound CLINICAL INDICATION: Stroke, carotid bruits TECHNIQUE: Monroy scale, color doppler, spectral doppler ultrasound of the bilateral carotid and mary tebral arteries. This study indirectly references the measurement of the distal ICA diameter as the denominator for s tenosis measurement. Validated velocity measurements with angiographic measurements, velocity criter ia are extrapolated from diameter data as defined by: *Cartoid artery stenosis: monroy-scale and Doppl er US diagnosis. Society of Radiologists in Ultrasound Consensus Conference. Radiology 2003; 229: 34 0-346. U Consensus Conference Criteria for the Diagnosis of Carotid Artery Stenosis* Degree of Stenosis, % ICA PSV, cm/sec Plaque Estimate, % ICA/CCA PSV Ratio Normal <125 None <2.0 <50 <125 <50 <2.0 50 69 125-230 >50 2.0-4.0 >70 but less than near occlusion >230 >50 <4.0 Near occlusion High, low, or undetectable Visible Variable Total occlusion Undetectable Visible, no detectable lumen Not applicable COMPARISON: CT 01/21/2017 FINDINGS: Location Right CCA41 - 84 cm/sec Prox ICA 95 cm/sec Mid ICA68 cm/sec Dist ICA43 cm/sec XIF498 cm/sec ICA/CCA2.3 Left CCA52 - 67 cm/sec Prox ICA 52 cm/sec Mid ICA46 cm/sec Dist ICA53 cm/sec ECA65 cm/sec ICA/CCA1.1 Plaque burden: Small plaques are present involving both common and internal carotid arteries. Antegrade flow is seen within the vertebral arteries bilaterally. IMPRESSION: Plaques are present within both internal carotid arteries without evidence of flow acceleration to s uggest a hemodynamically significant stenosis; less than 50% stenosis bilaterally. RPTAT: AADD .Farrukh Retana MD, Date Time Electronically viewed and signed by .Farrukh Retana MD, on 08/28/2017 20:17 .B/
[2017-08-28] MEDS: LATANOPROST 0.005% 2.5 ML OPH BOTH EYES SCH (20:48)
[2017-08-28] MEDS: ATORVASTATIN 20 MG TAB PO SCH (20:48)
[2017-08-28] MEDS ORDERED: traMADol 50 MG TAB PO PRN (22:30)
[2017-08-29] VITALS (12 sets, daily range): BP systolic 97–173; BP diastolic 54–80; PULSE 67–95; RESP 16–20
[2017-08-29] MEDS: hydrALAzine 20 MG INJ IV PRN (00:12)
[2017-08-29] MEDS: ALBUTEROL/IPRATROPIUM (NEB) 3 ML AMP HHN SCH ×4 (01:33→19:58)
[2017-08-29] MEDS: DEXTROSE 5%-0.225% NACL 1,000 ML IV SCH ×3 (03:42→23:00)
[2017-08-29] MEDS: PANTOPRAZOLE (EC) 40 MG TAB PO SCH (05:23)
[2017-08-29 07:15] LABS: ABNORMAL IP MESSAGE 1; BASOPHILS % 0.3 % (0.0-2.0); EOSINOPHILS % 0.6 % (0.0-7.0); HEMATOCRIT 33.8 % (42.0-52.0); HEMOGLOBIN 11.5 g/dl (14.0-18.0); LYMPHOCYTES # 0.6 10^3/ul (0.8-2.9); LYMPHOCYTES % 8.8 % (15.0-51.0); MEAN CORPUSCULAR HEMOGLOBIN 32.5 pg (29.0-33.0); MEAN CORPUSCULAR VOLUME 95.5 fl (82.0-101.0); MONOCYTE # 0.5 10^3/ul (0.3-0.9); MONOCYTES % 7.3 % (0.0-11.0); NEUTROPHIL # 5.1 10^3/ul (1.6-7.5); NEUTROPHILS % 82.2 % (39.0-77.0); PLATELET COUNT 161 10^3/UL (140-415); POSITIVE DIFF @See below; RED BLOOD COUNT 3.54 10^6/ul (4.70-6.10); RED CELL DISTRIBUTION WIDTH 12.9 % (11.5-14.5); WHITE BLOOD COUNT 6.3 10^3/ul (4.8-10.8)
[2017-08-29 07:37] LABS: CALCIUM 9.2 mg/dl (8.4-10.2); CREATININE 1.16 mg/dl (0.61-1.24); POTASSIUM 3.9 mmol/L (3.5-5.1)
[2017-08-29 07:47] LABS: CHOL/HDL RATIO 3.9 RATIO
[2017-08-29] MEDS: INSULIN ASPART [NOVOLOG] 3 ML PEN SC SCH (09:00)
[2017-08-29] MEDS: SPIRONOLACTONE 25 MG TAB PO SCH (09:33)
[2017-08-29] MEDS: LEVETIRACETAM 500 MG TAB PO SCH ×2 (09:33→20:43)
[2017-08-29] MEDS: LINAGLIPTIN 5 MG TABLET PO SCH (09:34)
[2017-08-29] MEDS: ASPIRIN (EC) 81 MG TAB PO SCH (09:34)
[2017-08-29] MEDS: LOSARTAN 50 MG TAB PO SCH (09:34)
[2017-08-29] MEDS: METOPROLOL (XL) 50 MG TAB PO SCH (09:35)
--- NOTE | 2017-08-29 11:03 | CONS ---
Date/Time of Note Date/Time of Note DATE: 08/29/17 TIME: 11:01 Consult Date/Type/Reason Admit Date/Time Aug 23, 2017 at 14:09 Initial Consult Date 08/24/17 Type of Consultation: Neurology Reason for Consultation CVA seizure Ordering Provider: JAJA ORO MD Subjective remains stable undergoing eval for possible ARU vs SNF Objective Vital Signs Date Time Temp Pulse Resp B/P Pulse Ox O2 Delivery O2 Flow Rate FiO2 08/29/17 08:21 77 20 96 Nasal Cannula 2.0 08/29/17 07:39 97.9 112/60 Intake and Output 08/28/17 08/28/17 08/29/17 15:00 23:00 07:00 Intake Total 480 ml 120 ml Balance 480 ml 120 ml Exam awake alert left hemiparesis left visuospatial neglect Results/Medications Result Diagram: 08/29/17 0648 08/29/17 0649 Results 24 hrs Laboratory Tests Test 08/28/17 12:49 08/29/17 06:48 08/29/17 06:49 Bedside Glucose 128 White Blood Count 6.3 # Red Blood Count 3.54 L Hemoglobin 11.5 L Hematocrit 33.8 L Mean Corpuscular Volume 95.5 Mean Corpuscular Hemoglobin 32.5 Mean Corpuscular Hemoglobin Concent 34.0 Red Cell Distribution Width 12.9 Platelet Count 161 # Mean Platelet Volume 10.0 Neutrophils % 82.2 H Lymphocytes % 8.8 L Monocytes % 7.3 Eosinophils % 0.6 Basophils % 0.3 Nucleated Red Blood Cells % 0.0 Neutrophils # 5.1 Lymphocytes # 0.6 L Monocytes # 0.5 Eosinophils # 0.0 Basophils # 0.0 Nucleated Red Blood Cells # 0.0 Sodium Level 138 Potassium Level 3.9 Chloride Level 102 Carbon Dioxide Level 27 Anion Gap 13 Blood Urea Nitrogen 34 H Creatinine 1.16 Glucose Level 220 Calcium Level 9.2 Triglycerides Level 102 Cholesterol Level 166 LDL Cholesterol, Calculated 104 HDL Cholesterol 42 Cholesterol/HDL Ratio 3.9 Medications Current Medications Atorvastatin Calcium (Lipitor) 20 mg QHS PO Last administered on 08/28/17 20: 48; Admin Dose 20 MG; Start 08/24/17 at 21:00 Latanoprost (Xalatan) 1 drop QHS BOTH EYES Last administered on 08/28/17 20: 48; Admin Dose 1 DROP; Start 08/24/17 at 21:00 Losartan Potassium (Cozaar) 50 mg DAILY PO Last administered on 08/29/17 09: 34; Admin Dose 50 MG; Start 08/24/17 at 09:00 Metoprolol Succinate (Toprol Xl) 50 mg DAILY PO Last administered on 09:35; Admin Dose 50 MG; Start 08/24/17 at 09:00 Spironolactone (Aldactone) 12.5 mg DAILY PO Last administered on 08/29/17 09: 33; Admin Dose 12.5 MG; Start 08/24/17 at 09:00 Magnesium Hydroxide (Milk Of Mag) 30 ml DAILY PRN PO CONSTIPATION; Start 08/24 at 00:00 Hydralazine HCl (Apresoline) 10 mg Q8H PRN IV ELEVATED SYSTOLIC BP Last administered on 08/29/17 00:12; Admin Dose 10 MG; Start 08/24/17 at 05:30 Aspirin (Halfprin) 81 mg DAILY PO Last administered on 08/29/17 09:34; Admin Dose 81 MG; Start 08/25/17 at 09:00 Linagliptin (Tradjenta) 5 mg DAILY PO Last administered on 08/29/17 09:34; Admin Dose 5 MG; Start 08/26/17 at 12:30 Miscellaneous Information 1 ea NOTE XX ; Start 08/26/17 at 12:30 Glucose (Glutose) 15 gm Q15M PRN PO DECREASED GLUCOSE; Start 08/26/17 at 12:30 Glucose (Glutose) 22.5 gm Q15M PRN PO DECREASED GLUCOSE; Start 08/26/17 at 12: 30 Dextrose (D50w Syringe) 25 ml Q15M PRN IV DECREASED GLUCOSE; Start 08/26/17 at 12:30 Dextrose (D50w Syringe) 50 ml Q15M PRN IV DECREASED GLUCOSE; Start 08/26/17 at 12:30 Glucagon (Glucagen) 1 mg Q15M PRN IM DECREASED GLUCOSE; Start 08/26/17 at 12: 30 Glucose (Glutose) 15 gm Q15M PRN BUCCAL DECREASED GLUCOSE; Start 08/26/17 at 12:30 Levetiracetam (Keppra) 1,000 mg BID PO Last administered on 08/29/17 09:33; Admin Dose 1,000 MG; Start 08/26/17 at 21:00 Pantoprazole (Protonix Tab) 40 mg DAILY@06 PO Last administered on 08/29/17 05:23; Admin Dose 40 MG; Start 08/27/17 at 06:00 Insulin Aspart NOVOLOG *MILD* ALGORITHM AM SC ; Start 08/29/17 at 09:00 Dextrose/Sodium Chloride (D5-1/4ns) 1,000 ml @ 100 mls/hr Q10H IV Last administered on 08/29/17 03:42; Admin Dose 100 MLS/HR; Start 08/28/17 at 17: 00 Tramadol HCl (Ultram) 50 mg Q8 PRN PO PAIN Last administered on 08/28/17 22: 40; Admin Dose 50 MG; Start 08/28/17 at 22:30 Assessment/Plan Chief Complaint/Hosp Course Patient is an 86-year-old male with past medical history of cognitive impairment , hypertension, seizure disorder and a recent admission to [facility]. He was brought into emergency room following found to be confused, he was also noted to have left-sided weakness, arm is worse than the leg. His initial blood pressure was found to be 170/80. He also was seen to be having an episode of seizure-like activity mainly in the left leg. He was admitted for further evaluation. CT scan of the brain showed moderate intracranial atherosclerosis and chronic small vessel ischemic changes, small old lacunar infarct in the left caudate head, mild to moderate generalized cerebral volume loss, nothing acute. 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 EEG is abnormal showing bihemispheric intermittent epileptiform activity without physically seizure activity compatible with nonconvulsive status epilepticus. MR venogram was normal. Recommendations: neuro checks q4h seizure precautions continue Keppra 1 g BID continue aspirin and statin LDL 104: increase statin to Lipitor 40 mg qhs carotid US no stenosis tele monitoring for afib DVT ppx PT/OT/Speech fu ARU vs. SNF may fu with neurology as outpatient Problems: ROULA BARRIENTOS MD Aug 29, 2017 11:03
--- NOTE | 2017-08-29 18:43 | PN ---
Date/Time of Note Date/Time of Note DATE: 08/29/17 TIME: 18:41 Assessment/Plan VTE Prophylaxis VTE Prophylaxis Intervention: anti-embolic stocking Lines/Catheters IV Catheter Type (from Nrs): Peripheral IV Urinary Cath still in place: No Assessment/Plan Problems: (1) Non-convulsive status epilepticus Status: Acute Comment: Patient is now on antiepileptic medications. Neurology is assisting in guiding us in this situation. As per the nurse the patient is appropriate for evaluation for acute rehabilitation unit versus [facility] facility for rehabilitation care (2) Mild cognitive impairment Status: Chronic Comment: Noted. 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 transplanted heart: [place] heart Qualified Code: I25.10 - Atherosclerosis of [place] coronary artery of [place] heart without angina pectoris (6) Hyperlipidemia Status: Chronic Comment: Continue with statin therapy Qualifiers: Hyperlipidemia type: pure hypercholesterolemia Qualified Code: E78.00 - Pure hypercholesterolemia Subjective 24 Hr Interval Summary Free Text/Dictation Patient sleeping in bed easily awakened Constitutional: no complaints Respiratory: no complaints Cardiovascular: no complaints Gastrointestinal: no complaints Genitourinary: no complaints Exam/Review of Systems Vital Signs Vitals Vital Signs Date Time Temp Pulse Resp B/P Pulse Ox O2 Delivery O2 Flow Rate FiO2 08/29/17 16:10 67 08/29/17 15:47 97.6 16 97/54 100 08/29/17 08:21 Nasal Cannula 2.0 Intake and Output 08/28/17 08/28/17 08/29/17 14:59 22:59 06:59 Intake Total 480 ml 120 ml Balance 480 ml 120 ml Exam Constitutional: alert, oriented Respiratory: clear to auscultation, normal air movement Cardiovascular: nl pulses, regular rate and rhythm Results Result Diagram: 08/29/17 0648 08/29/17 0649 Results 24 hrs Laboratory Tests Test 08/29/17 06:48 08/29/17 06:49 08/29/17 12:47 White Blood Count 6.3 # Red Blood Count 3.54 L Hemoglobin 11.5 L Hematocrit 33.8 L Mean Corpuscular Volume 95.5 Mean Corpuscular Hemoglobin 32.5 Mean Corpuscular Hemoglobin Concent 34.0 Red Cell Distribution Width 12.9 Platelet Count 161 # Mean Platelet Volume 10.0 Neutrophils % 82.2 H Lymphocytes % 8.8 L Monocytes % 7.3 Eosinophils % 0.6 Basophils % 0.3 Nucleated Red Blood Cells % 0.0 Neutrophils # 5.1 Lymphocytes # 0.6 L Monocytes # 0.5 Eosinophils # 0.0 Basophils # 0.0 Nucleated Red Blood Cells # 0.0 Sodium Level 138 Potassium Level 3.9 Chloride Level 102 Carbon Dioxide Level 27 Anion Gap 13 Blood Urea Nitrogen 34 H Creatinine 1.16 Glucose Level 220 Calcium Level 9.2 Triglycerides Level 102 Cholesterol Level 166 LDL Cholesterol, Calculated 104 HDL Cholesterol 42 Cholesterol/HDL Ratio 3.9 Bedside Glucose 174 Medications Medications Current Medications Latanoprost (Xalatan) 1 drop QHS BOTH EYES Last administered on 08/28/17 20: 48; Admin Dose 1 DROP; Start 08/24/17 at 21:00 Losartan Potassium (Cozaar) 50 mg DAILY PO Last administered on 08/29/17 09: 34; Admin Dose 50 MG; Start 08/24/17 at 09:00 Metoprolol Succinate (Toprol Xl) 50 mg DAILY PO Last administered on 09:35; Admin Dose 50 MG; Start 08/24/17 at 09:00 Spironolactone (Aldactone) 12.5 mg DAILY PO Last administered on 08/29/17 09: 33; Admin Dose 12.5 MG; Start 08/24/17 at 09:00 Magnesium Hydroxide (Milk Of Mag) 30 ml DAILY PRN PO CONSTIPATION; Start 08/24 at 00:00 Hydralazine HCl (Apresoline) 10 mg Q8H PRN IV ELEVATED SYSTOLIC BP Last administered on 08/29/17 00:12; Admin Dose 10 MG; Start 08/24/17 at 05:30 Aspirin (Halfprin) 81 mg DAILY PO Last administered on 08/29/17 09:34; Admin Dose 81 MG; Start 08/25/17 at 09:00 Linagliptin (Tradjenta) 5 mg DAILY PO Last administered on 08/29/17 09:34; Admin Dose 5 MG; Start 08/26/17 at 12:30 Miscellaneous Information 1 ea NOTE XX ; Start 08/26/17 at 12:30 Glucose (Glutose) 15 gm Q15M PRN PO DECREASED GLUCOSE; Start 08/26/17 at 12:30 Glucose (Glutose) 22.5 gm Q15M PRN PO DECREASED GLUCOSE; Start 08/26/17 at 12: 30 Dextrose (D50w Syringe) 25 ml Q15M PRN IV DECREASED GLUCOSE; Start 08/26/17 at 12:30 Dextrose (D50w Syringe) 50 ml Q15M PRN IV DECREASED GLUCOSE; Start 08/26/17 at 12:30 Glucagon (Glucagen) 1 mg Q15M PRN IM DECREASED GLUCOSE; Start 08/26/17 at 12: 30 Glucose (Glutose) 15 gm Q15M PRN BUCCAL DECREASED GLUCOSE; Start 08/26/17 at 12:30 Levetiracetam (Keppra) 1,000 mg BID PO Last administered on 08/29/17 09:33; Admin Dose 1,000 MG; Start 08/26/17 at 21:00 Pantoprazole (Protonix Tab) 40 mg DAILY@06 PO Last administered on 08/29/17 05:23; Admin Dose 40 MG; Start 08/27/17 at 06:00 Insulin Aspart NOVOLOG *MILD* ALGORITHM AM SC ; Start 08/29/17 at 09:00 Dextrose/Sodium Chloride (D5-1/4ns) 1,000 ml @ 100 mls/hr Q10H IV Last administered on 08/29/17 12:48; Admin Dose 100 MLS/HR; Start 08/28/17 at 17: 00 Tramadol HCl (Ultram) 50 mg Q8 PRN PO PAIN Last administered on 08/28/17 22: 40; Admin Dose 50 MG; Start 08/28/17 at 22:30 Atorvastatin Calcium (Lipitor) 40 mg QHS PO ; Start 08/29/17 at 21:00 LEONELA PEREYRA MD Aug 29, 2017 18:43
[2017-08-29] MEDS: LATANOPROST 0.005% 2.5 ML OPH BOTH EYES SCH (20:47)
[2017-08-29] MEDS ORDERED: ATORVASTATIN 20 MG TAB PO SCH (21:00)
[2017-08-30] VITALS (10 sets, daily range): BP systolic 110–145; BP diastolic 53–76; PULSE 66–82; RESP 16–20
[2017-08-30] MEDS: ALBUTEROL/IPRATROPIUM (NEB) 3 ML AMP HHN SCH ×3 (01:26→13:47)
[2017-08-30] MEDS: PANTOPRAZOLE (EC) 40 MG TAB PO SCH (06:32)
[2017-08-30] MEDS: LEVETIRACETAM 500 MG TAB PO SCH (08:29)
[2017-08-30] MEDS: LOSARTAN 50 MG TAB PO SCH (08:29)
[2017-08-30] MEDS: SPIRONOLACTONE 25 MG TAB PO SCH (08:30)
[2017-08-30] MEDS: LINAGLIPTIN 5 MG TABLET PO SCH (08:30)
[2017-08-30] MEDS: ASPIRIN (EC) 81 MG TAB PO SCH (08:31)
[2017-08-30] MEDS: METOPROLOL (XL) 50 MG TAB PO SCH (08:32)
[2017-08-30] MEDS: INSULIN ASPART [NOVOLOG] 3 ML PEN SC SCH (08:35)
[2017-08-30] MEDS: DEXTROSE 5%-0.225% NACL 1,000 ML IV SCH (09:00)
--- NOTE | 2017-08-30 17:37 | PN ---
Date/Time of Note Date/Time of Note DATE: 08/30/17 TIME: 17:33 Assessment/Plan VTE Prophylaxis VTE Prophylaxis Intervention: other (asa) Lines/Catheters IV Catheter Type (from Nrsg): Peripheral IV Urinary Cath still in place: No Subjective 24 Hr Interval Summary Free Text/Dictation rt post cva with left sided weakness, left visual neglect, did get up with p.t. has been accepted to [facility], will transfer this flores, to continue meds, may be able to get off ivs and therefore novolog coverage talkative, understands situation, tho has chronic confusion lungs clear, hr ok no edema Neurologic: focal-weakness Exam/Review of Systems Vital Signs Vitals Vital Signs Date Time Temp Pulse Resp B/P Pulse Ox O2 Delivery O2 Flow Rate FiO2 08/30/17 17:03 98.1 74 18 117/55 100 08/30/17 10:23 Nasal Cannula 2.0 Intake and Output 08/29/17 08/29/17 08/30/17 15:00 23:00 07:00 Intake Total 360 ml 200 ml Balance 360 ml 200 ml Results Result Diagram: 08/29/17 0648 08/29/17 0649 Results 24 hrs Laboratory Tests Test 08/30/17 07:58 Bedside Glucose 143 Medications Medications Current Medications Latanoprost (Xalatan) 1 drop QHS BOTH EYES Last administered on 08/29/17 20: 47; Admin Dose 1 DROP; Start 08/24/17 at 21:00 Losartan Potassium (Cozaar) 50 mg DAILY PO Last administered on 08/30/17 08: 29; Admin Dose 50 MG; Start 08/24/17 at 09:00 Metoprolol Succinate (Toprol Xl) 50 mg DAILY PO Last administered on 08:32; Admin Dose 50 MG; Start 08/24/17 at 09:00 Spironolactone (Aldactone) 12.5 mg DAILY PO Last administered on 08/30/17 08: 30; Admin Dose 12.5 MG; Start 08/24/17 at 09:00 Magnesium Hydroxide (Milk Of Mag) 30 ml DAILY PRN PO CONSTIPATION Last administered on 08/29/17 20:46; Admin Dose 30 ML; Start 08/24/17 at 00:00 Hydralazine HCl (Apresoline) 10 mg Q8H PRN IV ELEVATED SYSTOLIC BP Last administered on 08/29/17 00:12; Admin Dose 10 MG; Start 08/24/17 at 05:30 Aspirin (Halfprin) 81 mg DAILY PO Last administered on 08/30/17 08:31; Admin Dose 81 MG; Start 08/25/17 at 09:00 Linagliptin (Tradjenta) 5 mg DAILY PO Last administered on 08/30/17 08:30; Admin Dose 5 MG; Start 08/26/17 at 12:30 Miscellaneous Information 1 ea NOTE XX ; Start 08/26/17 at 12:30 Glucose (Glutose) 15 gm Q15M PRN PO DECREASED GLUCOSE; Start 08/26/17 at 12:30 Glucose (Glutose) 22.5 gm Q15M PRN PO DECREASED GLUCOSE; Start 08/26/17 at 12: 30 Dextrose (D50w Syringe) 25 ml Q15M PRN IV DECREASED GLUCOSE; Start 08/26/17 at 12:30 Dextrose (D50w Syringe) 50 ml Q15M PRN IV DECREASED GLUCOSE; Start 08/26/17 at 12:30 Glucagon (Glucagen) 1 mg Q15M PRN IM DECREASED GLUCOSE; Start 08/26/17 at 12: 30 Glucose (Glutose) 15 gm Q15M PRN BUCCAL DECREASED GLUCOSE; Start 08/26/17 at 12:30 Levetiracetam (Keppra) 1,000 mg BID PO Last administered on 08/30/17 08:29; Admin Dose 1,000 MG; Start 08/26/17 at 21:00 Pantoprazole (Protonix Tab) 40 mg DAILY@06 PO Last administered on 08/30/17 06:32; Admin Dose 40 MG; Start 08/27/17 at 06:00 Insulin Aspart NOVOLOG *MILD* ALGORITHM AM SC Last administered on 08/30/17 08:35; Admin Dose 1 UNIT; Start 08/29/17 at 09:00 Dextrose/Sodium Chloride (D5-1/4ns) 1,000 ml @ 100 mls/hr Q10H IV Last administered on 08/30/17 09:00; Admin Dose 100 MLS/HR; Start 08/28/17 at 17: 00 Tramadol HCl (Ultram) 50 mg Q8 PRN PO PAIN Last administered on 08/28/17 22: 40; Admin Dose 50 MG; Start 08/28/17 at 22:30 Atorvastatin Calcium (Lipitor) 40 mg QHS PO Last administered on 08/29/17 20: 46; Admin Dose 40 MG; Start 08/29/17 at 21:00 JAJA ORO MD Aug 30, 2017 17:37
--- NOTE | 2017-08-31 06:21 | DS ---
DATE OF ADMISSION: 08/23/2017 DATE OF DISCHARGE: 08/30/2017 CHIEF COMPLAINT: Stroke and seizures. FINAL DIAGNOSES: 1. 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 2. Seizure disorder. 3. History of hypertension. 4. History of dementia. 5. Hyperlipidemia. HOSPITAL COURSE: This is an 86-year-old man who has been living at home, was somewhat confuse d but ambulating and nonfocal. Did not wake up for breakfast, found by his to be in bed poorly responsive with left-sided weakness. news director were called, he was ultimately transferred to [facility] beyond the usual window for intervention. The time of his stroke is unclear. The patient 's initial CT was unremarkable for bleeding. On my visit to the ER, he had complete flaccid paresis of the left arm. His left leg was seizing with a regular tonic-clonic rhythm, although the patient was awake and talkative. He did have left-sided visual neglect. There were no pupillary changes. The patient was admitted to the hospital and placed on aspirin and seen by a neurologist. Olga holloway as added to the program. His usual medications were continued. His blood pressure ultimately impro casey over time since then. His seizures have stopped although and an EEG did show some persistent se izure disorder in the awake state. His MRI shows large posterior defect consistent with his finding s. The patient over the last several days has been able to get up tentatively with physical therapy . Today, he tolerated bed exercise and mobility and transfers skills. He was able to get up as wel l with max assist. The patient has been accepted by acute rehab and will be transferred there [facility] this evening for ongoing care. USUAL MEDICATIONS: Will be continued: 1. 81 mg Aspirin. 2. Atorvastatin. 3. Eyedrops for glaucoma. 4. Keppra. 5. Tradjenta. 6. Losartan. 7. Metoprolol. 8. He gets fingerstick blood sugar once daily. He is on a mild sliding scale of NovoLog. His bloo d sugars should improve off the IV antibiotics. 9. He is also on pantoprazole. 10. Spironolactone. 11. Tramadol. FINAL DIAGNOSES: 1. Cerebrovascular accident, right posterior circulation with left-sided weakness and left-sided vi sual neglect. 2. Dementia. 3. Hypertension. 4. Mild diabetes. Dictated By: JAJA ORO MD, SR/LUH Conf#: [id number] DID#: [id number]
== END 2017-08-30 20:30 | DRG 64 ==
LOC: E/R 12:51 → MS4 14:09
PROVIDERS: ADMIT Internal Medicine; ATTEND Internal Medicine
PROC: 4A00X4Z Measurement of Central Nervous Electrical Activity, External Approach (ICD-10-PCS; principal; 2017-08-25)
DX: I63.9 Cerebral infarction, unspecified (principal); G93.40 Encephalopathy, unspecified; G81.94 Hemiplegia, unspecified affecting left nondominant side; G30.9 Alzheimer's disease, unspecified; H53.47 Heteronymous bilateral field defects; F02.80 Dementia in other diseases classified elsewhere, unspecified severity, without behavioral disturbance, psychotic disturbance, mood disturbance, and anxiety; I10 Essential (primary) hypertension; H40.9 Unspecified glaucoma; G40.901 Epilepsy, unspecified, not intractable, with status epilepticus; I25.10 Atherosclerotic heart disease of native coronary artery without angina pectoris; E11.9 Type 2 diabetes mellitus without complications; E78.5 Hyperlipidemia, unspecified; Z95.1 Presence of aortocoronary bypass graft
CPT/HCPCS: 70450; 70551; 70553; 71010; 80048; 80053; 80061; 80307; 81003; 82962; 83036; 84443; 84484; 85025; 85610; 85651; 85730; 90686; 92523; 92526; 92610; 93005; 93306; 93880; 94640; 94664; 95819; 96374; 96375; 97110; 97116; 97162; 97167; 97530; C9113; J0360; J1815; J1953; J2060; J3480

== ENCOUNTER 2017-08-30 17:49 | Inpatient (IN) | payer MEDICARE, BC ==
[~2017-08-30] VITALS: Ht 175.3 cm; Wt 61.7 kg
[~2017-08-30 17:49] MED LIST changes: +ATOR20TA38 PO; -LACHYD12 TOP; +LEVE-5 PO; +LOSA50TA6 PO; +SPIR25TA PO
[2017-08-30 20:00] VITALS: Ht 175.3 cm; Wt 61.7 kg
[2017-08-30 20:15] VITALS: BP 134/70; PULSE 74; RESP 16
[2017-08-30] MEDS ORDERED: GLUCAGON 1 MG INJ IM PRN (22:00)
[2017-08-30] MEDS ORDERED: NACL 0.9% 3 ML SYG IV SCH (22:00)
[2017-08-30] MEDS ORDERED: GLUCOSE GEL 15 GRAM TUBE PO PRN ×2 (22:00)
[2017-08-30] MEDS ORDERED: MAGNESIUM HYDROXIDE 30ML CUP PO PRN (22:00)
[2017-08-30] MEDS ORDERED: DEXTROSE 50% 50 ML SYRINGE IV PRN ×2 (22:00)
[2017-08-30] MEDS ORDERED: GLUCOSE GEL 15 GRAM TUBE BUCCAL PRN (22:00)
[2017-08-30] MEDS: LATANOPROST 0.005% 2.5 ML OPH BOTH EYES SCH (23:02)
[2017-08-30] MEDS: ATORVASTATIN 40 MG TAB PO SCH (23:04)
[2017-08-30] MEDS: DEXTROSE 5%-0.225% NACL 1,000 ML IV SCH (23:04)
[2017-08-30] MEDS: LEVETIRACETAM 500 MG TAB PO SCH (23:04)
[2017-08-30] MEDS: traMADol 50 MG TAB PO PRN (23:05)
[2017-08-31 00:11] LABS: ADD UMIC NO; UR ASCORBIC ACID NEGATIVE (NEGATIVE); UR BILIRUBIN (Dip) NEGATIVE (NEGATIVE); UR BLOOD (Dip) NEGATIVE (NEGATIVE); UR CLARITY CLEAR (CLEAR); UR COLOR STRAW (YELLOW); UR GLUCOSE (Dip) NEGATIVE (NEGATIVE); UR KETONES (Dip) NEGATIVE (NEGATIVE); UR LEUKOCYTE ESTERASE (Dip) NEGATIVE Leu/ul (NEGATIVE); UR NITRITE (Dip) NEGATIVE (NEGATIVE); UR SPECIFIC GRAVITY (Dip) 1.005 (1.003-1.030); UR TOTAL PROTEIN (Dip) NEGATIVE (NEGATIVE); UR UROBILINOGEN (Dip) NEGATIVE (NEGATIVE)
[2017-08-31] MEDS: ALBUTEROL/IPRATROPIUM (NEB) 3 ML AMP HHN SCH ×4 (01:40→20:01)
[2017-08-31 02:00] VITALS: BP 142/72; PULSE 68; RESP 16
[2017-08-31] MEDS ORDERED: BISACODYL 10 MG SUPP PR PRN (04:00)
[2017-08-31] MEDS ORDERED: LACTULOSE 30ML CUP PO PRN (04:00)
[2017-08-31] MEDS: PANTOPRAZOLE (EC) 40 MG TAB PO SCH (05:39)
[2017-08-31] MEDS: ACETAMINOPHEN 325 MG TAB PO PRN (05:39)
[2017-08-31 07:30] LABS: BASOPHILS % 0.8 % (0.0-2.0); EOSINOPHILS # 0.2 10^3/ul (0.0-0.5); EOSINOPHILS % 3.9 % (0.0-7.0); HEMATOCRIT 35.4 % (42.0-52.0); HEMOGLOBIN 11.8 g/dl (14.0-18.0); LYMPHOCYTES # 0.9 10^3/ul (0.8-2.9); LYMPHOCYTES % 22.4 % (15.0-51.0); MEAN CORPUSCULAR HEMOGLOBIN 32.2 pg (29.0-33.0); MEAN CORPUSCULAR HGB CONC 33.3 g/dl (32.0-37.0); MEAN CORPUSCULAR VOLUME 96.7 fl (82.0-101.0); MEAN PLATELET VOLUME 9.7 fl (7.4-10.4); MONOCYTE # 0.4 10^3/ul (0.3-0.9); MONOCYTES % 10.7 % (0.0-11.0); NEUTROPHIL # 2.3 10^3/ul (1.6-7.5); NEUTROPHILS % 60.1 % (39.0-77.0); PLATELET COUNT 187 10^3/UL (140-415); RED BLOOD COUNT 3.66 10^6/ul (4.70-6.10); RED CELL DISTRIBUTION WIDTH 12.9 % (11.5-14.5); WHITE BLOOD COUNT 3.8 10^3/ul (4.8-10.8)
[2017-08-31] MEDS: Insulin NOVOLOG SS MILD Algorithm (SS with meals and bedtime) SC SCH (07:35)
[2017-08-31 08:00] VITALS: BP 156/74; PULSE 65; RESP 18
[2017-08-31 08:07] LABS: ALBUMIN 3.4 g/dl (3.3-4.9); ALBUMIN/GLOBULIN RATIO 1.06; BILIRUBIN,INDIRECT 0.3 mg/dl (0-1.1); BILIRUBIN,TOTAL 0.3 mg/dl (0.2-1.3); CALCIUM 8.8 mg/dl (8.4-10.2); CREATININE 1.05 mg/dl (0.61-1.24); POTASSIUM 3.7 mmol/L (3.5-5.1); TOTAL PROTEIN 6.6 g/dl (6.1-8.1)
[2017-08-31] MEDS: DOCUSATE SODIUM 100 MG CAP PO SCH ×2 (09:00→21:31)
[2017-08-31] MEDS: LEVETIRACETAM 500 MG TAB PO SCH ×2 (09:06→21:31)
[2017-08-31] MEDS: LINAGLIPTIN 5 MG TABLET PO SCH (09:06)
[2017-08-31] MEDS: ASPIRIN (EC) 81 MG TAB PO SCH (09:06)
[2017-08-31] MEDS: SPIRONOLACTONE 25 MG TAB PO SCH (09:07)
[2017-08-31] MEDS: LOSARTAN 50 MG TAB PO SCH (09:08)
[2017-08-31] MEDS: METOPROLOL (XL) 50 MG TAB PO SCH (09:08)
[2017-08-31] MEDS: DEXTROSE 5%-0.225% NACL 1,000 ML IV SCH ×2 (10:38→21:29)
--- NOTE | 2017-08-31 12:55 | CONS ---
DATE OF ADMISSION: 08/30/2017 DATE OF CONSULTATION: 08/31/2017 REHABILITATION POST ADMISSION PHYSICIAN EVALUATION REHABILITATION IMPAIRMENT CATEGORY: Right posterior occipital infarct cerebrovascular accident with left-sided weakness. ACTIVE COMORBIDITIES: 1. Dysphagia. 2. Seizure disorder. 3. Hypertension. 4. Coronary artery disease. 5. Hyperlipidemia. 6. Impairments in self-care, mobility and cognition. HISTORY OF PRESENT ILLNESS: The patient is an 86-year-old gentleman with a history of multiple medi fernando comorbidities including history of seizure disorder, who presented with hypertension and left-si ded weakness. Workup did include an MRI of the brain which demonstrated a right posterior temporal and occipital cortical infarct cerebrovascular accident. The patient's hospital course was also not able for significant impairments in self-care, mobility and cognition as compared to baseline, and t he patient has been cleared to transfer to the rehabilitation unit for comprehensive interdisciplina ry rehab care. FUNCTIONAL HISTORY: Prior to recent events, he was supervised for self-care tasks and mobility. Cu rrently, he requires maximal assist for self-care and mobility tasks. I have reviewed the preadmission screen and the patient's current functional status is consistent wi th the preadmission screen. SOCIAL HISTORY: The patient lives at home with family and hopes to return there upon discharge. PAST MEDICAL HISTORY: 1. Coronary artery disease with history of coronary artery bypass graft. 2. Seizure disorder. 3. Hyperlipidemia. 4. Diabetes mellitus. 5. Osteoarthritis. 6. History of cataract surgery. CURRENT MEDICATIONS: 1. Aspirin 81 mg p.o. daily. 2. Lipitor 40 mg p.o. daily. 3. Insulin sliding scale. 4. Xalatan 1 drop nightly. 5. Keppra 1000 mg b.i.d. 6. Tradjenta 5 mg p.o. daily. 7. Cozaar 50 mg p.o. daily. 8. Toprol-XL 50 mg p.o. daily. 9. Protonix 40 mg p.o. daily. 10. Aldactone 12.5 mg p.o. daily. ALLERGIES: THE PATIENT WITH NO KNOWN DRUG ALLERGIES. PHYSICAL EXAMINATION: VITAL SIGNS: The patient is currently afebrile with stable vital signs. HEENT: The oropharynx is clear. NECK: Supple. LUNGS: Clear anteriorly. CARDIAC: S1, S2. ABDOMEN: Soft, nontender, positive bowel sounds. NEUROLOGIC: He is awake and alert. He is able to follow simple 1-step commands. He does have nota ble impairments in short-term memory. He demonstrates antigravity strength in the right upper extre mity and lower extremity. He demonstrates 2/5 strength in the left lower extremity. PLAN: The patient has been admitted for comprehensive interdisciplinary acute rehab and is anticipa ayush to tolerate 3 hours of daily therapy in divided doses for at least 5/7 days a week. The treatme nt plan will include: 1. Physical therapy to focus on bed mobility, transfers, wheelchair mobility and progressive ambula tion as tolerated with the goal of having the patient reach a minimal assist at the wheelchair level and limited household ambulation. 2. Occupational therapy to focus on hygiene, grooming, dressing, bathing, and toileting activities with the goal of having the patient reach a minimal assist at the wheelchair level. 3. Speech therapy for full cognitive assessment and training in addition to family education and pa tient education for cognitive concerns. We will also focus on dysphagia management with the goal of having the patient meet nutritional needs by mouth. 4. Rehabilitation nursing for carryover of therapeutic interventions, the goal of continent of jessica l and bladder, and the goal of patient and family education with regard to the aforementioned issues . REHABILITATION BARRIER: Dysphagia. INTERVENTION FOR BARRIER: Speech therapy. ESTIMATED LENGTH OF STAY: 14 days. DISPOSITION GOAL: Home with family. I acknowledge that I performed a full physical examination on this patient within 24 hours of admiss ion to the rehabilitation unit. I believe the patient is a good candidate for comprehensive interdi sciplinary rehab care and is anticipated to make reasonable goals in a reasonable period of time as outlined above. Dictated By: BARNEY NEAL/LUH Conf#: [id number] DID#: [id number]
[2017-08-31] MEDS: SENNA TAB PO SCH (21:31)
[2017-08-31] MEDS: ATORVASTATIN 40 MG TAB PO SCH (21:31)
[2017-08-31] MEDS: traMADol 50 MG TAB PO PRN (21:32)
[2017-08-31] MEDS: LATANOPROST 0.005% 2.5 ML OPH BOTH EYES SCH (21:37)
[2017-09-01 02:00] VITALS: BP 121/52; PULSE 80; RESP 16
[2017-09-01] MEDS ORDERED: ACCUCHECK AT 2AM (Patients on SS coverage) XX SCH (02:00)
[2017-09-01] MEDS: ALBUTEROL/IPRATROPIUM (NEB) 3 ML AMP HHN SCH ×4 (02:17→20:53)
[2017-09-01] MEDS: PANTOPRAZOLE (EC) 40 MG TAB PO SCH (06:34)
[2017-09-01] MEDS: Insulin NOVOLOG SS MILD Algorithm (SS with meals and bedtime) SC SCH (07:35)
[2017-09-01 07:56] VITALS: BP 121/70; PULSE 74; RESP 18
[2017-09-01] MEDS: SPIRONOLACTONE 25 MG TAB PO SCH (08:24)
[2017-09-01] MEDS: LINAGLIPTIN 5 MG TABLET PO SCH (08:24)
[2017-09-01] MEDS: DOCUSATE SODIUM 100 MG CAP PO SCH ×2 (08:24→20:13)
[2017-09-01] MEDS: DEXTROSE 5%-0.225% NACL 1,000 ML IV SCH (08:24)
[2017-09-01] MEDS: ASPIRIN (EC) 81 MG TAB PO SCH (08:24)
[2017-09-01] MEDS: LEVETIRACETAM 500 MG TAB PO SCH ×2 (08:24→20:13)
[2017-09-01] MEDS: LOSARTAN 50 MG TAB PO SCH (08:25)
[2017-09-01] MEDS: METOPROLOL (XL) 50 MG TAB PO SCH (08:25)
[2017-09-01] MEDS: traMADol 50 MG TAB PO PRN (08:26)
[2017-09-01] MEDS ORDERED: VITAMIN A & D 5 GM OINT PACKET TOP ONE (10:35)
--- NOTE | 2017-09-01 12:19 | CONS ---
Date/Time of Note Date/Time of Note DATE: 09/01/17 TIME: 12:15 Consult Date/Type/Reason Admit Date/Time Aug 30, 2017 at 19:31 Initial Consult Date Subjective Patient comfortable Objective pulm-cta max assist transfer Vital Signs Date Time Temp Pulse Resp B/P Pulse Ox O2 Delivery O2 Flow Rate FiO2 09/01/17 11:24 2.0 09/01/17 10:57 Nasal Cannula 09/01/17 07:56 97.8 74 18 121/70 98 Intake and Output 08/31/17 08/31/17 09/01/17 15:00 23:00 07:00 Intake Total 300 ml 1240 ml 1100 ml Output Total 400 ml 500 ml Balance 300 ml 840 ml 600 ml Results/Medications Result Diagram: 08/31/17 0639 08/31/17 0639 Results 24 hrs Laboratory Tests Test 09/01/17 08:04 Bedside Glucose 138 Medications Current Medications Pantoprazole (Protonix Tab) 40 mg DAILY@06 PO Last administered on 09/01/17 06 :34; Admin Dose 40 MG; Start 08/31/17 at 06:00 Spironolactone (Aldactone) 12.5 mg DAILY PO Last administered on 09/01/17 08: 24; Admin Dose 12.5 MG; Start 08/31/17 at 09:00 Tramadol HCl (Ultram) 50 mg Q8H PRN PO PAIN Last administered on 09/01/17 08: 26; Admin Dose 50 MG; Start 08/30/17 at 22:00 Latanoprost (Xalatan) 1 drop HS BOTH EYES Last administered on 08/31/17 21:37 ; Admin Dose 1 DROP; Start 08/30/17 at 22:00 Levetiracetam (Keppra) 500 mg BID PO Last administered on 09/01/17 08:24; Admin Dose 500 MG; Start 08/30/17 at 22:00 Linagliptin (Tradjenta) 5 mg DAILY PO Last administered on 09/01/17 08:24; Admin Dose 5 MG; Start 08/31/17 at 09:00 Losartan Potassium (Cozaar) 50 mg DAILY PO Last administered on 09/01/17 08:25 ; Admin Dose 50 MG; Start 08/31/17 at 09:00 Magnesium Hydroxide (Milk Of Mag) 30 ml DAILY PRN PO CONSTIPATION; Start 08/30 at 22:00 Metoprolol Succinate (Toprol Xl) 50 mg DAILY PO Last administered on 09/01/17 08:25; Admin Dose 50 MG; Start 08/31/17 at 09:00 Miscellaneous Information 1 ea NOTE XX ; Start 08/30/17 at 22:00 Glucose (Glutose) 15 gm Q15M PRN PO DECREASED GLUCOSE; Start 08/30/17 at 22:00 Glucose (Glutose) 22.5 gm Q15M PRN PO DECREASED GLUCOSE; Start 08/30/17 at 22: 00 Dextrose (D50w Syringe) 25 ml Q15M PRN IV DECREASED GLUCOSE; Start 08/30/17 at 22:00 Dextrose (D50w Syringe) 50 ml Q15M PRN IV DECREASED GLUCOSE; Start 08/30/17 at 22:00 Glucagon (Glucagen) 1 mg Q15M PRN IM DECREASED GLUCOSE; Start 08/30/17 at 22: 00 Glucose (Glutose) 15 gm Q15M PRN BUCCAL DECREASED GLUCOSE; Start 08/30/17 at 22:00 Aspirin (Halfprin) 81 mg DAILY PO Last administered on 09/01/17 08:24; Admin Dose 81 MG; Start 08/31/17 at 09:00 Atorvastatin Calcium (Lipitor) 40 mg DAILY@21 PO Last administered on 21:31; Admin Dose 40 MG; Start 08/30/17 at 22:00 Docusate Sodium (Colace) 100 mg BID PO Last administered on 09/01/17 08:24; Admin Dose 100 MG; Start 08/31/17 at 09:00 Senna (Senokot) 1 tab HS PO Last administered on 08/31/17 21:31; Admin Dose 1 TAB; Start 08/31/17 at 21:00 Acetaminophen (Tylenol Tab) 650 mg Q4H PRN PO PAIN Last administered on 05:39; Admin Dose 650 MG; Start 08/31/17 at 04:00 Bisacodyl (Dulcolax Supp) 10 mg DAILY PRN [place] CONSTIPATION; Start 08/31/17 at 04:00 Lactulose (Enulose) 20 gm DAILY PRN PO CONSTIPATION; Start 08/31/17 at 04:00 Assessment/Plan Additional Assessment/Plan rehab- 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 Continue current rehab program Dysphagia-followed by speech, monitor for signs of aspiration Seizure disorder. Hypertension. Coronary artery disease. Hyperlipidemia. BARNEY SINGLETARY MD Sep 01, 2017 12:19
--- NOTE | 2017-09-01 14:55 | PN ---
Date/Time of Note Date/Time of Note DATE: 09/01/17 TIME: 14:53 Assessment/Plan VTE Prophylaxis VTE Prophylaxis Intervention: SCD's (asa) Lines/Catheters IV Catheter Type (from Nrsg): Peripheral IV Urinary Cath still in place: No Subjective 24 Hr Interval Summary Free Text/Dictation now in [facility] alert, speech some better, tolerating oral intake, will dc iv fluid still visual field loss left, good upper left arm strength, ?apraxia however to begin full rehab therapy lungs clear, bp ok, no seizures will follow Neurologic: focal-weakness Exam/Review of Systems Vital Signs Vitals Vital Signs Date Time Temp Pulse Resp B/P Pulse Ox O2 Delivery O2 Flow Rate FiO2 09/01/17 11:24 2.0 09/01/17 10:57 Nasal Cannula 09/01/17 07:56 97.8 74 18 121/70 98 Intake and Output 08/31/17 08/31/17 09/01/17 15:00 23:00 07:00 Intake Total 300 ml 1240 ml 1100 ml Output Total 400 ml 500 ml Balance 300 ml 840 ml 600 ml Results Result Diagram: 08/31/17 0639 08/31/17 0639 Results 24 hrs Laboratory Tests Test 09/01/17 08:04 09/01/17 12:12 Bedside Glucose 138 129 Medications Medications Current Medications Pantoprazole (Protonix Tab) 40 mg DAILY@06 PO Last administered on 09/01/17 06 :34; Admin Dose 40 MG; Start 08/31/17 at 06:00 Spironolactone (Aldactone) 12.5 mg DAILY PO Last administered on 09/01/17 08: 24; Admin Dose 12.5 MG; Start 08/31/17 at 09:00 Tramadol HCl (Ultram) 50 mg Q8H PRN PO PAIN Last administered on 09/01/17 08: 26; Admin Dose 50 MG; Start 08/30/17 at 22:00 Latanoprost (Xalatan) 1 drop HS BOTH EYES Last administered on 08/31/17 21:37 ; Admin Dose 1 DROP; Start 08/30/17 at 22:00 Levetiracetam (Keppra) 500 mg BID PO Last administered on 09/01/17 08:24; Admin Dose 500 MG; Start 08/30/17 at 22:00 Linagliptin (Tradjenta) 5 mg DAILY PO Last administered on 09/01/17 08:24; Admin Dose 5 MG; Start 08/31/17 at 09:00 Losartan Potassium (Cozaar) 50 mg DAILY PO Last administered on 09/01/17 08:25 ; Admin Dose 50 MG; Start 08/31/17 at 09:00 Magnesium Hydroxide (Milk Of Mag) 30 ml DAILY PRN PO CONSTIPATION; Start 08/30 at 22:00 Metoprolol Succinate (Toprol Xl) 50 mg DAILY PO Last administered on 09/01/17 08:25; Admin Dose 50 MG; Start 08/31/17 at 09:00 Miscellaneous Information 1 ea NOTE XX ; Start 08/30/17 at 22:00 Glucose (Glutose) 15 gm Q15M PRN PO DECREASED GLUCOSE; Start 08/30/17 at 22:00 Glucose (Glutose) 22.5 gm Q15M PRN PO DECREASED GLUCOSE; Start 08/30/17 at 22: 00 Dextrose (D50w Syringe) 25 ml Q15M PRN IV DECREASED GLUCOSE; Start 08/30/17 at 22:00 Dextrose (D50w Syringe) 50 ml Q15M PRN IV DECREASED GLUCOSE; Start 08/30/17 at 22:00 Glucagon (Glucagen) 1 mg Q15M PRN IM DECREASED GLUCOSE; Start 08/30/17 at 22: 00 Glucose (Glutose) 15 gm Q15M PRN BUCCAL DECREASED GLUCOSE; Start 08/30/17 at 22:00 Aspirin (Halfprin) 81 mg DAILY PO Last administered on 09/01/17 08:24; Admin Dose 81 MG; Start 08/31/17 at 09:00 Atorvastatin Calcium (Lipitor) 40 mg DAILY@21 PO Last administered on 21:31; Admin Dose 40 MG; Start 08/30/17 at 22:00 Docusate Sodium (Colace) 100 mg BID PO Last administered on 09/01/17 08:24; Admin Dose 100 MG; Start 08/31/17 at 09:00 Senna (Senokot) 1 tab HS PO Last administered on 08/31/17 21:31; Admin Dose 1 TAB; Start 08/31/17 at 21:00 Acetaminophen (Tylenol Tab) 650 mg Q4H PRN PO PAIN Last administered on t 05:39; Admin Dose 650 MG; Start 08/31/17 at 04:00 Bisacodyl (Dulcolax Supp) 10 mg DAILY PRN [place] CONSTIPATION; Start 08/31/17 at 04:00 Lactulose (Enulose) 20 gm DAILY PRN PO CONSTIPATION; Start 08/31/17 at 04:00 JAJA ORO MD Sep 01, 2017 14:55
[2017-09-01 16:27] VITALS: BP 91/50; RESP 15
[2017-09-01 19:31] VITALS: BP 98/58; RESP 18
[2017-09-01] MEDS: SENNA TAB PO SCH (20:13)
[2017-09-01] MEDS: ATORVASTATIN 40 MG TAB PO SCH (20:13)
[2017-09-01] MEDS: LATANOPROST 0.005% 2.5 ML OPH BOTH EYES SCH (20:13)
[2017-09-02 02:22] VITALS: BP 118/58; RESP 17
[2017-09-02] MEDS: ALBUTEROL/IPRATROPIUM (NEB) 3 ML AMP HHN SCH ×4 (02:31→21:15)
[2017-09-02] MEDS: PANTOPRAZOLE (EC) 40 MG TAB PO SCH (06:17)
[2017-09-02 07:30] VITALS: BP 119/60; RESP 20
[2017-09-02 08:00] VITALS: BP 119/60; PULSE 85
[2017-09-02] MEDS: Insulin NOVOLOG SS MILD Algorithm (SS with meals and bedtime) SC SCH (08:14)
[2017-09-02] MEDS: DOCUSATE SODIUM 100 MG CAP PO SCH ×2 (08:15→20:23)
[2017-09-02] MEDS: LEVETIRACETAM 500 MG TAB PO SCH ×2 (08:15→20:23)
[2017-09-02] MEDS: ASPIRIN (EC) 81 MG TAB PO SCH (08:15)
[2017-09-02] MEDS: METOPROLOL (XL) 50 MG TAB PO SCH (08:15)
[2017-09-02] MEDS: LINAGLIPTIN 5 MG TABLET PO SCH (08:15)
[2017-09-02] MEDS: LOSARTAN 50 MG TAB PO SCH (08:16)
[2017-09-02] MEDS: SPIRONOLACTONE 25 MG TAB PO SCH (08:16)
[2017-09-02 10:09] VITALS: BP 114/59; PULSE 81; RESP 18
[2017-09-02] MEDS: NEOMYC/POLYMYX/BACIT 30 GM OINT TOP SCH ×2 (11:00→20:24)
[2017-09-02] MEDS: ARTIFICIAL TEARS 15 ML OPH BOTH EYES SCH ×2 (11:00→20:23)
--- NOTE | 2017-09-02 11:19 | CONS ---
Date/Time of Note Date/Time of Note DATE: 09/02/17 TIME: 11:19 Consult Date/Type/Reason Admit Date/Time Aug 30, 2017 at 19:31 Subjective Comfortable Objective pulm-cta max assist Vital Signs Date Time Temp Pulse Resp B/P Pulse Ox O2 Delivery O2 Flow Rate FiO2 09/02/17 10:09 97.8 81 18 114/59 100 Nasal Cannula 2.0 09/02/17 08:31 21 Intake and Output 09/01/17 09/01/17 09/02/17 15:00 23:00 07:00 Intake Total 250 ml 850 ml Balance 250 ml 850 ml Results/Medications Result Diagram: 08/31/17 0639 08/31/17 0639 Results 24 hrs Laboratory Tests Test 09/01/17 12:12 09/02/17 07:58 Bedside Glucose 129 151 Medications Current Medications Pantoprazole (Protonix Tab) 40 mg DAILY@06 PO Last administered on 09/02/17 06 :17; Admin Dose 40 MG; Start 08/31/17 at 06:00 Spironolactone (Aldactone) 12.5 mg DAILY PO Last administered on 09/02/17 08: 16; Admin Dose 12.5 MG; Start 08/31/17 at 09:00 Tramadol HCl (Ultram) 50 mg Q8H PRN PO PAIN Last administered on 09/01/17 08: 26; Admin Dose 50 MG; Start 08/30/17 at 22:00 Latanoprost (Xalatan) 1 drop HS BOTH EYES Last administered on 09/01/17 20:13 ; Admin Dose 1 DROP; Start 08/30/17 at 22:00 Levetiracetam (Keppra) 500 mg BID PO Last administered on 09/02/17 08:15; Admin Dose 500 MG; Start 08/30/17 at 22:00 Linagliptin (Tradjenta) 5 mg DAILY PO Last administered on 09/02/17 08:15; Admin Dose 5 MG; Start 08/31/17 at 09:00 Losartan Potassium (Cozaar) 50 mg DAILY PO Last administered on 09/02/17 08:16 ; Admin Dose 50 MG; Start 08/31/17 at 09:00 Magnesium Hydroxide (Milk Of Mag) 30 ml DAILY PRN PO CONSTIPATION; Start 08/30 at 22:00 Metoprolol Succinate (Toprol Xl) 50 mg DAILY PO Last administered on 09/02/17 08:15; Admin Dose 50 MG; Start 08/31/17 at 09:00 Miscellaneous Information 1 ea NOTE XX ; Start 08/30/17 at 22:00 Glucose (Glutose) 15 gm Q15M PRN PO DECREASED GLUCOSE; Start 08/30/17 at 22:00 Glucose (Glutose) 22.5 gm Q15M PRN PO DECREASED GLUCOSE; Start 08/30/17 at 22: 00 Dextrose (D50w Syringe) 25 ml Q15M PRN IV DECREASED GLUCOSE; Start 08/30/17 at 22:00 Dextrose (D50w Syringe) 50 ml Q15M PRN IV DECREASED GLUCOSE; Start 08/30/17 at 22:00 Glucagon (Glucagen) 1 mg Q15M PRN IM DECREASED GLUCOSE; Start 08/30/17 at 22: 00 Glucose (Glutose) 15 gm Q15M PRN BUCCAL DECREASED GLUCOSE; Start 08/30/17 at 22:00 Aspirin (Halfprin) 81 mg DAILY PO Last administered on 09/02/17 08:15; Admin Dose 81 MG; Start 08/31/17 at 09:00 Atorvastatin Calcium (Lipitor) 40 mg DAILY@21 PO Last administered on 20:13; Admin Dose 40 MG; Start 08/30/17 at 22:00 Docusate Sodium (Colace) 100 mg BID PO Last administered on 09/02/17 08:15; Admin Dose 100 MG; Start 08/31/17 at 09:00 Senna (Senokot) 1 tab HS PO Last administered on 09/01/17 20:13; Admin Dose 1 TAB; Start 08/31/17 at 21:00 Acetaminophen (Tylenol Tab) 650 mg Q4H PRN PO PAIN Last administered on 05:39; Admin Dose 650 MG; Start 08/31/17 at 04:00 Bisacodyl (Dulcolax Supp) 10 mg DAILY PRN [place] CONSTIPATION; Start 08/31/17 at 04:00 Lactulose (Enulose) 20 gm DAILY PRN PO CONSTIPATION; Start 08/31/17 at 04:00 Eye Lubricant (Artificial Tears Oph) 2 drop BID BOTH EYES ; Start 12/2/17 at 11 :00 Neomycin/ Polymyxin/ Bacitracin (Neosporin Topical Oint) 1 applic BID TOP ; Start 09/02/17 at 11:00 Assessment/Plan Additional Assessment/Plan rehab- 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 Continue current therapies Dysphagia Seizure disorder. Hypertension. Coronary artery disease. Hyperlipidemia. BARNEY SINGLETARY MD Sep 02, 2017 11:19
--- NOTE | 2017-09-02 13:05 | PN ---
Date/Time of Note Date/Time of Note DATE: 09/02/17 TIME: 13:04 Assessment/Plan VTE Prophylaxis VTE Prophylaxis Intervention: anti-embolic stocking Lines/Catheters IV Catheter Type (from Nrsg): Peripheral IV Urinary Cath still in place: No Assessment/Plan Problems: (1) Seizure Status: Resolved Comment: Noted and resolved. (2) Type 2 diabetes mellitus without complications Status: Chronic Comment: Continue on treatment adequate control. (3) Essential (primary) hypertension Status: Chronic Comment: Adequate control. (4) Hyperlipidemia Status: Chronic Comment: Continue therapeutics. Qualifiers: Hyperlipidemia type: pure hypercholesterolemia Qualified Code: E78.00 - Pure hypercholesterolemia (5) Mild cognitive impairment Status: Chronic Comment: Patient is going to rehabilitation and doing fair Subjective 24 Hr Interval Summary Free Text/Dictation He is stable and starting through rehab. Constitutional: no complaints Respiratory: no complaints Cardiovascular: no complaints Exam/Review of Systems Vital Signs Vitals Vital Signs Date Time Temp Pulse Resp B/P Pulse Ox O2 Delivery O2 Flow Rate FiO2 09/02/17 10:09 97.8 81 18 114/59 100 Nasal Cannula 2.0 09/02/17 08:31 21 Intake and Output 09/01/17 09/01/17 09/02/17 15:00 23:00 07:00 Intake Total 250 ml 850 ml Balance 250 ml 850 ml Exam Constitutional: alert, oriented Neck: non-tender, supple Respiratory: clear to auscultation, normal air movement Cardiovascular: nl pulses, regular rate and rhythm Results Result Diagram: 08/31/17 0639 08/31/17 0639 Results 24 hrs Laboratory Tests Test 09/02/17 07:58 Bedside Glucose 151 Medications Medications Current Medications Pantoprazole (Protonix Tab) 40 mg DAILY@06 PO Last administered on 09/02/17 06 :17; Admin Dose 40 MG; Start 08/31/17 at 06:00 Spironolactone (Aldactone) 12.5 mg DAILY PO Last administered on 09/02/17 08: 16; Admin Dose 12.5 MG; Start 08/31/17 at 09:00 Tramadol HCl (Ultram) 50 mg Q8H PRN PO PAIN Last administered on 09/01/17 08: 26; Admin Dose 50 MG; Start 08/30/17 at 22:00 Latanoprost (Xalatan) 1 drop HS BOTH EYES Last administered on 09/01/17 20:13 ; Admin Dose 1 DROP; Start 08/30/17 at 22:00 Levetiracetam (Keppra) 500 mg BID PO Last administered on 09/02/17 08:15; Admin Dose 500 MG; Start 08/30/17 at 22:00 Linagliptin (Tradjenta) 5 mg DAILY PO Last administered on 09/02/17 08:15; Admin Dose 5 MG; Start 08/31/17 at 09:00 Losartan Potassium (Cozaar) 50 mg DAILY PO Last administered on 09/02/17 08:16 ; Admin Dose 50 MG; Start 08/31/17 at 09:00 Magnesium Hydroxide (Milk Of Mag) 30 ml DAILY PRN PO CONSTIPATION; Start 08/30 at 22:00 Metoprolol Succinate (Toprol Xl) 50 mg DAILY PO Last administered on 09/02/17 08:15; Admin Dose 50 MG; Start 08/31/17 at 09:00 Miscellaneous Information 1 ea NOTE XX ; Start 08/30/17 at 22:00 Glucose (Glutose) 15 gm Q15M PRN PO DECREASED GLUCOSE; Start 08/30/17 at 22:00 Glucose (Glutose) 22.5 gm Q15M PRN PO DECREASED GLUCOSE; Start 08/30/17 at 22: 00 Dextrose (D50w Syringe) 25 ml Q15M PRN IV DECREASED GLUCOSE; Start 08/30/17 at 22:00 Dextrose (D50w Syringe) 50 ml Q15M PRN IV DECREASED GLUCOSE; Start 08/30/17 at 22:00 Glucagon (Glucagen) 1 mg Q15M PRN IM DECREASED GLUCOSE; Start 08/30/17 at 22: 00 Glucose (Glutose) 15 gm Q15M PRN BUCCAL DECREASED GLUCOSE; Start 08/30/17 at 22:00 Aspirin (Halfprin) 81 mg DAILY PO Last administered on 09/02/17 08:15; Admin Dose 81 MG; Start 08/31/17 at 09:00 Atorvastatin Calcium (Lipitor) 40 mg DAILY@21 PO Last administered on 20:13; Admin Dose 40 MG; Start 08/30/17 at 22:00 Docusate Sodium (Colace) 100 mg BID PO Last administered on 09/02/17 08:15; Admin Dose 100 MG; Start 08/31/17 at 09:00 Senna (Senokot) 1 tab HS PO Last administered on 09/01/17 20:13; Admin Dose 1 TAB; Start 08/31/17 at 21:00 Acetaminophen (Tylenol Tab) 650 mg Q4H PRN PO PAIN Last administered on 05:39; Admin Dose 650 MG; Start 08/31/17 at 04:00 Bisacodyl (Dulcolax Supp) 10 mg DAILY PRN [place] CONSTIPATION; Start 08/31/17 at 04:00 Lactulose (Enulose) 20 gm DAILY PRN PO CONSTIPATION; Start 08/31/17 at 04:00 Eye Lubricant (Artificial Tears Oph) 2 drop BID BOTH EYES ; Start 09/02/17 at 11 :00 Neomycin/ Polymyxin/ Bacitracin (Neosporin Topical Oint) 1 applic BID TOP Last administered on 09/02/17 11:00; Admin Dose 1 APPLIC; Start 09/02/17 at 11:00 LEONELA PEREYRA MD Sep 02, 2017 13:05
[2017-09-02 14:00] VITALS: BP 124/60; RESP 20
[2017-09-02 19:29] VITALS: BP 128/67; RESP 19
[2017-09-02] MEDS: SENNA TAB PO SCH (20:23)
[2017-09-02] MEDS: ATORVASTATIN 40 MG TAB PO SCH (20:23)
[2017-09-02] MEDS: LATANOPROST 0.005% 2.5 ML OPH BOTH EYES SCH (20:28)
[2017-09-03] MEDS: ALBUTEROL/IPRATROPIUM (NEB) 3 ML AMP HHN SCH ×4 (01:34→20:45)
[2017-09-03 02:44] VITALS: BP 134/63; RESP 19
[2017-09-03] MEDS: PANTOPRAZOLE (EC) 40 MG TAB PO SCH (05:38)
[2017-09-03] MEDS: Insulin NOVOLOG SS MILD Algorithm (SS with meals and bedtime) SC SCH (07:35)
[2017-09-03] MEDS: ARTIFICIAL TEARS 15 ML OPH BOTH EYES SCH ×2 (08:05→20:44)
[2017-09-03] MEDS: DOCUSATE SODIUM 100 MG CAP PO SCH ×2 (08:05→20:44)
[2017-09-03] MEDS: SPIRONOLACTONE 25 MG TAB PO SCH (08:05)
[2017-09-03] MEDS: ASPIRIN (EC) 81 MG TAB PO SCH (08:07)
[2017-09-03] MEDS: LOSARTAN 50 MG TAB PO SCH (08:07)
[2017-09-03] MEDS: LEVETIRACETAM 500 MG TAB PO SCH ×2 (08:07→20:44)
[2017-09-03] MEDS: METOPROLOL (XL) 50 MG TAB PO SCH (08:08)
[2017-09-03] MEDS: NEOMYC/POLYMYX/BACIT 30 GM OINT TOP SCH ×2 (08:08→20:43)
[2017-09-03] MEDS: LINAGLIPTIN 5 MG TABLET PO SCH (08:08)
[2017-09-03 08:28] VITALS: BP 144/65; PULSE 81; RESP 18
--- NOTE | 2017-09-03 09:15 | PN ---
Date/Time of Note Date/Time of Note DATE: 09/03/17 TIME: 09:13 Assessment/Plan VTE Prophylaxis VTE Prophylaxis Intervention: other Lines/Catheters IV C[facility]ter Type (from [facility] Saline Lock Urinary Cath still in place: No Assessment/Plan Problems: (1) Seizure Status: Resolved Comment: No further activity. Patient is rehabilitating (2) Mild cognitive impairment Status: Chronic Comment: Noted. He has fair rehabilitation potential. 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 Constitutional: no complaints Respiratory: no complaints Cardiovascular: no complaints Gastrointestinal: no complaints Exam/Review of Systems Vital Signs Vitals Vital Signs Date Time Temp Pulse Resp B/P Pulse Ox O2 Delivery O2 Flow Rate FiO2 09/03/17 08:41 75 18 94 21 09/03/17 08:28 98.4 144/65 Room Air 09/02/17 10:09 2.0 Intake and Output 09/02/17 09/02/17 09/03/17 15:00 23:00 07:00 Intake Total 420 ml Output Total 150 ml Balance 420 ml -150 ml Exam Constitutional: alert, oriented Neck: non-tender, supple Respiratory: clear to auscultation, normal air movement Results Result Diagram: 08/31/1739 08/31/17 0639 Results 24 hrs Laboratory Tests Test 09/03/17 07:42 Bedside Glucose 121 Medications Medications Current Medications Pantoprazole (Protonix Tab) 40 mg DAILY@06 PO Last administered on 09/03/17 05 :38; Admin Dose 40 MG; Start 08/31/17 at 06:00 Spironolactone (Aldactone) 12.5 mg DAILY PO Last administered on 09/03/17 08: 05; Admin Dose 12.5 MG; Start 08/31/17 at 09:00 Tramadol HCl (Ultram) 50 mg Q8H PRN PO PAIN Last administered on 09/01/17 08: 26; Admin Dose 50 MG; Start 08/30/17 at 22:00 Latanoprost (Xalatan) 1 drop HS BOTH EYES Last administered on 09/02/17 20:28 ; Admin Dose 1 DROP; Start 08/30/17 at 22:00 Levetiracetam (Keppra) 500 mg BID PO Last administered on 09/03/17 08:07; Admin Dose 500 MG; Start 08/30/17 at 22:00 Linagliptin (Tradjenta) 5 mg DAILY PO Last administered on 09/03/17 08:08; Admin Dose 5 MG; Start 08/31/17 at 09:00 Losartan Potassium (Cozaar) 50 mg DAILY PO Last administered on 09/03/17 08:07 ; Admin Dose 50 MG; Start 08/31/17 at 09:00 Magnesium Hydroxide (Milk Of Mag) 30 ml DAILY PRN PO CONSTIPATION; Start 08/30 at 22:00 Metoprolol Succinate (Toprol Xl) 50 mg DAILY PO Last administered on 09/03/17 08:08; Admin Dose 50 MG; Start 08/31/17 at 09:00 Miscellaneous Information 1 ea NOTE XX ; Start 08/30/17 at 22:00 Glucose (Glutose) 15 gm Q15M PRN PO DECREASED GLUCOSE; Start 08/30/17 at 22:00 Glucose (Glutose) 22.5 gm Q15M PRN PO DECREASED GLUCOSE; Start 08/30/17 at 22: 00 Dextrose (D50w Syringe) 25 ml Q15M PRN IV DECREASED GLUCOSE; Start 08/30/17 at 22:00 Dextrose (D50w Syringe) 50 ml Q15M PRN IV DECREASED GLUCOSE; Start 08/30/17 at 22:00 Glucagon (Glucagen) 1 mg Q15M PRN IM DECREASED GLUCOSE; Start 08/30/17 at 22: 00 Glucose (Glutose) 15 gm Q15M PRN BUCCAL DECREASED GLUCOSE; Start 08/30/17 at 22:00 Aspirin (Halfprin) 81 mg DAILY PO Last administered on 09/03/17 08:07; Admin Dose 81 MG; Start 08/31/17 at 09:00 Atorvastatin Calcium (Lipitor) 40 mg DAILY@21 PO Last administered on 20:23; Admin Dose 40 MG; Start 08/30/17 at 22:00 Docusate Sodium (Colace) 100 mg BID PO Last administered on 09/03/17 08:05; Admin Dose 100 MG; Start 08/31/17 at 09:00 Senna (Senokot) 1 tab HS PO Last administered on 09/02/17 20:23; Admin Dose 1 TAB; Start 08/31/17 at 21:00 Acetaminophen (Tylenol Tab) 650 mg Q4H PRN PO PAIN Last administered on 05:39; Admin Dose 650 MG; Start 08/31/17 at 04:00 Bisacodyl (Dulcolax Supp) 10 mg DAILY PRN [place] CONSTIPATION; Start 08/31/17 at 04:00 Lactulose (Enulose) 20 gm DAILY PRN PO CONSTIPATION; Start 08/31/17 at 04:00 Eye Lubricant (Artificial Tears Oph) 2 drop BID BOTH EYES Last administered on 09/03/17 08:05; Admin Dose 2 DROP; Start 09/02/17 at 11:00 Neomycin/ Polymyxin/ Bacitracin (Neosporin Topical Oint) 1 applic BID TOP Last administered on 09/03/17 08:08; Admin Dose 1 APPLIC; Start 09/02/17 at 11:00 LEONELA PEREYRA MD Sep 03, 2017 09:15
[2017-09-03 20:00] VITALS: BP 130/65; RESP 18
[2017-09-03] MEDS: ATORVASTATIN 40 MG TAB PO SCH (20:44)
[2017-09-03] MEDS: LATANOPROST 0.005% 2.5 ML OPH BOTH EYES SCH (20:44)
[2017-09-03] MEDS: SENNA TAB PO SCH (20:44)
[2017-09-04] MEDS: ALBUTEROL/IPRATROPIUM (NEB) 3 ML AMP HHN SCH ×4 (01:53→20:20)
[2017-09-04 02:00] VITALS: BP 136/70; RESP 18
[2017-09-04] MEDS: PANTOPRAZOLE (EC) 40 MG TAB PO SCH (06:01)
[2017-09-04] MEDS: Insulin NOVOLOG SS MILD Algorithm (SS with meals and bedtime) SC SCH (07:35)
[2017-09-04 07:46] VITALS: BP 148/67; PULSE 63; RESP 20
[2017-09-04 08:00] VITALS: BP 148/72; RESP 18
[2017-09-04] MEDS: LINAGLIPTIN 5 MG TABLET PO SCH (08:39)
[2017-09-04] MEDS: NEOMYC/POLYMYX/BACIT 30 GM OINT TOP SCH ×2 (08:39→22:10)
[2017-09-04] MEDS: ASPIRIN (EC) 81 MG TAB PO SCH (08:40)
[2017-09-04] MEDS: LEVETIRACETAM 500 MG TAB PO SCH ×2 (08:40→22:11)
[2017-09-04] MEDS: DOCUSATE SODIUM 100 MG CAP PO SCH ×2 (08:41→22:09)
[2017-09-04] MEDS: ARTIFICIAL TEARS 15 ML OPH BOTH EYES SCH ×2 (08:41→22:09)
[2017-09-04] MEDS: SPIRONOLACTONE 25 MG TAB PO SCH (08:41)
[2017-09-04] MEDS: LOSARTAN 50 MG TAB PO SCH (08:41)
[2017-09-04] MEDS: METOPROLOL (XL) 50 MG TAB PO SCH (08:42)
--- NOTE | 2017-09-04 13:13 | CONS ---
Date/Time of Note Date/Time of Note DATE: 09/04/17 TIME: 13:13 Consult Date/Type/Reason Admit Date/Time Aug 30, 2017 at 19:31 Objective Vital Signs Date Time Temp Pulse Resp B/P Pulse Ox O2 Delivery O2 Flow Rate FiO2 09/04/17 13:03 76 20 96 21 09/04/17 08:00 97.6 148/72 09/04/17 07:46 Nasal Cannula 2.0 Intake and Output 09/03/17 09/03/17 09/04/17 15:00 23:00 07:00 Intake Total 800 ml 200 ml Output Total 1050 ml 300 ml Balance -250 ml -100 ml INTERDISCIPLINARY TEAM CONFERENCE BOWEL- Cont/incont BLADDER-Cont/incont SKIN- improving OT- DRESSING-mod/max BATHING-max TOILETING-max PT- BED MOBILITY-mod/max TRANSFERS-max AMBULATION-max/ mod 50 feet W.C. MOBILITY-max SPEECH- COGNITION- max DYPHAGIA-mech soft A/P- Interdisciplinary team conference held today. Please see interdisciplinary sheet. Working toward d.c. on 09/15 with post discharge follow up of physical therapy, occupational therapy. Results/Medications Result Diagram: 08/31/17 0639 08/31/17 0639 Results 24 hrs Laboratory Tests Test 09/04/17 07:49 Bedside Glucose 123 Medications Current Medications Pantoprazole (Protonix Tab) 40 mg DAILY@06 PO Last administered on 09/04/17 06 :01; Admin Dose 40 MG; Start 08/31/17 at 06:00 Spironolactone (Aldactone) 12.5 mg DAILY PO Last administered on 09/04/17 08: 41; Admin Dose 12.5 MG; Start 08/31/17 at 09:00 Tramadol HCl (Ultram) 50 mg Q8H PRN PO PAIN Last administered on 09/01/17 08: 26; Admin Dose 50 MG; Start 08/30/17 at 22:00 Latanoprost (Xalatan) 1 drop HS BOTH EYES Last administered on 09/03/17 20:44 ; Admin Dose 1 DROP; Start 08/30/17 at 22:00 Levetiracetam (Keppra) 500 mg BID PO Last administered on 09/04/17 08:40; Admin Dose 500 MG; Start 08/30/17 at 22:00 Linagliptin (Tradjenta) 5 mg DAILY PO Last administered on 09/04/17 08:39; Admin Dose 5 MG; Start 08/31/17 at 09:00 Losartan Potassium (Cozaar) 50 mg DAILY PO Last administered on 09/04/17 08:41 ; Admin Dose 50 MG; Start 08/31/17 at 09:00 Magnesium Hydroxide (Milk Of Mag) 30 ml DAILY PRN PO CONSTIPATION; Start 08/30 at 22:00 Metoprolol Succinate (Toprol Xl) 50 mg DAILY PO Last administered on 09/04/17 08:42; Admin Dose 50 MG; Start 08/31/17 at 09:00 Miscellaneous Information 1 ea NOTE XX ; Start 08/30/17 at 22:00 Glucose (Glutose) 15 gm Q15M PRN PO DECREASED GLUCOSE; Start 08/30/17 at 22:00 Glucose (Glutose) 22.5 gm Q15M PRN PO DECREASED GLUCOSE; Start 08/30/17 at 22: 00 Dextrose (D50w Syringe) 25 ml Q15M PRN IV DECREASED GLUCOSE; Start 08/30/17 at 22:00 Dextrose (D50w Syringe) 50 ml Q15M PRN IV DECREASED GLUCOSE; Start 08/30/17 at 22:00 Glucagon (Glucagen) 1 mg Q15M PRN IM DECREASED GLUCOSE; Start 08/30/17 at 22: 00 Glucose (Glutose) 15 gm Q15M PRN BUCCAL DECREASED GLUCOSE; Start 08/30/17 at 22:00 Aspirin (Halfprin) 81 mg DAILY PO Last administered on 09/04/17 08:40; Admin Dose 81 MG; Start 08/31/17 at 09:00 Atorvastatin Calcium (Lipitor) 40 mg DAILY@21 PO Last administered on 20:44; Admin Dose 40 MG; Start 08/30/17 at 22:00 Docusate Sodium (Colace) 100 mg BID PO Last administered on 09/04/17 08:41; Admin Dose 100 MG; Start 08/31/17 at 09:00 Senna (Senokot) 1 tab HS PO Last administered on 09/03/17 20:44; Admin Dose 1 TAB; Start 08/31/17 at 21:00 Acetaminophen (Tylenol Tab) 650 mg Q4H PRN PO PAIN Last administered on 05:39; Admin Dose 650 MG; Start 08/31/17 at 04:00 Bisacodyl (Dulcolax Supp) 10 mg DAILY PRN [place] CONSTIPATION; Start 08/31/17 at 04:00 Lactulose (Enulose) 20 gm DAILY PRN PO CONSTIPATION; Start 08/31/17 at 04:00 Eye Lubricant (Artificial Tears Oph) 2 drop BID BOTH EYES Last administered on 09/04/17 08:41; Admin Dose 2 DROP; Start 09/02/17 at 11:00 Neomycin/ Polymyxin/ Bacitracin (Neosporin Topical Oint) 1 applic BID TOP Last administered on 09/04/17 08:39; Admin Dose 1 APPLIC; Start 09/02/17 at 11:00 BARNEY SINGLETARY MD Sep 04, 2017 13:13
--- NOTE | 2017-09-04 18:07 | PN ---
Date/Time of Note Date/Time of Note DATE: 09/04/17 TIME: 18:03 Assessment/Plan VTE Prophylaxis VTE Prophylaxis Intervention: ambulation, anti-embolic stocking Lines/Catheters IV Catheter Type (from Nrsg): Saline Lock Urinary Cath still in place: No Subjective 24 Hr Interval Summary Free Text/Dictation post cva with dementia as compliation. actually doing well in rehab, some walking and participation in classes. caregiver also getting training. he is much more alert and oriented now. p.t. notes read. urine culture positive for proteus, multiply sensitive, will start amoxiciliin vs ok, lungs clear, hr ok abd soft neuro better strength, left visual neglect as expected Neurologic: focal-weakness Exam/Review of Systems Vital Signs Vitals Vital Signs Date Time Temp Pulse Resp B/P Pulse Ox O2 Delivery O2 Flow Rate FiO2 09/04/17 17:52 21 09/04/17 13:03 76 20 96 09/04/17 08:00 97.6 148/72 09/04/17 07:46 Nasal Cannula 2.0 Intake and Output 09/03/17 09/03/17 09/04/17 15:00 23:00 07:00 Intake Total 800 ml 200 ml Output Total 1050 ml 300 ml Balance -250 ml -100 ml Results Result Diagram: 08/31/1739 08/31/17 0639 Results 24 hrs Laboratory Tests Test 09/04/17 07:49 Bedside Glucose 123 Medications Medications Current Medications Pantoprazole (Protonix Tab) 40 mg DAILY@06 PO Last administered on 09/04/17 06 :01; Admin Dose 40 MG; Start 08/31/17 at 06:00 Spironolactone (Aldactone) 12.5 mg DAILY PO Last administered on 09/04/17 08: 41; Admin Dose 12.5 MG; Start 08/31/17 at 09:00 Tramadol HCl (Ultram) 50 mg Q8H PRN PO PAIN Last administered on 09/01/17 08: 26; Admin Dose 50 MG; Start 08/30/17 at 22:00 Latanoprost (Xalatan) 1 drop HS BOTH EYES Last administered on 09/03/17 20:44 ; Admin Dose 1 DROP; Start 08/30/17 at 22:00 Levetiracetam (Keppra) 500 mg BID PO Last administered on 09/04/17 08:40; Admin Dose 500 MG; Start 08/30/17 at 22:00 Linagliptin (Tradjenta) 5 mg DAILY PO Last administered on 09/04/17 08:39; Admin Dose 5 MG; Start 08/31/17 at 09:00 Losartan Potassium (Cozaar) 50 mg DAILY PO Last administered on 09/04/17 08:41 ; Admin Dose 50 MG; Start 08/31/17 at 09:00 Magnesium Hydroxide (Milk Of Mag) 30 ml DAILY PRN PO CONSTIPATION; Start 08/30 at 22:00 Metoprolol Succinate (Toprol Xl) 50 mg DAILY PO Last administered on 09/04/17 08:42; Admin Dose 50 MG; Start 08/31/17 at 09:00 Miscellaneous Information 1 ea NOTE XX ; Start 08/30/17 at 22:00 Glucose (Glutose) 15 gm Q15M PRN PO DECREASED GLUCOSE; Start 08/30/17 at 22:00 Glucose (Glutose) 22.5 gm Q15M PRN PO DECREASED GLUCOSE; Start 08/30/17 at 22: 00 Dextrose (D50w Syringe) 25 ml Q15M PRN IV DECREASED GLUCOSE; Start 08/30/17 at 22:00 Dextrose (D50w Syringe) 50 ml Q15M PRN IV DECREASED GLUCOSE; Start 08/30/17 at 22:00 Glucagon (Glucagen) 1 mg Q15M PRN IM DECREASED GLUCOSE; Start 08/30/17 at 22: 00 Glucose (Glutose) 15 gm Q15M PRN BUCCAL DECREASED GLUCOSE; Start 08/30/17 at 22:00 Aspirin (Halfprin) 81 mg DAILY PO Last administered on 09/04/17 08:40; Admin Dose 81 MG; Start 08/31/17 at 09:00 Atorvastatin Calcium (Lipitor) 40 mg DAILY@21 PO Last administered on 20:44; Admin Dose 40 MG; Start 08/30/17 at 22:00 Docusate Sodium (Colace) 100 mg BID PO Last administered on 09/04/17 08:41; Admin Dose 100 MG; Start 08/31/17 at 09:00 Senna (Senokot) 1 tab HS PO Last administered on 09/03/17 20:44; Admin Dose 1 TAB; Start 08/31/17 at 21:00 Acetaminophen (Tylenol Tab) 650 mg Q4H PRN PO PAIN Last administered on 05:39; Admin Dose 650 MG; Start 08/31/17 at 04:00 Bisacodyl (Dulcolax Supp) 10 mg DAILY PRN [place] CONSTIPATION; Start 08/31/17 at 04:00 Lactulose (Enulose) 20 gm DAILY PRN PO CONSTIPATION; Start 08/31/17 at 04:00 Eye Lubricant (Artificial Tears Oph) 2 drop BID BOTH EYES Last administered on 09/04/17 08:41; Admin Dose 2 DROP; Start 09/02/17 at 11:00 Neomycin/ Polymyxin/ Bacitracin (Neosporin Topical Oint) 1 applic BID TOP Last administered on 09/04/17 08:39; Admin Dose 1 APPLIC; Start 09/02/17 at 11:00 JAJA ORO MD Sep 04, 2017 18:07
[2017-09-04 20:00] VITALS: BP 151/93; RESP 18
[2017-09-04] MEDS: LATANOPROST 0.005% 2.5 ML OPH BOTH EYES SCH (22:09)
[2017-09-04] MEDS: AMOXICILLIN 500 MG CAP PO SCH (22:10)
[2017-09-04] MEDS: SENNA TAB PO SCH (22:11)
[2017-09-04] MEDS: ATORVASTATIN 40 MG TAB PO SCH (22:11)
[2017-09-04] MEDS: ACETAMINOPHEN 325 MG TAB PO PRN (22:15)
[2017-09-05] MEDS: ALBUTEROL/IPRATROPIUM (NEB) 3 ML AMP HHN SCH ×4 (01:06→19:56)
[2017-09-05 02:00] VITALS: BP 151/63; RESP 18
[2017-09-05] MEDS: AMOXICILLIN 500 MG CAP PO SCH ×3 (06:20→21:12)
[2017-09-05] MEDS: PANTOPRAZOLE (EC) 40 MG TAB PO SCH (06:20)
[2017-09-05 07:30] VITALS: BP 147/65; RESP 20
[2017-09-05] MEDS: Insulin NOVOLOG SS MILD Algorithm (SS with meals and bedtime) SC SCH (08:24)
[2017-09-05] MEDS: LINAGLIPTIN 5 MG TABLET PO SCH (08:25)
[2017-09-05] MEDS: ARTIFICIAL TEARS 15 ML OPH BOTH EYES SCH ×2 (08:25→20:03)
[2017-09-05] MEDS: ASPIRIN (EC) 81 MG TAB PO SCH (08:25)
[2017-09-05] MEDS: DOCUSATE SODIUM 100 MG CAP PO SCH ×2 (08:26→20:05)
[2017-09-05] MEDS: LEVETIRACETAM 500 MG TAB PO SCH ×2 (08:26→20:05)
[2017-09-05] MEDS: SPIRONOLACTONE 25 MG TAB PO SCH (08:26)
[2017-09-05] MEDS: LOSARTAN 50 MG TAB PO SCH (08:27)
[2017-09-05] MEDS: METOPROLOL (XL) 50 MG TAB PO SCH (08:27)
[2017-09-05] MEDS: NEOMYC/POLYMYX/BACIT 30 GM OINT TOP SCH ×2 (08:27→20:06)
--- NOTE | 2017-09-05 12:19 | CONS ---
Date/Time of Note Date/Time of Note DATE: 09/05/17 TIME: Consult Date/Type/Reason Admit Date/Time Aug 30, 2017 at 19:31 Subjective Up with PT today, much better Objective pulm-cta mod ambulation 75 feet Vital Signs Date Time Temp Pulse Resp B/P Pulse Ox O2 Delivery O2 Flow Rate FiO2 09/05/17 07:30 97.9 60 20 147/65 96 09/05/17 01:06 1.0 09/05/17 01:06 Nasal Cannula 09/04/17 17:52 21 Intake and Output 09/04/17 09/04/17 09/05/17 15:00 23:00 07:00 Intake Total 600 ml 200 ml Output Total 300 ml 300 ml 200 ml Balance -300 ml 300 ml 0 ml Results/Medications Results 24 hrs Laboratory Tests Test 09/05/17 08:18 09/05/17 12:13 Bedside Glucose 149 128 Medications Current Medications Pantoprazole (Protonix Tab) 40 mg DAILY@06 PO Last administered on 09/05/17 06 :20; Admin Dose 40 MG; Start 08/31/17 at 06:00 Spironolactone (Aldactone) 12.5 mg DAILY PO Last administered on 09/05/17 08: 26; Admin Dose 12.5 MG; Start 08/31/17 at 09:00 Tramadol HCl (Ultram) 50 mg Q8H PRN PO PAIN Last administered on 09/01/17 08: 26; Admin Dose 50 MG; Start 08/30/17 at 22:00 Latanoprost (Xalatan) 1 drop HS BOTH EYES Last administered on 09/04/17 22:09 ; Admin Dose 1 DROP; Start 08/30/17 at 22:00 Levetiracetam (Keppra) 500 mg BID PO Last administered on 09/05/17 08:26; Admin Dose 500 MG; Start 08/30/17 at 22:00 Linagliptin (Tradjenta) 5 mg DAILY PO Last administered on 09/05/17 08:25; Admin Dose 5 MG; Start 08/31/17 at 09:00 Losartan Potassium (Cozaar) 50 mg DAILY PO Last administered on 09/05/17 08:27 ; Admin Dose 50 MG; Start 08/31/17 at 09:00 Magnesium Hydroxide (Milk Of Mag) 30 ml DAILY PRN PO CONSTIPATION; Start 08/30 at 22:00 Metoprolol Succinate (Toprol Xl) 50 mg DAILY PO Last administered on 09/05/17 08:27; Admin Dose 50 MG; Start 08/31/17 at 09:00 Miscellaneous Information 1 ea NOTE XX ; Start 08/30/17 at 22:00 Glucose (Glutose) 15 gm Q15M PRN PO DECREASED GLUCOSE; Start 08/30/17 at 22:00 Glucose (Glutose) 22.5 gm Q15M PRN PO DECREASED GLUCOSE; Start 08/30/17 at 22: 00 Dextrose (D50w Syringe) 25 ml Q15M PRN IV DECREASED GLUCOSE; Start 08/30/17 at 22:00 Dextrose (D50w Syringe) 50 ml Q15M PRN IV DECREASED GLUCOSE; Start 08/30/17 at 22:00 Glucagon (Glucagen) 1 mg Q15M PRN IM DECREASED GLUCOSE; Start 08/30/17 at 22: 00 Glucose (Glutose) 15 gm Q15M PRN BUCC[place] DECREASED GLUCOSE; Start 08/30/17 at 22:00 Aspirin (Halfprin) 81 mg DAILY PO Last administered on 09/05/17 08:25; Admin Dose 81 MG; Start 08/31/17 at 09:00 Atorvastatin Calcium (Lipitor) 40 mg DAILY@21 PO Last administered on 22:11; Admin Dose 40 MG; Start 08/30/17 at 22:00 Docusate Sodium (Colace) 100 mg BID PO Last administered on 09/05/17 08:26; Admin Dose 100 MG; Start 08/31/17 at 09:00 Senna (Senokot) 1 tab HS PO Last administered on 09/04/17 22:11; Admin Dose 1 TAB; Start 08/31/17 at 21:00 Acetaminophen (Tylenol Tab) 650 mg Q4H PRN PO PAIN Last administered on 22:15; Admin Dose 650 MG; Start 08/31/17 at 04:00 Bisacodyl (Dulcolax Supp) 10 mg DAILY PRN [place] CONSTIPATION; Start 08/31/17 at 04:00 Lactulose (Enulose) 20 gm DAILY PRN PO CONSTIPATION; Start 08/31/17 at 04:00 Eye Lubricant (Artificial Tears Oph) 2 drop BID BOTH EYES Last administered on 09/05/17 08:25; Admin Dose 2 DROP; Start 09/02/17 at 11:00 Neomycin/ Polymyxin/ Bacitracin (Neosporin Topical Oint) 1 applic BID TOP Last administered on 09/05/17 08:27; Admin Dose 1 APPLIC; Start 09/02/17 at 11:00 Amoxicillin (Amoxicillin) 500 mg Q8 PO Last administered on 09/05/17 06:20; Admin Dose 500 MG; Start 09/04/17 at 22:00 Assessment/Plan Additional Assessment/Plan rehab- 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 Continue current rehab program, progressing well Dysphagia-continue current diet Seizure disorder. Hypertension. Coronary artery disease. Hyperlipidemia. BARNEY SINGLETARY MD Sep 05, 2017 12:19
[2017-09-05 14:00] VITALS: BP 107/51; RESP 20
[2017-09-05 20:00] VITALS: BP 134/62; RESP 18
[2017-09-05] MEDS: LATANOPROST 0.005% 2.5 ML OPH BOTH EYES SCH (20:05)
[2017-09-05] MEDS: ATORVASTATIN 40 MG TAB PO SCH (20:05)
[2017-09-05] MEDS: SENNA TAB PO SCH (20:06)
[2017-09-06] MEDS: ALBUTEROL/IPRATROPIUM (NEB) 3 ML AMP HHN SCH ×4 (01:37→19:49)
[2017-09-06 02:00] VITALS: BP 121/58; RESP 18
[2017-09-06] MEDS: AMOXICILLIN 500 MG CAP PO SCH ×3 (05:44→21:15)
[2017-09-06] MEDS: PANTOPRAZOLE (EC) 40 MG TAB PO SCH (05:44)
[2017-09-06 07:30] VITALS: BP 156/69; RESP 20
[2017-09-06] MEDS: Insulin NOVOLOG SS MILD Algorithm (SS with meals and bedtime) SC SCH (07:35)
[2017-09-06] MEDS: NEOMYC/POLYMYX/BACIT 30 GM OINT TOP SCH ×2 (08:52→20:49)
[2017-09-06] MEDS: ARTIFICIAL TEARS 15 ML OPH BOTH EYES SCH ×2 (08:53→20:48)
[2017-09-06] MEDS: DOCUSATE SODIUM 100 MG CAP PO SCH ×2 (08:53→20:49)
[2017-09-06] MEDS: ASPIRIN (EC) 81 MG TAB PO SCH (08:53)
[2017-09-06] MEDS: SPIRONOLACTONE 25 MG TAB PO SCH (08:53)
[2017-09-06] MEDS: LOSARTAN 50 MG TAB PO SCH (08:53)
[2017-09-06] MEDS: METOPROLOL (XL) 50 MG TAB PO SCH (08:54)
[2017-09-06] MEDS: LEVETIRACETAM 500 MG TAB PO SCH ×2 (08:54→20:48)
[2017-09-06] MEDS: LINAGLIPTIN 5 MG TABLET PO SCH (08:54)
--- NOTE | 2017-09-06 11:58 | CONS ---
Date/Time of Note Date/Time of Note DATE: 09/06/17 TIME: 11:58 Consult Date/Type/Reason Admit Date/Time Aug 30, 2017 at 19:31 Subjective Doing well Objective pulm-cta min/mod assist Vital Signs Date Time Temp Pulse Resp B/P Pulse Ox O2 Delivery O2 Flow Rate FiO2 09/06/17 08:39 76 18 95 Nasal Cannula 1.0 09/06/17 07:30 97.6 156/69 09/05/17 14:12 21 Intake and Output 09/05/17 09/05/17 09/06/17 15:00 23:00 07:00 Intake Total 840 ml 200 ml Output Total 250 ml Balance 590 ml 200 ml Results/Medications Results 24 hrs Laboratory Tests Test 09/05/17 12:13 09/06/17 07:55 Bedside Glucose 128 115 Medications Current Medications Pantoprazole (Protonix Tab) 40 mg DAILY@06 PO Last administered on 09/06/17 05 :44; Admin Dose 40 MG; Start 08/31/17 at 06:00 Spironolactone (Aldactone) 12.5 mg DAILY PO Last administered on 09/06/17 08: 53; Admin Dose 12.5 MG; Start 08/31/17 at 09:00 Tramadol HCl (Ultram) 50 mg Q8H PRN PO PAIN Last administered on 09/01/17 08: 26; Admin Dose 50 MG; Start 08/30/17 at 22:00 Latanoprost (Xalatan) 1 drop HS BOTH EYES Last administered on 09/05/17 20:05 ; Admin Dose 1 DROP; Start 08/30/17 at 22:00 Levetiracetam (Keppra) 500 mg BID PO Last administered on 09/06/17 08:54; Admin Dose 500 MG; Start 08/30/17 at 22:00 Linagliptin (Tradjenta) 5 mg DAILY PO Last administered on 09/06/17 08:54; Admin Dose 5 MG; Start 08/31/17 at 09:00 Losartan Potassium (Cozaar) 50 mg DAILY PO Last administered on 09/06/17 08:53 ; Admin Dose 50 MG; Start 08/31/17 at 09:00 Magnesium Hydroxide (Milk Of Mag) 30 ml DAILY PRN PO CONSTIPATION; Start 08/30 at 22:00 Metoprolol Succinate (Toprol Xl) 50 mg DAILY PO Last administered on 09/06/17 08:54; Admin Dose 50 MG; Start 08/31/17 at 09:00 Miscellaneous Information 1 ea NOTE XX ; Start 08/30/17 at 22:00 Glucose (Glutose) 15 gm Q15M PRN PO DECREASED GLUCOSE; Start 08/30/17 at 22:00 Glucose (Glutose) 22.5 gm Q15M PRN PO DECREASED GLUCOSE; Start 08/30/17 at 22: 00 Dextrose (D50w Syringe) 25 ml Q15M PRN IV DECREASED GLUCOSE; Start 08/30/17 at 22:00 Dextrose (D50w Syringe) 50 ml Q15M PRN IV DECREASED GLUCOSE; Start 08/30/17 at 22:00 Glucagon (Glucagen) 1 mg Q15M PRN IM DECREASED GLUCOSE; Start 08/30/17 at 22: 00 Glucose (Glutose) 15 gm Q15M PRN BUCCAL DECREASED GLUCOSE; Start 08/30/17 at 22:00 Aspirin (Halfprin) 81 mg DAILY PO Last administered on 09/06/17 08:53; Admin Dose 81 MG; Start 08/31/17 at 09:00 Atorvastatin Calcium (Lipitor) 40 mg DAILY@21 PO Last administered on 20:05; Admin Dose 40 MG; Start 08/30/17 at 22:00 Docusate Sodium (Colace) 100 mg BID PO Last administered on 09/06/17 08:53; Admin Dose 100 MG; Start 08/31/17 at 09:00 Senna (Senokot) 1 tab HS PO Last administered on 09/05/17 20:06; Admin Dose 1 TAB; Start 08/31/17 at 21:00 Acetaminophen (Tylenol Tab) 650 mg Q4H PRN PO PAIN Last administered on 22:15; Admin Dose 650 MG; Start 08/31/17 at 04:00 Bisacodyl (Dulcolax Supp) 10 mg DAILY PRN [place] CONSTIPATION; Start 08/31/17 at 04:00 Lactulose (Enulose) 20 gm DAILY PRN PO CONSTIPATION; Start 08/31/17 at 04:00 Eye Lubricant (Artificial Tears Oph) 2 drop BID BOTH EYES Last administered on 09/06/17 08:53; Admin Dose 2 DROP; Start 09/02/17 at 11:00 Neomycin/ Polymyxin/ Bacitracin (Neosporin Topical Oint) 1 applic BID TOP Last administered on 09/06/17 08:52; Admin Dose 1 APPLIC; Start 09/02/17 at 11:00 Amoxicillin (Amoxicillin) 500 mg Q8 PO Last administered on 09/06/17 05:44; Admin Dose 500 MG; Start 09/04/17 at 22:00 Assessment/Plan Additional Assessment/Plan rehab- 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 Progressing with current treatment plan. [employer] training in progress Dysphagia-continue current diet Seizure disorder. Hypertension. Coronary artery disease. Hyperlipidemia. BARNEY SINGLETARY MD Sep 06, 2017 11:58
[2017-09-06 14:00] VITALS: BP 88/52; RESP 20
--- NOTE | 2017-09-06 16:38 | PN ---
Date/Time of Note Date/Time of Note DATE: 09/06/17 TIME: 16:35 Assessment/Plan VTE Prophylaxis VTE Prophylaxis Intervention: ambulation (asa) Lines/Catheters IV Catheter Type (from Nrsg): Saline Lock Urinary Cath still in place: No Subjective 24 Hr Interval Summary Free Text/Dictation post cva with left sided weakness and left visual neglect....doing better daily , amb w walker and pt assist,better strength, needs lots of cueing as gets distracted or forgetful on amox for uti, no sx vs ok tho bpo occ low, may need to revisit bp meds finger stick blood sugars are ok awake, talkative lungs clear, hr ok, no edema, cant see looking to left Eyes: visual change Neurologic: focal-weakness Exam/Review of Systems Vital Signs Vitals Vital Signs Date Time Temp Pulse Resp B/P Pulse Ox O2 Delivery O2 Flow Rate FiO2 09/06/17 14:00 97.6 78 20 88/52 99 09/06/17 13:29 Nasal Cannula 1.0 09/05/17 14:12 21 Intake and Output 09/05/17 09/05/17 09/06/17 15:00 23:00 07:00 Intake Total 840 ml 200 ml Output Total 250 ml Balance 590 ml 200 ml Results Results 24 hrs Laboratory Tests Test 09/06/17 07:55 Bedside Glucose 115 Medications Medications Current Medications Pantoprazole (Protonix Tab) 40 mg DAILY@06 PO Last administered on 09/06/17 05 :44; Admin Dose 40 MG; Start 08/31/17 at 06:00 Spironolactone (Aldactone) 12.5 mg DAILY PO Last administered on 09/06/17 08: 53; Admin Dose 12.5 MG; Start 08/31/17 at 09:00 Tramadol HCl (Ultram) 50 mg Q8H PRN PO PAIN Last administered on 09/01/17 08: 26; Admin Dose 50 MG; Start 08/30/17 at 22:00 Latanoprost (Xalatan) 1 drop HS BOTH EYES Last administered on 09/05/17 20:05 ; Admin Dose 1 DROP; Start 08/30/17 at 22:00 Levetiracetam (Keppra) 500 mg BID PO Last administered on 09/06/17 08:54; Admin Dose 500 MG; Start 08/30/17 at 22:00 Linagliptin (Tradjenta) 5 mg DAILY PO Last administered on 09/06/17 08:54; Admin Dose 5 MG; Start 08/31/17 at 09:00 Losartan Potassium (Cozaar) 50 mg DAILY PO Last administered on 09/06/17 08:53 ; Admin Dose 50 MG; Start 08/31/17 at 09:00 Magnesium Hydroxide (Milk Of Mag) 30 ml DAILY PRN PO CONSTIPATION; Start 08/30 at 22:00 Metoprolol Succinate (Toprol Xl) 50 mg DAILY PO Last administered on 09/06/17 08:54; Admin Dose 50 MG; Start 08/31/17 at 09:00 Miscellaneous Information 1 ea NOTE XX ; Start 08/30/17 at 22:00 Glucose (Glutose) 15 gm Q15M PRN PO DECREASED GLUCOSE; Start 08/30/17 at 22:00 Glucose (Glutose) 22.5 gm Q15M PRN PO DECREASED GLUCOSE; Start 08/30/17 at 22: 00 Dextrose (D50w Syringe) 25 ml Q15M PRN IV DECREASED GLUCOSE; Start 08/30/17 at 22:00 Dextrose (D50w Syringe) 50 ml Q15M PRN IV DECREASED GLUCOSE; Start 08/30/17 at 22:00 Glucagon (Glucagen) 1 mg Q15M PRN IM DECREASED GLUCOSE; Start 08/30/17 at 22: 00 Glucose (Glutose) 15 gm Q15M PRN BUCCAL DECREASED GLUCOSE; Start 08/30/17 at 22:00 Aspirin (Halfprin) 81 mg DAILY PO Last administered on 09/06/17 08:53; Admin Dose 81 MG; Start 08/31/17 at 09:00 Atorvastatin Calcium (Lipitor) 40 mg DAILY@21 PO Last administered on 20:05; Admin Dose 40 MG; Start 08/30/17 at 22:00 Docusate Sodium (Colace) 100 mg BID PO Last administered on 09/06/17 08:53; Admin Dose 100 MG; Start 08/31/17 at 09:00 Senna (Senokot) 1 tab HS PO Last administered on 09/05/17 20:06; Admin Dose 1 TAB; Start 08/31/17 at 21:00 Acetaminophen (Tylenol Tab) 650 mg Q4H PRN PO PAIN Last administered on 22:15; Admin Dose 650 MG; Start 08/31/17 at 04:00 Bisacodyl (Dulcolax Supp) 10 mg DAILY PRN [place] CONSTIPATION; Start 08/31/17 at 04:00 Lactulose (Enulose) 20 gm DAILY PRN PO CONSTIPATION; Start 08/31/17 at 04:00 Eye Lubricant (Artificial Tears Oph) 2 drop BID BOTH EYES Last administered on 09/06/17 08:53; Admin Dose 2 DROP; Start 09/02/17 at 11:00 Neomycin/ Polymyxin/ Bacitracin (Neosporin Topical Oint) 1 applic BID TOP Last administered on 09/06/17 08:52; Admin Dose 1 APPLIC; Start 09/02/17 at 11:00 Amoxicillin (Amoxicillin) 500 mg Q8 PO Last administered on 09/06/17 14:28; Admin Dose 500 MG; Start 09/04/17 at 22:00 JAJA ORO MD Sep 06, 2017 16:38
[2017-09-06 20:00] VITALS: BP 149/71; RESP 18
[2017-09-06] MEDS: ATORVASTATIN 40 MG TAB PO SCH (20:48)
[2017-09-06] MEDS: LATANOPROST 0.005% 2.5 ML OPH BOTH EYES SCH (20:48)
[2017-09-06] MEDS: SENNA TAB PO SCH (20:49)
--- NOTE | 2017-09-07 01:45 | CONS ---
DATE OF ADMISSION: 08/30/2017 DATE OF CONSULTATION: 09/06/2017 TYPE OF CONSULTATION: Psychological. REFERRING PHYSICIAN: Cintia Norton MD CONSULTING PSYCHOLOGIST: Dennis Palm, PhD REASON FOR CONSULTATION: This consultation was requested by Dr. Amina Norton in order to evaluate the cognitive and emotional functioning of this patient related to his present medical condition. HISTORY OF PRESENT ILLNESS: The patient is an 86-year-old male. He has multiple medical comorbidit ies. He has dysphagia, seizure disorder, hypertension, coronary artery disease, hyperlipidemia, and impairments in self-care, mobility and cognition. The patient was admitted with a present CVA. Th e patient is motivated to get better, but is a little confused at the present time. The patient is partially aware of what was going on with him, but again with confusion, probably related to his rec ent stroke. The patient is attempting to do whatever he can to return to his previous level of func tioning. FAMILY AND SOCIAL HISTORY: The patient lives at home with his . The has a caregiver and michelle ng had a caregiver prior to entering the hospital. The caregiver's was present during the consu ltation and did say that she was going to care for him for a while because his caregiver was on ayana tion. The patient does want to return home to his previous level of functioning after discharge. MEDICATIONS: The patient is currently not on any psychotropic medications. SUBSTANCE USE: The patient reports he does not smoke. The patient reports he does not use alcohol or other drugs. MENTAL STATUS EXAMINATION: APPEARANCE: The patient was seen in his wheelchair. He is of average height and weight. He is rig ht-handed. BEHAVIOR: The patient was cooperative during the consultation. The patient did attempt to answer a ll questions presented to him by the interviewer. The patient was confused for some of the question s and had to have them repeated numerous times. MOOD AND AFFECT: The patient's mood appears to be somewhat depressed. Affect does appear to be sli ghtly anxious. PERCEPTION: The patient reports no hallucinations or delusions. The patient was alert to person, p lace, situation and time. MEMORY AND COGNITION: The patient's memory and cognition appear to be impaired. He did have some d ifficulty recalling recent and remote events. He was able to say the name of the hospital and the m ont and the year. The patient was unable to spell "world" backwards. The patient was able to do 1 serial 7 subtraction from 100, but then made an error and could not go any further. The patient wa s able to say who the President of [facility] is but could not say who the governor of the state or the mayor of the [facility] was. Overall appearance, the patient is having some cognitive difficulties , likely related to his recent stroke. The patient was able to give his date that was accurat e in regard to how old he was. INTELLIGENCE: Intelligence would appear to fall in the average range when he was functioning well. INSIGHT: Poor. JUDGMENT: Poor. THOUGHT CONTENT: The patient is concerned about his present medical condition. The patient does wa nt to return home and does want to get better. The patient does have some confusion and is not actu ally aware of how impaired he is. DISCUSSION: The patient can possibly benefit from some cognitive/behavioral psychotherapy while he is on the unit. Psychotherapy would try to help with his underlying level of confusion to help him reorient. We will also help him deal with some of his underlying issues related to his anxiety and depression. DIAGNOSTIC IMPRESSION: 1. 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 2. 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 Thank you very much, Dr. Amina Norton, for referring this individual. Please do not hesitate to ca ll if you have additional questions. Dictated By: DENNIS PALM PHD QUYEN/LUH Conf#: [id number] DID#: [id number] CC: DENNIS PALM PHD; Cintia Norton M.D.;*[facility]*
[2017-09-07 02:00] VITALS: BP 125/70; RESP 18
[2017-09-07] MEDS: ACETAMINOPHEN 325 MG TAB PO PRN (02:41)
[2017-09-07] MEDS: ALBUTEROL/IPRATROPIUM (NEB) 3 ML AMP HHN SCH ×4 (02:44→19:54)
[2017-09-07] MEDS: AMOXICILLIN 500 MG CAP PO SCH ×3 (05:13→21:29)
[2017-09-07] MEDS: PANTOPRAZOLE (EC) 40 MG TAB PO SCH (05:13)
[2017-09-07] MEDS: Insulin NOVOLOG SS MILD Algorithm (SS with meals and bedtime) SC SCH (07:35)
[2017-09-07 08:00] VITALS: BP 127/60; RESP 18
[2017-09-07] MEDS: ARTIFICIAL TEARS 15 ML OPH BOTH EYES SCH ×2 (08:52→21:30)
[2017-09-07] MEDS: LINAGLIPTIN 5 MG TABLET PO SCH (08:53)
[2017-09-07] MEDS: DOCUSATE SODIUM 100 MG CAP PO SCH ×2 (08:53→21:29)
[2017-09-07] MEDS: SPIRONOLACTONE 25 MG TAB PO SCH (08:54)
[2017-09-07] MEDS: ASPIRIN (EC) 81 MG TAB PO SCH (08:54)
[2017-09-07] MEDS: LOSARTAN 50 MG TAB PO SCH (08:57)
[2017-09-07] MEDS: METOPROLOL (XL) 50 MG TAB PO SCH (08:59)
[2017-09-07] MEDS: NEOMYC/POLYMYX/BACIT 30 GM OINT TOP SCH ×2 (08:59→21:30)
[2017-09-07] MEDS: LEVETIRACETAM 500 MG TAB PO SCH ×2 (09:14→21:30)
[2017-09-07] MEDS: traMADol 50 MG TAB PO PRN (09:14)
--- NOTE | 2017-09-07 10:49 | CONS ---
Date/Time of Note Date/Time of Note DATE: 09/07/17 TIME: 10:48 Consult Date/Type/Reason Admit Date/Time Aug 30, 2017 at 19:31 Subjective Overall improved Objective pulm-cta min assist amb 100 feet Vital Signs Date Time Temp Pulse Resp B/P Pulse Ox O2 Delivery O2 Flow Rate FiO2 09/07/17 07:59 2.0 09/07/17 02:45 71 20 Nasal Cannula 09/07/17 02:00 98.2 125/70 95 09/05/17 14:12 21 Intake and Output 09/06/17 09/06/17 09/07/17 14:59 22:59 06:59 Intake Total 420 ml 800 ml Output Total 250 ml Balance 420 ml 550 ml Results/Medications Results 24 hrs Laboratory Tests Test 09/07/17 07:51 Bedside Glucose 135 Medications Current Medications Pantoprazole (Protonix Tab) 40 mg DAILY@06 PO Last administered on 09/07/17 05 :13; Admin Dose 40 MG; Start 08/31/17 at 06:00 Spironolactone (Aldactone) 12.5 mg DAILY PO Last administered on 09/07/17 08: 54; Admin Dose 12.5 MG; Start 08/31/17 at 09:00 Tramadol HCl (Ultram) 50 mg Q8H PRN PO PAIN Last administered on 09/07/17 09: 14; Admin Dose 50 MG; Start 08/30/17 at 22:00 Latanoprost (Xalatan) 1 drop HS BOTH EYES Last administered on 09/06/17 20:48 ; Admin Dose 1 DROP; Start 08/30/17 at 22:00 Levetiracetam (Keppra) 500 mg BID PO Last administered on 09/07/17 09:14; Admin Dose 500 MG; Start 08/30/17 at 22:00 Linagliptin (Tradjenta) 5 mg DAILY PO Last administered on 09/07/17 08:53; Admin Dose 5 MG; Start 08/31/17 at 09:00 Losartan Potassium (Cozaar) 50 mg DAILY PO Last administered on 09/06/17 08:53 ; Admin Dose 50 MG; Start 08/31/17 at 09:00 Magnesium Hydroxide (Milk Of Mag) 30 ml DAILY PRN PO CONSTIPATION; Start 08/30 at 22:00 Metoprolol Succinate (Toprol Xl) 50 mg DAILY PO Last administered on 09/06/17 08:54; Admin Dose 50 MG; Start 08/31/17 at 09:00 Miscellaneous Information 1 ea NOTE XX ; Start 08/30/17 at 22:00 Glucose (Glutose) 15 gm Q15M PRN PO DECREASED GLUCOSE; Start 08/30/17 at 22:00 Glucose (Glutose) 22.5 gm Q15M PRN PO DECREASED GLUCOSE; Start 08/30/17 at 22: 00 Dextrose (D50w Syringe) 25 ml Q15M PRN IV DECREASED GLUCOSE; Start 08/30/17 at 22:00 Dextrose (D50w Syringe) 50 ml Q15M PRN IV DECREASED GLUCOSE; Start 08/30/17 at 22:00 Glucagon (Glucagen) 1 mg Q15M PRN IM DECREASED GLUCOSE; Start 08/30/17 at 22: 00 Glucose (Glutose) 15 gm Q15M PRN BUCCAL DECREASED GLUCOSE; Start 08/30/17 at 22:00 Aspirin (Halfprin) 81 mg DAILY PO Last administered on 09/07/17 08:54; Admin Dose 81 MG; Start 08/31/17 at 09:00 Atorvastatin Calcium (Lipitor) 40 mg DAILY@21 PO Last administered on 20:48; Admin Dose 40 MG; Start 08/30/17 at 22:00 Docusate Sodium (Colace) 100 mg BID PO Last administered on 09/07/17 08:53; Admin Dose 100 MG; Start 08/31/17 at 09:00 Senna (Senokot) 1 tab HS PO Last administered on 09/06/17 20:49; Admin Dose 1 TAB; Start 08/31/17 at 21:00 Acetaminophen (Tylenol Tab) 650 mg Q4H PRN PO PAIN Last administered on 02:41; Admin Dose 650 MG; Start 08/31/17 at 04:00 Bisacodyl (Dulcolax Supp) 10 mg DAILY PRN [place] CONSTIPATION; Start 08/31/17 at 04:00 Lactulose (Enulose) 20 gm DAILY PRN PO CONSTIPATION; Start 08/31/17 at 04:00 Eye Lubricant (Artificial Tears Oph) 2 drop BID BOTH EYES Last administered on 12/7/17at 08:52; Admin Dose 2 DROP; Start 09/02/17 at 11:00 Neomycin/ Polymyxin/ Bacitracin (Neosporin Topical Oint) 1 applic BID TOP Last administered on 09/07/17 08:59; Admin Dose 1 APPLIC; Start 09/02/17 at 11:00 Amoxicillin (Amoxicillin) 500 mg Q8 PO Last administered on 09/07/17 05:13; Admin Dose 500 MG; Start 09/04/17 at 22:00 Assessment/Plan Additional Assessment/Plan rehab- 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 Continue current rehab interdisciplinary plan Dysphagia-continue current diet Seizure disorder. Hypertension. Coronary artery disease. Hyperlipidemia. BARNEY SINGLETARY MD Sep 07, 2017 10:49
[2017-09-07 19:29] VITALS: BP 114/63; RESP 20
[2017-09-07] MEDS: ATORVASTATIN 40 MG TAB PO SCH (21:29)
[2017-09-07] MEDS: SENNA TAB PO SCH (21:29)
[2017-09-07] MEDS: LATANOPROST 0.005% 2.5 ML OPH BOTH EYES SCH (21:30)
[2017-09-08] MEDS: ALBUTEROL/IPRATROPIUM (NEB) 3 ML AMP HHN SCH ×5 (01:48→19:30)
[2017-09-08 02:18] VITALS: BP 134/60; RESP 18
[2017-09-08] MEDS: PANTOPRAZOLE (EC) 40 MG TAB PO SCH (06:36)
[2017-09-08] MEDS: AMOXICILLIN 500 MG CAP PO SCH ×3 (06:36→21:44)
[2017-09-08 07:00] VITALS: BP 133/63; RESP 18
[2017-09-08] MEDS: Insulin NOVOLOG SS MILD Algorithm (SS with meals and bedtime) SC SCH (07:35)
[2017-09-08] MEDS: SPIRONOLACTONE 25 MG TAB PO SCH (08:29)
[2017-09-08] MEDS: METOPROLOL (XL) 50 MG TAB PO SCH (08:33)
[2017-09-08] MEDS: DOCUSATE SODIUM 100 MG CAP PO SCH ×2 (08:34→20:12)
[2017-09-08] MEDS: LINAGLIPTIN 5 MG TABLET PO SCH (08:34)
[2017-09-08] MEDS: ASPIRIN (EC) 81 MG TAB PO SCH (08:34)
[2017-09-08] MEDS: LOSARTAN 50 MG TAB PO SCH (08:34)
[2017-09-08] MEDS: LEVETIRACETAM 500 MG TAB PO SCH ×2 (08:34→20:12)
[2017-09-08] MEDS: NEOMYC/POLYMYX/BACIT 30 GM OINT TOP SCH ×2 (09:00→20:12)
[2017-09-08] MEDS: ARTIFICIAL TEARS 15 ML OPH BOTH EYES SCH ×2 (09:00→20:12)
--- NOTE | 2017-09-08 12:38 | CONS ---
Date/Time of Note Date/Time of Note DATE: 09/08/17 TIME: 12:37 Consult Date/Type/Reason Admit Date/Time Aug 30, 2017 at 19:31 Subjective comfortable Objective min assist ambulation 100 Vital Signs Date Time Temp Pulse Resp B/P Pulse Ox O2 Delivery O2 Flow Rate FiO2 09/08/17 07:00 98.5 68 18 133/63 97 09/08/17 01:48 21 09/07/17 14:15 Nasal Cannula 2.0 Intake and Output 09/07/17 09/07/17 09/08/17 15:00 23:00 07:00 Intake Total 700 ml 240 ml Output Total 301 ml Balance 399 ml 240 ml Results/Medications Results 24 hrs Laboratory Tests Test 09/08/17 07:42 Bedside Glucose 122 Medications Current Medications Pantoprazole (Protonix Tab) 40 mg DAILY@06 PO Last administered on 09/08/17 06 :36; Admin Dose 40 MG; Start 08/31/17 at 06:00 Spironolactone (Aldactone) 12.5 mg DAILY PO Last administered on 09/08/17 08: 29; Admin Dose 12.5 MG; Start 08/31/17 at 09:00 Tramadol HCl (Ultram) 50 mg Q8H PRN PO PAIN Last administered on 09/07/17 09: 14; Admin Dose 50 MG; Start 08/30/17 at 22:00 Latanoprost (Xalatan) 1 drop HS BOTH EYES Last administered on 09/07/17 21:30 ; Admin Dose 1 DROP; Start 08/30/17 at 22:00 Levetiracetam (Keppra) 500 mg BID PO Last administered on 09/08/17 08:34; Admin Dose 500 MG; Start 08/30/17 at 22:00 Linagliptin (Tradjenta) 5 mg DAILY PO Last administered on 09/08/17 08:34; Admin Dose 5 MG; Start 08/31/17 at 09:00 Losartan Potassium (Cozaar) 50 mg DAILY PO Last administered on 09/08/17 08:34 ; Admin Dose 50 MG; Start 08/31/17 at 09:00 Magnesium Hydroxide (Milk Of Mag) 30 ml DAILY PRN PO CONSTIPATION; Start 08/30 at 22:00 Metoprolol Succinate (Toprol Xl) 50 mg DAILY PO Last administered on 09/08/17 08:33; Admin Dose 50 MG; Start 08/31/17 at 09:00 Miscellaneous Information 1 ea NOTE XX ; Start 08/30/17 at 22:00 Glucose (Glutose) 15 gm Q15M PRN PO DECREASED GLUCOSE; Start 08/30/17 at 22:00 Glucose (Glutose) 22.5 gm Q15M PRN PO DECREASED GLUCOSE; Start 08/30/17 at 22: 00 Dextrose (D50w Syringe) 25 ml Q15M PRN IV DECREASED GLUCOSE; Start 08/30/17 at 22:00 Dextrose (D50w Syringe) 50 ml Q15M PRN IV DECREASED GLUCOSE; Start 08/30/17 at 22:00 Glucagon (Glucagen) 1 mg Q15M PRN IM DECREASED GLUCOSE; Start 08/30/17 at 22: 00 Glucose (Glutose) 15 gm Q15M PRN BUCCAL DECREASED GLUCOSE; Start 08/30/17 at 22:00 Aspirin (Halfprin) 81 mg DAILY PO Last administered on 09/08/17 08:34; Admin Dose 81 MG; Start 08/31/17 at 09:00 Atorvastatin Calcium (Lipitor) 40 mg DAILY@21 PO Last administered on 21:29; Admin Dose 40 MG; Start 08/30/17 at 22:00 Docusate Sodium (Colace) 100 mg BID PO Last administered on 09/08/17 08:34; Admin Dose 100 MG; Start 08/31/17 at 09:00 Senna (Senokot) 1 tab HS PO Last administered on 09/07/17 21:29; Admin Dose 1 TAB; Start 08/31/17 at 21:00 Acetaminophen (Tylenol Tab) 650 mg Q4H PRN PO PAIN Last administered on 02:41; Admin Dose 650 MG; Start 08/31/17 at 04:00 Bisacodyl (Dulcolax Supp) 10 mg DAILY PRN [place] CONSTIPATION; Start 08/31/17 at 04:00 Lactulose (Enulose) 20 gm DAILY PRN PO CONSTIPATION; Start 08/31/17 at 04:00 Eye Lubricant (Artificial Tears Oph) 2 drop BID BOTH EYES Last administered on 09/07/17 21:30; Admin Dose 2 DROP; Start 09/02/17 at 11:00 Neomycin/ Polymyxin/ Bacitracin (Neosporin Topical Oint) 1 applic BID TOP Last administered on 09/07/17 21:30; Admin Dose 1 APPLIC; Start 09/02/17 at 11:00 Amoxicillin (Amoxicillin) 500 mg Q8 PO Last administered on 09/08/17 06:36; Admin Dose 500 MG; Start 09/04/17 at 22:00 Assessment/Plan Additional Assessment/Plan rehab- 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 Progressing well with rehab treatment plan Dysphagia-continue current diet Seizure disorder. Hypertension. Coronary artery disease. Hyperlipidemia. BARNEY SINGLETARY MD Sep 08, 2017 12:38
[2017-09-08 14:00] VITALS: BP 120/61; RESP 18
--- NOTE | 2017-09-08 17:02 | PN ---
Date/Time of Note Date/Time of Note DATE: 09/08/17 TIME: 17:00 Assessment/Plan VTE Prophylaxis VTE Prophylaxis Intervention: other (asa) Lines/Catheters IV Catheter Type (from Nrsg): Saline Lock Urinary Cath still in place: No Subjective 24 Hr Interval Summary Free Text/Dictation see p.t. notes, slow but steady progress with great improvement since admit. left visual loss about same, good clear speech today, fair content still max a for activity labs ok vs good, blood sugars ok alert lungs clear, hr ok better l sided streng imp doing well, dc plans in place Eyes: visual change Neurologic: focal-weakness Exam/Review of Systems Vital Signs Vitals Vital Signs Date Time Temp Pulse Resp B/P Pulse Ox O2 Delivery O2 Flow Rate FiO2 09/08/17 14:00 98.3 69 18 120/61 96 09/08/17 01:48 21 09/07/17 14:15 Nasal Cannula 2.0 Intake and Output 09/07/17 09/07/17 09/08/17 14:59 22:59 06:59 Intake Total 700 ml 240 ml Output Total 301 ml Balance 399 ml 240 ml Results Results 24 hrs Laboratory Tests Test 09/08/17 07:42 Bedside Glucose 122 Medications Medications Current Medications Pantoprazole (Protonix Tab) 40 mg DAILY@06 PO Last administered on 09/08/17 06 :36; Admin Dose 40 MG; Start 08/31/17 at 06:00 Spironolactone (Aldactone) 12.5 mg DAILY PO Last administered on 09/08/17 08: 29; Admin Dose 12.5 MG; Start 08/31/17 at 09:00 Tramadol HCl (Ultram) 50 mg Q8H PRN PO PAIN Last administered on 09/07/17 09: 14; Admin Dose 50 MG; Start 08/30/17 at 22:00 Latanoprost (Xalatan) 1 drop HS BOTH EYES Last administered on 09/07/17 21:30 ; Admin Dose 1 DROP; Start 08/30/17 at 22:00 Levetiracetam (Keppra) 500 mg BID PO Last administered on 09/08/17 08:34; Admin Dose 500 MG; Start 08/30/17 at 22:00 Linagliptin (Tradjenta) 5 mg DAILY PO Last administered on 09/08/17 08:34; Admin Dose 5 MG; Start 08/31/17 at 09:00 Losartan Potassium (Cozaar) 50 mg DAILY PO Last administered on 09/08/17 08:34 ; Admin Dose 50 MG; Start 08/31/17 at 09:00 Magnesium Hydroxide (Milk Of Mag) 30 ml DAILY PRN PO CONSTIPATION; Start 08/30 at 22:00 Metoprolol Succinate (Toprol Xl) 50 mg DAILY PO Last administered on 09/08/17 08:33; Admin Dose 50 MG; Start 08/31/17 at 09:00 Miscellaneous Information 1 ea NOTE XX ; Start 08/30/17 at 22:00 Glucose (Glutose) 15 gm Q15M PRN PO DECREASED GLUCOSE; Start 08/30/17 at 22:00 Glucose (Glutose) 22.5 gm Q15M PRN PO DECREASED GLUCOSE; Start 08/30/17 at 22: 00 Dextrose (D50w Syringe) 25 ml Q15M PRN IV DECREASED GLUCOSE; Start 08/30/17 at 22:00 Dextrose (D50w Syringe) 50 ml Q15M PRN IV DECREASED GLUCOSE; Start 08/30/17 at 22:00 Glucagon (Glucagen) 1 mg Q15M PRN IM DECREASED GLUCOSE; Start 08/30/17 at 22: 00 Glucose (Glutose) 15 gm Q15M PRN BUCCAL DECREASED GLUCOSE; Start 08/30/17 at 22:00 Aspirin (Halfprin) 81 mg DAILY PO Last administered on 09/08/17 08:34; Admin Dose 81 MG; Start 08/31/17 at 09:00 Atorvastatin Calcium (Lipitor) 40 mg DAILY@21 PO Last administered on 21:29; Admin Dose 40 MG; Start 08/30/17 at 22:00 Docusate Sodium (Colace) 100 mg BID PO Last administered on 09/08/17 08:34; Admin Dose 100 MG; Start 08/31/17 at 09:00 Senna (Senokot) 1 tab HS PO Last administered on 09/07/17 21:29; Admin Dose 1 TAB; Start 08/31/17 at 21:00 Acetaminophen (Tylenol Tab) 650 mg Q4H PRN PO PAIN Last administered on 02:41; Admin Dose 650 MG; Start 08/31/17 at 04:00 Bisacodyl (Dulcolax Supp) 10 mg DAILY PRN [place] CONSTIPATION; Start 08/31/17 at 04:00 Lactulose (Enulose) 20 gm DAILY PRN PO CONSTIPATION; Start 08/31/17 at 04:00 Eye Lubricant (Artificial Tears Oph) 2 drop BID BOTH EYES Last administered on 09/08/17 09:00; Admin Dose 2 DROP; Start 09/02/17 at 11:00 Neomycin/ Polymyxin/ Bacitracin (Neosporin Topical Oint) 1 applic BID TOP Last administered on 09/08/17 09:00; Admin Dose 1 APPLIC; Start 09/02/17 at 11:00 Amoxicillin (Amoxicillin) 500 mg Q8 PO Last administered on 09/08/17 15:25; Admin Dose 500 MG; Start 09/04/17 at 22:00; Stop 09/10/17 at 22:00 JAJA ORO MD Sep 08, 2017 17:02
[2017-09-08 20:00] VITALS: BP 140/68; RESP 18
[2017-09-08] MEDS: SENNA TAB PO SCH (20:12)
[2017-09-08] MEDS: ATORVASTATIN 40 MG TAB PO SCH (20:12)
[2017-09-08] MEDS: LATANOPROST 0.005% 2.5 ML OPH BOTH EYES SCH (20:12)
[2017-09-09] MEDS: ALBUTEROL/IPRATROPIUM (NEB) 3 ML AMP HHN SCH ×4 (02:00→19:56)
[2017-09-09 03:17] VITALS: BP 128/65; RESP 18
[2017-09-09] MEDS: PANTOPRAZOLE (EC) 40 MG TAB PO SCH (05:47)
[2017-09-09] MEDS: AMOXICILLIN 500 MG CAP PO SCH ×4 (05:47→21:04)
--- NOTE | 2017-09-09 06:46 | CONS ---
Date/Time of Note Date/Time of Note DATE: 09/09/17 TIME: 06:46 Consult Date/Type/Reason Admit Date/Time Aug 30, 2017 at 19:31 Objective cga ambulation 150 feet Vital Signs Date Time Temp Pulse Resp B/P Pulse Ox O2 Delivery O2 Flow Rate FiO2 09/09/17 03:17 98.3 75 18 128/65 95 09/08/17 19:30 21 09/07/17 14:15 Nasal Cannula 2.0 Intake and Output 09/08/17 09/08/17 09/09/17 15:00 23:00 07:00 Intake Total 1350 ml Output Total 600 ml Balance 750 ml Results/Medications Results 24 hrs Laboratory Tests Test 09/08/17 07:42 Bedside Glucose 122 Medications Current Medications Pantoprazole (Protonix Tab) 40 mg DAILY@06 PO Last administered on 09/08/17 06 :36; Admin Dose 40 MG; Start 08/31/17 at 06:00 Spironolactone (Aldactone) 12.5 mg DAILY PO Last administered on 09/08/17 08: 29; Admin Dose 12.5 MG; Start 08/31/17 at 09:00 Tramadol HCl (Ultram) 50 mg Q8H PRN PO PAIN Last administered on 09/07/17 09: 14; Admin Dose 50 MG; Start 08/30/17 at 22:00 Latanoprost (Xalatan) 1 drop HS BOTH EYES Last administered on 09/08/17 20:12 ; Admin Dose 1 DROP; Start 08/30/17 at 22:00 Levetiracetam (Keppra) 500 mg BID PO Last administered on 09/08/17 20:12; Admin Dose 500 MG; Start 08/30/17 at 22:00 Linagliptin (Tradjenta) 5 mg DAILY PO Last administered on 09/08/17 08:34; Admin Dose 5 MG; Start 08/31/17 at 09:00 Losartan Potassium (Cozaar) 50 mg DAILY PO Last administered on 09/08/17 08:34 ; Admin Dose 50 MG; Start 08/31/17 at 09:00 Magnesium Hydroxide (Milk Of Mag) 30 ml DAILY PRN PO CONSTIPATION; Start 08/30 at 22:00 Metoprolol Succinate (Toprol Xl) 50 mg DAILY PO Last administered on 09/08/17 08:33; Admin Dose 50 MG; Start 08/31/17 at 09:00 Miscellaneous Information 1 ea NOTE XX ; Start 08/30/17 at 22:00 Glucose (Glutose) 15 gm Q15M PRN PO DECREASED GLUCOSE; Start 08/30/17 at 22:00 Glucose (Glutose) 22.5 gm Q15M PRN PO DECREASED GLUCOSE; Start 08/30/17 at 22: 00 Dextrose (D50w Syringe) 25 ml Q15M PRN IV DECREASED GLUCOSE; Start 08/30/17 at 22:00 Dextrose (D50w Syringe) 50 ml Q15M PRN IV DECREASED GLUCOSE; Start 08/30/17 at 22:00 Glucagon (Glucagen) 1 mg Q15M PRN IM DECREASED GLUCOSE; Start 08/30/17 at 22: 00 Glucose (Glutose) 15 gm Q15M PRN BUCCAL DECREASED GLUCOSE; Start 08/30/17 at 22:00 Aspirin (Halfprin) 81 mg DAILY PO Last administered on 09/08/17 08:34; Admin Dose 81 MG; Start 08/31/17 at 09:00 Atorvastatin Calcium (Lipitor) 40 mg DAILY@21 PO Last administered on 20:12; Admin Dose 40 MG; Start 08/30/17 at 22:00 Docusate Sodium (Colace) 100 mg BID PO Last administered on 09/08/17 20:12; Admin Dose 100 MG; Start 08/31/17 at 09:00 Senna (Senokot) 1 tab HS PO Last administered on 09/08/17 20:12; Admin Dose 1 TAB; Start 08/31/17 at 21:00 Acetaminophen (Tylenol Tab) 650 mg Q4H PRN PO PAIN Last administered on 02:41; Admin Dose 650 MG; Start 08/31/17 at 04:00 Bisacodyl (Dulcolax Supp) 10 mg DAILY PRN [place] CONSTIPATION; Start 08/31/17 at 04:00 Lactulose (Enulose) 20 gm DAILY PRN PO CONSTIPATION; Start 08/31/17 at 04:00 Eye Lubricant (Artificial Tears Oph) 2 drop BID BOTH EYES Last administered on 09/08/17 20:12; Admin Dose 2 DROP; Start 09/02/17 at 11:00 Neomycin/ Polymyxin/ Bacitracin (Neosporin Topical Oint) 1 applic BID TOP Last administered on 09/08/17 20:12; Admin Dose 1 APPLIC; Start 09/02/17 at 11:00 Amoxicillin (Amoxicillin) 500 mg Q8 PO Last administered on 09/08/17 15:25; Admin Dose 500 MG; Start 09/04/17 at 22:00; Stop 09/10/17 at 22:00 Assessment/Plan Additional Assessment/Plan rehab- 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 Progressing well with rehab treatment plan Dysphagia-continue current diet Seizure disorder. Hypertension. Coronary artery disease. Hyperlipidemia. BARNEY SINGLETARY MD Sep 09, 2017 06:46
[2017-09-09 07:30] VITALS: BP 149/71; RESP 20
[2017-09-09] MEDS: Insulin NOVOLOG SS MILD Algorithm (SS with meals and bedtime) SC SCH (07:35)
[2017-09-09] MEDS: NEOMYC/POLYMYX/BACIT 30 GM OINT TOP SCH ×2 (08:53→20:45)
[2017-09-09] MEDS: DOCUSATE SODIUM 100 MG CAP PO SCH ×2 (08:53→20:44)
[2017-09-09] MEDS: METOPROLOL (XL) 50 MG TAB PO SCH (08:53)
[2017-09-09] MEDS: ARTIFICIAL TEARS 15 ML OPH BOTH EYES SCH ×2 (08:53→20:44)
[2017-09-09] MEDS: LEVETIRACETAM 500 MG TAB PO SCH ×2 (08:54→20:44)
[2017-09-09] MEDS: LOSARTAN 50 MG TAB PO SCH (08:54)
[2017-09-09] MEDS: LINAGLIPTIN 5 MG TABLET PO SCH (08:54)
[2017-09-09] MEDS: ASPIRIN (EC) 81 MG TAB PO SCH (08:54)
[2017-09-09] MEDS: SPIRONOLACTONE 25 MG TAB PO SCH (08:54)
[2017-09-09 14:00] VITALS: BP 125/61; RESP 18
--- NOTE | 2017-09-09 19:46 | PN ---
Date/Time of Note Date/Time of Note DATE: 09/09/17 TIME: 14:30 Late entry Assessment/Plan VTE Prophylaxis VTE Prophylaxis Intervention: ambulation Lines/Catheters IV Catheter Type (from Nrs): [facility]ine Lock [facility] line still needed: No Urinary Cath still in place: No Assessment/Plan Problems: (1) Hyperlipidemia Status: Chronic Qualifiers: Hyperlipidemia type: pure hypercholesterolemia Qualified Code: E78.00 - Pure hypercholesterolemia (2) Essential (primary) hypertension Status: Chronic (3) Atherosclerotic heart disease of [place] coronary artery without angina pectoris Status: Chronic (4) Type 2 diabetes mellitus without complications Status: Chronic 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 Thinks some worsening of foot drop Exam/Review of Systems Vital Signs Vitals Vital Signs Date Time Temp Pulse Resp B/P Pulse Ox O2 Delivery O2 Flow Rate FiO2 09/09/17 14:00 97.1 70 18 125/61 97 09/08/17 19:30 21 09/07/17 14:15 Nasal Cannula 2.0 Intake and Output 09/08/17 09/08/17 09/09/17 15:00 23:00 07:00 Intake Total 1350 ml Output Total 600 ml Balance 750 ml Exam Constitutional: alert, oriented, well developed Neck: supple Respiratory: clear to auscultation Cardiovascular: regular rate and rhythm Extremities: other (left foot in brace) Results Results 24 hrs Laboratory Tests Test 09/09/17 08:09 Bedside Glucose 124 Medications Medications Current Medications Pantoprazole (Protonix Tab) 40 mg DAILY@06 PO Last administered on 09/08/17 06 :36; Admin Dose 40 MG; Start 08/31/17 at 06:00 Spironolactone (Aldactone) 12.5 mg DAILY PO Last administered on 09/09/17 08: 54; Admin Dose 12.5 MG; Start 08/31/17 at 09:00 Tramadol HCl (Ultram) 50 mg Q8H PRN PO PAIN Last administered on 09/07/17 09: 14; Admin Dose 50 MG; Start 08/30/17 at 22:00 Latanoprost (Xalatan) 1 drop HS BOTH EYES Last administered on 09/08/17 20:12 ; Admin Dose 1 DROP; Start 08/30/17 at 22:00 Levetiracetam (Keppra) 500 mg BID PO Last administered on 09/09/17 08:54; Admin Dose 500 MG; Start 08/30/17 at 22:00 Linagliptin (Tradjenta) 5 mg DAILY PO Last administered on 09/09/17 08:54; Admin Dose 5 MG; Start 08/31/17 at 09:00 Losartan Potassium (Cozaar) 50 mg DAILY PO Last administered on 09/09/17 08:54 ; Admin Dose 50 MG; Start 08/31/17 at 09:00 Magnesium Hydroxide (Milk Of Mag) 30 ml DAILY PRN PO CONSTIPATION; Start 08/30 at 22:00 Metoprolol Succinate (Toprol Xl) 50 mg DAILY PO Last administered on 09/09/17 08:53; Admin Dose 50 MG; Start 08/31/17 at 09:00 Miscellaneous Information 1 ea NOTE XX ; Start 08/30/17 at 22:00 Glucose (Glutose) 15 gm Q15M PRN PO DECREASED GLUCOSE; Start 08/30/17 at 22:00 Glucose (Glutose) 22.5 gm Q15M PRN PO DECREASED GLUCOSE; Start 08/30/17 at 22: 00 Dextrose (D50w Syringe) 25 ml Q15M PRN IV DECREASED GLUCOSE; Start 08/30/17 at 22:00 Dextrose (D50w Syringe) 50 ml Q15M PRN IV DECREASED GLUCOSE; Start 08/30/17 at 22:00 Glucagon (Glucagen) 1 mg Q15M PRN IM DECREASED GLUCOSE; Start 08/30/17 at 22: 00 Glucose (Glutose) 15 gm Q15M PRN BUCCAL DECREASED GLUCOSE; Start 08/30/17 at 22:00 Aspirin (Halfprin) 81 mg DAILY PO Last administered on 09/09/17 08:54; Admin Dose 81 MG; Start 08/31/17 at 09:00 Atorvastatin Calcium (Lipitor) 40 mg DAILY@21 PO Last administered on 20:12; Admin Dose 40 MG; Start 08/30/17 at 22:00 Docusate Sodium (Colace) 100 mg BID PO Last administered on 09/09/17 08:53; Admin Dose 100 MG; Start 08/31/17 at 09:00 Senna (Senokot) 1 tab HS PO Last administered on 09/08/17 20:12; Admin Dose 1 TAB; Start 08/31/17 at 21:00 Acetaminophen (Tylenol Tab) 650 mg Q4H PRN PO PAIN Last administered on 02:41; Admin Dose 650 MG; Start 08/31/17 at 04:00 Bisacodyl (Dulcolax Supp) 10 mg DAILY PRN [place] CONSTIPATION; Start 08/31/17 at 04:00 Lactulose (Enulose) 20 gm DAILY PRN PO CONSTIPATION; Start 08/31/17 at 04:00 Eye Lubricant (Artificial Tears Oph) 2 drop BID BOTH EYES Last administered on 09/09/17 08:53; Admin Dose 2 DROP; Start 09/02/17 at 11:00 Neomycin/ Polymyxin/ Bacitracin (Neosporin Topical Oint) 1 applic BID TOP Last administered on 09/09/17 08:53; Admin Dose 1 APPLIC; Start 09/02/17 at 11:00 Amoxicillin (Amoxicillin) 500 mg Q8 PO Last administered on 09/09/17 16:05; Admin Dose 500 MG; Start 09/04/17 at 22:00; Stop 09/10/17 at 22:00 KELLY CANTU MD Sep 09, 2017 19:46
[2017-09-09 20:00] VITALS: BP 163/77; RESP 18
[2017-09-09 20:30] VITALS: BP 152/63; PULSE 75
[2017-09-09] MEDS: SENNA TAB PO SCH (20:44)
[2017-09-09] MEDS: LATANOPROST 0.005% 2.5 ML OPH BOTH EYES SCH (20:44)
[2017-09-09] MEDS: ATORVASTATIN 40 MG TAB PO SCH (20:44)
[2017-09-10] VITALS (10 sets, daily range): BP systolic 124–176; BP diastolic 59–80; PULSE 66–79; RESP 16–20
[2017-09-10] MEDS: ALBUTEROL/IPRATROPIUM (NEB) 3 ML AMP HHN SCH ×4 (02:00→22:24)
[2017-09-10] MEDS: AMOXICILLIN 500 MG CAP PO SCH ×4 (05:24→23:02)
[2017-09-10] MEDS: PANTOPRAZOLE (EC) 40 MG TAB PO SCH (05:24)
[2017-09-10] MEDS: Insulin NOVOLOG SS MILD Algorithm (SS with meals and bedtime) SC SCH (07:35)
[2017-09-10] MEDS: DOCUSATE SODIUM 100 MG CAP PO SCH ×2 (09:36→21:00)
[2017-09-10] MEDS: ARTIFICIAL TEARS 15 ML OPH BOTH EYES SCH ×2 (09:37→21:51)
[2017-09-10] MEDS: LINAGLIPTIN 5 MG TABLET PO SCH (09:37)
[2017-09-10] MEDS: METOPROLOL (XL) 50 MG TAB PO SCH (09:37)
[2017-09-10] MEDS: LEVETIRACETAM 500 MG TAB PO SCH (09:37)
[2017-09-10] MEDS: ASPIRIN (EC) 81 MG TAB PO SCH (09:38)
[2017-09-10] MEDS: NEOMYC/POLYMYX/BACIT 30 GM OINT TOP SCH ×2 (09:38→21:52)
[2017-09-10] MEDS: SPIRONOLACTONE 25 MG TAB PO SCH (09:42)
[2017-09-10] MEDS: LOSARTAN 50 MG TAB PO SCH (09:43)
--- NOTE | 2017-09-10 17:17 | PN ---
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: without continuous churn buttermaker use Qualified Code: E11.9 - Type 2 diabetes mellitus without complication, without long-term current use of insulin (3) Essential (primary) hypertension Status: Chronic (4) Hyperlipidemia Status: Chronic Qualifiers: Hyperlipidemia type: pure hypercholesterolemia Qualified Code: E78.00 - Pure hypercholesterolemia (5) Seizure Status: Resolved (6) UTI (urinary tract infection) Status: Acute Comment: on antibiotic therapy Assessment/Plan Clinically stable Subjective 24 Hr Interval Summary Free Text/Dictation No new issues Exam/Review of Systems Vital Signs Vitals Vital Signs Date Time Temp Pulse Resp B/P Pulse Ox O2 Delivery O2 Flow Rate FiO2 09/10/17 14:00 98.3 70 18 132/60 98 09/10/17 01:37 Room Air 09/09/17 19:58 21 09/09/17 19:42 2.0 Intake and Output 09/09/17 09/09/17 09/10/17 15:00 23:00 07:00 Intake Total 650 ml 420 ml 900 ml Balance 650 ml 420 ml 900 ml Exam patient asleep Results Results 24 hrs Laboratory Tests Test 09/10/17 08:22 Bedside Glucose 109 Medications Medications Current Medications Pantoprazole (Protonix Tab) 40 mg DAILY@06 PO Last administered on 09/10/17 05:24; Admin Dose 40 MG; Start 08/31/17 at 06:00 Spironolactone (Aldactone) 12.5 mg DAILY PO Last administered on 09/10/17 09: 42; Admin Dose 12.5 MG; Start 08/31/17 at 09:00 Tramadol HCl (Ultram) 50 mg Q8H PRN PO PAIN Last administered on 09/07/17 09: 14; Admin Dose 50 MG; Start 08/30/17 at 22:00 Latanoprost (Xalatan) 1 drop HS BOTH EYES Last administered on 09/09/17 20:44 ; Admin Dose 1 DROP; Start 08/30/17 at 22:00 Levetiracetam (Keppra) 500 mg BID PO Last administered on 09/10/17 09:37; Admin Dose 500 MG; Start 08/30/17 at 22:00 Linagliptin (Tradjenta) 5 mg DAILY PO Last administered on 09/10/17 09:37; Admin Dose 5 MG; Start 08/31/17 at 09:00 Losartan Potassium (Cozaar) 50 mg DAILY PO Last administered on 09/10/17 09: 43; Admin Dose 50 MG; Start 08/31/17 at 09:00 Magnesium Hydroxide (Milk Of Mag) 30 ml DAILY PRN PO CONSTIPATION; Start 08/30 at 22:00 Metoprolol Succinate (Toprol Xl) 50 mg DAILY PO Last administered on 09:37; Admin Dose 50 MG; Start 08/31/17 at 09:00 Miscellaneous Information 1 ea NOTE XX ; Start 08/30/17 at 22:00 Glucose (Glutose) 15 gm Q15M PRN PO DECREASED GLUCOSE; Start 08/30/17 at 22:00 Glucose (Glutose) 22.5 gm Q15M PRN PO DECREASED GLUCOSE; Start 08/30/17 at 22: 00 Dextrose (D50w Syringe) 25 ml Q15M PRN IV DECREASED GLUCOSE; Start 08/30/17 at 22:00 Dextrose (D50w Syringe) 50 ml Q15M PRN IV DECREASED GLUCOSE; Start 08/30/17 at 22:00 Glucagon (Glucagen) 1 mg Q15M PRN IM DECREASED GLUCOSE; Start 08/30/17 at 22: 00 Glucose (Glutose) 15 gm Q15M PRN BUCCAL DECREASED GLUCOSE; Start 08/30/17 at 22:00 Aspirin (Halfprin) 81 mg DAILY PO Last administered on 09/10/17 09:38; Admin Dose 81 MG; Start 08/31/17 at 09:00 Atorvastatin Calcium (Lipitor) 40 mg DAILY@21 PO Last administered on 20:44; Admin Dose 40 MG; Start 08/30/17 at 22:00 Docusate Sodium (Colace) 100 mg BID PO Last administered on 09/10/17 09:36; Admin Dose 100 MG; Start 08/31/17 at 09:00 Senna (Senokot) 1 tab HS PO Last administered on 09/09/17 20:44; Admin Dose 1 TAB; Start 08/31/17 at 21:00 Acetaminophen (Tylenol Tab) 650 mg Q4H PRN PO PAIN Last administered on 02:41; Admin Dose 650 MG; Start 08/31/17 at 04:00 Bisacodyl (Dulcolax Supp) 10 mg DAILY PRN [place] CONSTIPATION; Start 08/31/17 at 04:00 Lactulose (Enulose) 20 gm DAILY PRN PO CONSTIPATION; Start 08/31/17 at 04:00 Eye Lubricant (Artificial Tears Oph) 2 drop BID BOTH EYES Last administered on 09/10/17 09:37; Admin Dose 2 DROP; Start 09/02/17 at 11:00 Neomycin/ Polymyxin/ Bacitracin (Neosporin Topical Oint) 1 applic BID TOP Last administered on 09/10/17 09:38; Admin Dose 1 APPLIC; Start 09/02/17 at 11:00 Amoxicillin (Amoxicillin) 500 mg Q8 PO Last administered on 09/10/17 13:42; Admin Dose 500 MG; Start 09/04/17 at 22:00; Stop 09/10/17 at 22:00 KELLY CANTU MD Sep 10, 2017 17:17
[2017-09-10 19:41] LABS: AADO2 Arterial 38.2 mmHg (7.0-24.0); Allen Test ACCEPTAB; Arterial Base Excess 1.4 mmol/L (-3.0-3); Arterial COHb 0.3 % (0.0-3.0); Arterial Fraction of Oxyhgb 97.8 % (93.0-99.0); Arterial HCO3 24.9 mmol/L (22.0-26.0); Arterial MetHb 0 % (0.0-1.5); Arterial Total Hemglobin 13.5 g/dl (12.0-18.0); MODE NASAL CANNULA
[2017-09-10] MEDS ORDERED: LORAZEPAM 2 MG INJ IV ONE (20:00)
[2017-09-10] MEDS ORDERED: LORAZEPAM 2 MG INJ IV PRN (20:00)
[2017-09-10] MEDS: ATORVASTATIN 40 MG TAB PO SCH ×2 (21:00→23:02)
[2017-09-10] MEDS: SENNA TAB PO SCH (21:00)
[2017-09-10] MEDS ORDERED: LEVETIRACETAM 500 MG TAB PO SCH (21:00)
[2017-09-10] MEDS ORDERED: LEVETIRACETAM 1000 MG (PMX) 100 ML IVPB SCH (21:00)
[2017-09-10] MEDS: LATANOPROST 0.005% 2.5 ML OPH BOTH EYES SCH (21:48)
[2017-09-10] MEDS ORDERED: LEVETIRACETAM IV 1,000 MG in DEXTROSE 5% 100 ML IV SCH (23:00)
[2017-09-11 02:00] VITALS: BP 120/58; RESP 18
[2017-09-11] MEDS: ALBUTEROL/IPRATROPIUM (NEB) 3 ML AMP HHN SCH ×2 (02:31→08:25)
[2017-09-11] MEDS: PANTOPRAZOLE (EC) 40 MG TAB PO SCH (06:08)
[2017-09-11 06:44] LABS: BASOPHILS % 0.8 % (0.0-2.0); EOSINOPHILS # 0.1 10^3/ul (0.0-0.5); EOSINOPHILS % 1.3 % (0.0-7.0); HEMATOCRIT 33.7 % (42.0-52.0); HEMOGLOBIN 11.4 g/dl (14.0-18.0); LYMPHOCYTES # 1.1 10^3/ul (0.8-2.9); LYMPHOCYTES % 19.9 % (15.0-51.0); MEAN CORPUSCULAR HEMOGLOBIN 32.5 pg (29.0-33.0); MEAN CORPUSCULAR HGB CONC 33.8 g/dl (32.0-37.0); MEAN PLATELET VOLUME 9.6 fl (7.4-10.4); MONOCYTE # 0.4 10^3/ul (0.3-0.9); MONOCYTES % 7.3 % (0.0-11.0); NEUTROPHIL # 3.8 10^3/ul (1.6-7.5); NEUTROPHILS % 70.3 % (39.0-77.0); PLATELET COUNT 172 10^3/UL (140-415); RED BLOOD COUNT 3.51 10^6/ul (4.70-6.10); RED CELL DISTRIBUTION WIDTH 13.3 % (11.5-14.5); WHITE BLOOD COUNT 5.3 10^3/ul (4.8-10.8)
[2017-09-11 06:45] VITALS: BP 144/68; PULSE 71; RESP 17
[2017-09-11] MEDS: ARTIFICIAL TEARS 15 ML OPH BOTH EYES SCH ×2 (06:48→09:00)
[2017-09-11 07:00] VITALS: BP 141/64; RESP 18
[2017-09-11 07:12] LABS: ALBUMIN 3.4 g/dl (3.3-4.9); ALBUMIN/GLOBULIN RATIO 1.13; BILIRUBIN,INDIRECT 0.3 mg/dl (0-1.1); BILIRUBIN,TOTAL 0.3 mg/dl (0.2-1.3); CALCIUM 9.5 mg/dl (8.4-10.2); CREATININE 1.05 mg/dl (0.61-1.24); MAGNESIUM 1.8 mg/dl (1.7-2.5); PHOSPHORUS 4.3 mg/dl (2.5-4.9); POTASSIUM 3.6 mmol/L (3.5-5.1); TOTAL PROTEIN 6.4 g/dl (6.1-8.1)
[2017-09-11] MEDS: Insulin NOVOLOG SS MILD Algorithm (SS with meals and bedtime) SC SCH (07:35)
[2017-09-11] MEDS ORDERED: LEVETIRACETAM 1000 MG (PMX) 100 ML IVPB SCH ×2 (09:00)
[2017-09-11] MEDS: METOPROLOL (XL) 50 MG TAB PO SCH (09:00)
[2017-09-11] MEDS: LINAGLIPTIN 5 MG TABLET PO SCH (09:00)
[2017-09-11] MEDS: DOCUSATE SODIUM 100 MG CAP PO SCH (09:00)
[2017-09-11] MEDS: LOSARTAN 50 MG TAB PO SCH (09:00)
[2017-09-11] MEDS: SPIRONOLACTONE 25 MG TAB PO SCH (09:00)
[2017-09-11] MEDS: ASPIRIN (EC) 81 MG TAB PO SCH (09:00)
[2017-09-11] MEDS: NEOMYC/POLYMYX/BACIT 30 GM OINT TOP SCH (09:40)
--- NOTE | 2017-09-13 09:54 | DS ---
Date/Time of Note Date/Time of Note DATE: 09/13/17 TIME: 09:34 Discharge Summary Admission/Discharge Info Admit Date/Time Aug 30, 2017 at 19:31 Discharge Date/Time Sep 11, 2017 at 11:10 Discharge Diagnosis 1. Seizure disorder, altered level of consciousness 2.Right posterior occipital infarct cerebrovascular accident with left-sided weakness. 3. Dysphagia. 4. Coronary artery disease. 5. Hyperlipidemia. 6. Hypertension 7. Impairments in self-care, mobility and cognition. Patient Condition: Serious Hospital Course Patient was admitted for comprehensive interdisciplinary acute rehabilitation. Patient made steady functional gains and improved from a max/ dependent level to a minimal level for self care and mobility, including ambulating over 150 feet with the use of a front wheeled walker. Caregiver was receiving ongoing training for assistance. On the evening of 09/10 a rapid response was called due to seizure activity and altered level of consciousness. Hospitalist evaluated the patient, and patient was given ativan and antiseizure medications. The covering physician for medicine and I were notified of the rapid response. I asked that the patient be placed on frequent neuro checks, and if there was a further decline or new neurologic event, the patient should be transferred to Acute. The following morning the patient was noted to have continued altered level of consciousness in addition to Left UE "twitching". When I evaluated the patient, patient did have altered level of consciousness and did not open eyes, but was able to follow one step commands with all four extremities. Patient was transferred to acute hospital for closer care and monitoring. Home Meds Reported Medications Levetiracetam* (Keppra*) 500 Mg Tablet, 500 MG PO BID, TAB 08/23/17 Spironolactone* (Aldactone*) 25 Mg Tablet, 12.5 MG PO DAILY, #30 TAB 08/23/17 Losartan Potassium* (Losartan Potassium*) 50 Mg Tablet, 50 MG PO DAILY, TAB 08/23/17 Atorvastatin Calcium* (Atorvastatin Calcium*) 20 Mg Tablet, 20 MG PO QHS, #30 TAB 08/23/17 Atorvastatin Calcium* (Atorvastatin Calcium*) 20 Mg Tablet, 20 MG PO QHS, #30 TAB 08/23/17 Metoprolol Succinate* (Toprol XL*) 50 Mg Tab.er.24h, 50 MG PO DAILY, #30 TAB 01/21/17 Latanoprost (Latanoprost) 2.5 Ml Drops, 1 DROP BOTH EYES QHS, #1 BOTTLE 01/21/17 Primary Care Provider MD HAYDER Galeano LIVA L. MD Sep 13, 2017 09:54
== END 2017-09-11 11:10 | disposition short-term general hospital (02) | DRG 57 ==
LOC: VRC 19:31
PROVIDERS: ADMIT Physical Medicine & Rehabilitation; ATTEND Internal Medicine
PROC: F07Z5ZZ Bed Mobility Treatment (ICD-10-PCS; principal; 2017-08-31)
PROC: F07Z4ZZ Wheelchair Mobility Treatment (ICD-10-PCS; 2017-08-31)
PROC: F07Z9ZZ Gait Training/Functional Ambulation Treatment (ICD-10-PCS; 2017-08-31)
PROC: F08Z2ZZ Grooming/Personal Hygiene Treatment (ICD-10-PCS; 2017-08-31)
PROC: F08Z1ZZ Dressing Techniques Treatment (ICD-10-PCS; 2017-08-31)
PROC: F08Z0ZZ Bathing/Showering Techniques Treatment (ICD-10-PCS; 2017-08-31)
DX: I69.354 Hemiplegia and hemiparesis following cerebral infarction affecting left non-dominant side (principal); R13.10 Dysphagia, unspecified; F01.50 Vascular dementia, unspecified severity, without behavioral disturbance, psychotic disturbance, mood disturbance, and anxiety; N39.0 Urinary tract infection, site not specified; E11.9 Type 2 diabetes mellitus without complications; G40.909 Epilepsy, unspecified, not intractable, without status epilepticus; I10 Essential (primary) hypertension; I25.10 Atherosclerotic heart disease of native coronary artery without angina pectoris; E78.5 Hyperlipidemia, unspecified; G31.84 Mild cognitive impairment of uncertain or unknown etiology; M19.90 Unspecified osteoarthritis, unspecified site; I69.398 Other sequelae of cerebral infarction; F06.31 Mood disorder due to known physiological condition with depressive features; Z74.09 Other reduced mobility; Z95.1 Presence of aortocoronary bypass graft
CPT/HCPCS: 36600; 80053; 81003; 82803; 82962; 83735; 84100; 85025; 87081; 87086; 92507; 92523; 92526; 92610; 94640; 97110; 97112; 97116; 97150; 97163; 97530; 97535; 97542; J1815; J1953; J2060

== ENCOUNTER 2017-09-11 11:35 | Inpatient (IN) | END 2017-10-04 14:05 | disposition hospice, home (50) | DRG 100 ==